=== PATIENT | female | born 1935 | race African-American/Black ===

== ENCOUNTER 2018-04-24 13:38 | Observation (INO) | payer BC, MEDICARE ==
[2018-04-24 14:01] LABS: ADD MAN DIFF? NO
[2018-04-24 14:04] LABS: BASO # 0.1 x10^3/uL (0.0-0.2); BASO % 1 % (0-3); EOS % 0 % (0-3); HEMATOCRIT 54.6 % (36.0-47.0); HEMOGLOBIN 18.9 g/dL (12.0-15.5); LYMPH # 1.4 x10^3/uL (1.0-4.8); LYMPH % 12 % (24-48); MEAN CORPUSCULAR HEMOGLOBIN 30 pg (25-35); MEAN CORPUSCULAR HGB CONC 35 g/dL (31-37); MEAN CORPUSCULAR VOLUME 87 fL (79-100); MONO # 0.2 x10^3/uL (0.0-1.1); MONO % 2 % (0-9); NEUT # 9.4 x10^3uL (1.8-7.7); NEUT % 85 % (31-73); PLATELET COUNT 310 x10^3/uL (140-400); RED BLOOD COUNT 6.31 x10^6/uL (3.50-5.40); RED CELL DISTRIBUTION WIDTH 15.7 % (11.5-14.5)
[2018-04-24 14:17] LABS: ANION GAP 14 (6-14); BLOOD UREA NITROGEN 11 mg/dL (7-20); BUN/CREATININE RATIO 18 (6-20); CALCIUM 9.8 mg/dL (8.5-10.1); CARBON DIOXIDE 26 mmol/L (21-32); CHLORIDE 103 mmol/L (98-107); CREATININE 0.6 mg/dL (0.6-1.0); GFR 115.2; GLUCOSE 168 mg/dL (70-99); POTASSIUM 3.2 mmol/L (3.5-5.1); SODIUM 143 mmol/L (136-145)
[2018-04-24 14:22] LABS: ALBUMIN 4.4 g/dL (3.4-5.0); ALBUMIN/GLOBULIN RATIO 1.3 (1.0-1.7); ALK PHOS 72 U/L (46-116); ALT (SGPT) 18 U/L (14-59); AST (SGOT) 35 U/L (15-37); LIPASE 68 U/L (73-393); MAGNESIUM 1.9 mg/dL (1.8-2.4); TOTAL BILIRUBIN 0.6 mg/dL (0.2-1.0); TOTAL PROTEIN 7.9 g/dL (6.4-8.2)
[2018-04-24 14:23] LABS: TROPONINI < 0.017 ng/mL (0.000-0.055)
[2018-04-24 14:29] LABS: CKMB MASS 0.5 ng/mL (0.0-3.6); CREATINE KINASE 38 U/L (26-192)
[2018-04-24 14:29] LABS: NT-PRO BNP 51 pg/mL (0-449)
[2018-04-24] MEDS: MORPHINE SULFATE 4 MG/ML DISP.SYRIN. IV (14:56)
[2018-04-24] MEDS: IV NORMAL SALINE 1000ML BAG 1,000 ML IV ×2 (14:57→17:54)
[2018-04-24] MEDS: LABETALOL 20 MG/4 ML DISP.SYRIN. IVP (15:18)
[2018-04-24] MEDS: POTASSIUM CHLORIDE 20 MEQ TABLET.ER. PO (15:19)
[2018-04-24] MEDS ORDERED: ACETAMINOPHEN 500 MG TABLET PO (15:30)
[2018-04-24] MEDS ORDERED: LABETALOL 20 MG/4 ML DISP.SYRIN. IVP (15:30)
[2018-04-24] MEDS ORDERED: DEXTROSE 50% 25 GM / 50ML DISP.SYRIN. IV (15:30)
[2018-04-24] MEDS ORDERED: ONDANSETRON ODT 4 MG TAB.RAPDIS. PO (15:45)
[2018-04-24] MEDS ORDERED: tiZANidine 4 MG TABLET. PO (15:45)
[2018-04-24] MEDS ORDERED: ALBUTEROL SULFATE 2.5 MG/3 ML NEBU. NEB (15:45)
[2018-04-24 15:55] LABS: THYROID STIM HORMONE (TSH) 0.207 uIU/mL (0.358-3.74)
[2018-04-24] MEDS: AZITHROMYCIN 250 MG TABLET. PO (16:52)
[2018-04-24] MEDS: INSULIN LISPRO 300 UNITS/3 ML INSULN.PEN. SQ (17:00)
[2018-04-24] MEDS: guaiFENesin DM 200MG/20MG 10 ML SYRUP PO ×2 (17:53→21:00)
[2018-04-24] MEDS: HYDROcodone/APAP 7.5/325MG 1 TAB TABLET PO (17:54)
[2018-04-24] MEDS: metFORMIN 500 MG TABLET PO (17:55)
[2018-04-24 18:24] LABS: POC GLUCOSE 133 mg/dL (70-99)
[2018-04-24] MEDS: ATORVASTATIN CALCIUM 40 MG TABLET. PO (21:05)
[2018-04-24] MEDS: ALPRAZolam 0.5 MG TABLET PO (21:05)
[2018-04-24] MEDS: BENZONATATE 100 MG CAPSULE. PO (21:05)
[2018-04-24] MEDS: TEMAZEPAM 7.5 MG CAPSULE PO (21:05)
[2018-04-24 21:28] LABS: POC GLUCOSE 112 mg/dL (70-99)
[2018-04-25] MEDS: HYDROcodone/APAP 7.5/325MG 1 TAB TABLET PO ×2 (03:08→21:10)
[2018-04-25 03:50] LABS: POC GLUCOSE 84 mg/dL (70-99)
[2018-04-25 05:01] LABS: ADD MAN DIFF? NO
[2018-04-25 05:43] LABS: ANION GAP 10 (6-14); BLOOD UREA NITROGEN 8 mg/dL (7-20); CALCIUM 8.8 mg/dL (8.5-10.1); CARBON DIOXIDE 26 mmol/L (21-32); CHLORIDE 104 mmol/L (98-107); CREATININE 0.6 mg/dL (0.6-1.0); GFR 115.2; GLUCOSE 118 mg/dL (70-99); MAGNESIUM 1.7 mg/dL (1.8-2.4); POTASSIUM 3.3 mmol/L (3.5-5.1); SODIUM 140 mmol/L (136-145)
[2018-04-25 07:37] LABS: POC GLUCOSE 90 mg/dL (70-99)
[2018-04-25] MEDS: INSULIN LISPRO 300 UNITS/3 ML INSULN.PEN. SQ ×3 (08:00→17:42)
[2018-04-25] MEDS: metFORMIN 500 MG TABLET PO (08:00)
[2018-04-25 08:05] LABS: TROPONINI < 0.017 ng/mL (0.000-0.055)
[2018-04-25] MEDS: ALPRAZolam 0.5 MG TABLET PO ×2 (08:14→21:11)
[2018-04-25] MEDS: MORPHINE SULFATE 2 MG/ML DISP.SYRIN. IV ×3 (08:15→14:26)
[2018-04-25 08:27] LABS: BASO # 0.1 x10^3/uL (0.0-0.2); BASO % 1 % (0-3); EOS # 0.3 x10^3/uL (0.0-0.7); EOS % 2 % (0-3); HEMATOCRIT 50.3 % (36.0-47.0); HEMOGLOBIN 17.1 g/dL (12.0-15.5); LYMPH # 3.6 x10^3/uL (1.0-4.8); LYMPH % 26 % (24-48); MEAN CORPUSCULAR HEMOGLOBIN 30 pg (25-35); MEAN CORPUSCULAR HGB CONC 34 g/dL (31-37); MEAN CORPUSCULAR VOLUME 87 fL (79-100); MONO # 0.6 x10^3/uL (0.0-1.1); MONO % 4 % (0-9); NEUT # 9.3 x10^3uL (1.8-7.7); NEUT % 67 % (31-73); PLATELET COUNT 291 x10^3/uL (140-400); RED BLOOD COUNT 5.77 x10^6/uL (3.50-5.40); RED CELL DISTRIBUTION WIDTH 15.3 % (11.5-14.5); WHITE BLOOD COUNT 13.9 x10^3/uL (4.0-11.0)
[2018-04-25] MEDS: guaiFENesin DM 200MG/20MG 10 ML SYRUP PO ×4 (09:00→21:27)
[2018-04-25] MEDS: BENZONATATE 100 MG CAPSULE. PO ×3 (09:00→21:11)
[2018-04-25] MEDS: LISINOPRIL 20 MG TABLET PO (09:26)
[2018-04-25 10:24] LABS: POC GLUCOSE 111 mg/dL (70-99)
[2018-04-25] MEDS: GLIMEPIRIDE 2 MG TABLET. PO ×2 (11:30→14:39)
[2018-04-25 11:53] LABS: POC GLUCOSE 112 mg/dL (70-99)
[2018-04-25] MEDS: REGADENOSON 0.4 MG/5 ML DISP.SYRIN. IV (12:32)
[2018-04-25] MEDS ORDERED: CONTRAST GIVEN. MC (13:00)
[2018-04-25] MEDS: ONDANSETRON PF 4 MG/2 ML VIAL. IV (13:23)
[2018-04-25] MEDS: IOHEXOL 240 MG/ML 50ML VIAL. PO (13:30)
[2018-04-25] MEDS: IOHEXOL 300 MG/ML 100ML VIAL. IV (13:30)
[2018-04-25] MEDS: guaiFENesin DM 600/30MG 1 TAB TAB.ER.12H PO ×2 (14:40→21:00)
[2018-04-25] MEDS: LINAGLIPTIN 5 MG TABLET PO (14:40)
[2018-04-25] MEDS: POTASSIUM CHLORIDE 20 MEQ TABLET.ER. PO (14:40)
[2018-04-25] MEDS: AZITHROMYCIN 250 MG TABLET. PO (14:40)
[2018-04-25] MEDS: ESTRADIOL 1 MG TABLET. PO (14:41)
[2018-04-25] MEDS: ENOXAPARIN 30 MG/0.3 ML SYRINGE. SQ (14:42)
[2018-04-25] MEDS: HYDROcodone/APAP 5/325MG 1 TAB TABLET PO (14:44)
[2018-04-25] MEDS: cefTRIAXone IV Push 1 GM VIAL. IVP (16:47)
[2018-04-25 17:04] LABS: POC GLUCOSE 202 mg/dL (70-99)
[2018-04-25 20:56] LABS: POC GLUCOSE 73 mg/dL (70-99)
[2018-04-25] MEDS: LACTOBACILLUS RHAMNOSUS GG 1 CAPSULE. PO (21:10)
[2018-04-25] MEDS: ATORVASTATIN CALCIUM 40 MG TABLET. PO (21:10)
[2018-04-25] MEDS: methylPREDNISolone SOD SUCC PF 40 MG/ML VIAL. IV (21:20)
[2018-04-25] MEDS: TEMAZEPAM 7.5 MG CAPSULE PO (21:20)
[2018-04-26 04:56] LABS: BASO % 0 % (0-3); EOS % 0 % (0-3); HEMATOCRIT 49.9 % (36.0-47.0); LYMPH # 0.6 x10^3/uL (1.0-4.8); LYMPH % 5 % (24-48); MEAN CORPUSCULAR HEMOGLOBIN 30 pg (25-35); MEAN CORPUSCULAR HGB CONC 34 g/dL (31-37); MEAN CORPUSCULAR VOLUME 89 fL (79-100); MONO # 0.1 x10^3/uL (0.0-1.1); MONO % 1 % (0-9); NEUT % 94 % (31-73); PLATELET COUNT 276 x10^3/uL (140-400); RED BLOOD COUNT 5.63 x10^6/uL (3.50-5.40); RED CELL DISTRIBUTION WIDTH 15.6 % (11.5-14.5); WHITE BLOOD COUNT 11.6 x10^3/uL (4.0-11.0)
[2018-04-26 04:57] LABS: ADD MAN DIFF? YES
[2018-04-26 05:17] LABS: ANION GAP 9 (6-14); BLOOD UREA NITROGEN 23 mg/dL (7-20); CALCIUM 9.1 mg/dL (8.5-10.1); CARBON DIOXIDE 26 mmol/L (21-32); CHLORIDE 105 mmol/L (98-107); CREATININE 1.1 mg/dL (0.6-1.0); GFR 57.3; GLUCOSE 225 mg/dL (70-99); MAGNESIUM 1.9 mg/dL (1.8-2.4); POTASSIUM 4.8 mmol/L (3.5-5.1); SODIUM 140 mmol/L (136-145)
[2018-04-26 05:25] LABS: % LYMPHS 3 % (24-48); % SEGS 97 % (35-66); PLT ESTIMATE ADEQUATE (ADEQUATE)
[2018-04-26 08:18] LABS: POC GLUCOSE 211 mg/dL (70-99)
[2018-04-26] MEDS: guaiFENesin DM 600/30MG 1 TAB TAB.ER.12H PO (08:58)
[2018-04-26] MEDS: ESTRADIOL 1 MG TABLET. PO (08:58)
[2018-04-26] MEDS: LINAGLIPTIN 5 MG TABLET PO (08:59)
[2018-04-26] MEDS: ALPRAZolam 0.5 MG TABLET PO (08:59)
[2018-04-26] MEDS: BENZONATATE 100 MG CAPSULE. PO (08:59)
[2018-04-26] MEDS: GLIMEPIRIDE 2 MG TABLET. PO (08:59)
[2018-04-26] MEDS: AZITHROMYCIN 250 MG TABLET. PO (08:59)
[2018-04-26] MEDS: methylPREDNISolone SOD SUCC PF 40 MG/ML VIAL. IV (09:00)
[2018-04-26] MEDS: LISINOPRIL 20 MG TABLET PO (09:00)
[2018-04-26] MEDS: LACTOBACILLUS RHAMNOSUS GG 1 CAPSULE. PO (09:00)
[2018-04-26] MEDS: INSULIN LISPRO 300 UNITS/3 ML INSULN.PEN. SQ ×2 (09:20→12:00)
[2018-04-26] MEDS: ENOXAPARIN 30 MG/0.3 ML SYRINGE. SQ (11:00)
[2018-04-26 11:02] LABS: POC GLUCOSE 291 mg/dL (70-99)
== END 2018-04-26 14:30 | disposition home or self-care (01) ==
LOC: ER 13:38 → 2 SOUTH 15:25
DX: R07.89 Other chest pain (principal); R00.0 Tachycardia, unspecified; J44.1 Chronic obstructive pulmonary disease with (acute) exacerbation; D75.1 Secondary polycythemia; E78.00 Pure hypercholesterolemia, unspecified; E78.5 Hyperlipidemia, unspecified; E87.6 Hypokalemia; F17.210 Nicotine dependence, cigarettes, uncomplicated; F41.9 Anxiety disorder, unspecified; K21.9 Gastro-esophageal reflux disease without esophagitis; K57.90 Diverticulosis of intestine, part unspecified, without perforation or abscess without bleeding; M19.90 Unspecified osteoarthritis, unspecified site; E11.51 Type 2 diabetes mellitus with diabetic peripheral angiopathy without gangrene
CPT/HCPCS: 36415; 71045; 71260; 74177; 78452; 80048; 80053; 82553; 82962; 83690; 83735; 83880; 84439; 84443; 84481; 84484; 85007; 85025; 85379; 93005; 93017; 93923; 96361; 96365; 96372; 96374; 96375; 96376; 97161-GP; 97166-GO; 99285-25; A9500; G0378; G0379; J0690; J0696; J1650; J1815; J2270; J2405; J2785; J2920; J3490; J7030; Q0144; Q9966; Q9967

== ENCOUNTER 2018-06-26 06:56 | Outpatient (CLI) | payer BC ==
[~2018-06-26] VITALS: Ht 152.4 cm; Wt 46.7 kg
[2018-06-26] VITALS (9 sets, daily range): BP systolic 143–166; BP diastolic 66–104
[~2018-06-26 06:56] MED LIST: ALPR0.254 PO; ALPR0.5T6 PO; AMIT100T PO; AMLO10TA2 PO; ATOR20TA PO; CETI10TA22 PO; CLIN150C14 PO; CLON0.3T PO; CRESTOR40 MG PO; CYCL10TA2 PO; DILT180C29 PO; ESOM40CA25 PO; ESTR0.5T PO; ESTR0.9T PO; GLIM1TAB2 PO; GLIM2TAB2 PO; GUAI5LIQ PO; HYDR-2758 PO; HYDR-2762 PO; HYDR25TA9 PO; LISI-130 PO; LISI2.5T PO; METF500T9 PO; METO-247 PO; METO100T7 PO; NYST100054 PO; ONDA4TAB11 PO; POTA20TA12 PO; PRED2.5T PO; SIMV40TA3 PO; SITA100T PO; TIZA4TAB PO
[2018-06-26] MEDS ORDERED: ALPR0.5T6 PO (07:18)
[2018-06-26] MEDS ORDERED: DIAZ5TAB4 PO (07:18)
[2018-06-26] MEDS ORDERED: MECL25TA3 PO (07:18)
[2018-06-26] MEDS ORDERED: AMLO10TA2 PO (07:18)
[2018-06-26] MEDS ORDERED: POTA20TA82 PO (07:18)
[2018-06-26 07:40] LABS: BASO # 0.1 x10^3/uL (0.0-0.2); BASO % 1 % (0-3); EOS # 0.2 x10^3/uL (0.0-0.7); EOS % 2 % (0-3); HEMATOCRIT 53.9 % (36.0-47.0); HEMOGLOBIN 18.6 g/dL (12.0-15.5); LYMPH # 2.7 x10^3/uL (1.0-4.8); LYMPH % 21 % (24-48); MEAN CORPUSCULAR HEMOGLOBIN 30 pg (25-35); MEAN CORPUSCULAR HGB CONC 35 g/dL (31-37); MEAN CORPUSCULAR VOLUME 87 fL (79-100); MONO # 0.6 x10^3/uL (0.0-1.1); MONO % 5 % (0-9); NEUT # 9.2 x10^3uL (1.8-7.7); NEUT % 72 % (31-73); PLATELET COUNT 341 x10^3/uL (140-400); RED BLOOD COUNT 6.19 x10^6/uL (3.50-5.40); RED CELL DISTRIBUTION WIDTH 13.8 % (11.5-14.5); WHITE BLOOD COUNT 12.8 x10^3/uL (4.0-11.0)
[2018-06-26 07:54] LABS: PROTHROMBIN TIME PATIENT 12.9 SEC (11.7-14.0)
[2018-06-26] MEDS ORDERED: LIDOCAINE WITH 8.4% SOD BICARB 3 ML DISP.SYRIN. ONE (08:11)
[2018-06-26] MEDS ORDERED: fentaNYL PF VIAL 100 MCG/2 ML VIAL ONE (08:42)
[2018-06-26] MEDS ORDERED: LIDOCAINE WITH 8.4% SOD BICARB 3 ML DISP.SYRIN. IJ ONE (09:00)
[2018-06-26] MEDS ORDERED: fentaNYL PF VIAL 100 MCG/2 ML VIAL IV ONE (09:00)
--- NOTE | 2018-06-26 09:25 | RAD ---
CT-guided bone marrow biopsy. 06/26/2018 9:20 AM Indication: Polycythemia Discussion: The risks and benefits of the procedure, including but not limited to, bleeding and infection were discussed patient. Informed consent was obtained. The patient was brought to the CT scanner and placed in the prone position. A timeout procedure was performed. Disposal Man CT imaging of the pelvis demonstrated left ilium amenable to bone marrow biopsy. The overlying soft tissues were prepped and draped using maximum sterile barrier technique. 1% lidocaine without epinephrine was administered for local anesthesia. Under intermittent CT guidance, an OncControl needle was advanced into the bone marrow of the left iliac crest. 2 Aspirates and 1 core biopsy samples were obtained. Samples were delivered to pathology was present at the time of procedure. The needle was removed and manual pressure held to achieve hemostasis. No immediate complications were identified. The procedure was performed under conscious sedation including continuous cardiopulmonary monitoring via dedicated sedation nurse. Sedation time: 20 minutes Impression: Successful CT-guided bone marrow biopsy of the left iliac crest . PQRS Compliance Statement: One or more of the following individualized dose reduction techniques were utilized for this examination: 1. Automated exposure control 2. Adjustment of the mA and/or kV according to patient size 3. Use of iterative reconstruction technique
== END 2018-06-26 10:58 | disposition home or self-care (01) ==
LOC: INTRAD 06:56
PROVIDERS: ATTEND Internal Medicine Hematology & Oncology
DX: D45 Polycythemia vera (principal); E78.00 Pure hypercholesterolemia, unspecified; I48.91 Unspecified atrial fibrillation; I10 Essential (primary) hypertension; J44.9 Chronic obstructive pulmonary disease, unspecified; Z99.81 Dependence on supplemental oxygen; Z90.49 Acquired absence of other specified parts of digestive tract; K21.9 Gastro-esophageal reflux disease without esophagitis; Z90.710 Acquired absence of both cervix and uterus; M79.7 Fibromyalgia; M19.90 Unspecified osteoarthritis, unspecified site; E11.9 Type 2 diabetes mellitus without complications; F41.9 Anxiety disorder, unspecified; Z98.890 Other specified postprocedural states; Z82.49 Family history of ischemic heart disease and other diseases of the circulatory system; Z88.8 Allergy status to other drugs, medicaments and biological substances; Z88.6 Allergy status to analgesic agent; Z83.3 Family history of diabetes mellitus; Z79.84 Long term (current) use of oral hypoglycemic drugs; Z79.899 Other long term (current) drug therapy; F17.210 Nicotine dependence, cigarettes, uncomplicated
CPT/HCPCS: 36415; 38222; 77012; 85025; 85610; 88184; 88185; 88237; 99152; J3010

== ENCOUNTER → 2019-09-16 | Outpatient (CLI) | payer BC ==
[2018-06-26 09:45] VITALS: BP 156/66
[~2019-09-16] MED LIST changes: -AMLO10TA2 PO; +AMLO10TA8 PO; +DIAZ5TAB4 PO; -GLIM1TAB2 PO; +GLIM1TAB3 PO; -GLIM2TAB2 PO; +GLIM2TAB3 PO; +HYDR-2145 PO; -HYDR-2758 PO; +HYDR-2761 PO; -HYDR-2762 PO; +HYDR-2765 PO; -HYDR25TA9 PO; +MECL25TA3 PO; +METF500T11 PO; -METF500T9 PO; +POTA20TA82 PO; +SIMV40TA18 PO; -SIMV40TA3 PO; -TIZA4TAB PO; +TIZA4TAB2 PO
--- NOTE | 2019-09-16 16:15 | RAD ---
EXAM: Right shoulder, 3 views. HISTORY: Pain. COMPARISON: None. FINDINGS: 3 views of the right shoulder obtained. There is no fracture, dislocation or subluxation. There is degenerative subchondral sclerosis, subchondral cyst formation and marginal spurring along the inferior glenohumeral joint. There is facet arthropathy involving the visualized cervical spine. IMPRESSION: 1. Mild glenohumeral osteoarthritis. 2. No acute osseous finding. Electronically signed by: Daphne Colbert MD (09/16/2019 4:12 PM) [facility]
== END | disposition home or self-care (01) ==
LOC: RAD 10:43
PROVIDERS: ATTEND Family Medicine
DX: M19.011 Primary osteoarthritis, right shoulder (principal); M25.811 Other specified joint disorders, right shoulder; M75.81 Other shoulder lesions, right shoulder
CPT/HCPCS: 73030

== ENCOUNTER → 2020-01-01 | Day surgery (SDC) | payer BC, MEDICAID ==
[~2020-01-01] MED LIST changes: +ALBUTEROL SULFATE 2.5 MG/3 ML NEBU. NEB PRN; +ALPR0.25 PO; +AMOX1TAB58 PO; -CETI10TA22 PO; +CETI10TA24 PO; +CLON0.2T PO; +ENOX40DI3 SQ; +EPINEPHrine 1 MG/ML VIAL INJ PRN; +EPINEPHrine 1 MG/ML VIAL ONE; +FOLI20CA PO; -GLIM1TAB3 PO; +GLIM1TAB7 PO; -GLIM2TAB3 PO; +GLIM2TAB7 PO; +GUAI237L83 PO; +HYDR-2868 PO; +HYDR12.575 PO; +IPRA3AMP29 NEB; +IV RINGERS,LACTATED 1000ML 1,000 ML IV SCH; +LIDOCAINE 1% Multi-Dose 20 ML VIAL. ONE; +LIDOCAINE 2% PF 5 ML VIAL. ONE; +LIDOCAINE 2% VISCOUS 100 ML BOTTLE. MM PRN; +LIDOCAINE 2% VISCOUS 100 ML BOTTLE. ONE; +LIDOCAINE 4% TOPICAL 50 ML SOLUTION. MM PRN; +LIDOCAINE 4% TOPICAL 50 ML SOLUTION. ONE; +MECL-75 PO; -MECL25TA3 PO; +METO50TA6 PO; +OMEG1CAP27 PO; +ONDA-84 PO; -ONDA4TAB11 PO; +PANT40TA77 PO; +POTA20TA4 PO; -POTA20TA82 PO; +PRED-220 PO; +PRED20TA PO; +PRED50TA PO; +PROPOFOL 40 ML IV ONE; +ROFL500T7 PO; +RUXO10TA PO; +hydrALAZINE 20 MG/ML VIAL. IVP ONE
[2020-01-01 10:49] LABS: BASO % 1 % (0-3); EOS # 0.2 x10^3/uL (0.0-0.7); EOS % 2 % (0-3); HEMATOCRIT 30.7 % (36.0-47.0); HEMOGLOBIN 10.2 g/dL (12.0-15.5); LYMPH # 1.5 x10^3/uL (1.0-4.8); LYMPH % 19 % (24-48); MEAN CORPUSCULAR HEMOGLOBIN 30 pg (25-35); MEAN CORPUSCULAR HGB CONC 33 g/dL (31-37); MEAN CORPUSCULAR VOLUME 89 fL (79-100); MONO # 0.4 x10^3/uL (0.0-1.1); MONO % 5 % (0-9); NEUT # 5.6 x10^3/uL (1.8-7.7); NEUT % 73 % (31-73); PLATELET COUNT 297 x10^3/uL (140-400); RED BLOOD COUNT 3.43 x10^6/uL (3.50-5.40); RED CELL DISTRIBUTION WIDTH 16.6 % (11.5-14.5); WHITE BLOOD COUNT 7.7 x10^3/uL (4.0-11.0)
[2020-01-01 11:10] LABS: PROTHROMBIN TIME PATIENT 13.2 SEC (11.7-14.0)
--- NOTE | 2020-01-01 12:22 | OP ---
DATE OF SURGERY: PROCEDURE: Bronchoscopy. INDICATIONS: Collapsed left lower lobe. DESCRIPTION OF PROCEDURE: Informed consent was obtained from the patient. All risks and benefits were explained. Propofol was used by Anesthesia for sedation. Bronch was introduced through the right nostril. The upper airway was passed. Some secretions seen in the upper airway. Vocal cords moves equally with respiration. The trachea was entered. White secretions seen in the trachea, which were present in both the main stem bronchus observed. The right lung was first examined. All subsegments of right upper, right middle and right lower lobe were examined. Mild thick secretions seen in the bronchus intermedius and lower lobes and they were all aspirated. Bronch was then introduced into the left lung. There were mucoid secretions seen in the left lower lobe. There was significant narrowing of the bronchopulmonary segments involving the left lower lobe, especially the superior subsegment, suggesting bronchomalacia. Bronchoalveolar lavage from the left lower lobe. The superior subsegment appeared to have very narrow opening and some dried secretions. They were removed partially. However, during the procedure, the patient's systolic blood pressure went up to 250. Her sats dropped as well in the 80s. As a result, bronchoscope was withdrawn and was not further continued. Her blood pressure did improve during the 180s upon termination of the procedure and sats were 98%. IMPRESSION: 1. Mildly thick secretions seen in the distal trachea and both the main stem bronchus. 2. 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 3. Thick dried secretions seen in the superior subsegment of the left lower lobe. Bronchoalveolar lavage performed from that area. I did not see a definite endobronchial lesion; however, she needs to be clinically and radiographically followed. 4. Procedure was terminated as patient's blood pressure became pretty high during the procedure as discussed above, but it did subsequently improve upon termination of the procedure. 4. I have discussed with Dr. Gallardo. He will follow the culture results at the [facility]. EUGENIO HIGUERA MD DR: BRIAN/ruy JOB#: [id number] / [id number]
[2020-01-01 13:00] VITALS: BP 209/97
--- NOTE | 2020-01-08 20:54 | CONS ---
DATE OF CONSULTATION: 01/01/2020 BRIEF CONSULTATION PRIOR TO BRONCHOSCOPY INDICATION FOR BRONCHOSCOPY: Persistent left lower lobe atelectasis and mucous plug. HISTORY OF PRESENT ILLNESS: The patient is an 81-year-old female who has history of chronic hypoxic respiratory failure, history of chronic obstructive pulmonary disease, history of pneumonias in the past. She is currently at skilled care facility. She was brought into the hospital at [facility] for an outpatient bronchoscopy due to persistent left lower lobe atelectatic consolidation, which had increased. There was resolution of previous right basal consolidation. She denies any chest pains, no cough, no fever, no chills. PAST MEDICAL HISTORY: Significant for anxiety, diabetes, gastroesophageal reflux disease, hypertension, hyperlipidemia, chronic obstructive pulmonary disease, and chronic respiratory failure. PAST SURGICAL HISTORY: No recent surgeries. FAMILY HISTORY: Positive for diabetes and hypertension. REVIEW OF SYSTEMS: Ten-point system obtained. Pertinent positives discussed in my history of present illness, otherwise noncontributory. All systems that were negative were reviewed as well. ALLERGIES: None. MEDICATIONS: Reviewed as listed in the MRAD. PHYSICAL EXAMINATION: VITAL SIGNS: Reviewed, stable. NECK: Supple. LUNGS: Slightly diminished breath sounds. CARDIOVASCULAR: With a regular rate. ABDOMEN: Soft. EXTREMITIES: With no pitting edema. IMPRESSION: 1. Abnormal CT chest with increasing left lower lobe atelectasis, likely related to mucus plug. We will proceed with bronchoscopy to rule out any endobronchial obstruction. 2. Chronic obstructive pulmonary disease, clinically compensated. RECOMMENDATIONS: Proceed with bronchoscopy. All risks and benefits were explained and she agreed to proceed with the procedure. The patient to follow with Dr. Young in the office post-bronchoscopy and also I have discussed with Dr. Gallardo. EUGENIO HIGUERA MD DR: BRIAN/ruy JOB#: [id number] / [id number]
== END | disposition home or self-care (01) ==
LOC: SURG 09:58 → EDSTATUS 11:00 → SURG 12:45
PROVIDERS: ATTEND Internal Medicine Critical Care Medicine
DX: R91.8 Other nonspecific abnormal finding of lung field (principal); J98.09 Other diseases of bronchus, not elsewhere classified; J44.9 Chronic obstructive pulmonary disease, unspecified; J96.10 Chronic respiratory failure, unspecified whether with hypoxia or hypercapnia; F41.9 Anxiety disorder, unspecified; E11.9 Type 2 diabetes mellitus without complications; K21.9 Gastro-esophageal reflux disease without esophagitis; I10 Essential (primary) hypertension; E78.5 Hyperlipidemia, unspecified; Z88.8 Allergy status to other drugs, medicaments and biological substances; Z88.6 Allergy status to analgesic agent; Z83.3 Family history of diabetes mellitus; Z82.49 Family history of ischemic heart disease and other diseases of the circulatory system
CPT/HCPCS: 31624; 36415; 85025; 85610; 87070; 87186; 87205; 88112; 94640; J0171; J0360; J2704; J3490; J7120; 31622

== ENCOUNTER 2020-01-19 14:50 | Inpatient (IN) | payer BC, MEDICAID ==
[~2020-01-19] VITALS: Ht 152.4 cm; Wt 45.2 kg
[~2020-01-19 14:50] MED LIST changes: -ALBUTEROL SULFATE 2.5 MG/3 ML NEBU. NEB PRN; -EPINEPHrine 1 MG/ML VIAL INJ PRN; -EPINEPHrine 1 MG/ML VIAL ONE; -IV RINGERS,LACTATED 1000ML 1,000 ML IV SCH; -LIDOCAINE 1% Multi-Dose 20 ML VIAL. ONE; -LIDOCAINE 2% PF 5 ML VIAL. ONE; -LIDOCAINE 2% VISCOUS 100 ML BOTTLE. MM PRN; -LIDOCAINE 2% VISCOUS 100 ML BOTTLE. ONE; -LIDOCAINE 4% TOPICAL 50 ML SOLUTION. MM PRN; -LIDOCAINE 4% TOPICAL 50 ML SOLUTION. ONE; -PRED-220 PO; -PROPOFOL 40 ML IV ONE; -hydrALAZINE 20 MG/ML VIAL. IVP ONE
[2020-01-19] MEDS ORDERED: IPRATRPIUM/ALBUTEROL 0.5/2.5MG 3 ML NEBU. NEB ONE ×2 (15:15→20:00)
--- NOTE | 2020-01-19 15:21 | PHYS DOC ---
Past Medical History Past Medical History: A-Fib, COPD, Diabetes-Type II, GERD, High Cholesterol, Hypertension (DORIS ISABEL APRN) Past Surgical History: Appendectomy, Cholecystectomy, Hysterectomy Additional Past Surgical Histo: LOOP RECORDER (DORIS ISABEL APRN) Smoking Status: Former Smoker Alcohol Use: None Drug Use: None (DORIS ISABEL APRN) Adult General Chief Complaint Chief Complaint: WEAKNESS/GENERALIZED HPI HPI Patient is a 84 year old female who presents with cough this been ongoing for a month but not getting better. Patient has been running some fevers intermittently. She has been on O2 at home. She is just discharged from the hospital for pneumonia. (DORIS ISABEL APRN) Review of Systems Review of Systems Constitutional: Reports fever or chills [] Eyes: Denies change in visual acuity, redness, or eye pain [] HENT: Denies nasal congestion or sore throat [] Respiratory: Reports cough and shortness of breath [] Cardiovascular: No additional information not addressed in HPI [] GI: Denies abdominal pain, nausea, vomiting, bloody stools or diarrhea [] : Denies dysuria or hematuria [] Musculoskeletal: Denies back pain or joint pain [] Integument: Denies rash or skin lesions [] Neurologic: Denies headache, focal weakness or sensory changes [] Endocrine: Denies polyuria or polydipsia [] Complete systems were reviewed and found to be within normal limits, except as documented in this note. (DORIS ISABEL APRN) Current Medications Current Medications Current Medications Medications (Trade) Dose Ordered Sig/Bruno Start Time Stop Time Status Last Admin Dose Admin Albuterol/ Ipratropium (Duoneb) 3 ml 1X ONCE 01/19/20 15:15 01/19/20 15:16 DC 01/19/20 15:15 3 ML (DORIS CORADO DO) Allergies Allergies Allergies Coded Allergies Type Severity Reaction Last Updated Verified NSAIDS (Non-Steroidal Anti-Inflamma Allergy Intermediate 01/01/20 Yes aspirin Allergy Intermediate 01/01/20 Yes (DORIS CORADO DO) Physical Exam Physical Exam Constitutional: Well developed, well nourished, no acute distress, non-toxic appearance. [] HENT: Normocephalic, atraumatic, bilateral external ears normal, oropharynx moist, no oral exudates, nose normal. [] Eyes: PERRLA, EOMI, conjunctiva normal, no discharge. [] Neck: Normal range of motion, no tenderness, supple, no stridor. [] Cardiovascular:Heart rate regular rhythm, no murmur [] Lungs & Thorax: Bilateral breath sounds have scattered rhonchi. Abdomen: Bowel sounds normal, soft, no tenderness, no masses, no pulsatile masses. [] Skin: Warm, dry, no erythema, no rash. [] Neurologic: Alert and oriented X 3, normal motor function, normal sensory function, no focal deficits noted. [] Psychologic: Affect normal, judgement normal, mood normal. [] (DORIS ISABEL APRN) Current Patient Data Vital Signs Vital Signs Date Time Temp Pulse Resp B/P (MAP) Pulse Ox O2 Delivery O2 Flow Rate FiO2 01/19/20 18:00 102 20 98 01/19/20 16:04 Nasal Cannula 3.0 01/19/20 14:53 97.7 126/60 (82) 97.7 (DORIS CORADO DO) Lab Values Laboratory Tests Test 01/19/20 15:35 01/19/20 17:45 01/19/20 17:49 White Blood Count 22.1 x10^3/uL (4.0-11.0) H Red Blood Count 4.32 x10^6/uL (3.50-5.40) Hemoglobin 12.2 g/dL (12.0-15.5) Hematocrit 37.1 % (36.0-47.0) Mean Corpuscular Volume 86 fL (79-100) Mean Corpuscular Hemoglobin 28 pg (25-35) Mean Corpuscular Hemoglobin Concent 33 g/dL (31-37) Red Cell Distribution Width 17.3 % (11.5-14.5) H Platelet Count 356 x10^3/uL (140-400) Neutrophils (%) (Auto) 90 % (31-73) H Lymphocytes (%) (Auto) 6 % (24-48) L Monocytes (%) (Auto) 4 % (0-9) Eosinophils (%) (Auto) 0 % (0-3) Basophils (%) (Auto) 1 % (0-3) Neutrophils # (Auto) 19.8 x10^3/uL (1.8-7.7) H Lymphocytes # (Auto) 1.4 x10^3/uL (1.0-4.8) Monocytes # (Auto) 0.8 x10^3/uL (0.0-1.1) Eosinophils # (Auto) 0.0 x10^3/uL (0.0-0.7) Basophils # (Auto) 0.1 x10^3/uL (0.0-0.2) Segmented Neutrophils % 96 % (35-66) H Lymphocytes % 2 % (24-48) L Monocytes % 2 % (0-10) Toxic Granulation Slight Platelet Estimate Adequate (ADEQUATE) Prothrombin Time 12.8 SEC (11.7-14.0) Prothrombin Time INR 1.0 (0.8-1.1) Activated Partial Thromboplast Time 26 SEC (24-38) Urine Collection Type U cath Urine Color Yellow Urine Clarity Clear Urine pH 5.5 (<5.0-8.0) Urine Specific [place] 1.015 (1.000-1.030) Urine Protein 30 mg/dL (NEG-TRACE) Urine Glucose (UA) 500 mg/dL (NEG) Urine Ketones (Stick) 15 mg/dL (NEG) Urine Blood Negative (NEG) Urine Nitrite Negative (NEG) Urine Bilirubin Negative (NEG) Urine Urobilinogen Dipstick 0.2 mg/dL (0.2 mg/dL) Urine Leukocyte Esterase Negative (NEG) Urine RBC 0 /HPF (0-2) Urine WBC Rare /HPF (0-4) Urine Squamous Epithelial Cells Mod /LPF Urine Transitional Epithelial Cells Occ /LPF Urine Bacteria 0 /HPF (0-FEW) Lactic Acid Level 1.5 mmol/L (0.4-2.0) Influenza Type A Antigen Negative (NEGATIVE) Influenza Type B Antigen Negative (NEGATIVE) Sodium Level 139 mmol/L (136-145) Potassium Level 2.8 mmol/L (3.5-5.1) *L Chloride Level 99 mmol/L (98-107) Carbon Dioxide Level 32 mmol/L (21-32) Anion Gap 8 (6-14) Blood Urea Nitrogen 18 mg/dL (7-20) Creatinine 0.9 mg/dL (0.6-1.0) Estimated GFR (Cockcroft-Gault) 71.8 BUN/Creatinine Ratio 20 (6-20) Glucose Level 268 mg/dL (70-99) H Calcium Level 8.9 mg/dL (8.5-10.1) Magnesium Level 1.5 mg/dL (1.8-2.4) L Total Bilirubin 0.6 mg/dL (0.2-1.0) Aspartate Amino Transferase (AST) 17 U/L (15-37) Alanine Aminotransferase (ALT) 20 U/L (14-59) Alkaline Phosphatase 57 U/L (46-116) Troponin I Quantitative 0.140 ng/mL (0.000-0.055) Total Protein 6.2 g/dL (6.4-8.2) L Albumin 3.1 g/dL (3.4-5.0) L Albumin/Globulin Ratio 1.0 (1.0-1.7) Procalcitonin < 0.10 ng/mL (0.00-0.10) POC Troponin I 0.10 ng/ml (<0.08) Laboratory Tests 01/19/20 15:35 Laboratory Tests 01/19/20 17:45 (DORIS CORADO DO) Lab Values Laboratory Tests Test 01/19/20 15:35 01/19/20 17:45 01/19/20 17:49 White Blood Count 22.1 x10^3/uL (4.0-11.0) H Red Blood Count 4.32 x10^6/uL (3.50-5.40) Hemoglobin 12.2 g/dL (12.0-15.5) Hematocrit 37.1 % (36.0-47.0) Mean Corpuscular Volume 86 fL (79-100) Mean Corpuscular Hemoglobin 28 pg (25-35) Mean Corpuscular Hemoglobin Concent 33 g/dL (31-37) Red Cell Distribution Width 17.3 % (11.5-14.5) H Platelet Count 356 x10^3/uL (140-400) Neutrophils (%) (Auto) 90 % (31-73) H Lymphocytes (%) (Auto) 6 % (24-48) L Monocytes (%) (Auto) 4 % (0-9) Eosinophils (%) (Auto) 0 % (0-3) Basophils (%) (Auto) 1 % (0-3) Neutrophils # (Auto) 19.8 x10^3/uL (1.8-7.7) H Lymphocytes # (Auto) 1.4 x10^3/uL (1.0-4.8) Monocytes # (Auto) 0.8 x10^3/uL (0.0-1.1) Eosinophils # (Auto) 0.0 x10^3/uL (0.0-0.7) Basophils # (Auto) 0.1 x10^3/uL (0.0-0.2) Segmented Neutrophils % 96 % (35-66) H Lymphocytes % 2 % (24-48) L Monocytes % 2 % (0-10) Toxic Granulation Slight Platelet Estimate Adequate (ADEQUATE) Prothrombin Time 12.8 SEC (11.7-14.0) Prothrombin Time INR 1.0 (0.8-1.1) Activated Partial Thromboplast Time 26 SEC (24-38) Urine Collection Type U cath Urine Color Yellow Urine Clarity Clear Urine pH 5.5 (<5.0-8.0) Urine Specific [place] 1.015 (1.000-1.030) Urine Protein 30 mg/dL (NEG-TRACE) Urine Glucose (UA) 500 mg/dL (NEG) Urine Ketones (Stick) 15 mg/dL (NEG) Urine Blood Negative (NEG) Urine Nitrite Negative (NEG) Urine Bilirubin Negative (NEG) Urine Urobilinogen Dipstick 0.2 mg/dL (0.2 mg/dL) Urine Leukocyte Esterase Negative (NEG) Urine RBC 0 /HPF (0-2) Urine WBC Rare /HPF (0-4) Urine Squamous Epithelial Cells Mod /LPF Urine Transitional Epithelial Cells Occ /LPF Urine Bacteria 0 /HPF (0-FEW) Lactic Acid Level 1.5 mmol/L (0.4-2.0) Influenza Type A Antigen Negative (NEGATIVE) Influenza Type B Antigen Negative (NEGATIVE) Sodium Level 139 mmol/L (136-145) Potassium Level 2.8 mmol/L (3.5-5.1) *L Chloride Level 99 mmol/L (98-107) Carbon Dioxide Level 32 mmol/L (21-32) Anion Gap 8 (6-14) Blood Urea Nitrogen 18 mg/dL (7-20) Creatinine 0.9 mg/dL (0.6-1.0) Estimated GFR (Cockcroft-Gault) 71.8 BUN/Creatinine Ratio 20 (6-20) Glucose Level 268 mg/dL (70-99) H Calcium Level 8.9 mg/dL (8.5-10.1) Magnesium Level 1.5 mg/dL (1.8-2.4) L Total Bilirubin 0.6 mg/dL (0.2-1.0) Aspartate Amino Transferase (AST) 17 U/L (15-37) Alanine Aminotransferase (ALT) 20 U/L (14-59) Alkaline Phosphatase 57 U/L (46-116) Troponin I Quantitative 0.140 ng/mL (0.000-0.055) Total Protein 6.2 g/dL (6.4-8.2) L Albumin 3.1 g/dL (3.4-5.0) L Albumin/Globulin Ratio 1.0 (1.0-1.7) POC Troponin I 0.10 ng/ml (<0.08) Laboratory Tests 01/19/20 15:35 Laboratory Tests 01/19/20 17:45 (DORIS ISABEL APRN) EKG EKG EKG interpreted by Dr. Corado Sinus with rate of 91. (DORIS ISABEL APRN) Radiology/Procedures Radiology/Procedures [][facility] [address] [place] [address] IMAGING REPORT Signed PATIENT: ANGELITA HAM ACCOUNT: [id number] : 1935 LOCATION: ER AGE: 84 SEX: F EXAM STATUS: PRE ER ORD. PHYSICIAN: DORIS ISABEL APRN REASON: Cough, fever PROCEDURE: CHEST AP ONLY AP chest x-ray HISTORY: Cough and fever. FINDINGS: Heart size normal. Mediastinal silhouette unremarkable. Aortic arch calcified plaque. The could be a tiny left pleural effusion along the diaphragm which is stable to mildly decreased. Improved aeration left lower lobe with decreased opacity. Right perihilar upper lobe opacity silhouetting the minor fissure on the prior exam as nearly completely resolved. Pulmonary interstitial reticulation likely edema has also decreased. Bones unremarkable. IMPRESSION: Improvement of the pulmonary infiltrates, and decreased pulmonary interstitial thickening which could be decreasing pulmonary edema or decreasing pneumonitis. Small left pleural effusion is stable to mildly decreased as well. Electronically signed by: Elvis Duvall MD (01/19/2020 3:39 PM) [id number] DICTATED and SIGNED BY: ELVIS DUVALL MD DATE: 01/19/20 1539 (DORIS ISABEL APRN) Course & Med Decision Making Course & Med Decision Making Pertinent Labs and Imaging studies reviewed. (See chart for details) We will get chest x-ray, labs, urine and give supportive care. Discussed the case with Dr. Smith who accepts admission to the hospital. The patient's troponin was elevated, will consult cardiology. We will also trend troponins. The patient also has been having generalized weakness with a white count of 22,000. This is likely elevated due to steroid use. Patient is also been having a COPD exacerbation so will have respiratory give treatments to her while in the hospital. Potassium was 2.8 will replace potassium. Magnesium was 1.5 will give a gram of magnesium. (DORIS ISABEL APRN) Dragon Disclaimer Dragon Disclaimer This electronic medical record was generated, in whole or in part, using a voice recognition dictation system. (DORIS ISABEL APRN) Departure Departure Impression: Primary Impression: Weakness Additional Impressions: Elevated troponin I measurement COPD exacerbation Hyperglycemia Acute hypokalemia Hypomagnesemia Disposition: ADMITTED INPATIENT Admitting Physician: Jordy Gallardo (DORIS ISABEL APRN) Condition: STABLE Referrals: XIOMARA IVAN (PCP) Attending Signature Attending Signature I have reviewed the PA/PLANT PROPAGATOR's note and plan of care. I was available for consultation as needed during the patient's visit in the emergency department. I agree with the clinical impression, plan, and disposition. (DORIS CORADO DO) Problem Qualifiers DORIS ISABEL APRN Jan 19, 2020 15:21 DORIS CORADO DO Jan 19, 2020 20:42
--- NOTE | 2020-01-19 15:42 | RAD ---
AP chest x-ray HISTORY: Cough and fever. FINDINGS: Heart size normal. Mediastinal silhouette unremarkable. Aortic arch calcified plaque. The could be a tiny left pleural effusion along the diaphragm which is stable to mildly decreased. Improved aeration left lower lobe with decreased opacity. Right perihilar upper lobe opacity silhouetting the minor fissure on the prior exam as nearly completely resolved. Pulmonary interstitial reticulation likely edema has also decreased. Bones unremarkable. IMPRESSION: Improvement of the pulmonary infiltrates, and decreased pulmonary interstitial thickening which could be decreasing pulmonary edema or decreasing pneumonitis. Small left pleural effusion is stable to mildly decreased as well. Electronically signed by: Jarvis Duvall MD (01/19/2020 3:39 PM) [id number]
[2020-01-19 15:55] LABS: BASO # 0.1 x10^3/uL (0.0-0.2); BASO % 1 % (0-3); EOS % 0 % (0-3); HEMATOCRIT 37.1 % (36.0-47.0); HEMOGLOBIN 12.2 g/dL (12.0-15.5); LYMPH # 1.4 x10^3/uL (1.0-4.8); LYMPH % 6 % (24-48); MEAN CORPUSCULAR HEMOGLOBIN 28 pg (25-35); MEAN CORPUSCULAR HGB CONC 33 g/dL (31-37); MEAN CORPUSCULAR VOLUME 86 fL (79-100); MONO # 0.8 x10^3/uL (0.0-1.1); MONO % 4 % (0-9); NEUT # 19.8 x10^3/uL (1.8-7.7); NEUT % 90 % (31-73); PLATELET COUNT 356 x10^3/uL (140-400); RED BLOOD COUNT 4.32 x10^6/uL (3.50-5.40); RED CELL DISTRIBUTION WIDTH 17.3 % (11.5-14.5); WHITE BLOOD COUNT 22.1 x10^3/uL (4.0-11.0)
[2020-01-19 15:57] LABS: BILIRUBIN,URINE NEGATIVE (NEG); CLARITY,URINE CLEAR; COLOR,URINE YELLOW; NITRITE,URINE NEGATIVE (NEG); PH,URINE 5.5 (<5.0-8.0); PROTEIN,URINE 30 mg/dL (NEG-TRACE); UROBILINOGEN,URINE 0.2 mg/dL (0.2 mg/dL)
[2020-01-19 16:12] LABS: PROTHROMBIN TIME PATIENT 12.8 SEC (11.7-14.0)
[2020-01-19 16:15] LABS: BACTERIA,URINE 0 /HPF (0-FEW); RBC,URINE 0 /HPF (0-2); SQUAMOUS EPITHELIAL CELL,UR MOD /LPF; WBC,URINE RARE /HPF (0-4)
[2020-01-19 16:52] LABS: % LYMPHS 2 % (24-48); % MONOS 2 % (0-10); % SEGS 96 % (35-66)
[2020-01-19 16:53] LABS: PLT ESTIMATE ADEQUATE (ADEQUATE); TOXIC GRANULATION SLIGHT
[2020-01-19 17:20] LABS: INFLUENZA A PATIENT NEGATIVE (NEGATIVE); INFLUENZA B PATIENT NEGATIVE (NEGATIVE)
[2020-01-19 18:00] LABS: ALBUMIN 3.1 g/dL (3.4-5.0); CALCIUM 8.9 mg/dL (8.5-10.1); CREATININE 0.9 mg/dL (0.6-1.0); GFR 71.8; MAGNESIUM 1.5 mg/dL (1.8-2.4); TOTAL BILIRUBIN 0.6 mg/dL (0.2-1.0); TOTAL PROTEIN 6.2 g/dL (6.4-8.2)
[2020-01-19 18:07] LABS: POTASSIUM 2.8 mmol/L (3.5-5.1)
--- NOTE | 2020-01-19 18:23 | EKG ---
[facility] [address] [place] [address] Test Date: 2020-01-19 Test Time: 15:34:35 Pat Name: ANGELITA HAM Department: Room: Gender: F Signal Engineer: : 1935 Requested By: DORIS ISABEL Order Number: [id number] Reading MD: Measurements Intervals [place] Rate: 90 P: 43 IA: 128 QRS: 26 QRSD: 92 T: 24 QT: 372 QTc: 459 Interpretive Statements SINUS RHYTHM LEFT ATRIAL ABNORMALITY INCOMPLETE RIGHT BUNDLE BRANCH BLOCK ABNORMAL ECG No previous ECG available for comparison
[2020-01-19] MEDS ORDERED: POTASSIUM CHLORIDE 20 MEQ TABLET.ER. PO STA (18:28)
[2020-01-19] MEDS ORDERED: MAGNESIUM SULFATE 1GM 100 ML IV ONE (18:30)
[2020-01-19] MEDS ORDERED: ONDANSETRON PF 4 MG/2 ML VIAL. IV PRN (18:30)
[2020-01-19 20:10] VITALS: BP 174/96
--- NOTE | 2020-01-19 22:10 | NUR ---
Call placed to Dr. Gallardo for further admit orders
[2020-01-19 22:45] VITALS: BP 180/79
--- NOTE | 2020-01-19 22:50 | NUR ---
Pt arrived to unit per cart, pt assisted to bed vs obtained and stable poc explained pt denies pain at this time call light in reach bed alarm placed will resume care and continue to monitor pt.
[2020-01-20 03:00] VITALS: BP 181/81
[2020-01-20 07:00] VITALS: BP 173/79
[2020-01-20] MEDS ORDERED: IPRATRPIUM/ALBUTEROL 0.5/2.5MG 3 ML NEBU. ONE (07:17)
[2020-01-20 10:20] LABS: CALCIUM 8.9 mg/dL (8.5-10.1); CREATININE 0.7 mg/dL (0.6-1.0); POTASSIUM 3.3 mmol/L (3.5-5.1)
[2020-01-20] MEDS ORDERED: POTASSIUM CHLORIDE 20 MEQ TABLET.ER. PO ONE (10:30)
[2020-01-20] MEDS ORDERED: ALPRAZolam 0.25 MG TABLET PO PRN (10:30)
--- NOTE | 2020-01-20 10:42 | PDOC1 ---
History and Physical Date of Admission Date of Admission DATE: 01/20/20 TIME: 10:31 Identification/Chief Complaint Chief Complaint Shortness of breath which is ongoing problem. Source Source: Patient History of Present Illness History of Present Illness Ms. Cecily Patel is a 84-year-old female ,patient has been in and out of the hospital multiple times lately. Patient was discharged home within last 2 to 3 days. Last admission she had a pneumonia and a spontaneous pneumothorax for which she had a chest tube placed in the left lung. She did improve and was discharged back home with home health. Patient was highly recommended to go to long-term shelter but patient adamantly refused. Patient was having cough with shortness of breath not able to take care of herself at home and patient was brought to the hospital she was tachycardic. She also had elevated white count 22,000 probably from prednisone. She has had a low potassium 2.8 which was replaced in the emergency room. She was admitted for further cardiac intervention to control the heart rate and also placement. Past Medical History Cardiovascular: HTN, Hyperlipidemia, Other Pulmonary: COPD CENTRAL NERVOUS SYSTEM: Other GI: Diverticulosis, GERD Heme/Onc: No pertinent hx Hepatobiliary: No pertinent hx Psych: Anxiety Musculoskeletal: Osteoarthritis Rheumatologic: Fibromyalgia Infectious disease: No pertinent hx Renal/: No pertinent hx Endocrine: Diabetes Past Surgical History Past Surgical History: Appendectomy, Cholecystectomy, Hernia Repair, Tonsillectomy, Hysterectomy Family History Family History: Heart Disease, Hypertension, Osteo Arthiritis Family History: Parent Social History Smoke: 1 pack per day ALCOHOL: none Drugs: None Current Problem List Problem List Problems Medical Problems: (1) Acute hypokalemia Status: Acute (2) COPD exacerbation Status: Acute (3) Elevated troponin I measurement Status: Acute (4) Hyperglycemia Status: Acute (5) Hypomagnesemia Status: Acute (6) Weakness Status: Acute Current Medications Current Medications Current Medications Albuterol/ Ipratropium (Duoneb) 3 ml 1X ONCE NEB Last administered on 01/19/20at 15:15; Start 01/19/20 at 15:15; Stop 01/19/20 at 15:16; Status DC Ondansetron HCl (Zofran) 4 mg PRN Q8HRS PRN IV NAUSEA/VOMITING; Start 01/19/20 at 18:30; Stop 01/20/20 at 18:29 Potassium Chloride (Klor-Con) 40 meq 1X STAT PO Last administered on 01/19/20at 19:02; Start 01/19/20 at 18:28; Stop 01/19/20 at 18:43; Status DC Magnesium Sulfate/ Dextrose 100 ml @ 100 mls/hr 1X ONCE IV Last administered on 01/19/20at 19:02; Start 01/19/20 at 18:30; Stop 01/19/20 at 19:29; Status DC Albuterol/ Ipratropium (Duoneb) 3 ml RTQID ONCE NEB ; Start 01/19/20 at 20:00; Stop 01/19/20 at 20:01; Status DC Albuterol/ Ipratropium (Duoneb) 3 ml STK-MED ONCE .ROUTE ; Start 01/20/20 at 07:17; Stop 01/20/20 at 07:18; Status DC Active Scripts Active Pantoprazole Sodium (Pantoprazole Sodium) 40 Mg Tablet.dr 40 Mg PO DAILYAC 30 Days Augmentin 500-125 Tablet (Amoxicillin/Potassium Clav) 1 Each Tablet 1 Tab PO BID 7 Days Prednisone 20 Mg Tablet 1 Tab PO DAILY Daliresp (Roflumilast) 500 Mcg Tablet 500 Mcg PO DAILY 30 Days Hydrochlorothiazide Capsule (Hydrochlorothiazide) 12.5 Mg Capsule 12.5 Mg PO DAILY 30 Days Metoprolol Tartrate 50 Mg Tablet 50 Mg PO BID 30 Days Enoxaparin Sodium 40 Mg/0.4 Ml Disp.syrin 40 Mg SQ Q24H 30 Days Duoneb 0.5-3(2.5) Mg/3 Ml (Albuterol/Ipratropium) 3 Ml Ampul.neb 3 Ml NEB RTQID 30 Days Reported Klor-Con M20 (Potassium Chloride) 20 Meq Tab.er.prt 1 Tab PO DAILY 30 Days Hydrocodone-Apap 7.5-325 (Hydrocodone Bit/Acetaminophen) 1 Tab Tablet 1 Tab PO PRN Q6HRS PRN Xanax (Alprazolam) 0.25 Mg Tablet 0.25 Mg PO Q8HRS PRN Hydralazine Hcl 25 Mg Tablet 1 Tab PO TID Clonidine Hcl 0.2 Mg Tablet 0.2 Mg PO BID Allergies Allergies: Coded Allergies: NSAIDS (Non-Steroidal Anti-Inflamma (Verified Allergy, Intermediate, 01/01/20) aspirin (Verified Allergy, Intermediate, 01/01/20) ROS Review of System Patient denies any chest pain. Patient denies vomiting or diarrhea. Patient denies fever. Rest of the 14 system was reviewed and negative Physical Exam General: Cooperative, No acute distress HEENT: Atraumatic Lungs: Normal air movement Heart: other (Tachycardic heart rate of 130) Abdomen: Normal bowel sounds Rectal Exam: not examined Extremities: No edema Skin: No breakdown Neuro: Normal speech Psych/Mental Status: Mood NL Vitals Vitals Vital Signs Date Time Temp Pulse Resp B/P (MAP) Pulse Ox O2 Delivery O2 Flow Rate FiO2 01/20/20 08:00 Nasal Cannula 3.0 01/20/20 07:00 98.7 114 20 173/79 (110) 94 98.7 Labs Labs Laboratory Tests Test 01/19/20 15:35 01/19/20 17:45 01/19/20 17:49 01/19/20 20:36 White Blood Count 22.1 x10^3/uL (4.0-11.0) Red Blood Count 4.32 x10^6/uL (3.50-5.40) Hemoglobin 12.2 g/dL (12.0-15.5) Hematocrit 37.1 % (36.0-47.0) Mean Corpuscular Volume 86 fL (79-100) Mean Corpuscular Hemoglobin 28 pg (25-35) Mean Corpuscular Hemoglobin Concent 33 g/dL (31-37) Red Cell Distribution Width 17.3 % (11.5-14.5) Platelet Count 356 x10^3/uL (140-400) Neutrophils (%) (Auto) 90 % (31-73) Lymphocytes (%) (Auto) 6 % (24-48) Monocytes (%) (Auto) 4 % (0-9) Eosinophils (%) (Auto) 0 % (0-3) Basophils (%) (Auto) 1 % (0-3) Neutrophils # (Auto) 19.8 x10^3/uL (1.8-7.7) Lymphocytes # (Auto) 1.4 x10^3/uL (1.0-4.8) Monocytes # (Auto) 0.8 x10^3/uL (0.0-1.1) Eosinophils # (Auto) 0.0 x10^3/uL (0.0-0.7) Basophils # (Auto) 0.1 x10^3/uL (0.0-0.2) Segmented Neutrophils % 96 % (35-66) Lymphocytes % 2 % (24-48) Monocytes % 2 % (0-10) Toxic Granulation Slight Platelet Estimate Adequate (ADEQUATE) Prothrombin Time 12.8 SEC (11.7-14.0) Prothromb Time International Ratio 1.0 (0.8-1.1) Activated Partial Thromboplast Time 26 SEC (24-38) Urine Collection Type U cath Urine Color Yellow Urine Clarity Clear Urine pH 5.5 (<5.0-8.0) Urine Specific [place] 1.015 (1.000-1.030) Urine Protein 30 mg/dL (NEG-TRACE) Urine Glucose (UA) 500 mg/dL (NEG) Urine Ketones (Stick) 15 mg/dL (NEG) Urine Blood Negative (NEG) Urine Nitrite Negative (NEG) Urine Bilirubin Negative (NEG) Urine Urobilinogen Dipstick 0.2 mg/dL (0.2 mg/dL) Urine Leukocyte Esterase Negative (NEG) Urine RBC 0 /HPF (0-2) Urine WBC Rare /HPF (0-4) Urine Squamous Epithelial Cells Mod /LPF Urine Transitional Epithelial Cells Occ /LPF Urine Bacteria 0 /HPF (0-FEW) Lactic Acid Level 1.5 mmol/L (0.4-2.0) Influenza Type A Antigen Negative (NEGATIVE) Influenza Type B Antigen Negative (NEGATIVE) Sodium Level 139 mmol/L (136-145) Potassium Level 2.8 mmol/L (3.5-5.1) Chloride Level 99 mmol/L (98-107) Carbon Dioxide Level 32 mmol/L (21-32) Anion Gap 8 (6-14) Blood Urea Nitrogen 18 mg/dL (7-20) Creatinine 0.9 mg/dL (0.6-1.0) Estimated GFR (Cockcroft-Gault) 71.8 BUN/Creatinine Ratio 20 (6-20) Glucose Level 268 mg/dL (70-99) Calcium Level 8.9 mg/dL (8.5-10.1) Magnesium Level 1.5 mg/dL (1.8-2.4) Total Bilirubin 0.6 mg/dL (0.2-1.0) Aspartate Amino Transf (AST/SGOT) 17 U/L (15-37) Alanine Aminotransferase (ALT/SGPT) 20 U/L (14-59) Alkaline Phosphatase 57 U/L (46-116) Troponin I Quantitative 0.140 ng/mL (0.000-0.055) Total Protein 6.2 g/dL (6.4-8.2) Albumin 3.1 g/dL (3.4-5.0) Albumin/Globulin Ratio 1.0 (1.0-1.7) Procalcitonin < 0.10 ng/mL (0.00-0.10) Bedside Troponin I 0.10 ng/ml (<0.08) Glucose (Fingerstick) 217 mg/dL (70-99) Test 01/19/20 21:40 01/20/20 00:40 01/20/20 07:22 01/20/20 09:25 Troponin I Quantitative 0.136 ng/mL (0.000-0.055) 0.111 ng/mL (0.000-0.055) Glucose (Fingerstick) 225 mg/dL (70-99) Sodium Level 142 mmol/L (136-145) Potassium Level 3.3 mmol/L (3.5-5.1) Chloride Level 102 mmol/L (98-107) Carbon Dioxide Level 29 mmol/L (21-32) Anion Gap 11 (6-14) Blood Urea Nitrogen 18 mg/dL (7-20) Creatinine 0.7 mg/dL (0.6-1.0) Estimated GFR (Cockcroft-Gault) 96.0 Glucose Level 230 mg/dL (70-99) Calcium Level 8.9 mg/dL (8.5-10.1) Laboratory Tests Test 01/19/20 15:35 01/19/20 17:45 01/19/20 17:49 01/19/20 20:36 White Blood Count 22.1 x10^3/uL (4.0-11.0) Red Blood Count 4.32 x10^6/uL (3.50-5.40) Hemoglobin 12.2 g/dL (12.0-15.5) Hematocrit 37.1 % (36.0-47.0) Mean Corpuscular Volume 86 fL (79-100) Mean Corpuscular Hemoglobin 28 pg (25-35) Mean Corpuscular Hemoglobin Concent 33 g/dL (31-37) Red Cell Distribution Width 17.3 % (11.5-14.5) Platelet Count 356 x10^3/uL (140-400) Neutrophils (%) (Auto) 90 % (31-73) Lymphocytes (%) (Auto) 6 % (24-48) Monocytes (%) (Auto) 4 % (0-9) Eosinophils (%) (Auto) 0 % (0-3) Basophils (%) (Auto) 1 % (0-3) Neutrophils # (Auto) 19.8 x10^3/uL (1.8-7.7) Lymphocytes # (Auto) 1.4 x10^3/uL (1.0-4.8) Monocytes # (Auto) 0.8 x10^3/uL (0.0-1.1) Eosinophils # (Auto) 0.0 x10^3/uL (0.0-0.7) Basophils # (Auto) 0.1 x10^3/uL (0.0-0.2) Segmented Neutrophils % 96 % (35-66) Lymphocytes % 2 % (24-48) Monocytes % 2 % (0-10) Toxic Granulation Slight Platelet Estimate Adequate (ADEQUATE) Prothrombin Time 12.8 SEC (11.7-14.0) Prothromb Time International Ratio 1.0 (0.8-1.1) Activated Partial Thromboplast Time 26 SEC (24-38) Urine Collection Type U cath Urine Color Yellow Urine Clarity Clear Urine pH 5.5 (<5.0-8.0) Urine Specific [place] 1.015 (1.000-1.030) Urine Protein 30 mg/dL (NEG-TRACE) Urine Glucose (UA) 500 mg/dL (NEG) Urine Ketones (Stick) 15 mg/dL (NEG) Urine Blood Negative (NEG) Urine Nitrite Negative (NEG) Urine Bilirubin Negative (NEG) Urine Urobilinogen Dipstick 0.2 mg/dL (0.2 mg/dL) Urine Leukocyte Esterase Negative (NEG) Urine RBC 0 /HPF (0-2) Urine WBC Rare /HPF (0-4) Urine Squamous Epithelial Cells Mod /LPF Urine Transitional Epithelial Cells Occ /LPF Urine Bacteria 0 /HPF (0-FEW) Lactic Acid Level 1.5 mmol/L (0.4-2.0) Influenza Type A Antigen Negative (NEGATIVE) Influenza Type B Antigen Negative (NEGATIVE) Sodium Level 139 mmol/L (136-145) Potassium Level 2.8 mmol/L (3.5-5.1) Chloride Level 99 mmol/L (98-107) Carbon Dioxide Level 32 mmol/L (21-32) Anion Gap 8 (6-14) Blood Urea Nitrogen 18 mg/dL (7-20) Creatinine 0.9 mg/dL (0.6-1.0) Estimated GFR (Cockcroft-Gault) 71.8 BUN/Creatinine Ratio 20 (6-20) Glucose Level 268 mg/dL (70-99) Calcium Level 8.9 mg/dL (8.5-10.1) Magnesium Level 1.5 mg/dL (1.8-2.4) Total Bilirubin 0.6 mg/dL (0.2-1.0) Aspartate Amino Transf (AST/SGOT) 17 U/L (15-37) Alanine Aminotransferase (ALT/SGPT) 20 U/L (14-59) Alkaline Phosphatase 57 U/L (46-116) Troponin I Quantitative 0.140 ng/mL (0.000-0.055) Total Protein 6.2 g/dL (6.4-8.2) Albumin 3.1 g/dL (3.4-5.0) Albumin/Globulin Ratio 1.0 (1.0-1.7) Procalcitonin < 0.10 ng/mL (0.00-0.10) Bedside Troponin I 0.10 ng/ml (<0.08) Glucose (Fingerstick) 217 mg/dL (70-99) Test 01/19/20 21:40 01/20/20 00:40 01/20/20 07:22 01/20/20 09:25 Troponin I Quantitative 0.136 ng/mL (0.000-0.055) 0.111 ng/mL (0.000-0.055) Glucose (Fingerstick) 225 mg/dL (70-99) Sodium Level 142 mmol/L (136-145) Potassium Level 3.3 mmol/L (3.5-5.1) Chloride Level 102 mmol/L (98-107) Carbon Dioxide Level 29 mmol/L (21-32) Anion Gap 11 (6-14) Blood Urea Nitrogen 18 mg/dL (7-20) Creatinine 0.7 mg/dL (0.6-1.0) Estimated GFR (Cockcroft-Gault) 96.0 Glucose Level 230 mg/dL (70-99) Calcium Level 8.9 mg/dL (8.5-10.1) VTE Prophylaxis Ordered VTE Prophylaxis Devices: Yes VTE Pharmacological Prophylaxi: Yes Assessment/Plan Assessment/Plan Impression; 1. Shortness of breath with fatigue secondary to chronic COPD. 2. Tachycardia heart rate of 130 patient has tachycardia-bradycardia syndrome. 3. Chronic COPD with hypoxia on home oxygen. 4. Hypertension. 5. Anxiety 6. Depression chronic. 7. Protein calorie malnutrition. 8. Poor social situation. 9. Hypokalemia. 10. Patient was recently admitted to the hospital for pneumonia and spontaneous pneumothorax. 11. Bronchomalacia left lung, patient had bronchoscopy couple of weeks ago Plan; Patient was admitted to the hospital. Cardiology was consulted for tachycardia. Elevated WBC probably secondary to prednisone. Replace potassium at admission it was 2.8. Patient had a Holter monitor placed 2 weeks ago we will try to get the report of that. Social service consult for placement, patient lives alone at home ideally she would need a long-term shelter placement but patient continues to refuse. copy to Dr. Bill office Hemodynamically unstable?: Yes Respiratory Distress?: Yes Serious Diagnosis?: Yes Is patient at high risk?: Yes AMILCAR BILL MD Jan 20, 2020 10:42
--- NOTE | 2020-01-20 10:49 | PDOC ---
LELA SALAZAR BRAIN WAVE TECHNICIAN 01/20/20 1049: CARDIO Progress Notes Date and Time Date of Service 01/20/20 Time of Evaluation 1030 Subjective Subjective: No Chest Pain, No shortness of breath, No Palpitations, Other (c/o weakness) Vitals Vitals Vital Signs Date Time Temp Pulse Resp B/P (MAP) Pulse Ox O2 Delivery O2 Flow Rate FiO2 01/20/20 08:00 Nasal Cannula 3.0 01/20/20 07:00 98.7 114 20 173/79 (110) 94 98.7 Weight Weight [ ] Input and Output Intake and Output Intake and Output 01/20/20 07:00 Intake Total 300 ml Balance 300 ml Intake Oral 200 ml IV Total 100 ml Laboratory Labs Laboratory Tests Test 01/19/20 15:35 01/19/20 17:45 01/19/20 17:49 01/19/20 20:36 White Blood Count 22.1 x10^3/uL (4.0-11.0) Red Blood Count 4.32 x10^6/uL (3.50-5.40) Hemoglobin 12.2 g/dL (12.0-15.5) Hematocrit 37.1 % (36.0-47.0) Mean Corpuscular Volume 86 fL (79-100) Mean Corpuscular Hemoglobin 28 pg (25-35) Mean Corpuscular Hemoglobin Concent 33 g/dL (31-37) Red Cell Distribution Width 17.3 % (11.5-14.5) Platelet Count 356 x10^3/uL (140-400) Neutrophils (%) (Auto) 90 % (31-73) Lymphocytes (%) (Auto) 6 % (24-48) Monocytes (%) (Auto) 4 % (0-9) Eosinophils (%) (Auto) 0 % (0-3) Basophils (%) (Auto) 1 % (0-3) Neutrophils # (Auto) 19.8 x10^3/uL (1.8-7.7) Lymphocytes # (Auto) 1.4 x10^3/uL (1.0-4.8) Monocytes # (Auto) 0.8 x10^3/uL (0.0-1.1) Eosinophils # (Auto) 0.0 x10^3/uL (0.0-0.7) Basophils # (Auto) 0.1 x10^3/uL (0.0-0.2) Segmented Neutrophils % 96 % (35-66) Lymphocytes % 2 % (24-48) Monocytes % 2 % (0-10) Toxic Granulation Slight Platelet Estimate Adequate (ADEQUATE) Prothrombin Time 12.8 SEC (11.7-14.0) Prothromb Time International Ratio 1.0 (0.8-1.1) Activated Partial Thromboplast Time 26 SEC (24-38) Urine Collection Type U cath Urine Color Yellow Urine Clarity Clear Urine pH 5.5 (<5.0-8.0) Urine Specific [place] 1.015 (1.000-1.030) Urine Protein 30 mg/dL (NEG-TRACE) Urine Glucose (UA) 500 mg/dL (NEG) Urine Ketones (Stick) 15 mg/dL (NEG) Urine Blood Negative (NEG) Urine Nitrite Negative (NEG) Urine Bilirubin Negative (NEG) Urine Urobilinogen Dipstick 0.2 mg/dL (0.2 mg/dL) Urine Leukocyte Esterase Negative (NEG) Urine RBC 0 /HPF (0-2) Urine WBC Rare /HPF (0-4) Urine Squamous Epithelial Cells Mod /LPF Urine Transitional Epithelial Cells Occ /LPF Urine Bacteria 0 /HPF (0-FEW) Lactic Acid Level 1.5 mmol/L (0.4-2.0) Influenza Type A Antigen Negative (NEGATIVE) Influenza Type B Antigen Negative (NEGATIVE) Sodium Level 139 mmol/L (136-145) Potassium Level 2.8 mmol/L (3.5-5.1) Chloride Level 99 mmol/L (98-107) Carbon Dioxide Level 32 mmol/L (21-32) Anion Gap 8 (6-14) Blood Urea Nitrogen 18 mg/dL (7-20) Creatinine 0.9 mg/dL (0.6-1.0) Estimated GFR (Cockcroft-Gault) 71.8 BUN/Creatinine Ratio 20 (6-20) Glucose Level 268 mg/dL (70-99) Calcium Level 8.9 mg/dL (8.5-10.1) Magnesium Level 1.5 mg/dL (1.8-2.4) Total Bilirubin 0.6 mg/dL (0.2-1.0) Aspartate Amino Transf (AST/SGOT) 17 U/L (15-37) Alanine Aminotransferase (ALT/SGPT) 20 U/L (14-59) Alkaline Phosphatase 57 U/L (46-116) Troponin I Quantitative 0.140 ng/mL (0.000-0.055) Total Protein 6.2 g/dL (6.4-8.2) Albumin 3.1 g/dL (3.4-5.0) Albumin/Globulin Ratio 1.0 (1.0-1.7) Procalcitonin < 0.10 ng/mL (0.00-0.10) Bedside Troponin I 0.10 ng/ml (<0.08) Glucose (Fingerstick) 217 mg/dL (70-99) Test 01/19/20 21:40 01/20/20 00:40 01/20/20 07:22 01/20/20 09:25 Troponin I Quantitative 0.136 ng/mL (0.000-0.055) 0.111 ng/mL (0.000-0.055) Glucose (Fingerstick) 225 mg/dL (70-99) Sodium Level 142 mmol/L (136-145) Potassium Level 3.3 mmol/L (3.5-5.1) Chloride Level 102 mmol/L (98-107) Carbon Dioxide Level 29 mmol/L (21-32) Anion Gap 11 (6-14) Blood Urea Nitrogen 18 mg/dL (7-20) Creatinine 0.7 mg/dL (0.6-1.0) Estimated GFR (Cockcroft-Gault) 96.0 Glucose Level 230 mg/dL (70-99) Calcium Level 8.9 mg/dL (8.5-10.1) Physical Exam HEENT: Neck Supple W Full Motion Chest: Symmetric LUNGS: Other (diminished bases) Abdomen: Soft N/T Extremities: No Edema Neurology: alert, oriented, follow commands Assessment Assessment Continuum of care Please see consult 01/07/20 for further details Consult reason; tachycardia, bradycardia Referring physician; Dr. Eisenberg HPI: This is an 84 yo female who presented secondary to persistent cough and intermittent fevers. Was here recently and treated for pneumonia and AE COPD. Was discharged 01/15/20. Has recently been noted with PAFIB and completed 2-week Zio patch. Was just placed in mail. Patient reports she has been very weak since discharge and has had cough. Denies any chest pain, palpitations, dizziness, diaphoresis, SOA, or nausea/vomiting. 1. Weakness, cough; recent PNA. 2. Sinus tachycardia; home medications have not been resumed 3. PAFIB, recently noted. Zio patch complete last week. Just place in the mail. No evidence of AFIB on tele thus far. 4. Accelerated hypertension; remains elevated 5. Mild troponin elevation; peak 0.14. most probably type II, demand ischemia. Recent echo with preserved LV systolic function. CP free. 6. Chronic diastolic CHF; appears compensated 7. AECOPD 8. Hyperlipidemia 9. Diabetes, II 10. Hypokalemia, hypomagnesemia; replaced Recommendations Resume metoprolol for rate control Continue routine oral antiHTN therapy Note AFIB burden with recent Zio patch to guide therapy. May need rehab upon discharge DAVID GUTIÉRREZ MD 01/20/202058: CARDIO Progress Notes Plan Plan Pt. seen and examined. Agree with above LACE MACHINE OPERATOR note Needs rehab placement. Nothing further from CV standpoint on an inpt basis. Thanks LELA SALAZAR APRN Jan 20, 2020 10:49 DAVID GUTIÉRREZ MD Jan 20, 2020 20:59
[2020-01-20 11:00] VITALS: BP 158/69
[2020-01-20] MEDS ORDERED: METOPROLOL TARTRATE 5 MG/5 ML VIAL. IVP ONE (11:00)
[2020-01-20] MEDS: METOPROLOL TART IMMED RELEASE 50 MG TABLET. PO SCH ×2 (11:00→21:22)
[2020-01-20] MEDS: POTASSIUM CHLORIDE 20 MEQ TABLET.ER. PO SCH (11:00)
[2020-01-20] MEDS: AMOXICILLIN/K CLAV 500/125MG TABLET. PO SCH ×2 (11:17→21:21)
[2020-01-20] MEDS: ROFLUMILAST 500 MCG TABLET. PO SCH (11:17)
[2020-01-20] MEDS: cloNIDine HCL 0.2 MG TABLET PO SCH ×2 (11:18→21:21)
[2020-01-20] MEDS: PANTOPRAZOLE 40 MG TABLET.DR. PO SCH (11:18)
[2020-01-20] MEDS: ENOXAPARIN 40 MG/0.4 ML SYRINGE. SQ SCH (11:18)
--- NOTE | 2020-01-20 11:31 | NUR ---
SS following for discharge planning. SS reviewed pt chart. [facility] ; [phone]. Pt recently discharged to home on 01/15/2020. correction unit recommended on last admission but pt was in her co-pay days and did not want to pay co-pays. Pt has home oxygen at home. Pt continuing to decline LTC placement but was agreeable to referrals being sent to [facility], ; fax [phone], and [facility], ; fax [phone], for nursing home unit. senior materials planner, Greta Mccain, kiera and [facility] referrals. SS will await acceptance decision and insurance determination and will proceed accordingly with discharge planning.
--- NOTE | 2020-01-20 12:57 | NUR ---
Potassium 20mEq held. Patient received total of 80 mEq today.
[2020-01-20] MEDS: hydrALAZINE 25 MG TABLET PO SCH ×2 (13:03→21:21)
[2020-01-20] MEDS: IPRATRPIUM/ALBUTEROL 0.5/2.5MG 3 ML NEBU. NEB SCH ×3 (13:54→19:55)
[2020-01-20 15:00] VITALS: BP 147/66
[2020-01-20] MEDS ORDERED: MAGNESIUM SULFATE 2GM 50 ML IV ONE (15:15)
[2020-01-20] MEDS ORDERED: DEXTROSE 50% 25 GM / 50ML DISP.SYRIN. IV PRN (17:15)
[2020-01-20] MEDS ORDERED: INSULIN LISPRO 300 UNITS/3 ML VIAL. SQ ONE (18:00)
[2020-01-20 19:40] VITALS: BP 167/77
[2020-01-20 22:51] VITALS: BP 92/42
[2020-01-21 03:14] VITALS: BP 105/47
[2020-01-21 05:42] LABS: BASO # 0.1 x10^3/uL (0.0-0.2); BASO % 0 % (0-3); EOS # 0.1 x10^3/uL (0.0-0.7); EOS % 0 % (0-3); HEMATOCRIT 30.3 % (36.0-47.0); HEMOGLOBIN 10.1 g/dL (12.0-15.5); LYMPH # 1.8 x10^3/uL (1.0-4.8); LYMPH % 10 % (24-48); MEAN CORPUSCULAR HEMOGLOBIN 29 pg (25-35); MEAN CORPUSCULAR HGB CONC 33 g/dL (31-37); MEAN CORPUSCULAR VOLUME 87 fL (79-100); MONO # 0.7 x10^3/uL (0.0-1.1); MONO % 4 % (0-9); NEUT # 15.4 x10^3/uL (1.8-7.7); NEUT % 85 % (31-73); PLATELET COUNT 254 x10^3/uL (140-400); RED CELL DISTRIBUTION WIDTH 17.8 % (11.5-14.5); WHITE BLOOD COUNT 18.1 x10^3/uL (4.0-11.0)
[2020-01-21] MEDS: PANTOPRAZOLE 40 MG TABLET.DR. PO SCH (05:47)
[2020-01-21 05:52] LABS: CALCIUM 8.6 mg/dL (8.5-10.1); GFR 63.6; POTASSIUM 3.4 mmol/L (3.5-5.1)
[2020-01-21 07:00] VITALS: BP 109/49
[2020-01-21] MEDS: IPRATRPIUM/ALBUTEROL 0.5/2.5MG 3 ML NEBU. NEB SCH ×4 (07:24→20:39)
[2020-01-21] MEDS: ROFLUMILAST 500 MCG TABLET. PO SCH (08:25)
[2020-01-21] MEDS: AMOXICILLIN/K CLAV 500/125MG TABLET. PO SCH ×2 (08:25→20:28)
[2020-01-21] MEDS: hydrALAZINE 25 MG TABLET PO SCH ×3 (08:25→20:27)
[2020-01-21] MEDS: predniSONE 20 MG TABLET PO SCH (08:25)
[2020-01-21] MEDS: METOPROLOL TART IMMED RELEASE 50 MG TABLET. PO SCH ×2 (08:26→20:28)
[2020-01-21] MEDS: cloNIDine HCL 0.2 MG TABLET PO SCH ×2 (08:26→20:27)
[2020-01-21] MEDS: hydroCHLOROthiazide 12.5 MG CAPSULE PO SCH (08:26)
[2020-01-21] MEDS: POTASSIUM CHLORIDE 20 MEQ TABLET.ER. PO SCH ×2 (08:26→12:14)
[2020-01-21] MEDS: INSULIN LISPRO 300 UNITS/3 ML VIAL. SQ SCH ×3 (08:29→17:25)
--- NOTE | 2020-01-21 10:08 | PDOC ---
PROGRESS NOTES Subjective Subjective pain left shoulder blade back Objective Objective Vital Signs Date Time Temp Pulse Resp B/P (MAP) Pulse Ox O2 Delivery O2 Flow Rate FiO2 01/21/20 08:30 Nasal Cannula 2.0 01/21/20 08:26 84 109/49 01/21/20 07:24 92 01/21/20 07:00 97.6 16 97.6 Intake and Output 01/21/20 07:00 Intake Total 660 ml Output Total 1 ml Balance 659 ml Intake Oral 660 ml Stool Total 1 ml # Voids 2 # Bowel Movements 2 Physical Exam Abdomen: Normal bowel sounds Extremities: No edema General: Cooperative, No acute distress HEENT: Atraumatic Lungs: Normal air movement MUSCULOSKELETAL: Osteoarthritic changes both hands Neuro: Normal speech Psych/Mental Status: Mood NL Skin: No breakdown Diagnosis Problem List Problems Medical Problems: (1) Acute hypokalemia Status: Acute (2) COPD exacerbation Status: Acute (3) Elevated troponin I measurement Status: Acute (4) Hyperglycemia Status: Acute (5) Hypomagnesemia Status: Acute (6) Weakness Status: Acute Assessment Assessment Problems Medical Problems: (1) Acute hypokalemia Status: Acute (2) COPD exacerbation Status: Acute (3) Elevated troponin I measurement Status: Acute (4) Hyperglycemia Status: Acute (5) Hypomagnesemia Status: Acute (6) Weakness Status: Acute Impression; 1. Shortness of breath with fatigue secondary to chronic COPD. 2. Tachycardia heart rate of 130 patient has tachycardia-bradycardia syndrome. 3. Chronic COPD with hypoxia on home oxygen. 4. Hypertension. 5. Anxiety 6. Depression chronic. 7. Protein calorie malnutrition. 8. Poor social situation. 9. Hypokalemia. 10. Patient was recently admitted to the hospital for pneumonia and spontaneous pneumothorax. 11. Bronchomalacia left lung, patient had bronchoscopy couple of weeks ago Plan;cxr today r/o rib fracture, recent spontanous pneumothorax. on Augmentin+prednisone. HR controlled ,BP controlled. social service consult for SNU. pot replaced.3.4 ,wbc 18 down Patient was admitted to the hospital. Cardiology was consulted for tachycardia. Elevated WBC probably secondary to prednisone. Replace potassium at admission it was 2.8. Patient had a Holter monitor placed 2 weeks ago we will try to get the report of that. Social service consult for placement, patient lives alone at home ideally she would need a long-term [facility] placement but patient continues to refuse. copy to Dr. Gallardo office Plan Plan of Care Problems Medical Problems: (1) Acute hypokalemia Status: Acute (2) COPD exacerbation Status: Acute (3) Elevated troponin I measurement Status: Acute (4) Hyperglycemia Status: Acute (5) Hypomagnesemia Status: Acute (6) Weakness Status: Acute Comment Review of Relevant I have reviewed the following items navi (where applicable) has been applied. Labs Laboratory Tests Test 01/20/20 11:47 01/20/20 16:57 01/20/20 21:20 01/21/20 04:46 Glucose (Fingerstick) 297 mg/dL (70-99) 284 mg/dL (70-99) 139 mg/dL (70-99) White Blood Count 18.1 x10^3/uL (4.0-11.0) Red Blood Count 3.50 x10^6/uL (3.50-5.40) Hemoglobin 10.1 g/dL (12.0-15.5) Hematocrit 30.3 % (36.0-47.0) Mean Corpuscular Volume 87 fL (79-100) Mean Corpuscular Hemoglobin 29 pg (25-35) Mean Corpuscular Hemoglobin Concent 33 g/dL (31-37) Red Cell Distribution Width 17.8 % (11.5-14.5) Platelet Count 254 x10^3/uL (140-400) Neutrophils (%) (Auto) 85 % (31-73) Lymphocytes (%) (Auto) 10 % (24-48) Monocytes (%) (Auto) 4 % (0-9) Eosinophils (%) (Auto) 0 % (0-3) Basophils (%) (Auto) 0 % (0-3) Neutrophils # (Auto) 15.4 x10^3/uL (1.8-7.7) Lymphocytes # (Auto) 1.8 x10^3/uL (1.0-4.8) Monocytes # (Auto) 0.7 x10^3/uL (0.0-1.1) Eosinophils # (Auto) 0.1 x10^3/uL (0.0-0.7) Basophils # (Auto) 0.1 x10^3/uL (0.0-0.2) Sodium Level 143 mmol/L (136-145) Potassium Level 3.4 mmol/L (3.5-5.1) Chloride Level 106 mmol/L (98-107) Carbon Dioxide Level 28 mmol/L (21-32) Anion Gap 9 (6-14) Blood Urea Nitrogen 23 mg/dL (7-20) Creatinine 1.0 mg/dL (0.6-1.0) Estimated GFR (Cockcroft-Gault) 63.6 Glucose Level 192 mg/dL (70-99) Calcium Level 8.6 mg/dL (8.5-10.1) Test 01/21/20 07:43 Glucose (Fingerstick) 163 mg/dL (70-99) Microbiology 01/19/20 Blood Culture - Preliminary, Resulted NO GROWTH AFTER 1 DAY Medications Current Medications Acetaminophen/ Hydrocodone Bitart (Lortab 7.5/325) 1 tab PRN Q6HRS PRN PO PAIN; Start 01/20/20 at 10:30 Albuterol/ Ipratropium (Duoneb) 3 ml RTQID NEB Last administered on 01/21/20at 07:24; Start 01/20/20 at 12:00 Alprazolam (Xanax) 0.25 mg PRN Q8HRS PRN PO ANXIETY / AGITATION; Start 01/20/20 at 10:30 Amoxicillin/ Clavulanate Potassium (Augmentin 500/ 125mg) 1 tab BID PO Last administered on 01/21/20at 08:25; Start 01/20/20 at 11:00 Clonidine HCl (Catapres) 0.2 mg BID PO Last administered on 01/21/20at 08:26; Start 01/20/20 at 11:00 Dextrose (Dextrose 50%-Water Syringe) 12.5 gm PRN Q15MIN PRN IV SEE COMMENTS; Start 01/20/20 at 17:15 Enoxaparin Sodium (Lovenox 40mg Syringe) 40 mg Q24H SQ Last administered on 01/20/20at 11:18; Start 01/20/20 at 11:00 Hydralazine HCl (Apresoline) 25 mg TID PO Last administered on 01/21/20 08:25; Start 01/20/20 at 14:00 Hydrochlorothiazide (Microzide) 12.5 mg DAILY PO Last administered on 3/11/20at 08:26; Start 01/21/20 at 09:00 Insulin Human Lispro (HumaLOG) 0-9 UNITS TIDWMEALS SQ Last administered on 01/21/20at 08:29; Start 01/21/20 at 08:00 Insulin Human Lispro (HumaLOG) 7 units 1X ONCE SQ Last administered on 01/20/20at 18:37; Start 01/20/20 at 18:00; Stop 01/20/20 at 18:01; Status DC Lactobacillus Rhamnosus (Culturelle) 1 cap BID PO ; Start 01/21/20 at 21:00 Magnesium Sulfate 50 ml @ 25 mls/hr 1X ONCE IV Last administered on 01/20/20at 17:44; Start 01/20/20 at 15:15; Stop 01/20/20 at 17:14; Status DC Metoprolol Tartrate (Lopressor Vial) 5 mg 1X ONCE IVP Last administered on 01/20/20at 11:17; Start 01/20/20 at 11:00; Stop 01/20/20 at 11:01; Status DC Metoprolol Tartrate (Lopressor) 50 mg BID PO Last administered on 01/21/20at 08:26; Start 01/20/20 at 11:00 Pantoprazole Sodium (Protonix) 40 mg DAILYAC PO Last administered on 01/21/20at 05:47; Start 01/20/20 at 11:00 Potassium Chloride (Klor-Con) 20 meq DAILY PO ; Start 01/20/20 at 11:00 Potassium Chloride (Klor-Con) 20 meq DAILYWBKFT PO Last administered on 01/21/20at 08:26; Start 01/21/20 at 08:00 Potassium Chloride (Klor-Con) 40 meq 1X ONCE PO Last administered on 01/20/20at 11:18; Start 01/20/20 at 10:30; Stop 01/20/20 at 10:51; Status DC Prednisone (Prednisone) 20 mg DAILY PO Last administered on 01/21/20at 08:25; Start 01/21/20 at 09:00 Roflumilast (Daliresp) 500 mcg DAILY PO Last administered on 01/21/20at 08:25; Start 01/20/20 at 11:00 Vitals/I & O Vital Sign - Last 24 Hours 01/20/20 01/20/20 01/20/20 01/20/20 11:00 11:17 11:18 13:03 Temp 99.1 99.1 Pulse 130 114 114 114 Resp 20 B/P (MAP) 158/69 (98) 173/79 173/79 173/79 Pulse Ox 94 O2 Delivery Nasal Cannula O2 Flow Rate 4.0 01/20/20 01/20/20 01/20/20 01/20/20 13:54 15:00 16:52 19:40 Temp 97.4 98.4 97.4 98.4 Pulse 96 123 Resp 20 18 B/P (MAP) 147/66 (93) 167/77 (107) Pulse Ox 97 98 97 94 O2 Delivery Nasal Cannula Nasal Cannula Nasal Cannula Room Air O2 Flow Rate 3.0 4.0 3.0 01/20/20 01/20/20 01/20/20 01/20/20 19:45 19:58 21:21 21:21 Pulse 105 105 B/P (MAP) 167/77 167/77 Pulse Ox 89 O2 Delivery Nasal Cannula Room Air O2 Flow Rate 3.0 01/20/20 01/20/20 01/21/20 01/21/20 21:22 22:51 03:14 07:00 Temp 99.2 97.9 97.6 99.2 97.9 97.6 Pulse 105 62 72 71 Resp 18 16 16 B/P (MAP) 167/77 92/42 (59) 105/47 (66) 109/49 (69) Pulse Ox 97 97 95 O2 Delivery Nasal Cannula Nasal Cannula Nasal Cannula O2 Flow Rate 3.0 2.0 2.0 01/21/20 01/21/20 01/21/20 01/21/20 07:24 08:25 08:26 08:26 Pulse 83 70 84 B/P (MAP) 109/49 109/49 109/49 Pulse Ox 92 O2 Delivery Nasal Cannula O2 Flow Rate 2.0 01/21/20 08:30 O2 Delivery Nasal Cannula O2 Flow Rate 2.0 Intake and Output 01/20/20 01/20/20 01/21/20 15:00 23:00 07:00 Intake Total 300 ml 360 ml Output Total 1 ml Balance 300 ml 359 ml Hemodynamically unstable?: Yes Respiratory Distress?: Yes Serious Diagnosis?: Yes Is patient at high risk?: Yes AMILCAR GALLARDO MD Jan 21, 2020 10:08
[2020-01-21 10:49] VITALS: BP 93/45
[2020-01-21] MEDS: HYDROcodone/APAP 7.5/325MG 1 TAB TABLET PO PRN (12:14)
[2020-01-21] MEDS: ENOXAPARIN 40 MG/0.4 ML SYRINGE. SQ SCH (12:15)
--- NOTE | 2020-01-21 12:48 | RAD ---
PA and lateral chest radiographs 01/21/2020 CLINICAL HISTORY: Posterior right chest pain. PA and lateral digital radiographs of the chest were obtained. Comparison study is dated 01/19/2020. The cardiac silhouette is normal in size. Atherosclerotic calcification of the thoracic aorta is seen. The thoracic aorta is mildly tortuous. Subsegmental atelectasis is seen involving the right upper lobe, anteriorly and inferiorly and the left lower lobe. There is a small left pleural effusion. Degenerative changes are seen involving the thoracic spine. The osseous structures are grossly intact. IMPRESSION: Subsegmental atelectasis is seen involving the right upper lobe and left lower lobe. There is a small left pleural effusion. Electronically signed by: Frantz Torre MD (01/21/2020 12:45 PM) [facility]
[2020-01-21 15:46] VITALS: BP 99/47
[2020-01-21 19:00] VITALS: BP 117/47
[2020-01-21] MEDS: LACTOBACILLUS RHAMNOSUS GG 1 CAPSULE. PO SCH (20:28)
[2020-01-21 22:50] VITALS: BP 112/57
[2020-01-22 02:57] VITALS: BP 159/67
[2020-01-22 04:13] LABS: BASO % 0 % (0-3); EOS % 0 % (0-3); HEMOGLOBIN 9.7 g/dL (12.0-15.5); LYMPH # 1.4 x10^3/uL (1.0-4.8); LYMPH % 9 % (24-48); MEAN CORPUSCULAR HEMOGLOBIN 29 pg (25-35); MEAN CORPUSCULAR HGB CONC 33 g/dL (31-37); MEAN CORPUSCULAR VOLUME 86 fL (79-100); MONO # 0.4 x10^3/uL (0.0-1.1); MONO % 3 % (0-9); NEUT # 13.4 x10^3/uL (1.8-7.7); NEUT % 88 % (31-73); PLATELET COUNT 264 x10^3/uL (140-400); RED BLOOD COUNT 3.38 x10^6/uL (3.50-5.40); RED CELL DISTRIBUTION WIDTH 17.7 % (11.5-14.5); WHITE BLOOD COUNT 15.3 x10^3/uL (4.0-11.0)
[2020-01-22 04:18] LABS: CALCIUM 8.9 mg/dL (8.5-10.1); GFR 63.6
[2020-01-22 04:20] LABS: POTASSIUM 4.4 mmol/L (3.5-5.1)
[2020-01-22] MEDS: PANTOPRAZOLE 40 MG TABLET.DR. PO SCH (05:42)
[2020-01-22 07:00] VITALS: BP 141/64
[2020-01-22] MEDS: IPRATRPIUM/ALBUTEROL 0.5/2.5MG 3 ML NEBU. NEB SCH ×3 (07:09→15:41)
[2020-01-22] MEDS: ROFLUMILAST 500 MCG TABLET. PO SCH (08:32)
[2020-01-22] MEDS: POTASSIUM CHLORIDE 20 MEQ TABLET.ER. PO SCH ×2 (08:32→08:34)
[2020-01-22] MEDS: hydroCHLOROthiazide 12.5 MG CAPSULE PO SCH (08:32)
[2020-01-22] MEDS: predniSONE 20 MG TABLET PO SCH (08:32)
[2020-01-22] MEDS: AMOXICILLIN/K CLAV 500/125MG TABLET. PO SCH (08:32)
[2020-01-22] MEDS: HYDROcodone/APAP 7.5/325MG 1 TAB TABLET PO PRN (08:33)
[2020-01-22] MEDS: hydrALAZINE 25 MG TABLET PO SCH ×2 (08:33→14:24)
[2020-01-22] MEDS: LACTOBACILLUS RHAMNOSUS GG 1 CAPSULE. PO SCH (08:34)
[2020-01-22] MEDS: METOPROLOL TART IMMED RELEASE 50 MG TABLET. PO SCH (08:34)
[2020-01-22] MEDS: cloNIDine HCL 0.2 MG TABLET PO SCH (08:34)
[2020-01-22] MEDS: INSULIN LISPRO 300 UNITS/3 ML VIAL. SQ SCH ×2 (08:39→12:37)
--- NOTE | 2020-01-22 10:02 | PDOC ---
PROGRESS NOTES Subjective Subjective NO NEW PROBLEMS Objective Objective Vital Signs Date Time Temp Pulse Resp B/P (MAP) Pulse Ox O2 Delivery O2 Flow Rate FiO2 01/22/20 08:34 67 141/64 01/22/20 08:33 Nasal Cannula 2.0 01/22/20 07:09 97 01/22/20 07:00 97.9 18 97.9 Intake and Output 01/22/20 07:00 Intake Total 760 ml Output Total 327 ml Balance 433 ml Intake Oral 760 ml Output Urine Total 325 ml Stool Total 2 ml # Voids 3 Physical Exam Abdomen: Normal bowel sounds Heart: Regular rate, Normal S1, Normal S2 Extremities: No edema General: Cooperative, No acute distress HEENT: Atraumatic Lungs: Normal air movement MUSCULOSKELETAL: Osteoarthritic changes both hands Neuro: Normal speech Psych/Mental Status: Mood NL Skin: No breakdown Diagnosis Problem List Problems Medical Problems: (1) Acute hypokalemia Status: Acute (2) COPD exacerbation Status: Acute (3) Elevated troponin I measurement Status: Acute (4) Hyperglycemia Status: Acute (5) Hypomagnesemia Status: Acute (6) Weakness Status: Acute Assessment Assessment Problems Medical Problems: (1) Acute hypokalemia Status: Acute (2) COPD exacerbation Status: Acute (3) Elevated troponin I measurement Status: Acute (4) Hyperglycemia Status: Acute (5) Hypomagnesemia Status: Acute (6) Weakness Status: Acute Impression;HCAP suspect grag neg and positive. 1. Shortness of breath with fatigue secondary to chronic COPD. 2. Tachycardia heart rate of 130 patient has tachycardia-bradycardia syndrome. 3. Chronic COPD with hypoxia on home oxygen. 4. Hypertension. 5. Anxiety 6. Depression chronic. 7. Protein calorie malnutrition. 8. Poor social situation. 9. Hypokalemia. 10. Patient was recently admitted to the hospital for pneumonia and spontaneous pneumothorax. 11. Bronchomalacia left lung, patient had bronchoscopy couple of weeks ago Plan; SNU placement. cxr today improvement in cxr on Augmentin+prednisone. HR controlled ,BP controlled. social service consult for SNU. pot replaced.4.4 ,wbc 15 down Plan Plan of Care Problems Medical Problems: (1) Acute hypokalemia Status: Acute (2) COPD exacerbation Status: Acute (3) Elevated troponin I measurement Status: Acute (4) Hyperglycemia Status: Acute (5) Hypomagnesemia Status: Acute (6) Weakness Status: Acute Comment Review of Relevant I have reviewed the following items navi (where applicable) has been applied. Labs Laboratory Tests Test 01/21/20 11:47 01/21/20 16:44 01/21/20 20:15 01/22/20 03:40 Glucose (Fingerstick) 188 mg/dL (70-99) 266 mg/dL (70-99) 276 mg/dL (70-99) White Blood Count 15.3 x10^3/uL (4.0-11.0) Red Blood Count 3.38 x10^6/uL (3.50-5.40) Hemoglobin 9.7 g/dL (12.0-15.5) Hematocrit 29.0 % (36.0-47.0) Mean Corpuscular Volume 86 fL (79-100) Mean Corpuscular Hemoglobin 29 pg (25-35) Mean Corpuscular Hemoglobin Concent 33 g/dL (31-37) Red Cell Distribution Width 17.7 % (11.5-14.5) Platelet Count 264 x10^3/uL (140-400) Neutrophils (%) (Auto) 88 % (31-73) Lymphocytes (%) (Auto) 9 % (24-48) Monocytes (%) (Auto) 3 % (0-9) Eosinophils (%) (Auto) 0 % (0-3) Basophils (%) (Auto) 0 % (0-3) Neutrophils # (Auto) 13.4 x10^3/uL (1.8-7.7) Lymphocytes # (Auto) 1.4 x10^3/uL (1.0-4.8) Monocytes # (Auto) 0.4 x10^3/uL (0.0-1.1) Eosinophils # (Auto) 0.0 x10^3/uL (0.0-0.7) Basophils # (Auto) 0.0 x10^3/uL (0.0-0.2) Sodium Level 140 mmol/L (136-145) Potassium Level 4.4 mmol/L (3.5-5.1) Chloride Level 105 mmol/L (98-107) Carbon Dioxide Level 26 mmol/L (21-32) Anion Gap 9 (6-14) Blood Urea Nitrogen 35 mg/dL (7-20) Creatinine 1.0 mg/dL (0.6-1.0) Estimated GFR (Cockcroft-Gault) 63.6 Glucose Level 157 mg/dL (70-99) Calcium Level 8.9 mg/dL (8.5-10.1) Test 01/22/20 07:38 Glucose (Fingerstick) 163 mg/dL (70-99) Microbiology 01/19/20 Blood Culture - Preliminary, Resulted NO GROWTH AFTER 2 DAYS Medications Current Medications Enoxaparin Sodium (Lovenox 30mg Syringe) 30 mg Q24H SQ ; Start 01/22/20 at 12:00 Lactobacillus Rhamnosus (Culturelle) 1 cap BID PO Last administered on 01/22/20at 08:34; Start 01/21/20 at 21:00 Vitals/I & O Vital Sign - Last 24 Hours 01/21/20 01/21/20 01/21/20 01/21/20 10:49 11:18 12:14 14:00 Temp 97.5 97.5 Pulse 66 60 Resp 18 B/P (MAP) 93/45 (61) 99/47 Pulse Ox 96 97 O2 Delivery Nasal Cannula Nasal Cannula Nasal Cannula O2 Flow Rate 2.0 2.0 2.0 01/21/20 01/21/20 01/21/20 01/21/20 15:46 15:53 19:00 19:15 Temp 97.5 97.8 97.5 97.8 Pulse 56 68 Resp 18 18 B/P (MAP) 99/47 (64) 117/47 (70) Pulse Ox 98 97 97 O2 Delivery Nasal Cannula Nasal Cannula Nasal Cannula Nasal Cannula O2 Flow Rate 2.0 2.0 2.0 3.0 01/21/20 01/21/20 01/21/20 01/21/20 20:27 20:27 20:28 20:38 Pulse 63 62 63 B/P (MAP) 105/47 105/47 105/47 Pulse Ox 97 O2 Delivery Nasal Cannula O2 Flow Rate 2.0 01/21/20 01/22/20 01/22/20 01/22/20 22:50 02:57 07:00 07:09 Temp 97.5 98.2 97.9 97.5 98.2 97.9 Pulse 57 61 67 Resp 16 18 18 B/P (MAP) 112/57 (75) 159/67 (97) 141/64 (89) Pulse Ox 97 97 93 97 O2 Delivery Nasal Cannula Nasal Cannula Nasal Cannula Nasal Cannula O2 Flow Rate 2.0 2.0 2.0 2.0 01/22/20 01/22/20 01/22/20 01/22/20 08:33 08:33 08:34 08:34 Pulse 77 67 67 B/P (MAP) 141/64 141/64 141/64 O2 Delivery Nasal Cannula O2 Flow Rate 2.0 Intake and Output 01/21/20 01/21/20 01/22/20 15:00 23:00 07:00 Intake Total 400 ml 360 ml 0 ml Output Total 101 ml 226 ml Balance 299 ml 134 ml 0 ml Hemodynamically unstable?: Yes Respiratory Distress?: Yes Serious Diagnosis?: Yes Is patient at high risk?: Yes AMILCAR BILL MD Jan 22, 2020 10:02
[2020-01-22] MEDS ORDERED: PRED-220 PO (10:05)
--- NOTE | 2020-01-22 10:08 | SNU/HH DC ---
DISCHARGE ORDERS DISCHARGE INFORMATION: DISCHARGE DATE: Jan 22, 2020 FINAL DIAGNOSIS Problems Medical Problems: (1) Acute hypokalemia Status: Acute (2) COPD exacerbation Status: Acute (3) Elevated troponin I measurement Status: Acute (4) Hyperglycemia Status: Acute (5) Hypomagnesemia Status: Acute (6) Weakness Status: Acute CONDITION ON DISCHARGE: Stable CODE STATUS: Code Status: DNR/DNI [facility]: SNF STAY <30 DAYS: Yes HOSPICE: HOSPICE: No HOSPICE EVAL & TREAT: No LTAC: ADMIT TO LTAC: No POST DISCHARGE ORDERS: ACTIVITY ORDERS: Activity as tolerated WEIGHT BEARING STATUS: As tolerated BATHING ORDERS: Shower-keep dressing dry DIET AFTER DISCHARGE: Cardiac WOUND/INCISION CARE: No wound care needed CHECKS AFTER DISCHARGE: CHECKS AFTER DISCHARGE: Check blood press - daily, Check your Temp as needed, Weigh Yourself Daily FOLLOW-UP: LAB ORDERS FOR FOLLOW-UP: cbc,bmp weekly TREATMENT/EQUIPMENT ORDERS: ADAPTIVE EQUIPMENT NEEDED: Walker, Wheelchair RESPIRATORY EQUIPMENT NEEDED: Oxygen, Nebulizer Physical Therapy For: Evalulation/Treatment Occupational Therapy For: Evaluation/Treatment Speech Language Pathology For: Evaluation/Treatment DISCHARGE MEDICATIONS: Home Meds Active Scripts Prednisone (PREDNISONE ) 10 Mg Tablet, 10 MG PO DAILY for copd for 30 Days, #30 TAB 0 Refills Prov:AMILCAR BILL MD 01/22/20 Pantoprazole Sodium (PANTOPRAZOLE SODIUM ) 40 Mg Tablet.dr, 40 MG PO DAILYAC for GERD for 30 Days, #30 TAB Prov:AMILCAR BILL MD 01/14/20 Amoxicillin/Potassium Clav (AUGMENTIN 500-125 TABLET) 1 Each Tablet, 1 TAB PO BID for pneumonia for 7 Days, #14 TAB 0 Refills Prov:AMILCAR BILL MD 01/13/20 Prednisone (PREDNISONE) 20 Mg Tablet, 1 TAB PO DAILY for copd, #5 TAB Prov:AMILCAR BILL MD 01/13/20 Roflumilast (DALIRESP) 500 Mcg Tablet, 500 MCG PO DAILY for copd for 30 Days, #30 TAB Prov:AMILCAR BILL MD 01/13/20 Hydrochlorothiazide (HYDROCHLOROTHIAZIDE CAPSULE ) 12.5 Mg Capsule, 12.5 MG PO DAILY for htn for 30 Days, #30 CAP Prov:AMILCAR BILL MD 01/13/20 Metoprolol Tartrate (METOPROLOL TARTRATE) 50 Mg Tablet, 50 MG PO BID for bp for 30 Days, #60 TAB Prov:AMILCAR BILL MD 12/16/19 Enoxaparin Sodium (ENOXAPARIN SODIUM) 40 Mg/0.4 Ml Disp.syrin, 40 MG SQ Q24H for dvt prevention for 30 Days, DIS.SYR Prov:AMILCAR BILL MD 12/16/19 Ipratropium/Albuterol Sulfate (DUONEB 0.5-3(2.5) MG/3 ML) 3 Ml Ampul.neb, 3 ML NEB RTQID for copd for 30 Days, #120 EACH Prov:AMILCAR BILL MD 12/16/19 Reported Medications Potassium Chloride (KLOR-CON M20) 20 Meq Tab.er.prt, 1 TAB PO DAILY for SUPPLEMENT for 30 Days, #30 TAB 0 Refills 01/01/20 Hydrocodone Bit/Acetaminophen (HYDROCODONE-APAP 7.5-325 ) 1 Tab Tablet, 1 TAB PO PRN Q6HRS PRN for PAIN, TAB 0 Refills 01/01/20 Alprazolam (XANAX) 0.25 Mg Tablet, 0.25 MG PO Q8HRS PRN for ANXIETY / AGITATION, TAB 0 Refills 01/01/20 Hydralazine Hcl (HYDRALAZINE HCL) 25 Mg Tablet, 1 TAB PO TID for HTN, #270 TAB 3 Refills 12/05/19 Clonidine Hcl (CLONIDINE HCL) 0.2 Mg Tablet, 0.2 MG PO BID for HTN, TAB 12/05/19 AMILCAR BILL MD Jan 22, 2020 10:08
[2020-01-22 11:00] VITALS: BP 104/46
[2020-01-22] MEDS ORDERED: ENOXAPARIN 30 MG/0.3 ML SYRINGE. SQ SCH (12:00)
--- NOTE | 2020-01-22 12:09 | PDOC ---
CARDIOLOGY PROGRESS NOTE SUBJECTIVE: No chest pain. Dyspnea improved. OBJECTIVE: Vital Signs/I&O: Vital Signs Date Time Temp Pulse Resp B/P (MAP) Pulse Ox O2 Delivery O2 Flow Rate FiO2 01/22/20 11:28 97 Nasal Cannula 2.0 01/22/20 11:00 97.5 58 18 104/46 (65) 97.5 I & O 01/21/20 01/21/20 01/22/20 15:00 23:00 07:00 Intake Total 400 ml 360 ml 0 ml Output Total 101 ml 226 ml Balance 299 ml 134 ml 0 ml Objective: Lungs w/o rales. Normal heart tones. Soft abd No edema. CURRENT MEDICATIONS: Hydralazine 25mg tid Metoprolol 50mg po bid Clonidine 0.2 mg bid HCTZ 12.5 mg daily DIAGNOSTIC TESTING: Labs reviewed. hgb 9, cr 1.0 Labs: Laboratory Tests 01/22/20 03:40 Laboratory Tests Test 01/21/20 16:44 01/21/20 20:15 01/22/20 03:40 01/22/20 07:38 Glucose (Fingerstick) 266 mg/dL (70-99) H 276 mg/dL (70-99) H 163 mg/dL (70-99) H White Blood Count 15.3 x10^3/uL (4.0-11.0) H Red Blood Count 3.38 x10^6/uL (3.50-5.40) L Hemoglobin 9.7 g/dL (12.0-15.5) L Hematocrit 29.0 % (36.0-47.0) L Mean Corpuscular Volume 86 fL (79-100) Mean Corpuscular Hemoglobin 29 pg (25-35) Mean Corpuscular Hemoglobin Concent 33 g/dL (31-37) Red Cell Distribution Width 17.7 % (11.5-14.5) H Platelet Count 264 x10^3/uL (140-400) Neutrophils (%) (Auto) 88 % (31-73) H Lymphocytes (%) (Auto) 9 % (24-48) L Monocytes (%) (Auto) 3 % (0-9) Eosinophils (%) (Auto) 0 % (0-3) Basophils (%) (Auto) 0 % (0-3) Neutrophils # (Auto) 13.4 x10^3/uL (1.8-7.7) H Lymphocytes # (Auto) 1.4 x10^3/uL (1.0-4.8) Monocytes # (Auto) 0.4 x10^3/uL (0.0-1.1) Eosinophils # (Auto) 0.0 x10^3/uL (0.0-0.7) Basophils # (Auto) 0.0 x10^3/uL (0.0-0.2) Sodium Level 140 mmol/L (136-145) Potassium Level 4.4 mmol/L (3.5-5.1) # Chloride Level 105 mmol/L (98-107) Carbon Dioxide Level 26 mmol/L (21-32) Anion Gap 9 (6-14) Blood Urea Nitrogen 35 mg/dL (7-20) H Creatinine 1.0 mg/dL (0.6-1.0) Estimated GFR (Cockcroft-Gault) 63.6 Glucose Level 157 mg/dL (70-99) H Calcium Level 8.9 mg/dL (8.5-10.1) Test 01/22/20 11:52 Glucose (Fingerstick) 215 mg/dL (70-99) H ASSESSMENT: 1. PNa - being treated with abx 2. Chronic diastolic HF and moderate pulm HTN - stable 3. HTN - stable. 4. Chronic anemia. PLAN: 1. continue current therapy. She was previously on Lisinopril, not currently due to low BP's, restart at SNU when BP increases. Hemodynamically unstable?: Yes Respiratory Distress?: Yes Serious Diagnosis?: Yes Is patient at high risk?: Yes DAVID GUTIÉRREZ MD Jan 22, 2020 12:09
--- NOTE | 2020-01-22 13:40 | NUR ---
SS following up with discharge planning. Pt accepted at [facility], ; fax [phone], pending insurance authorization. Discharge orders phoned and faxed to [facility]. SS will await insurance determination and will proceed accordingly.
[2020-01-22 15:00] VITALS: BP 129/54
--- NOTE | 2020-01-22 15:42 | NUR ---
SS following up with discharge planning. Insurance authorization received for [facility], ; fax [phone]. Pt will discharge today and go to [facility] 1700 [facility] 1730[facility] Pt, pt's RN, and pt's family notified.
--- NOTE | 2020-01-22 16:04 | NUR ---
Wound Care Wound care consult for coccyx wound, stage II PU. Pictured and measured wound and dressed with xeroform and foam dressing, recommend to change dressing every 3 days. No other wounds noted. Pt educated on PU prevention and left on her right side. Pt discharging today.
--- NOTE | 2020-01-22 17:52 | NUR ---
Discharge Note: ANGELITA HAM Discharge instructions and discharge home medications reviewed with Other facility Sari GUZMAN and a copy given. All questions have been answered and understanding verbalized. The following instructions and handouts were given:weakness, COPD exac, malnutrition Discontinued lines and drains: Peripheral IV intact. Patient [facility] with wheelchair van Personnel via Wheelchair
== END 2020-01-22 17:54 | DRG 190 ==
LOC: ER 14:50 → 2 NORTH 18:25
PROVIDERS: ADMIT Internal Medicine; ATTEND Internal Medicine
DX: J44.0 Chronic obstructive pulmonary disease with (acute) lower respiratory infection (principal); J18.9 Pneumonia, unspecified organism; E46 Unspecified protein-calorie malnutrition; Z68.1 Body mass index [BMI] 19.9 or less, adult; I50.32 Chronic diastolic (congestive) heart failure; J93.83 Other pneumothorax; J44.1 Chronic obstructive pulmonary disease with (acute) exacerbation; J98.09 Other diseases of bronchus, not elsewhere classified; E87.6 Hypokalemia; D64.9 Anemia, unspecified; E11.65 Type 2 diabetes mellitus with hyperglycemia; E78.00 Pure hypercholesterolemia, unspecified; E78.5 Hyperlipidemia, unspecified; E83.42 Hypomagnesemia; F17.210 Nicotine dependence, cigarettes, uncomplicated; F32.9 Major depressive disorder, single episode, unspecified; F41.9 Anxiety disorder, unspecified; I11.0 Hypertensive heart disease with heart failure; I27.20 Pulmonary hypertension, unspecified; I48.91 Unspecified atrial fibrillation; I49.5 Sick sinus syndrome; M79.7 Fibromyalgia; Y95 Nosocomial condition; Z82.49 Family history of ischemic heart disease and other diseases of the circulatory system; Z90.49 Acquired absence of other specified parts of digestive tract; Z90.710 Acquired absence of both cervix and uterus; Z99.81 Dependence on supplemental oxygen; K21.9 Gastro-esophageal reflux disease without esophagitis; K57.90 Diverticulosis of intestine, part unspecified, without perforation or abscess without bleeding; M19.90 Unspecified osteoarthritis, unspecified site; Z88.6 Allergy status to analgesic agent; Z88.8 Allergy status to other drugs, medicaments and biological substances
CPT/HCPCS: 36415; 71045; 71046; 80048; 80053; 81001; 82962; 83605; 83735; 84145; 84484; 85007; 85025; 85610; 85730; 87040; 87804; 93005; 94640; 94760; 96365; 99285; J1650; J3475; J3490; J7512; 97116; 97530; 97535; G0378

== ENCOUNTER 2020-04-05 04:19 | Inpatient (IN) | payer BC, MEDICAID ==
[~2020-04-05] VITALS: Ht 152.4 cm; Wt 47.6 kg
[~2020-04-05 04:19] MED LIST changes: +APIX2.5T PO; +CEPH-264 PO; +CLON0.1T12 PO; +HYDR-2869 PO; +INSU100I11 SQ; +METF-658 PO; -METF500T11 PO; +PRED-220 PO
--- NOTE | 2020-04-05 04:41 | PHYS DOC ---
Past Medical History Past Medical History: A-Fib, COPD, Diabetes-Type II, GERD, High Cholesterol, Hypertension (MARISOL BONILLA Jr. DO) Past Surgical History: Appendectomy, Cholecystectomy, Hysterectomy Additional Past Surgical Histo: LOOP RECORDER (MARISOL BONILLA Jr. DO) Smoking Status: Former Smoker Alcohol Use: None Drug Use: None (MARISOL BONILLA Jr. DO) General Adult EDM: Chief Complaint: Shortness of breath HPI: HPI: Patient is a 84 year old female who presents with complaint of shortness of breath and cough for the last several days. Patient states that shortness of breath is worsened significantly with ambulation. Patient was recently discharged from home from hospital after being admitted for COPD a couple of weeks back. She denies any chest pain. Patient is not aware of any fever and denies any vomiting or diarrhea. [] (MARISOL BONILLA Jr. DO) Review of Systems: Review of Systems: Constitutional: Denies fever or chills. [] Respiratory: Positive cough and shortness of breath. [] Cardiovascular: Denies chest pain or edema. [] GI: Denies abdominal pain, nausea, vomiting or diarrhea. [] Neurologic: Denies headache, focal weakness or sensory changes. [] A full 10 point review of systems has been reviewed and is otherwise negative. (MARISOL BONILLA Jr. DO) Heart Score: Risk Factors: Risk Factors: DM, Current or recent (<one month) smoker, HTN, HLP, family history of CAD, obesity. Risk Scores: Score 0 - 3: 2.5% MACE over next 6 weeks - Discharge Home Score 4 - 6: 20.3% MACE over next 6 weeks - Admit for Clinical Observation Score 7 - 10: 72.7% MACE over next 6 weeks - Early Invasive Strategies (MARISOL BONILLA Jr. DO) Allergies: Allergies: Allergies Coded Allergies Type Severity Reaction Last Updated Verified No Known Drug Allergies 02/17/20 No (MARISOL BONILLA Jr. DO) Physical Exam: PE: Constitutional: Well developed, well nourished, no acute distress, non-toxic appearance. [] HENT: Normocephalic, atraumatic, bilateral external ears normal, oropharynx dry, no oral exudates, nose normal. [] Eyes: PERRLA, EOMI, conjunctiva normal, no discharge. [] Neck: Normal range of motion, no tenderness, supple, no stridor. [] Cardiovascular: Mildly tachycardic rate with regular rhythm [] Lungs & Thorax: Diminished breath sounds are noted bilaterally with coarse inspiratory and expiratory wheezes and rhonchi to auscultation [] Abdomen: Bowel sounds normal, soft, no tenderness, no masses, no pulsatile masses. [] Skin: Warm, dry, no erythema, no rash. [] Extremities: No tenderness, no cyanosis, no clubbing, ROM intact, no edema. [] Neurologic: Awake and alert, no focal deficits noted. [] (MARISOL BONILLA Jr., DO) EKG: EKG: [] (MARISOL BONILLA Jr., DO) Radiology/Procedures: Radiology/Procedures: [] (MARISOL BONILLA Jr., DO) Radiology/Procedures: [facility] [address] [place] [address] IMAGING REPORT Signed PATIENT: ANGELITA HAM ACCOUNT: [id number] : 1935 LOCATION: ER AGE: 84 SEX: F EXAM STATUS: REG ER ORD. PHYSICIAN: MARISOL BONILLA Jr., DO REASON: sob PROCEDURE: PORTABLE CHEST 1V EXAM: CHEST ONE VIEW. HISTORY: Shortness of breath. COMPARISON: 03/01/2020. FINDINGS: A frontal view of the chest is obtained. Mild basilar predominant interstitial opacities are consistent with mild pulmonary edema. Trace pleural effusions cannot be excluded. There is no pneumothorax. The heart is mildly enlarged. There are atherosclerotic calcifications of the aorta. IMPRESSION: 1. Mild pulmonary edema. Electronically signed by: Hermilo Prescott MD (04/05/2020 5:12 AM) [facility] DICTATED and SIGNED BY: KURT PRESCOTT MD DATE: 04/05/20511 (LEISA BETH DO) Course & Med Decision Making: Course & Med Decision Making Pertinent Labs and Imaging studies reviewed. (See chart for details) [] (MARISOL BONILLA Jr., DO) Course & Med Decision Making Patient is an 84-year-old female with history of COPD and hypertension. Patient has been in and out of the hospital due to hypotension problem, she does have a fever today. She requires oxygen today. Patient is suspected to have a COVID- 19 infection. Will admit her to the hospital. (LEISA BETH DO) Dragon Disclaimer: Dragon Disclaimer: This electronic medical record was generated, in whole or in part, using a voice recognition dictation system. (MARISOL BONILLA Jr. DO) Departure Departure Impression: Primary Impression: COPD exacerbation Additional Impressions: Suspected 2019-nCoV infection Fever Disposition: ADMITTED INPATIENT Admitting Physician: Jordy Gallardo (LEISA BETH DO) Condition: STABLE Referrals: UNKNOWN PCP NAME (PCP) MARISOL BONILLA Jr. DO April 05, 2020 04:41 LEISA BETH DO April 05, 2020 07:05
[2020-04-05 04:58] LABS: BASO # 0.1 x10^3/uL (0.0-0.2); BASO % 1 % (0-3); EOS # 0.3 x10^3/uL (0.0-0.7); EOS % 2 % (0-3); HEMATOCRIT 28.5 % (36.0-47.0); HEMOGLOBIN 9.5 g/dL (12.0-15.5); LYMPH # 1.2 x10^3/uL (1.0-4.8); LYMPH % 9 % (24-48); MEAN CORPUSCULAR HEMOGLOBIN 26 pg (25-35); MEAN CORPUSCULAR HGB CONC 33 g/dL (31-37); MEAN CORPUSCULAR VOLUME 79 fL (79-100); MONO # 0.8 x10^3/uL (0.0-1.1); MONO % 6 % (0-9); NEUT # 11.3 x10^3/uL (1.8-7.7); NEUT % 82 % (31-73); PLATELET COUNT 426 x10^3/uL (140-400); RED BLOOD COUNT 3.62 x10^6/uL (3.50-5.40); RED CELL DISTRIBUTION WIDTH 15.8 % (11.5-14.5); WHITE BLOOD COUNT 13.7 x10^3/uL (4.0-11.0)
[2020-04-05] MEDS ORDERED: methylPREDNISolone SOD SUCC PF 125 MG/2 ML VIAL. IV ONE (05:00)
[2020-04-05] MEDS ORDERED: IPRATRPIUM/ALBUTEROL 0.5/2.5MG 3 ML NEBU. NEB ONE (05:00)
[2020-04-05] MEDS ORDERED: IV NORMAL SALINE 1000ML BAG 1,000 ML IV SCH (05:00)
[2020-04-05] MEDS ORDERED: ALBUTEROL SULFATE 2.5 MG/3 ML NEBU. NEB ONE (05:00)
[2020-04-05 05:06] LABS: GFR 63.6; POTASSIUM 3.3 mmol/L (3.5-5.1)
[2020-04-05 05:12] LABS: ALBUMIN/GLOBULIN RATIO 0.8 (1.0-1.7); TOTAL BILIRUBIN 0.9 mg/dL (0.2-1.0)
--- NOTE | 2020-04-05 05:15 | RAD ---
EXAM: CHEST ONE VIEW. HISTORY: Shortness of breath. COMPARISON: 03/01/2020. FINDINGS: A frontal view of the chest is obtained. Mild basilar predominant interstitial opacities are consistent with mild pulmonary edema. Trace pleural effusions cannot be excluded. There is no pneumothorax. The heart is mildly enlarged. There are atherosclerotic calcifications of the aorta. IMPRESSION: 1. Mild pulmonary edema. Electronically signed by: Hermilo Prescott MD (04/05/2020 5:12 AM) [facility]
[2020-04-05 05:18] LABS: INFLUENZA A PATIENT NEGATIVE (NEGATIVE); INFLUENZA B PATIENT NEGATIVE (NEGATIVE)
[2020-04-05] MEDS ORDERED: hydrALAZINE 20 MG/ML VIAL. IVP ONE (05:30)
[2020-04-05] MEDS ORDERED: ACETAMINOPHEN 500 MG TABLET PO ONE (05:30)
[2020-04-05 07:07] LABS: BILIRUBIN,URINE NEGATIVE (NEG); CLARITY,URINE CLEAR; COLOR,URINE YELLOW; NITRITE,URINE NEGATIVE (NEG); PROTEIN,URINE 100 mg/dL (NEG-TRACE)
[2020-04-05] MEDS ORDERED: PIPERACILLIN/TAZOBACTAM 3.375 GM in IV NORMAL SALINE 50ML 50 ML IV ONE (07:15)
[2020-04-05 07:41] LABS: AMORPHOUS SEDIMENT,UR PRESENT /HPF; BACTERIA,URINE 0 /HPF (0-FEW); RBC,URINE 0 /HPF (0-2); WBC,URINE 0 /HPF (0-4)
[2020-04-05] MEDS ORDERED: ONDANSETRON PF 4 MG/2 ML VIAL. IV PRN (08:30)
[2020-04-05 09:40] VITALS: BP 181/91
--- NOTE | 2020-04-05 10:40 | PDOC ---
PULMONARY PROGRESS NOTES Subjective Full consult dictated #[id number] Vitals Vital Signs Date Time Temp Pulse Resp B/P (MAP) Pulse Ox O2 Delivery O2 Flow Rate FiO2 04/05/20 09:40 97.7 92 20 181/91 (121) 98 Nasal Cannula 5.0 97.7 General: Alert, No acute distress Lungs: Other Cardiovascular: S1, S2, Other Abdomen: Soft Extremities: No Edema Labs Laboratory Tests Test 04/05/20 04:32 04/05/20 04:50 04/05/20 06:02 White Blood Count 13.7 x10^3/uL (4.0-11.0) Red Blood Count 3.62 x10^6/uL (3.50-5.40) Hemoglobin 9.5 g/dL (12.0-15.5) Hematocrit 28.5 % (36.0-47.0) Mean Corpuscular Volume 79 fL (79-100) Mean Corpuscular Hemoglobin 26 pg (25-35) Mean Corpuscular Hemoglobin Concent 33 g/dL (31-37) Red Cell Distribution Width 15.8 % (11.5-14.5) Platelet Count 426 x10^3/uL (140-400) Neutrophils (%) (Auto) 82 % (31-73) Lymphocytes (%) (Auto) 9 % (24-48) Monocytes (%) (Auto) 6 % (0-9) Eosinophils (%) (Auto) 2 % (0-3) Basophils (%) (Auto) 1 % (0-3) Neutrophils # (Auto) 11.3 x10^3/uL (1.8-7.7) Lymphocytes # (Auto) 1.2 x10^3/uL (1.0-4.8) Monocytes # (Auto) 0.8 x10^3/uL (0.0-1.1) Eosinophils # (Auto) 0.3 x10^3/uL (0.0-0.7) Basophils # (Auto) 0.1 x10^3/uL (0.0-0.2) Sodium Level 137 mmol/L (136-145) Potassium Level 3.3 mmol/L (3.5-5.1) Chloride Level 101 mmol/L (98-107) Carbon Dioxide Level 27 mmol/L (21-32) Anion Gap 9 (6-14) Blood Urea Nitrogen 16 mg/dL (7-20) Creatinine 1.0 mg/dL (0.6-1.0) Estimated GFR (Cockcroft-Gault) 63.6 BUN/Creatinine Ratio 16 (6-20) Glucose Level 209 mg/dL (70-99) Lactic Acid Level 1.2 mmol/L (0.4-2.0) Calcium Level 9.0 mg/dL (8.5-10.1) Total Bilirubin 0.9 mg/dL (0.2-1.0) Aspartate Amino Transf (AST/SGOT) 23 U/L (15-37) Alanine Aminotransferase (ALT/SGPT) 24 U/L (14-59) Alkaline Phosphatase 164 U/L (46-116) Troponin I Quantitative < 0.017 ng/mL (0.000-0.055) GP-Ryn-E-Type Natriuretic Peptide 5622 pg/mL (0-449) Total Protein 7.0 g/dL (6.4-8.2) Albumin 3.0 g/dL (3.4-5.0) Albumin/Globulin Ratio 0.8 (1.0-1.7) Influenza Type A Antigen Negative (NEGATIVE) Influenza Type B Antigen Negative (NEGATIVE) Urine Collection Type U cath Urine Color Yellow Urine Clarity Clear Urine pH 6.0 (<5.0-8.0) Urine Specific [place] 1.015 (1.000-1.030) Urine Protein 100 mg/dL (NEG-TRACE) Urine Glucose (UA) 250 mg/dL (NEG) Urine Ketones (Stick) Negative mg/dL (NEG) Urine Blood Negative (NEG) Urine Nitrite Negative (NEG) Urine Bilirubin Negative (NEG) Urine Urobilinogen Dipstick 1.0 mg/dL (0.2 mg/dL) Urine Leukocyte Esterase Negative (NEG) Urine RBC 0 /HPF (0-2) Urine WBC 0 /HPF (0-4) Urine Amorphous Sediment Present /HPF Urine Bacteria 0 /HPF (0-FEW) Laboratory Tests Test 04/05/20 04:32 04/05/20 04:50 04/05/20 06:02 White Blood Count 13.7 x10^3/uL (4.0-11.0) Red Blood Count 3.62 x10^6/uL (3.50-5.40) Hemoglobin 9.5 g/dL (12.0-15.5) Hematocrit 28.5 % (36.0-47.0) Mean Corpuscular Volume 79 fL (79-100) Mean Corpuscular Hemoglobin 26 pg (25-35) Mean Corpuscular Hemoglobin Concent 33 g/dL (31-37) Red Cell Distribution Width 15.8 % (11.5-14.5) Platelet Count 426 x10^3/uL (140-400) Neutrophils (%) (Auto) 82 % (31-73) Lymphocytes (%) (Auto) 9 % (24-48) Monocytes (%) (Auto) 6 % (0-9) Eosinophils (%) (Auto) 2 % (0-3) Basophils (%) (Auto) 1 % (0-3) Neutrophils # (Auto) 11.3 x10^3/uL (1.8-7.7) Lymphocytes # (Auto) 1.2 x10^3/uL (1.0-4.8) Monocytes # (Auto) 0.8 x10^3/uL (0.0-1.1) Eosinophils # (Auto) 0.3 x10^3/uL (0.0-0.7) Basophils # (Auto) 0.1 x10^3/uL (0.0-0.2) Sodium Level 137 mmol/L (136-145) Potassium Level 3.3 mmol/L (3.5-5.1) Chloride Level 101 mmol/L (98-107) Carbon Dioxide Level 27 mmol/L (21-32) Anion Gap 9 (6-14) Blood Urea Nitrogen 16 mg/dL (7-20) Creatinine 1.0 mg/dL (0.6-1.0) Estimated GFR (Cockcroft-Gault) 63.6 BUN/Creatinine Ratio 16 (6-20) Glucose Level 209 mg/dL (70-99) Lactic Acid Level 1.2 mmol/L (0.4-2.0) Calcium Level 9.0 mg/dL (8.5-10.1) Total Bilirubin 0.9 mg/dL (0.2-1.0) Aspartate Amino Transf (AST/SGOT) 23 U/L (15-37) Alanine Aminotransferase (ALT/SGPT) 24 U/L (14-59) Alkaline Phosphatase 164 U/L (46-116) Troponin I Quantitative < 0.017 ng/mL (0.000-0.055) YA-Zpe-C-Type Natriuretic Peptide 5622 pg/mL (0-449) Total Protein 7.0 g/dL (6.4-8.2) Albumin 3.0 g/dL (3.4-5.0) Albumin/Globulin Ratio 0.8 (1.0-1.7) Influenza Type A Antigen Negative (NEGATIVE) Influenza Type B Antigen Negative (NEGATIVE) Urine Collection Type U cath Urine Color Yellow Urine Clarity Clear Urine pH 6.0 (<5.0-8.0) Urine Specific [place] 1.015 (1.000-1.030) Urine Protein 100 mg/dL (NEG-TRACE) Urine Glucose (UA) 250 mg/dL (NEG) Urine Ketones (Stick) Negative mg/dL (NEG) Urine Blood Negative (NEG) Urine Nitrite Negative (NEG) Urine Bilirubin Negative (NEG) Urine Urobilinogen Dipstick 1.0 mg/dL (0.2 mg/dL) Urine Leukocyte Esterase Negative (NEG) Urine RBC 0 /HPF (0-2) Urine WBC 0 /HPF (0-4) Urine Amorphous Sediment Present /HPF Urine Bacteria 0 /HPF (0-FEW) Medications Active Scripts Medications Dose Route/Sig Max Daily Dose Days Date Category Lisinopril 40 Mg Tablet 40 Mg PO DAILY 30 03/05/20 Rx Hydralazine Hcl 50 Mg Tablet 50 Mg PO TID 30 03/05/20 Rx Catapres (Clonidine Hcl) 0.1 Mg Tablet 0.1 Mg PO PRN Q6HRS PRN 30 03/05/20 Rx Humalog (Insulin Lispro) 100 Unit/1 Ml Insuln.pen 1 Unit SQ TIDWMEALS 30 03/03/20 Rx Eliquis (Apixaban) 2.5 Mg Tablet 2.5 Mg PO BID 30 02/19/20 Rx Metoprolol Tartrate 50 Mg Tablet 50 Mg PO BID 30 02/19/20 Rx Tizanidine Hcl 4 Mg Tablet 1 Tab PO Q8HRS 02/17/20 Reported Lisinopril 40 Mg Tablet 1 Tab PO DAILY 02/17/20 Reported Pantoprazole Sodium (Pantoprazole Sodium) 40 Mg Tablet.dr 40 Mg PO DAILYAC 30 01/14/20 Rx Daliresp (Roflumilast) 500 Mcg Tablet 500 Mcg PO DAILY 30 01/13/20 Rx Hydrocodone-Apap 7.5-325 (Hydrocodone Bit/Acetaminophen) 1 Tab Tablet 1 Tab PO PRN Q6HRS PRN 01/01/20 Reported Xanax (Alprazolam) 0.25 Mg Tablet 0.25 Mg PO Q8HRS PRN 01/01/20 Reported Duoneb 0.5-3(2.5) Mg/3 Ml (Albuterol/Ipratropium) 3 Ml Ampul.neb 3 Ml NEB RTQID 30 12/16/19 Rx Impression . 1. Chronic Hypoxic respiratory Failure - wears home oxygen at 5 liters N/C 2. CHF with exacerbation 3. COPD with mild exacerbation 4. Suspected COVID-19 5. AFIB 6. HTN 7. HLD 8. DM Type II- uncontrolled 9. Hypokalemia 10. low grade fever 11. Former smoker Plan . 1. Lasix X1, elevated BNP and CXR show pulm. edema hx, of EF with 60-65% and grade I DD 2. supplemental oxygen to keep oxygen saturations above 90%- currently 5 liters N/C 3. bronchodilators/pulmicort and IV steroids with taper 4. Empric ABX for PNA coverage 5. COVID-19 test pending, also obtain CRP, LFT, and procal. 6. HTN per PCP 7. DM II per pcp D/W INDIRA THOMPSON MD April 05, 2020 10:40
[2020-04-05] MEDS ORDERED: FUROSEMIDE 40 MG/4 ML VIAL. IVP ONE (10:45)
[2020-04-05] MEDS ORDERED: POTASSIUM CHLORIDE 20 MEQ TABLET.ER. PO ONE (10:45)
[2020-04-05 10:54] LABS: ALBUMIN 3.1 g/dL (3.4-5.0); C-REACTIVE PROTEIN 226.5 mg/L (0-3.3); DIRECT BILIRUBIN 0.5 mg/dL (0.0-0.2); TOTAL BILIRUBIN 0.8 mg/dL (0.2-1.0); TOTAL PROTEIN 7.1 g/dL (6.4-8.2)
[2020-04-05 11:00] VITALS: BP 182/91
[2020-04-05] MEDS ORDERED: IV DEXTROSE 5% 250 ML BAG. IV PRN (11:00)
[2020-04-05] MEDS ORDERED: DEXTROSE 50% 25 GM / 50ML DISP.SYRIN. IV PRN (11:00)
--- NOTE | 2020-04-05 11:37 | PDOC ---
Provider Note Provider Note Pt seen.H&P dictated.#[id number]. AMILCAR BILL MD April 05, 2020 11:37
--- NOTE | 2020-04-05 11:54 | HP ---
ADMIT DATE: 04/05/2020 LOCATION: [facility]. REASON FOR ADMISSION TO THE HOSPITAL: Pneumonia, suspect COVID; chronic COPD, on home oxygen. HISTORY OF PRESENT ILLNESS: The patient is an 84-year-old female, patient of Dr. Ritter. She has a history of chronic COPD. She is on oxygen. She is also on prednisone. She has a sick sinus syndrome, hypertension and she was having short of breath yesterday and was brought to the hospital. She also had a fever of 100.9. The patient was admitted to the hospital. COVID test is pending. Influenza was negative. X-ray shows a right lower lobe infiltration, was treated with Zosyn. PAST MEDICAL HISTORY: The patient was in the hospital at least a month ago. She has a history of AFib. She is on Eliquis for the COPD, diabetes, hypertension, hyperlipidemia, sick sinus syndrome. PAST SURGICAL HISTORY: Appendectomy, gallbladder surgery, hysterectomy, had a spontaneous pneumothorax which was resolved. Had a loop recorder for cardiac arrhythmias, which was removed. SOCIAL HISTORY: Smoked for 40 years. She does not smoke now. She is on oxygen 5 liters nebulizer at home. She is also on prednisone. She has a seater walker. ALLERGIES: No known allergies. MEDICATIONS AT HOME: Xanax 0.25 q. 8, Eliquis 2.5 twice a day, clonidine 0.2 twice a day, hydrochlorothiazide 12.5 daily, hydrocodone 7.5 q. 6, lisinopril 40 mg daily, metoprolol 50 mg twice a day, Protonix 40 mg daily, potassium 20 mEq daily, Daliresp 500 mcg daily, tizanidine 8 mg q. 8 hours. She is on DuoNeb 4 times daily, oxygen 5 liters, prednisone on and off. Steroid-induced diabetes. REVIEW OF SYMPTOMS: Complains of fever, short of breath, feels much better. Denies any green phlegm. Rest of the 14-system was reviewed and negative. PHYSICAL EXAMINATION: GENERAL: Elderly female, not in any distress. VITAL SIGNS: Temperature 100.9, pulse 96, respirations 20, blood pressure 160/75, 96 on 5 liters. At the time of admission, her pulse rate was 114, blood pressure 251/121, respirations 39. HEENT: Head is atraumatic. Pupils equal. Oral cavity, no teeth. NECK: Supple. Thyroid not enlarged. JVD not elevated. CHEST: Symmetrical, COPD pattern. CARDIOVASCULAR: S1, S2. LUNGS: Occasional wheezing, few crackles at the base. ABDOMEN: Soft, bowel sounds present, no mass palpable. EXTERNAL GENITALIA: No Juarez. RECTAL: Deferred. EXTREMITIES: No calf tenderness, no edema. Pulses 1+. SKIN: Normal skin turgor. NEUROLOGIC: Moving all extremities, following conversation. LABORATORY DATA: Shows a white count 13.7, hemoglobin 9.5, platelets 426. Electrolytes show sodium 137, potassium 3.3, chloride 101, bicarbonate 27, BUN 16, creatinine 1.0, glucose 219. Lactic acid 1.2. LFTs were normal. Troponin was negative. BNP 5622. Urine was negative for infection. Influenza A and B was negative. Chest x-ray: Mild pulmonary edema, may be infiltrate in the right base. The patient had extensive workup in the past including echocardiogram, stress test 2 years back negative. Ejection fraction 78%. FINAL IMPRESSION: 1. Pneumonia, right lower lobe infiltrate, suspect Gram-negative. 2. Suspect COVID-19 infection. 3. Chronic obstructive pulmonary disease, on home oxygen 5 liters. 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 6. Hypertension. 7. Hyperlipidemia. 8. Sick sinus syndrome and tachybrady syndrome, had a loop recorder in the past. 9. Had a diastolic dysfunction. Had echo and stress test in last 1-2 years. PLAN: At this time, was admit to hospital, sputum and blood cultures. Started on IV Zosyn. COVID-19 was sent and replace potassium and see how she improves. DVT prophylaxis with Eliquis. DuoNeb 4 times daily. Pulmonary consult, Dr. Garcia. AMILCAR BILL MD DR: ROBERT/ruy JOB#: [id number] / [id number] XIOMARA Vogel
--- NOTE | 2020-04-05 11:54 | CONS ---
DATE OF CONSULTATION: 04/05/2020 PULMONARY CONSULTATION ATTENDING PHYSICIAN: Jordy Gallardo MD REASON FOR CONSULTATION: Suspected COVID-19, dyspnea. HISTORY OF PRESENT ILLNESS: This is an 84-year-old female who presents to the Emergency Department this morning with complaints of progressive dyspnea. She reports she has been experiencing shortness of breath for 1.5 weeks. She denies any cough, fever or sick exposure. She reports that she has not been out of the house, the only thing that is changed in that her sister came to stay with her a couple of weeks ago to help her around the house that she had been short of breath. She reports that she has a history of COPD with chronic oxygen use at home, she reports that she has been using 5 liters nasal cannula at home. She reports that her shortness of breath is worse with exertion and with lying down flat. She denies any swelling of her extremities. It is also of note that the patient was admitted in February with a spontaneous pneumothorax, which required a chest tube. She was also tested for COVID-19, which was negative at that point in time. PAST MEDICAL HISTORY: COPD, atrial fibrillation, diabetes type 2, GERD, hypertension and hyperlipidemia. The patient has had a previous spontaneous pneumothorax. PAST SURGICAL HISTORY: Hysterectomy, cholecystectomy and appendectomy. ALLERGIES: No known drug allergies. MEDICATIONS: List from home was reviewed. SOCIAL HISTORY: She reports that she quit smoking within the last year and she has a 50+ pack year smoking history. She denies any alcohol use. She lives at home by herself normally; however, her sister has come to stay with her over the last couple of weeks to help her around the house. She does use a walker for ambulation. REVIEW OF SYSTEMS: A 12-point was reviewed with the patient that is negative except for pertinent positives in the HPI. PHYSICAL EXAMINATION: VITAL SIGNS: Temperature is 100.9, heart rate is 96, respiratory rate is 20, blood pressure is 160/75 and oxygen saturation is 96% on 5 liters nasal cannula. HEENT: Eyes are PERRLA. Sclerae are nonicteric. NECK: JVD was not present. No lymphadenopathy. CHEST: Bilateral expansion. LUNGS: Bilateral crackles in the bases. No wheezing. CARDIOVASCULAR: Regular rate and rhythm with S1, S2, no S3 heard. ABDOMEN: Soft, nontender, nondistended. EXTREMITIES: No clubbing, no edema or no cyanosis. NEUROLOGIC: The patient is awake and alert and following commands. IMAGING: Chest x-ray was performed, which shows mild basilar predominant interstitial opacities consistent with mild pulmonary edema, trace pleural effusions cannot be excluded. There is no pneumothorax and the heart is mildly enlarged. LABORATORY DATA: White blood cell count is 13.7, hemoglobin is 9.5, hematocrit 28.5 and platelet count is 426. Sodium is 132, potassium is 3.3, BUN is 16 and creatinine is 1.0. Blood glucose is 209. Influenza was negative. UA was negative. BNP was 5,622. IMPRESSION: 1. Chronic hypoxic respiratory failure with home oxygen 5 liters nasal cannula. 2. Congestive heart failure with exacerbation. 3. Chronic obstructive pulmonary disease with mild exacerbation. 4. Suspected COVID-19. 5. Atrial fibrillation. 6. Hypertension. 7. Hyperlipidemia. 8. Diabetes type 2, uncontrolled. 9. Hypokalemia. 10. Low-grade fever. 11. Former smoker. PLAN: 1. Lasix x 1 in the setting of an elevated BNP greater than 5000 and chest x-ray, which shows pulmonary edema. She had an EF of 60-65% with grade 1 diastolic dysfunction in 11/2019. 2. Supplemental oxygen to keep oxygen saturations greater than 90%, currently on 5 liters nasal cannula, titrate as tolerated, be careful not to over oxygenate as she is a CO2 retainer. 3. Bronchodilators/Pulmicort and IV steroids with taper. 4. Empiric antibiotics for pneumonia coverage. 5. COVID-19 test pending. Also, obtain a CRP, LFT and procalcitonin. 6. Hypertension per primary care. 7. Diabetes type 2 per PCP. I discussed with RN. Thank you for this consultation with this patient. We will follow along. INDIRA MURPHY MD DR: ELIZABETH/ruy JOB#: [id number] / [id number]
[2020-04-05] MEDS: ROFLUMILAST 500 MCG TABLET. PO SCH (11:57)
[2020-04-05] MEDS: PIPERACILLIN/TAZOBACTAM 3.375 GM in IV NORMAL SALINE 50ML 50 ML IV SCH ×3 (11:58→23:44)
[2020-04-05] MEDS: IPRATRPIUM/ALBUTEROL 0.5/2.5MG 3 ML NEBU. NEB SCH ×3 (12:00→18:56)
--- NOTE | 2020-04-05 12:19 | EKG ---
[facility] [address] [place] [address] Test Date: 2020-04-05 Test Time: 04:44:25 Pat Name: ANGELITA HAM Department: Room: [facility] Gender: F Production Maintenance Technician: : 1935 Requested By: MARISOL BONILLA Order Number: [id number] Reading MD: Marv Retana Measurements Intervals [place] Rate: 111 P: 46 AL: 134 QRS: 14 QRSD: 96 T: 0 QT: 322 QTc: 441 Interpretive Statements SINUS TACHYCARDIA LEFT ATRIAL ABNORMALITY ABNORMAL ECG Electronically Signed On 04-06-2020 15:47:18 CDT by Marv Retana
[2020-04-05] MEDS: cloNIDine HCL 0.1 MG TABLET PO PRN ×2 (12:30→19:53)
[2020-04-05] MEDS: INSULIN LISPRO 300 UNITS/3 ML VIAL. SQ SCH ×2 (13:00→17:30)
[2020-04-05 15:00] VITALS: BP 183/83
[2020-04-05] MEDS: tiZANidine 4 MG TABLET. PO SCH ×2 (15:03→22:07)
[2020-04-05] MEDS: methylPREDNISolone SOD SUCC PF 40 MG/ML VIAL. IV SCH ×2 (15:04→22:07)
--- NOTE | 2020-04-05 18:16 | NUR ---
Nebulizer txs not given in COVID unit [facility] [employer]
[2020-04-05] MEDS ORDERED: BUDESONIDE 0.5 MG/2 ML NEBU. NEB PRN (19:00)
[2020-04-05] MEDS ORDERED: IPRATRPIUM/ALBUTEROL 0.5/2.5MG 3 ML NEBU. NEB SCH (19:00)
[2020-04-05] MEDS ORDERED: ALBUTEROL SULFATE 2.5 MG/3 ML NEBU. NEB PRN (19:15)
[2020-04-05 20:00] VITALS: BP 198/98
[2020-04-05] MEDS ORDERED: BUDESONIDE 0.5 MG/2 ML NEBU. NEB SCH (20:00)
[2020-04-05] MEDS: APIXABAN 2.5 MG TABLET. PO SCH (20:54)
[2020-04-05] MEDS: ALPRAZolam 0.25 MG TABLET PO PRN (20:54)
[2020-04-05] MEDS: METOPROLOL TART IMMED RELEASE 50 MG TABLET. PO SCH (20:54)
[2020-04-05 21:06] VITALS: BP 208/105
[2020-04-05] MEDS: hydrALAZINE 20 MG/ML VIAL. IVP PRN (22:59)
[2020-04-05 23:00] VITALS: BP 200/112
[2020-04-06] VITALS (9 sets, daily range): BP systolic 135–207; BP diastolic 52–98
[2020-04-06] MEDS: cloNIDine HCL 0.1 MG TABLET PO PRN (04:30)
[2020-04-06] MEDS: hydrALAZINE 20 MG/ML VIAL. IVP PRN ×3 (04:31→23:01)
[2020-04-06 05:16] LABS: BASO % 0 % (0-3); EOS % 0 % (0-3); HEMATOCRIT 26.9 % (36.0-47.0); LYMPH # 0.6 x10^3/uL (1.0-4.8); LYMPH % 5 % (24-48); MEAN CORPUSCULAR HEMOGLOBIN 26 pg (25-35); MEAN CORPUSCULAR HGB CONC 33 g/dL (31-37); MEAN CORPUSCULAR VOLUME 79 fL (79-100); MONO # 0.1 x10^3/uL (0.0-1.1); MONO % 1 % (0-9); NEUT # 10.7 x10^3/uL (1.8-7.7); NEUT % 94 % (31-73); PLATELET COUNT 424 x10^3/uL (140-400); RED BLOOD COUNT 3.42 x10^6/uL (3.50-5.40); RED CELL DISTRIBUTION WIDTH 15.6 % (11.5-14.5); WHITE BLOOD COUNT 11.4 x10^3/uL (4.0-11.0)
[2020-04-06 05:48] LABS: CALCIUM 8.7 mg/dL (8.5-10.1); CREATININE 1.1 mg/dL (0.6-1.0); POTASSIUM 3.4 mmol/L (3.5-5.1)
[2020-04-06] MEDS: PIPERACILLIN/TAZOBACTAM 3.375 GM in IV NORMAL SALINE 50ML 50 ML IV SCH ×4 (06:22→23:52)
[2020-04-06] MEDS: PANTOPRAZOLE 40 MG TABLET.DR. PO SCH ×2 (06:22→09:22)
[2020-04-06] MEDS: tiZANidine 4 MG TABLET. PO SCH ×3 (06:23→20:38)
[2020-04-06] MEDS: methylPREDNISolone SOD SUCC PF 40 MG/ML VIAL. IV SCH ×2 (06:23→20:38)
[2020-04-06] MEDS: HYDROcodone/APAP 7.5/325MG 1 TAB TABLET PO PRN ×2 (06:33→20:39)
[2020-04-06 07:48] LABS: % BANDS 1 % (0-9); % LYMPHS 4 % (24-48); % MONOS 1 % (0-10); % SEGS 94 % (35-66); ANISOCYTOSIS SLIGHT; PLT ESTIMATE INCREASED (ADEQUATE)
[2020-04-06] MEDS: ROFLUMILAST 500 MCG TABLET. PO SCH (09:21)
[2020-04-06] MEDS: LISINOPRIL 20 MG TABLET PO SCH (09:22)
[2020-04-06] MEDS: INSULIN LISPRO 300 UNITS/3 ML VIAL. SQ SCH ×3 (09:23→18:01)
[2020-04-06] MEDS: APIXABAN 2.5 MG TABLET. PO SCH ×2 (09:24→20:39)
[2020-04-06] MEDS: METOPROLOL TART IMMED RELEASE 50 MG TABLET. PO SCH ×2 (09:27→20:39)
--- NOTE | 2020-04-06 09:42 | PDOC ---
PROGRESS NOTES Subjective Subjective feeling better, no fever Objective Objective Vital Signs Date Time Temp Pulse Resp B/P (MAP) Pulse Ox O2 Delivery O2 Flow Rate FiO2 04/06/20 09:27 83 189/92 04/06/20 08:36 97.0 20 97 Nasal Cannula 4.0 97.0 Intake and Output 04/06/20 07:00 Intake Total 1710 ml Output Total 2 ml Balance 1708 ml Intake Oral 660 ml IV Total 1050 ml Output Stool Total 2 ml # Voids 4 Physical Exam Abdomen: Normal bowel sounds, Soft Heart: Regular rate, Normal S1 Extremities: No clubbing General: Alert, Oriented X3 Lungs: Clear to auscultation MUSCULOSKELETAL: No deformity, Osteoarthritic changes both hands Neck: No JVD Neuro: Normal speech Psych/Mental Status: Mental status NL Skin: No breakdown Diagnosis Problem List Problems Medical Problems: (1) COPD exacerbation Status: Acute (2) Fever Status: Acute (3) Suspected 2019-nCoV infection Status: Acute Assessment Assessment Problems Medical Problems: (1) COPD exacerbation Status: Acute (2) Fever Status: Acute (3) Suspected 2019-nCoV infection Status: Acute FINAL IMPRESSION: 1. Pneumonia, right lower lobe infiltrate, suspect Gram-negative. 2. Suspect COVID-19 infection. 3. Chronic obstructive pulmonary disease, on home oxygen 5 liters. 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 6. Hypertension. 7. Hyperlipidemia. 8. Sick sinus syndrome and tachybrady syndrome, had a loop recorder in the past. 9. Had a diastolic dysfunction. Had echo and stress test in last 1-2 years. PLAN: Covid -19 reported neg. IV zosyn for pneumonia iv solumedrol taper wbc 11 down. At this time, was admit to hospital, sputum and blood cultures. Started on IV Zosyn. COVID-19 was sent and replace potassium and see how she improves. DVT prophylaxis with Eliquis. DuoNeb 4 times daily. Pulmonary consult, Dr. Garcia. Plan Plan of Care Problems Medical Problems: (1) COPD exacerbation Status: Acute (2) Fever Status: Acute (3) Suspected 2019-nCoV infection Status: Acute Comment Review of Relevant I have reviewed the following items navi (where applicable) has been applied. Labs Laboratory Tests Test 04/05/20 12:11 04/05/20 17:23 04/05/20 22:44 04/06/20 04:14 Glucose (Fingerstick) 278 mg/dL (70-99) 310 mg/dL (70-99) 336 mg/dL (70-99) White Blood Count 11.4 x10^3/uL (4.0-11.0) Red Blood Count 3.42 x10^6/uL (3.50-5.40) Hemoglobin 9.0 g/dL (12.0-15.5) Hematocrit 26.9 % (36.0-47.0) Mean Corpuscular Volume 79 fL (79-100) Mean Corpuscular Hemoglobin 26 pg (25-35) Mean Corpuscular Hemoglobin Concent 33 g/dL (31-37) Red Cell Distribution Width 15.6 % (11.5-14.5) Platelet Count 424 x10^3/uL (140-400) Neutrophils (%) (Auto) 94 % (31-73) Lymphocytes (%) (Auto) 5 % (24-48) Monocytes (%) (Auto) 1 % (0-9) Eosinophils (%) (Auto) 0 % (0-3) Basophils (%) (Auto) 0 % (0-3) Neutrophils # (Auto) 10.7 x10^3/uL (1.8-7.7) Lymphocytes # (Auto) 0.6 x10^3/uL (1.0-4.8) Monocytes # (Auto) 0.1 x10^3/uL (0.0-1.1) Eosinophils # (Auto) 0.0 x10^3/uL (0.0-0.7) Basophils # (Auto) 0.0 x10^3/uL (0.0-0.2) Segmented Neutrophils % 94 % (35-66) Band Neutrophils % 1 % (0-9) Lymphocytes % 4 % (24-48) Monocytes % 1 % (0-10) Platelet Estimate Increased (ADEQUATE) Anisocytosis Slight Sodium Level 141 mmol/L (136-145) Potassium Level 3.4 mmol/L (3.5-5.1) Chloride Level 101 mmol/L (98-107) Carbon Dioxide Level 30 mmol/L (21-32) Anion Gap 10 (6-14) Blood Urea Nitrogen 21 mg/dL (7-20) Creatinine 1.1 mg/dL (0.6-1.0) Estimated GFR (Cockcroft-Gault) 57.0 Glucose Level 309 mg/dL (70-99) Calcium Level 8.7 mg/dL (8.5-10.1) Test 04/06/20 08:23 Glucose (Fingerstick) 286 mg/dL (70-99) Microbiology 04/05/20 Blood Culture - Preliminary, Resulted NO GROWTH AFTER 1 DAY Medications Current Medications Acetaminophen/ Hydrocodone Bitart (Lortab 7.5/325) 1 tab PRN Q6HRS PRN PO PAIN Last administered on 04/06/20at 06:33; Start 04/05/20 at 11:00 Albuterol Sulfate (Ventolin Neb Soln) 2.5 mg PRN Q4HRS PRN NEB SHORTNESS OF BREATH; Start 04/05/20 at 19:15 Albuterol/ Ipratropium (Duoneb) 3 ml PRN Q4HRS NEB ; Start 04/05/20 at 19:00; Status UNV Albuterol/ Ipratropium (Duoneb) 3 ml RTQID NEB ; Start 04/05/20 at 12:00; Stop 04/05/20 at 19:00; Status DC Alprazolam (Xanax) 0.25 mg PRN Q8HRS PRN PO ANXIETY / AGITATION Last administered on 04/05/20at 20:54; Start 04/05/20 at 11:00 Apixaban (Eliquis) 2.5 mg BID PO Last administered on 04/06/20at 09:24; Start 04/05/20 at 21:00 Budesonide (Pulmicort) 0.5 mg PRN BID PRN NEB SHORTNESS OF BREATH; Start 04/05/20 at 19:00 Budesonide (Pulmicort) 0.5 mg RTBID NEB ; Start 04/05/20 at 20:00; Stop 04/05/20 at 19:00; Status DC Clonidine HCl (Catapres) 0.1 mg PRN Q6HRS PRN PO HYPERTENSION Last administered on 04/06/20at 04:30; Start 04/05/20 at 11:00 Dextrose (Dextrose 50%-Water Syringe) 12.5 gm PRN Q15MIN PRN IV SEE COMMENTS; Start 04/05/20 at 11:00 Dextrose (Iv Dextrose 5%) 250 ml PRN Q15MIN PRN IV SEE COMMENTS; Start 04/05/20 at 11:00 Furosemide (Lasix) 40 mg 1X ONCE IVP Last administered on 04/05/20at 11:57; Start 04/05/20 at 10:45; Stop 04/05/20 at 10:46; Status DC Hydralazine HCl (Apresoline Inj) 5 mg PRN Q4HRS PRN IVP ELEVATED BP, SEE COMMENTS Last administered on 04/06/20at 04:31; Start 04/05/20 at 22:30 Hydralazine HCl (Apresoline) 50 mg TID PO Last administered on 04/06/20at 09:24; Start 04/05/20 at 14:00 Info (Anti-Coagulation Monitoring By Pharmacy) 1 each PRN DAILY PRN MC SEE COMMENTS; Start 04/05/20 at 13:45 Insulin Human Lispro (HumaLOG) 0-5 UNITS TIDWMEALS SQ Last administered on 04/06/20at 09:23; Start 04/05/20 at 12:00 Lisinopril (Prinivil) 40 mg DAILY PO Last administered on 04/06/20at 09:22; Start 04/06/20 at 09:00 Methylprednisolone Sodium Succinate (SOLU-Medrol 40MG VIAL) 40 mg Q8HRS IV Last administered on 04/06/20at 06:23; Start 04/05/20 at 14:00 Metoprolol Tartrate (Lopressor) 50 mg BID PO Last administered on 04/06/20at 09:27; Start 04/05/20 at 21:00 Pantoprazole Sodium (Protonix) 40 mg DAILYAC PO Last administered on 04/06/20at 09:22; Start 04/06/20 at 07:30 Piperacillin Sod/ Tazobactam Sod 3.375 gm/Sodium Chloride 50 ml @ 100 mls/hr Q6HRS IV Last administered on 04/06/20at 06:22; Start 04/05/20 at 12:00 Potassium Chloride (Klor-Con) 20 meq 1X ONCE PO Last administered on 04/05/20at 11:58; Start 04/05/20 at 10:45; Stop 04/05/20 at 10:46; Status DC Roflumilast (Daliresp) 500 mcg DAILY PO Last administered on 04/06/20at 09:21; Start 04/05/20 at 11:00 Tizanidine HCl (Zanaflex) 4 mg Q8HRS PO Last administered on 04/06/20at 06:23; Start 04/05/20 at 14:00 Vitals/I & O Vital Sign - Last 24 Hours 04/05/20 04/05/20 04/05/20 04/05/20 11:00 12:30 15:00 15:04 Temp 97.8 97.6 97.8 97.6 Pulse 86 92 88 92 Resp 19 20 B/P (MAP) 182/91 (121) 181/91 183/83 (116) 181/91 Pulse Ox 98 98 O2 Delivery Nasal Cannula Nasal Cannula O2 Flow Rate 5.0 5.0 04/05/20 04/05/20 04/05/20 04/05/20 19:53 20:00 20:00 20:54 Temp 97.6 97.6 Pulse 92 84 84 Resp 20 B/P (MAP) 181/91 198/98 (131) 198/98 Pulse Ox 100 O2 Delivery Nasal Cannula Nasal Cannula O2 Flow Rate 5.0 5.0 04/05/20 04/05/20 04/05/20 04/05/20 20:55 21:06 22:59 23:00 Temp 97.6 97.6 Pulse 84 85 89 89 Resp 18 18 B/P (MAP) 198/98 208/105 (139) 200/112 200/112 (141) Pulse Ox 100 99 O2 Delivery Nasal Cannula Nasal Cannula O2 Flow Rate 5.0 4.0 04/06/20 04/06/20 04/06/20 04/06/20 00:00 03:00 04:30 04:31 Temp 97.1 97.1 Pulse 85 83 75 75 Resp 18 20 B/P (MAP) 188/87 (120) 192/75 192/95 Pulse Ox 100 99 O2 Delivery Nasal Cannula O2 Flow Rate 5.0 04/06/20 04/06/20 04/06/20 04/06/20 06:33 06:35 08:36 09:22 Temp 97.0 97.0 Pulse 83 83 Resp 18 20 B/P (MAP) 163/79 (107) 189/92 (124) 189/ Pulse Ox 99 97 O2 Delivery Nasal Cannula Nasal Cannula O2 Flow Rate 5.0 4.0 04/06/20 04/06/20 09:24 09:27 Pulse 83 83 B/P (MAP) 189/92 189/92 Intake and Output 04/05/20 04/05/20 04/06/20 15:00 23:00 07:00 Intake Total 1290 ml 420 ml Output Total 2 ml Balance 1288 ml 420 ml AMILCAR BILL MD April 06, 2020 09:42
[2020-04-06] MEDS ORDERED: POTASSIUM CHLORIDE 20 MEQ TABLET.ER. PO ONE (09:45)
--- NOTE | 2020-04-06 10:23 | NUR ---
pt covid negative. no orders to retest, per Dr. Benavides. Orders from Dr. Gallardo to move to noncovid tele bed.
--- NOTE | 2020-04-06 11:54 | NUR ---
elevated CBG of [address] Gallardo. Orders for 8 units novolog to be given and to adjust sliding scale to high intensity.
[2020-04-06] MEDS ORDERED: DEXTROSE 50% 25 GM / 50ML DISP.SYRIN. IV PRN (12:00)
[2020-04-06] MEDS ORDERED: INSULIN LISPRO 300 UNITS/3 ML VIAL. SQ ONE (12:00)
--- NOTE | 2020-04-06 12:01 | PDOC ---
PULMONARY PROGRESS NOTES Subjective no soa no cough Vitals Vital Signs Date Time Temp Pulse Resp B/P (MAP) Pulse Ox O2 Delivery O2 Flow Rate FiO2 04/06/20 09:27 83 189/92 04/06/20 08:36 97.0 20 97 Nasal Cannula 4.0 97.0 General: Alert, No acute distress Lungs: Clear Cardiovascular: S1, S2, Other Abdomen: Soft Neuro Exam: Alert Extremities: No Edema Labs Laboratory Tests Test 04/05/20 04:32 04/05/20 04:50 04/05/20 06:02 04/05/20 12:11 White Blood Count 13.7 x10^3/uL (4.0-11.0) Red Blood Count 3.62 x10^6/uL (3.50-5.40) Hemoglobin 9.5 g/dL (12.0-15.5) Hematocrit 28.5 % (36.0-47.0) Mean Corpuscular Volume 79 fL (79-100) Mean Corpuscular Hemoglobin 26 pg (25-35) Mean Corpuscular Hemoglobin Concent 33 g/dL (31-37) Red Cell Distribution Width 15.8 % (11.5-14.5) Platelet Count 426 x10^3/uL (140-400) Neutrophils (%) (Auto) 82 % (31-73) Lymphocytes (%) (Auto) 9 % (24-48) Monocytes (%) (Auto) 6 % (0-9) Eosinophils (%) (Auto) 2 % (0-3) Basophils (%) (Auto) 1 % (0-3) Neutrophils # (Auto) 11.3 x10^3/uL (1.8-7.7) Lymphocytes # (Auto) 1.2 x10^3/uL (1.0-4.8) Monocytes # (Auto) 0.8 x10^3/uL (0.0-1.1) Eosinophils # (Auto) 0.3 x10^3/uL (0.0-0.7) Basophils # (Auto) 0.1 x10^3/uL (0.0-0.2) Sodium Level 137 mmol/L (136-145) Potassium Level 3.3 mmol/L (3.5-5.1) Chloride Level 101 mmol/L (98-107) Carbon Dioxide Level 27 mmol/L (21-32) Anion Gap 9 (6-14) Blood Urea Nitrogen 16 mg/dL (7-20) Creatinine 1.0 mg/dL (0.6-1.0) Estimated GFR (Cockcroft-Gault) 63.6 BUN/Creatinine Ratio 16 (6-20) Glucose Level 209 mg/dL (70-99) Lactic Acid Level 1.2 mmol/L (0.4-2.0) Calcium Level 9.0 mg/dL (8.5-10.1) Total Bilirubin 0.8 mg/dL (0.2-1.0) Direct Bilirubin 0.5 mg/dL (0.0-0.2) Aspartate Amino Transf (AST/SGOT) 27 U/L (15-37) Alanine Aminotransferase (ALT/SGPT) 22 U/L (14-59) Alkaline Phosphatase 166 U/L (46-116) Troponin I Quantitative < 0.017 ng/mL (0.000-0.055) C-Reactive Protein, Quantitative 226.5 mg/L (0-3.3) ZI-Kig-C-Type Natriuretic Peptide 5622 pg/mL (0-449) Total Protein 7.1 g/dL (6.4-8.2) Albumin 3.1 g/dL (3.4-5.0) Albumin/Globulin Ratio 0.8 (1.0-1.7) Coronavirus (COVID-19)(PCR) See separate report Influenza Type A Antigen Negative (NEGATIVE) Influenza Type B Antigen Negative (NEGATIVE) Urine Collection Type U cath Urine Color Yellow Urine Clarity Clear Urine pH 6.0 (<5.0-8.0) Urine Specific Bryant 1.015 (1.000-1.030) Urine Protein 100 mg/dL (NEG-TRACE) Urine Glucose (UA) 250 mg/dL (NEG) Urine Ketones (Stick) Negative mg/dL (NEG) Urine Blood Negative (NEG) Urine Nitrite Negative (NEG) Urine Bilirubin Negative (NEG) Urine Urobilinogen Dipstick 1.0 mg/dL (0.2 mg/dL) Urine Leukocyte Esterase Negative (NEG) Urine RBC 0 /HPF (0-2) Urine WBC 0 /HPF (0-4) Urine Amorphous Sediment Present /HPF Urine Bacteria 0 /HPF (0-FEW) Glucose (Fingerstick) 278 mg/dL (70-99) Test 04/05/20 17:23 04/05/20 22:44 04/06/20 04:14 04/06/20 08:23 Glucose (Fingerstick) 310 mg/dL (70-99) 336 mg/dL (70-99) 286 mg/dL (70-99) White Blood Count 11.4 x10^3/uL (4.0-11.0) Red Blood Count 3.42 x10^6/uL (3.50-5.40) Hemoglobin 9.0 g/dL (12.0-15.5) Hematocrit 26.9 % (36.0-47.0) Mean Corpuscular Volume 79 fL (79-100) Mean Corpuscular Hemoglobin 26 pg (25-35) Mean Corpuscular Hemoglobin Concent 33 g/dL (31-37) Red Cell Distribution Width 15.6 % (11.5-14.5) Platelet Count 424 x10^3/uL (140-400) Neutrophils (%) (Auto) 94 % (31-73) Lymphocytes (%) (Auto) 5 % (24-48) Monocytes (%) (Auto) 1 % (0-9) Eosinophils (%) (Auto) 0 % (0-3) Basophils (%) (Auto) 0 % (0-3) Neutrophils # (Auto) 10.7 x10^3/uL (1.8-7.7) Lymphocytes # (Auto) 0.6 x10^3/uL (1.0-4.8) Monocytes # (Auto) 0.1 x10^3/uL (0.0-1.1) Eosinophils # (Auto) 0.0 x10^3/uL (0.0-0.7) Basophils # (Auto) 0.0 x10^3/uL (0.0-0.2) Segmented Neutrophils % 94 % (35-66) Band Neutrophils % 1 % (0-9) Lymphocytes % 4 % (24-48) Monocytes % 1 % (0-10) Platelet Estimate Increased (ADEQUATE) Anisocytosis Slight Sodium Level 141 mmol/L (136-145) Potassium Level 3.4 mmol/L (3.5-5.1) Chloride Level 101 mmol/L (98-107) Carbon Dioxide Level 30 mmol/L (21-32) Anion Gap 10 (6-14) Blood Urea Nitrogen 21 mg/dL (7-20) Creatinine 1.1 mg/dL (0.6-1.0) Estimated GFR (Cockcroft-Gault) 57.0 Glucose Level 309 mg/dL (70-99) Calcium Level 8.7 mg/dL (8.5-10.1) Test 04/06/20 11:38 Glucose (Fingerstick) 397 mg/dL (70-99) Laboratory Tests Test 04/05/20 12:11 04/05/20 17:23 04/05/20 22:44 04/06/20 04:14 Glucose (Fingerstick) 278 mg/dL (70-99) 310 mg/dL (70-99) 336 mg/dL (70-99) White Blood Count 11.4 x10^3/uL (4.0-11.0) Red Blood Count 3.42 x10^6/uL (3.50-5.40) Hemoglobin 9.0 g/dL (12.0-15.5) Hematocrit 26.9 % (36.0-47.0) Mean Corpuscular Volume 79 fL (79-100) Mean Corpuscular Hemoglobin 26 pg (25-35) Mean Corpuscular Hemoglobin Concent 33 g/dL (31-37) Red Cell Distribution Width 15.6 % (11.5-14.5) Platelet Count 424 x10^3/uL (140-400) Neutrophils (%) (Auto) 94 % (31-73) Lymphocytes (%) (Auto) 5 % (24-48) Monocytes (%) (Auto) 1 % (0-9) Eosinophils (%) (Auto) 0 % (0-3) Basophils (%) (Auto) 0 % (0-3) Neutrophils # (Auto) 10.7 x10^3/uL (1.8-7.7) Lymphocytes # (Auto) 0.6 x10^3/uL (1.0-4.8) Monocytes # (Auto) 0.1 x10^3/uL (0.0-1.1) Eosinophils # (Auto) 0.0 x10^3/uL (0.0-0.7) Basophils # (Auto) 0.0 x10^3/uL (0.0-0.2) Segmented Neutrophils % 94 % (35-66) Band Neutrophils % 1 % (0-9) Lymphocytes % 4 % (24-48) Monocytes % 1 % (0-10) Platelet Estimate Increased (ADEQUATE) Anisocytosis Slight Sodium Level 141 mmol/L (136-145) Potassium Level 3.4 mmol/L (3.5-5.1) Chloride Level 101 mmol/L (98-107) Carbon Dioxide Level 30 mmol/L (21-32) Anion Gap 10 (6-14) Blood Urea Nitrogen 21 mg/dL (7-20) Creatinine 1.1 mg/dL (0.6-1.0) Estimated GFR (Cockcroft-Gault) 57.0 Glucose Level 309 mg/dL (70-99) Calcium Level 8.7 mg/dL (8.5-10.1) Test 04/06/20 08:23 04/06/20 11:38 Glucose (Fingerstick) 286 mg/dL (70-99) 397 mg/dL (70-99) Medications Active Scripts Medications Dose Route/Sig Max Daily Dose Days Date Category Lisinopril 40 Mg Tablet 40 Mg PO DAILY 30 03/05/20 Rx Hydralazine Hcl 50 Mg Tablet 50 Mg PO TID 30 03/05/20 Rx Catapres (Clonidine Hcl) 0.1 Mg Tablet 0.1 Mg PO PRN Q6HRS PRN 30 03/05/20 Rx Humalog (Insulin Lispro) 100 Unit/1 Ml Insuln.pen 1 Unit SQ TIDWMEALS 30 03/03/20 Rx Eliquis (Apixaban) 2.5 Mg Tablet 2.5 Mg PO BID 30 02/19/20 Rx Metoprolol Tartrate 50 Mg Tablet 50 Mg PO BID 30 02/19/20 Rx Tizanidine Hcl 4 Mg Tablet 1 Tab PO Q8HRS 02/17/20 Reported Lisinopril 40 Mg Tablet 1 Tab PO DAILY 02/17/20 Reported Pantoprazole Sodium (Pantoprazole Sodium) 40 Mg Tablet.dr 40 Mg PO DAILYAC 30 01/14/20 Rx Daliresp (Roflumilast) 500 Mcg Tablet 500 Mcg PO DAILY 30 01/13/20 Rx Hydrocodone-Apap 7.5-325 (Hydrocodone Bit/Acetaminophen) 1 Tab Tablet 1 Tab PO PRN Q6HRS PRN 01/01/20 Reported Xanax (Alprazolam) 0.25 Mg Tablet 0.25 Mg PO Q8HRS PRN 01/01/20 Reported Duoneb 0.5-3(2.5) Mg/3 Ml (Albuterol/Ipratropium) 3 Ml Ampul.neb 3 Ml NEB RTQID 30 12/16/19 Rx Impression . 1. Chronic Hypoxic respiratory Failure - wears home oxygen at 5 liters N/C 2. CHF with exacerbation 3. COPD with mild exacerbation 4. COVID-19 Neg 5. AFIB 6. HTN 7. HLD 8. DM Type II- uncontrolled 9. Hypokalemia 10. low grade fever 11. Former smoker Plan . 1. Lasix X1, elevated BNP and CXR show pulm. edema hx, of EF with 60-65% and grade I DD, clinically better 2. supplemental oxygen to keep oxygen saturations above 90%- currently 5 liters N/C 3. bronchodilators/pulmicort and IV steroids with taper 4. Empric ABX for PNA coverage 5. COVID-19 test neg 6. HTN per PCP 7. DM II per pcp D/W EUGENIO GUERRERO MD April 06, 2020 12:01
--- NOTE | 2020-04-06 12:02 | NUR ---
IP: Pt is COVID negative.
--- NOTE | 2020-04-06 12:03 | NUR ---
1200 SS nonadmin d/t one time order of 8 units.
--- NOTE | 2020-04-06 14:26 | NUR ---
SS following for discharge planning. SS reviewed pt chart and discussed with pt RN. Pt is from home and is currently requiring oxygen. PT/OT ordered. Pt is COVID19 negative. SS will continue to follow for discharge planning.
[2020-04-06] MEDS: ANTI-COAG MONITOR BY PHARMACY. MC PRN (14:44)
--- NOTE | 2020-04-06 15:45 | NUR ---
report given to ROSMERY Zimmer. Pt transferred to room 201
[2020-04-06] MEDS: ALPRAZolam 0.25 MG TABLET PO PRN (20:39)
[2020-04-07 02:36] VITALS: BP 150/75
[2020-04-07] MEDS: HYDROcodone/APAP 7.5/325MG 1 TAB TABLET PO PRN ×2 (06:06→12:38)
[2020-04-07] MEDS: tiZANidine 4 MG TABLET. PO SCH ×3 (06:06→20:50)
[2020-04-07] MEDS: PIPERACILLIN/TAZOBACTAM 3.375 GM in IV NORMAL SALINE 50ML 50 ML IV SCH ×4 (06:06→23:26)
[2020-04-07 06:29] VITALS: BP 219/111
[2020-04-07] MEDS: cloNIDine HCL 0.1 MG TABLET PO PRN ×2 (07:00→14:52)
[2020-04-07] MEDS: INSULIN LISPRO 300 UNITS/3 ML VIAL. SQ SCH ×3 (08:18→16:57)
--- NOTE | 2020-04-07 08:56 | PDOC ---
PULMONARY PROGRESS NOTES Subjective soa with exertion Vitals Vital Signs Date Time Temp Pulse Resp B/P (MAP) Pulse Ox O2 Delivery O2 Flow Rate FiO2 04/07/20 07:00 99 219/111 04/07/20 06:29 97.7 20 97 Nasal Cannula 3.0 97.7 General: Alert, No acute distress Lungs: Wheezing (faint) Cardiovascular: S1, S2, Other Abdomen: Soft Neuro Exam: Alert Extremities: No Edema Labs Laboratory Tests Test 04/05/20 12:11 04/05/20 17:23 04/05/20 22:44 04/06/20 04:14 Glucose (Fingerstick) 278 mg/dL (70-99) 310 mg/dL (70-99) 336 mg/dL (70-99) White Blood Count 11.4 x10^3/uL (4.0-11.0) Red Blood Count 3.42 x10^6/uL (3.50-5.40) Hemoglobin 9.0 g/dL (12.0-15.5) Hematocrit 26.9 % (36.0-47.0) Mean Corpuscular Volume 79 fL (79-100) Mean Corpuscular Hemoglobin 26 pg (25-35) Mean Corpuscular Hemoglobin Concent 33 g/dL (31-37) Red Cell Distribution Width 15.6 % (11.5-14.5) Platelet Count 424 x10^3/uL (140-400) Neutrophils (%) (Auto) 94 % (31-73) Lymphocytes (%) (Auto) 5 % (24-48) Monocytes (%) (Auto) 1 % (0-9) Eosinophils (%) (Auto) 0 % (0-3) Basophils (%) (Auto) 0 % (0-3) Neutrophils # (Auto) 10.7 x10^3/uL (1.8-7.7) Lymphocytes # (Auto) 0.6 x10^3/uL (1.0-4.8) Monocytes # (Auto) 0.1 x10^3/uL (0.0-1.1) Eosinophils # (Auto) 0.0 x10^3/uL (0.0-0.7) Basophils # (Auto) 0.0 x10^3/uL (0.0-0.2) Segmented Neutrophils % 94 % (35-66) Band Neutrophils % 1 % (0-9) Lymphocytes % 4 % (24-48) Monocytes % 1 % (0-10) Platelet Estimate Increased (ADEQUATE) Anisocytosis Slight Sodium Level 141 mmol/L (136-145) Potassium Level 3.4 mmol/L (3.5-5.1) Chloride Level 101 mmol/L (98-107) Carbon Dioxide Level 30 mmol/L (21-32) Anion Gap 10 (6-14) Blood Urea Nitrogen 21 mg/dL (7-20) Creatinine 1.1 mg/dL (0.6-1.0) Estimated GFR (Cockcroft-Gault) 57.0 Glucose Level 309 mg/dL (70-99) Calcium Level 8.7 mg/dL (8.5-10.1) Test 04/06/20 08:23 04/06/20 11:38 04/06/20 16:41 04/06/20 20:43 Glucose (Fingerstick) 286 mg/dL (70-99) 397 mg/dL (70-99) 200 mg/dL (70-99) 214 mg/dL (70-99) Test 04/07/20 07:06 Glucose (Fingerstick) 285 mg/dL (70-99) Laboratory Tests Test 04/06/20 11:38 04/06/20 16:41 04/06/20 20:43 04/07/20 07:06 Glucose (Fingerstick) 397 mg/dL (70-99) 200 mg/dL (70-99) 214 mg/dL (70-99) 285 mg/dL (70-99) Medications Active Scripts Medications Dose Route/Sig Max Daily Dose Days Date Category Lisinopril 40 Mg Tablet 40 Mg PO DAILY 03/05/20 Rx Hydralazine Hcl 50 Mg Tablet 50 Mg PO TID 03/05/20 Rx Catapres (Clonidine Hcl) 0.1 Mg Tablet 0.1 Mg PO PRN Q6HRS PRN 03/05/20 Rx Humalog (Insulin Lispro) 100 Unit/1 Ml Insuln.pen 1 Unit SQ TIDWMEALS 03/03/20 Rx Eliquis (Apixaban) 2.5 Mg Tablet 2.5 Mg PO BID 02/19/20 Rx Metoprolol Tartrate 50 Mg Tablet 50 Mg PO BID 02/19/20 Rx Tizanidine Hcl 4 Mg Tablet 1 Tab PO Q8HRS 02/17/20 Reported Lisinopril 40 Mg Tablet 1 Tab PO DAILY 02/17/20 Reported Pantoprazole Sodium (Pantoprazole Sodium) 40 Mg Tablet.dr 40 Mg PO DAILYAC 30 01/14/20 Rx Daliresp (Roflumilast) 500 Mcg Tablet 500 Mcg PO DAILY 30 01/13/20 Rx Hydrocodone-Apap 7.5-325 (Hydrocodone Bit/Acetaminophen) 1 Tab Tablet 1 Tab PO PRN Q6HRS PRN 01/01/20 Reported Xanax (Alprazolam) 0.25 Mg Tablet 0.25 Mg PO Q8HRS PRN 01/01/20 Reported Duoneb 0.5-3(2.5) Mg/3 Ml (Albuterol/Ipratropium) 3 Ml Ampul.neb 3 Ml NEB RTQID 30 12/16/19 Rx Impression . 1. Chronic Hypoxic respiratory Failure - wears home oxygen at 5 liters N/C, now with acute CHF exacerbation. 2. CHF with exacerbation 3. COPD with mild exacerbation 4. COVID-19 Neg 5. AFIB 6. HTN 7. HLD 8. DM Type II- uncontrolled 9. Hypokalemia 10. low grade fever 11. Former smoker Plan . 1. Lasix extra today .EF with 60-65% and grade I DD, 2. supplemental oxygen to keep oxygen saturations above 90%- currently 5 liters N/C 3. bronchodilators/pulmicort and IV steroids with taper 4. Empric ABX for PNA coverage 5. COVID-19 test neg 6. HTN per PCP 7. DM II per pcp D/W EUGENIO GUERRERO MD April 07, 2020 08:56
[2020-04-07] MEDS ORDERED: FUROSEMIDE 20 MG/2 ML VIAL. IVP ONE (09:00)
[2020-04-07] MEDS: APIXABAN 2.5 MG TABLET. PO SCH ×2 (09:35→20:50)
[2020-04-07] MEDS: METOPROLOL TART IMMED RELEASE 50 MG TABLET. PO SCH ×2 (09:35→20:50)
[2020-04-07] MEDS: ROFLUMILAST 500 MCG TABLET. PO SCH (09:35)
[2020-04-07] MEDS: LISINOPRIL 20 MG TABLET PO SCH (09:36)
[2020-04-07] MEDS: PANTOPRAZOLE 40 MG TABLET.DR. PO SCH (09:37)
[2020-04-07] MEDS: methylPREDNISolone SOD SUCC PF 40 MG/ML VIAL. IV SCH (09:37)
[2020-04-07] MEDS ORDERED: predniSONE 10 MG TABLET PO ONE (10:00)
[2020-04-07 11:20] VITALS: BP 214/97
[2020-04-07] MEDS: ONDANSETRON PF 4 MG/2 ML VIAL. IVP PRN (13:04)
--- NOTE | 2020-04-07 13:41 | RAD ---
CHEST PA LATERAL History: Reason: chf/copd f/u 201 / Spl. Instructions: / History: Comparison: 04/05/2020 Portable Chest X-ray Exam. Findings: Frontal and lateral views of the chest were obtained. The cardiomediastinal silhouette is normal. Pulmonary vasculature is normal. The lungs are clear. No pneumothorax. Very small pleural effusions bilaterally are present. Pulmonary vasculature is borderline. Borderline pulmonary hyperinflation There is no acute bone abnormality. IMPRESSION: Very small pleural effusions. Borderline pulmonary vasculature. No focal infiltrate. Electronically signed by: Jonnie Whitaker MD (04/07/2020 1:38 PM) [id number]
[2020-04-07 14:39] VITALS: BP 226/94
[2020-04-07] MEDS: hydrALAZINE 20 MG/ML VIAL. IVP PRN (16:51)
[2020-04-07 18:25] VITALS: BP 112/58
[2020-04-07] MEDS: ALPRAZolam 0.25 MG TABLET PO PRN (20:49)
[2020-04-07] MEDS: LACTOBACILLUS RHAMNOSUS GG 1 CAPSULE. PO SCH (20:50)
[2020-04-07 23:25] VITALS: BP 166/87
[2020-04-08] VITALS (7 sets, daily range): BP systolic 139–236; BP diastolic 59–101
[2020-04-08] MEDS: hydrALAZINE 20 MG/ML VIAL. IVP PRN ×2 (03:19→11:11)
[2020-04-08] MEDS: HYDROcodone/APAP 7.5/325MG 1 TAB TABLET PO PRN ×2 (04:03→11:11)
[2020-04-08] MEDS: PIPERACILLIN/TAZOBACTAM 3.375 GM in IV NORMAL SALINE 50ML 50 ML IV SCH (05:55)
[2020-04-08] MEDS: tiZANidine 4 MG TABLET. PO SCH ×3 (05:55→20:53)
[2020-04-08] MEDS: PANTOPRAZOLE 40 MG TABLET.DR. PO SCH (05:55)
[2020-04-08 06:15] LABS: BASO # 0.1 x10^3/uL (0.0-0.2); BASO % 0 % (0-3); EOS % 0 % (0-3); HEMOGLOBIN 9.5 g/dL (12.0-15.5); LYMPH # 1.8 x10^3/uL (1.0-4.8); LYMPH % 11 % (24-48); MEAN CORPUSCULAR HEMOGLOBIN 26 pg (25-35); MEAN CORPUSCULAR HGB CONC 33 g/dL (31-37); MEAN CORPUSCULAR VOLUME 79 fL (79-100); MONO # 0.8 x10^3/uL (0.0-1.1); MONO % 5 % (0-9); NEUT # 13.8 x10^3/uL (1.8-7.7); NEUT % 84 % (31-73); PLATELET COUNT 589 x10^3/uL (140-400); RED BLOOD COUNT 3.66 x10^6/uL (3.50-5.40); RED CELL DISTRIBUTION WIDTH 16.1 % (11.5-14.5); WHITE BLOOD COUNT 16.4 x10^3/uL (4.0-11.0)
[2020-04-08 06:22] LABS: CALCIUM 8.8 mg/dL (8.5-10.1); CREATININE 1.1 mg/dL (0.6-1.0)
[2020-04-08] MEDS: INSULIN LISPRO 300 UNITS/3 ML VIAL. SQ SCH ×3 (07:26→17:52)
[2020-04-08] MEDS: ROFLUMILAST 500 MCG TABLET. PO SCH (09:00)
[2020-04-08] MEDS: APIXABAN 2.5 MG TABLET. PO SCH ×2 (09:01→20:54)
[2020-04-08] MEDS: LACTOBACILLUS RHAMNOSUS GG 1 CAPSULE. PO SCH ×2 (09:01→20:53)
[2020-04-08] MEDS: METOPROLOL TART IMMED RELEASE 50 MG TABLET. PO SCH ×2 (09:01→20:54)
[2020-04-08] MEDS: LISINOPRIL 20 MG TABLET PO SCH (09:02)
--- NOTE | 2020-04-08 09:38 | PDOC ---
PULMONARY PROGRESS NOTES Subjective no soa c/o nausea Vitals Vital Signs Date Time Temp Pulse Resp B/P (MAP) Pulse Ox O2 Delivery O2 Flow Rate FiO2 04/08/20 09:02 79 145/69 04/08/20 07:00 97.6 16 98 Nasal Cannula 3.0 97.6 General: Alert, No acute distress Lungs: Other (decrease bs) Cardiovascular: S1, S2, Other Abdomen: Soft Neuro Exam: Alert Extremities: No Edema Labs Laboratory Tests Test 04/06/20 11:38 04/06/20 16:41 04/06/20 20:43 04/07/20 07:06 Glucose (Fingerstick) 397 mg/dL (70-99) 200 mg/dL (70-99) 214 mg/dL (70-99) 285 mg/dL (70-99) Test 04/07/20 11:10 04/07/20 16:15 04/07/20 20:48 04/08/20 05:50 Glucose (Fingerstick) 148 mg/dL (70-99) 255 mg/dL (70-99) 253 mg/dL (70-99) White Blood Count 16.4 x10^3/uL (4.0-11.0) Red Blood Count 3.66 x10^6/uL (3.50-5.40) Hemoglobin 9.5 g/dL (12.0-15.5) Hematocrit 29.0 % (36.0-47.0) Mean Corpuscular Volume 79 fL (79-100) Mean Corpuscular Hemoglobin 26 pg (25-35) Mean Corpuscular Hemoglobin Concent 33 g/dL (31-37) Red Cell Distribution Width 16.1 % (11.5-14.5) Platelet Count 589 x10^3/uL (140-400) Neutrophils (%) (Auto) 84 % (31-73) Lymphocytes (%) (Auto) 11 % (24-48) Monocytes (%) (Auto) 5 % (0-9) Eosinophils (%) (Auto) 0 % (0-3) Basophils (%) (Auto) 0 % (0-3) Neutrophils # (Auto) 13.8 x10^3/uL (1.8-7.7) Lymphocytes # (Auto) 1.8 x10^3/uL (1.0-4.8) Monocytes # (Auto) 0.8 x10^3/uL (0.0-1.1) Eosinophils # (Auto) 0.0 x10^3/uL (0.0-0.7) Basophils # (Auto) 0.1 x10^3/uL (0.0-0.2) Sodium Level 145 mmol/L (136-145) Potassium Level 3.0 mmol/L (3.5-5.1) Chloride Level 104 mmol/L (98-107) Carbon Dioxide Level 32 mmol/L (21-32) Anion Gap 9 (6-14) Blood Urea Nitrogen 33 mg/dL (7-20) Creatinine 1.1 mg/dL (0.6-1.0) Estimated GFR (Cockcroft-Gault) 57.0 Glucose Level 150 mg/dL (70-99) Calcium Level 8.8 mg/dL (8.5-10.1) Test 04/08/20 07:20 Glucose (Fingerstick) 140 mg/dL (70-99) Laboratory Tests Test 04/07/20 11:10 04/07/20 16:15 04/07/20 20:48 04/08/20 05:50 Glucose (Fingerstick) 148 mg/dL (70-99) 255 mg/dL (70-99) 253 mg/dL (70-99) White Blood Count 16.4 x10^3/uL (4.0-11.0) Red Blood Count 3.66 x10^6/uL (3.50-5.40) Hemoglobin 9.5 g/dL (12.0-15.5) Hematocrit 29.0 % (36.0-47.0) Mean Corpuscular Volume 79 fL (79-100) Mean Corpuscular Hemoglobin 26 pg (25-35) Mean Corpuscular Hemoglobin Concent 33 g/dL (31-37) Red Cell Distribution Width 16.1 % (11.5-14.5) Platelet Count 589 x10^3/uL (140-400) Neutrophils (%) (Auto) 84 % (31-73) Lymphocytes (%) (Auto) 11 % (24-48) Monocytes (%) (Auto) 5 % (0-9) Eosinophils (%) (Auto) 0 % (0-3) Basophils (%) (Auto) 0 % (0-3) Neutrophils # (Auto) 13.8 x10^3/uL (1.8-7.7) Lymphocytes # (Auto) 1.8 x10^3/uL (1.0-4.8) Monocytes # (Auto) 0.8 x10^3/uL (0.0-1.1) Eosinophils # (Auto) 0.0 x10^3/uL (0.0-0.7) Basophils # (Auto) 0.1 x10^3/uL (0.0-0.2) Sodium Level 145 mmol/L (136-145) Potassium Level 3.0 mmol/L (3.5-5.1) Chloride Level 104 mmol/L (98-107) Carbon Dioxide Level 32 mmol/L (21-32) Anion Gap 9 (6-14) Blood Urea Nitrogen 33 mg/dL (7-20) Creatinine 1.1 mg/dL (0.6-1.0) Estimated GFR (Cockcroft-Gault) 57.0 Glucose Level 150 mg/dL (70-99) Calcium Level 8.8 mg/dL (8.5-10.1) Test 04/08/20 07:20 Glucose (Fingerstick) 140 mg/dL (70-99) Medications Active Scripts Medications Dose Route/Sig Max Daily Dose Days Date Category Lisinopril 40 Mg Tablet 40 Mg PO DAILY 03/05/20 Rx Hydralazine Hcl 50 Mg Tablet 50 Mg PO TID 30 03/05/20 Rx Catapres (Clonidine Hcl) 0.1 Mg Tablet 0.1 Mg PO PRN Q6HRS PRN 30 03/05/20 Rx Humalog (Insulin Lispro) 100 Unit/1 Ml Insuln.pen 1 Unit SQ TIDWMEALS 03/03/20 Rx Eliquis (Apixaban) 2.5 Mg Tablet 2.5 Mg PO BID 02/19/20 Rx Metoprolol Tartrate 50 Mg Tablet 50 Mg PO BID 02/19/20 Rx Tizanidine Hcl 4 Mg Tablet 1 Tab PO Q8HRS 02/17/20 Reported Lisinopril 40 Mg Tablet 1 Tab PO DAILY 02/17/20 Reported Pantoprazole Sodium (Pantoprazole Sodium) 40 Mg Tablet.dr 40 Mg PO DAILYAC 30 01/14/20 Rx Daliresp (Roflumilast) 500 Mcg Tablet 500 Mcg PO DAILY 30 01/13/20 Rx Hydrocodone-Apap 7.5-325 (Hydrocodone Bit/Acetaminophen) 1 Tab Tablet 1 Tab PO PRN Q6HRS PRN 01/01/20 Reported Xanax (Alprazolam) 0.25 Mg Tablet 0.25 Mg PO Q8HRS PRN 01/01/20 Reported Duoneb 0.5-3(2.5) Mg/3 Ml (Albuterol/Ipratropium) 3 Ml Ampul.neb 3 Ml NEB RTQID 30 12/16/19 Rx Impression . 1. Chronic Hypoxic respiratory Failure - wears home oxygen at 5 liters N/C, now with acute CHF exacerbation. clinically improved. 2. CHF with exacerbation 3. COPD with mild exacerbation 4. COVID-19 Neg 5. AFIB 6. HTN 7. HLD 8. DM Type II- uncontrolled 9. Hypokalemia 10. low grade fever 11. Former smoker Plan . 1. Lasix extra t5/27 .EF with 60-65% and grade I DD, 2. supplemental oxygen to keep oxygen saturations above 90%- currently 5 liters N/C 3. bronchodilators/pulmicort and IV steroids with taper 4. Empric ABX for PNA coverage . change to PO augmentin 5. COVID-19 test neg 6. HTN per PCP 7. DM II per pcp D/W EUGENIO GUERRERO MD April 08, 2020 09:38
[2020-04-08] MEDS ORDERED: predniSONE 20 MG TABLET PO ONE (10:00)
--- NOTE | 2020-04-08 10:08 | PDOC ---
PROGRESS NOTES Subjective Subjective loose stools Objective Objective Vital Signs Date Time Temp Pulse Resp B/P (MAP) Pulse Ox O2 Delivery O2 Flow Rate FiO2 04/08/20 09:02 79 145/69 04/08/20 08:00 Nasal Cannula 3.0 04/08/20 07:00 97.6 16 98 97.6 Intake and Output 04/08/20 07:00 Intake Total 935 ml Output Total 350 ml Balance 585 ml Intake Oral 935 ml Output Urine Total 350 ml # Voids 1 # Bowel Movements 1 Physical Exam Abdomen: Normal bowel sounds, Soft Heart: Regular rate, Normal S1 Extremities: No clubbing General: Alert, Oriented X3 Lungs: Clear to auscultation MUSCULOSKELETAL: No deformity, Osteoarthritic changes both hands Neck: No JVD Neuro: Normal speech Psych/Mental Status: Mental status NL Skin: No breakdown Diagnosis Problem List Problems Medical Problems: (1) COPD exacerbation Status: Acute (2) Fever Status: Acute (3) Suspected 2019-nCoV infection Status: Acute Assessment Assessment Problems Medical Problems: (1) COPD exacerbation Status: Acute (2) Fever Status: Acute (3) Suspected 2019-nCoV infection Status: Acute FINAL IMPRESSION: 1. Pneumonia, right lower lobe infiltrate, suspect Gram-negative. 2. Suspect COVID-19 infection. test came back neg. 3. Chronic obstructive pulmonary disease, on home oxygen 5 liters. 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 6. Hypertension. 7. Hyperlipidemia. 8. Sick sinus syndrome and tachybrady syndrome, had a loop recorder in the past. 9. Had a diastolic dysfunction. Had echo and stress test in last 1-2 years. PLAN: cxr no pneumonia, mild chf d/c iv zosyn blood c/s neg start on po augmentin+po prednisone pot 3.0 replace today. Covid -19 reported neg. wbc 16 went up due to steroids stool for c diff Plan Plan of Care Problems Medical Problems: (1) COPD exacerbation Status: Acute (2) Fever Status: Acute (3) Suspected 2019-nCoV infection Status: Acute Comment Review of Relevant I have reviewed the following items navi (where applicable) has been applied. Labs Laboratory Tests Test 04/07/20 11:10 04/07/20 16:15 04/07/20 20:48 04/08/20 05:50 Glucose (Fingerstick) 148 mg/dL (70-99) 255 mg/dL (70-99) 253 mg/dL (70-99) White Blood Count 16.4 x10^3/uL (4.0-11.0) Red Blood Count 3.66 x10^6/uL (3.50-5.40) Hemoglobin 9.5 g/dL (12.0-15.5) Hematocrit 29.0 % (36.0-47.0) Mean Corpuscular Volume 79 fL (79-100) Mean Corpuscular Hemoglobin 26 pg (25-35) Mean Corpuscular Hemoglobin Concent 33 g/dL (31-37) Red Cell Distribution Width 16.1 % (11.5-14.5) Platelet Count 589 x10^3/uL (140-400) Neutrophils (%) (Auto) 84 % (31-73) Lymphocytes (%) (Auto) 11 % (24-48) Monocytes (%) (Auto) 5 % (0-9) Eosinophils (%) (Auto) 0 % (0-3) Basophils (%) (Auto) 0 % (0-3) Neutrophils # (Auto) 13.8 x10^3/uL (1.8-7.7) Lymphocytes # (Auto) 1.8 x10^3/uL (1.0-4.8) Monocytes # (Auto) 0.8 x10^3/uL (0.0-1.1) Eosinophils # (Auto) 0.0 x10^3/uL (0.0-0.7) Basophils # (Auto) 0.1 x10^3/uL (0.0-0.2) Sodium Level 145 mmol/L (136-145) Potassium Level 3.0 mmol/L (3.5-5.1) Chloride Level 104 mmol/L (98-107) Carbon Dioxide Level 32 mmol/L (21-32) Anion Gap 9 (6-14) Blood Urea Nitrogen 33 mg/dL (7-20) Creatinine 1.1 mg/dL (0.6-1.0) Estimated GFR (Cockcroft-Gault) 57.0 Glucose Level 150 mg/dL (70-99) Calcium Level 8.8 mg/dL (8.5-10.1) Test 04/08/20 07:20 Glucose (Fingerstick) 140 mg/dL (70-99) Microbiology 04/05/20 Blood Culture - Preliminary, Resulted NO GROWTH AFTER 3 DAYS Medications Current Medications Amoxicillin/ Clavulanate Potassium (Augmentin 500/ 125mg) 1 tab BID PO ; Start 04/08/20 at 21:00; Stop 04/12/20 at 08:00 Lactobacillus Rhamnosus (Culturelle) 1 cap BID PO Last administered on 04/08/20at 09:01; Start 04/07/20 at 21:00 Prednisone (Prednisone) 20 mg 1X ONCE PO ; Start 04/10/20 at 10:00; Stop 04/10/20 at 10:01 Prednisone (Prednisone) 30 mg 1X ONCE PO ; Start 04/09/20 at 10:00; Stop 04/09/20 at 10:01 Prednisone (Prednisone) 40 mg 1X ONCE PO ; Start 04/08/20 at 10:00; Stop 04/08/20 at 10:01; Status DC Vitals/I & O Vital Sign - Last 24 Hours 04/07/20 04/07/20 04/07/20 04/07/20 11:20 12:38 13:40 14:39 Temp 98.1 97.8 98.1 97.8 Pulse 92 93 Resp 20 20 20 20 B/P (MAP) 214/97 (136) 226/94 (138) Pulse Ox 96 94 93 92 O2 Delivery Nasal Cannula Nasal Cannula Nasal Cannula Nasal Cannula O2 Flow Rate 3.0 3.0 3.0 3.0 04/07/20 04/07/20 04/07/20 04/07/20 14:51 14:52 16:51 18:25 Temp 98.4 98.4 Pulse 93 93 82 Resp 18 B/P (MAP) 226/94 226/94 201/222 112/58 (76) Pulse Ox 97 O2 Delivery Nasal Cannula O2 Flow Rate 3.0 04/07/20 04/07/20 04/07/20 04/07/20 20:00 20:49 20:50 23:25 Temp 98.1 98.1 Pulse 86 86 75 Resp 20 B/P (MAP) 112/58 112/58 166/87 (113) O2 Delivery Nasal Cannula Nasal Cannula O2 Flow Rate 3.0 3.0 04/08/20 04/08/20 04/08/20 04/08/20 03:19 03:34 04:03 05:03 Temp 98.1 98.1 Pulse 82 81 Resp 20 B/P (MAP) 203/94 203/94 (130) Pulse Ox 91 O2 Delivery Nasal Cannula Nasal Cannula Nasal Cannula O2 Flow Rate 3.0 3.0 3.0 04/08/20 04/08/20 04/08/20 04/08/20 07:00 08:00 09:01 09:01 Temp 97.6 97.6 Pulse 73 79 79 Resp 16 B/P (MAP) 145/69 (94) 145/69 145/69 Pulse Ox 98 O2 Delivery Nasal Cannula Nasal Cannula O2 Flow Rate 3.0 3.0 04/08/20 09:02 Pulse 79 B/P (MAP) 145/69 Intake and Output 04/07/20 04/07/20 04/08/20 15:00 23:00 07:00 Intake Total 120 ml 315 ml 500 ml Output Total 150 ml 200 ml Balance -30 ml 315 ml 300 ml Nutrition Consultation Dietary Evaluation: Recommendations by RD: Dietary education by RD, Increase Calorie Intake, Protein supplementation Comments: REC ADA/cardiac diet per pmhx REC Glucerna (vanilla) TID Expected Outcomes/Goals: PO intake to meet >75% est needs Malnutrition Findings: Food and Nutrition Intake (Mod: <75% est energy req 7days Weight Status: Appropriate AMILCAR BILL MD April 08, 2020 10:08
[2020-04-08] MEDS ORDERED: POTASSIUM CHLORIDE 20 MEQ TABLET.ER. PO ONE (10:15)
[2020-04-08] MEDS: ONDANSETRON PF 4 MG/2 ML VIAL. IVP PRN (10:16)
[2020-04-08] MEDS: cloNIDine HCL 0.1 MG TABLET PO PRN (12:19)
[2020-04-08] MEDS: AMOXICILLIN/K CLAV 500/125MG TABLET. PO SCH (20:53)
[2020-04-08] MEDS: ALPRAZolam 0.25 MG TABLET PO PRN (20:53)
[2020-04-09 03:25] VITALS: BP 187/89
[2020-04-09 04:26] LABS: BASO % 0 % (0-3); EOS % 0 % (0-3); HEMATOCRIT 27.4 % (36.0-47.0); HEMOGLOBIN 9.1 g/dL (12.0-15.5); LYMPH # 1.7 x10^3/uL (1.0-4.8); LYMPH % 12 % (24-48); MEAN CORPUSCULAR HEMOGLOBIN 26 pg (25-35); MEAN CORPUSCULAR HGB CONC 33 g/dL (31-37); MEAN CORPUSCULAR VOLUME 79 fL (79-100); MONO # 0.5 x10^3/uL (0.0-1.1); MONO % 4 % (0-9); NEUT # 12.3 x10^3/uL (1.8-7.7); NEUT % 85 % (31-73); PLATELET COUNT 532 x10^3/uL (140-400); RED BLOOD COUNT 3.47 x10^6/uL (3.50-5.40); RED CELL DISTRIBUTION WIDTH 15.8 % (11.5-14.5); WHITE BLOOD COUNT 14.5 x10^3/uL (4.0-11.0)
[2020-04-09] MEDS: PANTOPRAZOLE 40 MG TABLET.DR. PO SCH (05:48)
[2020-04-09] MEDS: tiZANidine 4 MG TABLET. PO SCH ×3 (05:48→21:24)
[2020-04-09 06:05] LABS: CALCIUM 8.8 mg/dL (8.5-10.1); CREATININE 1.2 mg/dL (0.6-1.0); GFR 51.5; POTASSIUM 3.8 mmol/L (3.5-5.1)
[2020-04-09 06:55] VITALS: BP 155/69
[2020-04-09] MEDS: ROFLUMILAST 500 MCG TABLET. PO SCH (08:28)
[2020-04-09] MEDS: APIXABAN 2.5 MG TABLET. PO SCH ×2 (08:28→21:23)
[2020-04-09] MEDS: LACTOBACILLUS RHAMNOSUS GG 1 CAPSULE. PO SCH ×2 (08:29→21:24)
[2020-04-09] MEDS: LISINOPRIL 20 MG TABLET PO SCH (08:29)
[2020-04-09] MEDS: AMOXICILLIN/K CLAV 500/125MG TABLET. PO SCH ×2 (08:29→21:23)
[2020-04-09] MEDS: POTASSIUM CHLORIDE 10 MEQ TABLET.ER. PO SCH (08:30)
[2020-04-09] MEDS: METOPROLOL TART IMMED RELEASE 50 MG TABLET. PO SCH ×2 (08:30→21:24)
[2020-04-09] MEDS: ALPRAZolam 0.25 MG TABLET PO PRN ×2 (08:33→21:24)
[2020-04-09] MEDS: INSULIN LISPRO 300 UNITS/3 ML VIAL. SQ SCH ×3 (08:39→17:52)
[2020-04-09] MEDS ORDERED: predniSONE 10 MG TABLET PO ONE (10:00)
[2020-04-09 10:17] VITALS: BP 164/76
--- NOTE | 2020-04-09 10:26 | PDOC ---
PULMONARY PROGRESS NOTES Subjective no soa c/o nausea Vitals Vital Signs Date Time Temp Pulse Resp B/P (MAP) Pulse Ox O2 Delivery O2 Flow Rate FiO2 04/09/20 10:17 97.8 73 18 164/76 (105) 100 Nasal Cannula 4.0 97.8 General: Alert, No acute distress Lungs: Other (decrease bs) Cardiovascular: S1, S2, Other Abdomen: Soft Neuro Exam: Alert Extremities: No Edema Labs Laboratory Tests Test 04/07/20 11:10 04/07/20 16:15 04/07/20 20:48 04/08/20 05:50 Glucose (Fingerstick) 148 mg/dL (70-99) 255 mg/dL (70-99) 253 mg/dL (70-99) White Blood Count 16.4 x10^3/uL (4.0-11.0) Red Blood Count 3.66 x10^6/uL (3.50-5.40) Hemoglobin 9.5 g/dL (12.0-15.5) Hematocrit 29.0 % (36.0-47.0) Mean Corpuscular Volume 79 fL (79-100) Mean Corpuscular Hemoglobin 26 pg (25-35) Mean Corpuscular Hemoglobin Concent 33 g/dL (31-37) Red Cell Distribution Width 16.1 % (11.5-14.5) Platelet Count 589 x10^3/uL (140-400) Neutrophils (%) (Auto) 84 % (31-73) Lymphocytes (%) (Auto) 11 % (24-48) Monocytes (%) (Auto) 5 % (0-9) Eosinophils (%) (Auto) 0 % (0-3) Basophils (%) (Auto) 0 % (0-3) Neutrophils # (Auto) 13.8 x10^3/uL (1.8-7.7) Lymphocytes # (Auto) 1.8 x10^3/uL (1.0-4.8) Monocytes # (Auto) 0.8 x10^3/uL (0.0-1.1) Eosinophils # (Auto) 0.0 x10^3/uL (0.0-0.7) Basophils # (Auto) 0.1 x10^3/uL (0.0-0.2) Sodium Level 145 mmol/L (136-145) Potassium Level 3.0 mmol/L (3.5-5.1) Chloride Level 104 mmol/L (98-107) Carbon Dioxide Level 32 mmol/L (21-32) Anion Gap 9 (6-14) Blood Urea Nitrogen 33 mg/dL (7-20) Creatinine 1.1 mg/dL (0.6-1.0) Estimated GFR (Cockcroft-Gault) 57.0 Glucose Level 150 mg/dL (70-99) Calcium Level 8.8 mg/dL (8.5-10.1) Test 04/08/20 07:20 04/08/20 12:02 04/08/20 17:19 04/08/20 20:51 Glucose (Fingerstick) 140 mg/dL (70-99) 171 mg/dL (70-99) 264 mg/dL (70-99) 286 mg/dL (70-99) Test 04/09/20 03:30 04/09/20 06:59 White Blood Count 14.5 x10^3/uL (4.0-11.0) Red Blood Count 3.47 x10^6/uL (3.50-5.40) Hemoglobin 9.1 g/dL (12.0-15.5) Hematocrit 27.4 % (36.0-47.0) Mean Corpuscular Volume 79 fL (79-100) Mean Corpuscular Hemoglobin 26 pg (25-35) Mean Corpuscular Hemoglobin Concent 33 g/dL (31-37) Red Cell Distribution Width 15.8 % (11.5-14.5) Platelet Count 532 x10^3/uL (140-400) Neutrophils (%) (Auto) 85 % (31-73) Lymphocytes (%) (Auto) 12 % (24-48) Monocytes (%) (Auto) 4 % (0-9) Eosinophils (%) (Auto) 0 % (0-3) Basophils (%) (Auto) 0 % (0-3) Neutrophils # (Auto) 12.3 x10^3/uL (1.8-7.7) Lymphocytes # (Auto) 1.7 x10^3/uL (1.0-4.8) Monocytes # (Auto) 0.5 x10^3/uL (0.0-1.1) Eosinophils # (Auto) 0.0 x10^3/uL (0.0-0.7) Basophils # (Auto) 0.0 x10^3/uL (0.0-0.2) Sodium Level 140 mmol/L (136-145) Potassium Level 3.8 mmol/L (3.5-5.1) Chloride Level 103 mmol/L (98-107) Carbon Dioxide Level 32 mmol/L (21-32) Anion Gap 5 (6-14) Blood Urea Nitrogen 33 mg/dL (7-20) Creatinine 1.2 mg/dL (0.6-1.0) Estimated GFR (Cockcroft-Gault) 51.5 Glucose Level 211 mg/dL (70-99) Calcium Level 8.8 mg/dL (8.5-10.1) Glucose (Fingerstick) 152 mg/dL (70-99) Laboratory Tests Test 04/08/20 12:02 04/08/20 17:19 04/08/20 20:51 04/09/20 03:30 Glucose (Fingerstick) 171 mg/dL (70-99) 264 mg/dL (70-99) 286 mg/dL (70-99) White Blood Count 14.5 x10^3/uL (4.0-11.0) Red Blood Count 3.47 x10^6/uL (3.50-5.40) Hemoglobin 9.1 g/dL (12.0-15.5) Hematocrit 27.4 % (36.0-47.0) Mean Corpuscular Volume 79 fL (79-100) Mean Corpuscular Hemoglobin 26 pg (25-35) Mean Corpuscular Hemoglobin Concent 33 g/dL (31-37) Red Cell Distribution Width 15.8 % (11.5-14.5) Platelet Count 532 x10^3/uL (140-400) Neutrophils (%) (Auto) 85 % (31-73) Lymphocytes (%) (Auto) 12 % (24-48) Monocytes (%) (Auto) 4 % (0-9) Eosinophils (%) (Auto) 0 % (0-3) Basophils (%) (Auto) 0 % (0-3) Neutrophils # (Auto) 12.3 x10^3/uL (1.8-7.7) Lymphocytes # (Auto) 1.7 x10^3/uL (1.0-4.8) Monocytes # (Auto) 0.5 x10^3/uL (0.0-1.1) Eosinophils # (Auto) 0.0 x10^3/uL (0.0-0.7) Basophils # (Auto) 0.0 x10^3/uL (0.0-0.2) Sodium Level 140 mmol/L (136-145) Potassium Level 3.8 mmol/L (3.5-5.1) Chloride Level 103 mmol/L (98-107) Carbon Dioxide Level 32 mmol/L (21-32) Anion Gap 5 (6-14) Blood Urea Nitrogen 33 mg/dL (7-20) Creatinine 1.2 mg/dL (0.6-1.0) Estimated GFR (Cockcroft-Gault) 51.5 Glucose Level 211 mg/dL (70-99) Calcium Level 8.8 mg/dL (8.5-10.1) Test 04/09/20 06:59 Glucose (Fingerstick) 152 mg/dL (70-99) Medications Active Scripts Medications Dose Route/Sig Max Daily Dose Days Date Category Lisinopril 40 Mg Tablet 40 Mg PO DAILY 30 03/05/20 Rx Hydralazine Hcl 50 Mg Tablet 50 Mg PO TID 30 03/05/20 Rx Catapres (Clonidine Hcl) 0.1 Mg Tablet 0.1 Mg PO PRN Q6HRS PRN 30 03/05/20 Rx Humalog (Insulin Lispro) 100 Unit/1 Ml Insuln.pen 1 Unit SQ TIDWMEALS 30 03/03/20 Rx Eliquis (Apixaban) 2.5 Mg Tablet 2.5 Mg PO BID 30 02/19/20 Rx Metoprolol Tartrate 50 Mg Tablet 50 Mg PO BID 30 02/19/20 Rx Tizanidine Hcl 4 Mg Tablet 1 Tab PO Q8HRS 02/17/20 Reported Lisinopril 40 Mg Tablet 1 Tab PO DAILY 02/17/20 Reported Pantoprazole Sodium (Pantoprazole Sodium) 40 Mg Tablet.dr 40 Mg PO DAILYAC 30 01/14/20 Rx Daliresp (Roflumilast) 500 Mcg Tablet 500 Mcg PO DAILY 30 01/13/20 Rx Hydrocodone-Apap 7.5-325 (Hydrocodone Bit/Acetaminophen) 1 Tab Tablet 1 Tab PO PRN Q6HRS PRN 01/01/20 Reported Xanax (Alprazolam) 0.25 Mg Tablet 0.25 Mg PO Q8HRS PRN 01/01/20 Reported Duoneb 0.5-3(2.5) Mg/3 Ml (Albuterol/Ipratropium) 3 Ml Ampul.neb 3 Ml NEB RTQID 30 12/16/19 Rx Impression . 1. Chronic Hypoxic respiratory Failure - wears home oxygen at 5 liters N/C, now with acute CHF exacerbation. clinically improved. 2. CHF with exacerbation 3. COPD with mild exacerbation 4. COVID-19 Neg 5. AFIB 6. HTN 7. HLD 8. DM Type II- uncontrolled 9. Hypokalemia 10. low grade fever 11. Former smoker Plan . 1. Lasix prn .EF with 60-65% and grade I DD, 2. supplemental oxygen to keep oxygen saturations above 90%- currently 5 liters N/C 3. bronchodilators/pulmicort and IV steroids with taper 4. Empric ABX for PNA coverage . changed to PO augmentin 5. COVID-19 test neg 6. HTN per PCP 7. DM II per pcp D/W EUGENIO GEURRERO MD April 09, 2020 10:26
--- NOTE | 2020-04-09 10:35 | PDOC ---
PROGRESS NOTES Subjective Subjective pt says donot feel well Objective Objective Vital Signs Date Time Temp Pulse Resp B/P (MAP) Pulse Ox O2 Delivery O2 Flow Rate FiO2 04/09/20 10:17 97.8 73 18 164/76 (105) 100 Nasal Cannula 4.0 97.8 Intake and Output0 04/09/20 07:00 Intake Total 1050 ml Output Total 0 ml Balance 1050 ml Intake Oral 1050 ml Output Urine Total 0 ml # Voids 2 # Bowel Movements 1 Physical Exam Abdomen: Normal bowel sounds, Soft Heart: Regular rate, Normal S1 Extremities: No clubbing General: Alert, Oriented X3 Lungs: Clear to auscultation MUSCULOSKELETAL: No deformity, Osteoarthritic changes both hands Neck: No JVD Neuro: Normal speech Psych/Mental Status: Mental status NL Skin: No breakdown Diagnosis Problem List Problems Medical Problems: (1) COPD exacerbation Status: Acute (2) Fever Status: Acute (3) Suspected 2019-nCoV infection Status: Acute Assessment Assessment Problems Medical Problems: (1) COPD exacerbation Status: Acute (2) Fever Status: Acute (3) Suspected 2019-nCoV infection Status: Acute FINAL IMPRESSION: 1. Pneumonia, right lower lobe infiltrate, suspect Gram-negative. 2. Suspect COVID-19 infection. test came back neg. 3. Chronic obstructive pulmonary disease, on home oxygen 5 liters. 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 6. Hypertension. 7. Hyperlipidemia. 8. Sick sinus syndrome and tachybrady syndrome, had a loop recorder in the past. 9. Had a diastolic dysfunction. Had echo and stress test in last 1-2 years. PLAN:pt had only 1 documents stool yesterday, did not smell bad as per RN 1 stool today ,pt flushed ,no one observed the stool cxr no pneumonia, mild chf d/c iv zosyn blood c/s neg start on po augmentin+po prednisone pot 3.8replaced. Covid -19 reported neg. wbc 14 coming down pt does not want to go home today ,she does not want to go to [facility], tried to call pts sister kalin (dpoa) left message Plan Plan of Care Problems Medical Problems: (1) COPD exacerbation Status: Acute (2) Fever Status: Acute (3) Suspected 2019-nCoV infection Status: Acute Comment Review of Relevant I have reviewed the following items navi (where applicable) has been applied. Labs Laboratory Tests Test 04/08/20 12:02 04/08/20 17:19 04/08/20 20:51 04/09/20 03:30 Glucose (Fingerstick) 171 mg/dL (70-99) 264 mg/dL (70-99) 286 mg/dL (70-99) White Blood Count 14.5 x10^3/uL (4.0-11.0) Red Blood Count 3.47 x10^6/uL (3.50-5.40) Hemoglobin 9.1 g/dL (12.0-15.5) Hematocrit 27.4 % (36.0-47.0) Mean Corpuscular Volume 79 fL (79-100) Mean Corpuscular Hemoglobin 26 pg (25-35) Mean Corpuscular Hemoglobin Concent 33 g/dL (31-37) Red Cell Distribution Width 15.8 % (11.5-14.5) Platelet Count 532 x10^3/uL (140-400) Neutrophils (%) (Auto) 85 % (31-73) Lymphocytes (%) (Auto) 12 % (24-48) Monocytes (%) (Auto) 4 % (0-9) Eosinophils (%) (Auto) 0 % (0-3) Basophils (%) (Auto) 0 % (0-3) Neutrophils # (Auto) 12.3 x10^3/uL (1.8-7.7) Lymphocytes # (Auto) 1.7 x10^3/uL (1.0-4.8) Monocytes # (Auto) 0.5 x10^3/uL (0.0-1.1) Eosinophils # (Auto) 0.0 x10^3/uL (0.0-0.7) Basophils # (Auto) 0.0 x10^3/uL (0.0-0.2) Sodium Level 140 mmol/L (136-145) Potassium Level 3.8 mmol/L (3.5-5.1) Chloride Level 103 mmol/L (98-107) Carbon Dioxide Level 32 mmol/L (21-32) Anion Gap 5 (6-14) Blood Urea Nitrogen 33 mg/dL (7-20) Creatinine 1.2 mg/dL (0.6-1.0) Estimated GFR (Cockcroft-Gault) 51.5 Glucose Level 211 mg/dL (70-99) Calcium Level 8.8 mg/dL (8.5-10.1) Test 04/09/20 06:59 Glucose (Fingerstick) 152 mg/dL (70-99) Microbiology 04/05/20 Blood Culture - Preliminary, Resulted NO GROWTH AFTER 4 DAYS Medications Current Medications Albuterol Sulfate (Ventolin Neb Soln) 2.5 mg RTQID NEB ; Start 04/09/20 at 12:00 Amoxicillin/ Clavulanate Potassium (Augmentin 500/ 125mg) 1 tab BID PO Last administered on 04/09/20at 08:29; Start 04/08/20 at 21:00; Stop 04/12/20 at 08:00 Budesonide (Pulmicort) 0.5 mg RTBID NEB ; Start 04/09/20 at 20:00 Potassium Chloride (Klor-Con) 10 meq [id number] PO Last administered on 04/09/20at 08:30; Start 04/09/20 at 08:00 Prednisone (Prednisone) 20 mg 1X ONCE PO ; Start 04/10/20 at 10:00; Stop 04/10/20 at 10:01 Prednisone (Prednisone) 30 mg 1X ONCE PO ; Start 04/09/20 at 10:00; Stop 04/09/20 at 10:01; Status DC Vitals/I & O Vital Sign - Last 24 Hours 04/08/20 04/08/20 04/08/20 04/08/20 10:54 11:11 11:11 11:52 Temp 98.3 98.3 Pulse 83 86 Resp 16 B/P (MAP) 213/90 (131) 213/90 Pulse Ox 98 98 O2 Delivery Nasal Cannula Nasal Cannula Room Air O2 Flow Rate 3.0 3.0 04/08/20 04/08/20 04/08/20 04/08/20 12:11 12:19 14:43 14:46 Temp 98.3 98.3 Pulse 88 81 81 Resp 16 B/P (MAP) 208/92 236/101 (146) 236/101 Pulse Ox 97 O2 Delivery Nasal Cannula O2 Flow Rate 3.0 3.0 04/08/20 04/08/20 04/08/20 04/08/20 17:41 18:28 20:00 20:53 Temp 97.4 97.4 Pulse 71 76 Resp 16 B/P (MAP) 156/75 (102) 139/59 (85) 139/59 Pulse Ox 93 O2 Delivery Nasal Cannula Nasal Cannula O2 Flow Rate 3.0 3.0 04/08/20 04/08/20 04/09/20 04/09/20 20:54 23:11 03:25 06:55 Temp 97.7 98.1 98.4 97.7 98.1 98.4 Pulse 76 67 66 62 Resp 18 20 18 B/P (MAP) 139/59 158/76 (103) 187/89 (121) 155/69 (97) Pulse Ox 100 87 99 O2 Delivery Nasal Cannula Nasal Cannula Nasal Cannula O2 Flow Rate 3.0 4.0 4.0 04/09/20 04/09/20 04/09/20 04/09/20 08:00 08:28 08:29 08:30 Pulse 65 64 68 B/P (MAP) 155/69 155/69 155/69 O2 Delivery Nasal Cannula O2 Flow Rate 3.0 04/09/20 10:17 Temp 97.8 97.8 Pulse 73 Resp 18 B/P (MAP) 164/76 (105) Pulse Ox 100 O2 Delivery Nasal Cannula O2 Flow Rate 4.0 l Intake and Output 04/08/20 04/08/20 04/09/20 15:00 23:00 07:00 Intake Total 500 ml 550 ml Output Total 0 ml Balance 500 ml 550 ml Nutrition Consultation Dietary Evaluation: Recommendations by RD: Dietary education by RD, Increase Calorie Intake, Protein supplementation Comments: REC ADA/cardiac diet per pmhx REC Glucerna (vanilla) TID Expected Outcomes/Goals: PO intake to meet >75% est needs Malnutrition Findings: Food and Nutrition Intake (Mod: <75% est energy req 7days Weight Status: Appropriate AMILCAR BILL MD April 09, 2020 10:35
[2020-04-09] MEDS: hydrALAZINE 20 MG/ML VIAL. IVP PRN (10:54)
[2020-04-09] MEDS: ALBUTEROL SULFATE 2.5 MG/3 ML NEBU. NEB SCH ×3 (11:13→19:35)
[2020-04-09] MEDS: BUDESONIDE 0.5 MG/2 ML NEBU. NEB SCH ×2 (11:14→19:35)
--- NOTE | 2020-04-09 13:02 | PDOC2 ---
GI CONSULT Reason For Consult: persistent nausea HPI: HPI: 84 y/o female admitted several days ago w/ acute on chronic resp failure. She tells me she has been ill for 1.5 weeks w/ "constant" nausea. Says vomited a couple times yesterday and has no appetite today. Says this is not typical for her, but does admit to "getting a lot of acid." Also says she's lost 20 pounds recently. Pantoprazole included on summary list - she doesn't think she takes this (but also says "I take a lot of pills with funny names" - unaware she's on Eliquis, does know she takes prednisone chronically). Feels like the room is spinning when she is laying still. Also has some epigastric soreness "like a muscle." Having more frequent (5-6 daily) soft "dark" stools. Denies dysphagia, hematemesis, constipation, hematochezia, and melena. EGD and colonoscopy in [address] Garcia for weight loss showed hiatal hernia, reflux esophagitis, GEJ nodule, and ascending colon polyp - pathology unavailable. Abnormal pancreas imaging (MRI, CTs) in the past - w/ nodulates @ head and uncinate process of pancreas, mildly prominent PD and intrahepatic biliary dilatation, possible pancreas divisum, possible small cysts/?IPMN. CA19-9 was normal (13) in 2013. Past imaging has also noted fatty liver. LFTs normal except mildly elevated Alk Phos this time. S/p cholecystectomy. H/o DM - A1c 7.5 in 02/2020. 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), loop recorder (removed) FH: Family History: CAD, DM, Hypertension Social History: Smoke: Quit ALCOHOL: none Drugs: None ROS: GEN: Denies fevers, chills, sweats HEENT: Denies blurred vision, sore throat CV: Denies chest pain RESP: +SOA GI: Per HPI : Denies hematuria, dysuria ENDO: +weight loss NEURO: +dizziness MSK: Denies weakness, joint pain/swelling SKIN: Denies jaundice, pruritus Vitals: Vitals: Vital Signs Date Time Temp Pulse Resp B/P (MAP) Pulse Ox O2 Delivery O2 Flow Rate FiO2 04/09/20 11:17 100 Nasal Cannula 3.0 04/09/20 10:54 71 198/104 04/09/20 10:17 97.8 18 97.8 Labs: Labs: Laboratory Tests Test 04/08/20 17:19 04/08/20 20:51 04/09/20 03:30 04/09/20 06:59 Glucose (Fingerstick) 264 mg/dL (70-99) 286 mg/dL (70-99) 152 mg/dL (70-99) White Blood Count 14.5 x10^3/uL (4.0-11.0) Red Blood Count 3.47 x10^6/uL (3.50-5.40) Hemoglobin 9.1 g/dL (12.0-15.5) Hematocrit 27.4 % (36.0-47.0) Mean Corpuscular Volume 79 fL (79-100) Mean Corpuscular Hemoglobin 26 pg (25-35) Mean Corpuscular Hemoglobin Concent 33 g/dL (31-37) Red Cell Distribution Width 15.8 % (11.5-14.5) Platelet Count 532 x10^3/uL (140-400) Neutrophils (%) (Auto) 85 % (31-73) Lymphocytes (%) (Auto) 12 % (24-48) Monocytes (%) (Auto) 4 % (0-9) Eosinophils (%) (Auto) 0 % (0-3) Basophils (%) (Auto) 0 % (0-3) Neutrophils # (Auto) 12.3 x10^3/uL (1.8-7.7) Lymphocytes # (Auto) 1.7 x10^3/uL (1.0-4.8) Monocytes # (Auto) 0.5 x10^3/uL (0.0-1.1) Eosinophils # (Auto) 0.0 x10^3/uL (0.0-0.7) Basophils # (Auto) 0.0 x10^3/uL (0.0-0.2) Sodium Level 140 mmol/L (136-145) Potassium Level 3.8 mmol/L (3.5-5.1) Chloride Level 103 mmol/L (98-107) Carbon Dioxide Level 32 mmol/L (21-32) Anion Gap 5 (6-14) Blood Urea Nitrogen 33 mg/dL (7-20) Creatinine 1.2 mg/dL (0.6-1.0) Estimated GFR (Cockcroft-Gault) 51.5 Glucose Level 211 mg/dL (70-99) Calcium Level 8.8 mg/dL (8.5-10.1) Test 04/09/20 12:21 Glucose (Fingerstick) 168 mg/dL (70-99) Allergies: Coded Allergies: No Known Drug Allergies (Unverified , 02/17/20) Medications: Current Medications Medications (Trade) Dose Ordered Sig/Bruno Route PRN Reason Start Time Stop Time Status Last Admin Dose Admin Prednisone (Prednisone) 30 mg 1X ONCE PO 04/09/20 10:00 04/09/20 10:01 DC 04/09/20 10:39 Amoxicillin/ Clavulanate Potassium (Augmentin 500/ 125mg) 1 tab BID PO 04/08/20 21:00 04/12/20 08:00 04/09/20 08:29 Potassium Chloride (Klor-Con) 10 meq DAILYWBKFT PO 04/09/20 08:00 04/09/20 08:30 Albuterol Sulfate (Ventolin Neb Soln) 2.5 mg RTQID NEB 04/09/20 12:00 04/09/20 11:13 Budesonide (Pulmicort) 0.5 mg RTBID [facility] 04/09/20 11:15 04/09/20 11:14 Imaging: Imaging: CXR 04/07 IMPRESSION: Very small pleural effusions. Borderline pulmonary vasculature. No focal infiltrate. PE: GEN: thin, chronically ill - staff helps back to bed from restroom, moves very slowly HEENT: Atraumatic, PERRL LUNGS: diminished anteriorly, NC HEART: RR ABD: NABS, epigastric soreness w/ some fullness EXTREMITY: No edema SKIN: No rashes, no jaundice NEURO/PSYCH: A & O 3 A/P: A/P: Resp failure N/v, epigastric pain, change in bowel habits, weight loss Chronic anemia GERD CRC screen, h/o colon polyps - last in 2013 S/p cholecystectomy H/o abnormal pancreas imaging Fatty liver -- Will review w/ Dr. Valladares - ?CT Agree w/ PPI - can change to IV if indicated. Note C Diff ordered/uncollected. MONIKA MARKHAM April 09, 2020 13:01
[2020-04-09] MEDS ORDERED: CALCIUM CARBONATE 500 MG TAB.CHEW PO PRN (14:15)
[2020-04-09 14:19] VITALS: BP 148/70
[2020-04-09 18:05] VITALS: BP 152/73
--- NOTE | 2020-04-09 19:40 | NUR ---
Pt in bed assessment completed vss poc explained pt denied pain at this time call light in reach pt reminded to call for assistance prior to getting oob.
[2020-04-09] MEDS ORDERED: BUDESONIDE 0.5 MG/2 ML NEBU. NEB SCH (20:00)
[2020-04-09 22:58] VITALS: BP 194/73
[2020-04-10] VITALS (7 sets, daily range): BP systolic 113–217; BP diastolic 49–100
[2020-04-10] MEDS: hydrALAZINE 20 MG/ML VIAL. IVP PRN ×3 (01:18→15:38)
[2020-04-10] MEDS: PANTOPRAZOLE 40 MG TABLET.DR. PO SCH (05:31)
[2020-04-10] MEDS: tiZANidine 4 MG TABLET. PO SCH ×3 (05:31→21:34)
[2020-04-10] MEDS: ALBUTEROL SULFATE 2.5 MG/3 ML NEBU. NEB SCH ×4 (07:22→20:17)
[2020-04-10] MEDS: BUDESONIDE 0.5 MG/2 ML NEBU. NEB SCH ×2 (07:22→20:17)
[2020-04-10] MEDS: POTASSIUM CHLORIDE 10 MEQ TABLET.ER. PO SCH (08:15)
[2020-04-10] MEDS: AMOXICILLIN/K CLAV 500/125MG TABLET. PO SCH (08:15)
[2020-04-10] MEDS: LACTOBACILLUS RHAMNOSUS GG 1 CAPSULE. PO SCH ×2 (08:15→21:34)
[2020-04-10] MEDS: APIXABAN 2.5 MG TABLET. PO SCH ×2 (08:15→21:35)
[2020-04-10] MEDS: METOPROLOL TART IMMED RELEASE 50 MG TABLET. PO SCH ×2 (08:16→21:36)
[2020-04-10] MEDS: LISINOPRIL 20 MG TABLET PO SCH (08:16)
[2020-04-10] MEDS: ROFLUMILAST 500 MCG TABLET. PO SCH (08:17)
[2020-04-10] MEDS: INSULIN LISPRO 300 UNITS/3 ML VIAL. SQ SCH ×3 (08:21→17:15)
--- NOTE | 2020-04-10 09:39 | PDOC ---
PULMONARY PROGRESS NOTES Subjective no soa, on 4 lpm, on home 4 lpm, has runny nose, is tired Vitals Vital Signs Date Time Temp Pulse Resp B/P (MAP) Pulse Ox O2 Delivery O2 Flow Rate FiO2 04/10/20 08:20 Nasal Cannula 3.0 04/10/20 08:16 60 186/74 04/10/20 07:23 97 04/10/20 07:05 97.7 18 97.7 ROS: No Nausea General: Alert, No acute distress Lungs: Other (decrease bs) Cardiovascular: S1, S2, Other Abdomen: Soft Neuro Exam: Alert Extremities: No Edema Skin: Warm Labs Laboratory Tests Test 04/08/20 12:02 04/08/20 17:19 04/08/20 20:51 04/09/20 03:30 Glucose (Fingerstick) 171 mg/dL (70-99) 264 mg/dL (70-99) 286 mg/dL (70-99) White Blood Count 14.5 x10^3/uL (4.0-11.0) Red Blood Count 3.47 x10^6/uL (3.50-5.40) Hemoglobin 9.1 g/dL (12.0-15.5) Hematocrit 27.4 % (36.0-47.0) Mean Corpuscular Volume 79 fL (79-100) Mean Corpuscular Hemoglobin 26 pg (25-35) Mean Corpuscular Hemoglobin Concent 33 g/dL (31-37) Red Cell Distribution Width 15.8 % (11.5-14.5) Platelet Count 532 x10^3/uL (140-400) Neutrophils (%) (Auto) 85 % (31-73) Lymphocytes (%) (Auto) 12 % (24-48) Monocytes (%) (Auto) 4 % (0-9) Eosinophils (%) (Auto) 0 % (0-3) Basophils (%) (Auto) 0 % (0-3) Neutrophils # (Auto) 12.3 x10^3/uL (1.8-7.7) Lymphocytes # (Auto) 1.7 x10^3/uL (1.0-4.8) Monocytes # (Auto) 0.5 x10^3/uL (0.0-1.1) Eosinophils # (Auto) 0.0 x10^3/uL (0.0-0.7) Basophils # (Auto) 0.0 x10^3/uL (0.0-0.2) Sodium Level 140 mmol/L (136-145) Potassium Level 3.8 mmol/L (3.5-5.1) Chloride Level 103 mmol/L (98-107) Carbon Dioxide Level 32 mmol/L (21-32) Anion Gap 5 (6-14) Blood Urea Nitrogen 33 mg/dL (7-20) Creatinine 1.2 mg/dL (0.6-1.0) Estimated GFR (Cockcroft-Gault) 51.5 Glucose Level 211 mg/dL (70-99) Calcium Level 8.8 mg/dL (8.5-10.1) Test 04/09/20 06:59 04/09/20 12:21 04/09/20 17:03 04/09/20 21:22 Glucose (Fingerstick) 152 mg/dL (70-99) 168 mg/dL (70-99) 205 mg/dL (70-99) 198 mg/dL (70-99) Test 04/10/20 07:43 Glucose (Fingerstick) 186 mg/dL (70-99) Laboratory Tests Test 04/09/20 12:21 04/09/20 17:03 04/09/20 21:22 04/10/20 07:43 Glucose (Fingerstick) 168 mg/dL (70-99) 205 mg/dL (70-99) 198 mg/dL (70-99) 186 mg/dL (70-99) Medications Active Scripts Medications Dose Route/Sig Max Daily Dose Days Date Category Lisinopril 40 Mg Tablet 40 Mg PO DAILY 03/05/20 Rx Hydralazine Hcl 50 Mg Tablet 50 Mg PO TID 03/05/20 Rx Catapres (Clonidine Hcl) 0.1 Mg Tablet 0.1 Mg PO PRN Q6HRS PRN 03/05/20 Rx Humalog (Insulin Lispro) 100 Unit/1 Ml Insuln.pen 1 Unit SQ TIDWMEALS 03/03/20 Rx Eliquis (Apixaban) 2.5 Mg Tablet 2.5 Mg PO BID 02/19/20 Rx Metoprolol Tartrate 50 Mg Tablet 50 Mg PO BID 02/19/20 Rx Tizanidine Hcl 4 Mg Tablet 1 Tab PO Q8HRS 02/17/20 Reported Lisinopril 40 Mg Tablet 1 Tab PO DAILY 02/17/20 Reported Pantoprazole Sodium (Pantoprazole Sodium) 40 Mg Tablet.dr 40 Mg PO DAILYAC 30 01/14/20 Rx Daliresp (Roflumilast) 500 Mcg Tablet 500 Mcg PO DAILY 30 01/13/20 Rx Hydrocodone-Apap 7.5-325 (Hydrocodone Bit/Acetaminophen) 1 Tab Tablet 1 Tab PO PRN Q6HRS PRN 01/01/20 Reported Xanax (Alprazolam) 0.25 Mg Tablet 0.25 Mg PO Q8HRS PRN 01/01/20 Reported Duoneb 0.5-3(2.5) Mg/3 Ml (Albuterol/Ipratropium) 3 Ml Ampul.neb 3 Ml NEB RTQID 30 12/16/19 Rx Impression . 1. Chronic Hypoxic respiratory Failure - wears home oxygen at 4 liters N/C, now with acute CHF exacerbation. improving. 2. CHF with exacerbation 3. COPD with mild exacerbation 4. COVID-19 Neg 5. AFIB 6. HTN 7. HLD 8. DM Type II- uncontrolled 9. Hypokalemia 10. low grade fever 11. Former smoker Plan . 1. Lasix prn .EF with 60-65% and grade I DD, 2. supplemental oxygen to keep oxygen saturations above 90%- currently 4 liters N/C 3. bronchodilators/pulmicort, prednisone w taper 4. Empric ABX for PNA coverage . 5. COVID-19 test neg 6. HTN per PCP 7. DM II per pcp 8. add flonase for runny nose 9. on eliquis fu c diff D/W RN, pt KRYSTIN STONE MD April 10, 2020 09:39
[2020-04-10] MEDS ORDERED: predniSONE 20 MG TABLET PO ONE (10:00)
[2020-04-10] MEDS: ANTI-COAG MONITOR BY PHARMACY. MC PRN (10:04)
[2020-04-10] MEDS: cloNIDine HCL 0.1 MG TABLET PO PRN (10:49)
--- NOTE | 2020-04-10 12:47 | PDOC ---
PROGRESS NOTES Subjective Subjective eat breakfast nauseated for lunch Objective Objective Vital Signs Date Time Temp Pulse Resp B/P (MAP) Pulse Ox O2 Delivery O2 Flow Rate FiO2 04/10/20 11:12 97 Nasal Cannula 3.0 04/10/20 10:49 74 176/81 04/10/20 10:32 98.2 20 98.2 Intake and Output 04/10/20 07:00 Intake Total 380 ml Output Total 3 ml Balance 377 ml Intake Oral 380 ml Stool Total 1 ml Urine/Stool Mix 2 ml # Voids 3 # Bowel Movements 2 Physical Exam Abdomen: Normal bowel sounds, Soft Heart: Regular rate, Normal S1 Extremities: No clubbing General: Alert, Oriented X3 Lungs: Clear to auscultation MUSCULOSKELETAL: No deformity, Osteoarthritic changes both hands Neck: No JVD Neuro: Normal speech Psych/Mental Status: Mental status NL Skin: No breakdown Diagnosis Problem List Problems Medical Problems: (1) COPD exacerbation Status: Acute (2) Fever Status: Acute (3) Suspected 2019-nCoV infection Status: Acute Assessment Assessment Problems Medical Problems: (1) COPD exacerbation Status: Acute (2) Fever Status: Acute (3) Suspected 2019-nCoV infection Status: Acute FINAL IMPRESSION: 1. Pneumonia, right lower lobe infiltrate, suspect Gram-negative. 2. Suspect COVID-19 infection. test came back neg. 3. Chronic obstructive pulmonary disease, on home oxygen 5 liters. 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 6. Hypertension. 7. Hyperlipidemia. 8. Sick sinus syndrome and tachybrady syndrome, had a loop recorder in the past. 9. Had a diastolic dysfunction. Had echo and stress test in last 1-2 years. PLAN:pt had small loose stools today, sent for c diff d/c augmentin ,may be causing diarrhea cxr no pneumonia, mild chf d/c iv zosyn blood c/s neg po prednisone 10 mg pot 3.8replaced. Covid -19 reported neg. wbc 14 coming down pt does not want to go home today ,she does not want to go to SNU, spoke with RN Plan Plan of Care Problems Medical Problems: (1) COPD exacerbation Status: Acute (2) Fever Status: Acute (3) Suspected 2019-nCoV infection Status: Acute Comment Review of Relevant I have reviewed the following items navi (where applicable) has been applied. Labs Laboratory Tests Test 04/09/20 17:03 04/09/20 21:22 04/10/20 07:43 04/10/20 11:23 Glucose (Fingerstick) 205 mg/dL (70-99) 198 mg/dL (70-99) 186 mg/dL (70-99) 171 mg/dL (70-99) Microbiology 04/05/20 Blood Culture - Final, Complete NO GROWTH AFTER 5 DAYS Medications Current Medications Budesonide (Pulmicort) 0.5 mg RTBID NEB ; Start 04/09/20 at 20:00; Stop 04/09/20 at 11:11; Status DC Calcium Carbonate/ Glycine (Tums) 500 mg PRN AFTMEALHC PRN PO INDIGESTION; Start 04/09/20 at 14:15 Fluticasone Propionate (Flonase) 2 spray DAILY NS ; Start 04/11/20 at 09:00 Prednisone (Prednisone) 20 mg 1X ONCE PO Last administered on 04/10/20at 10:41; Start 04/10/20 at 10:00; Stop 04/10/20 at 10:01; Status DC Vitals/I & O Vital Sign - Last 24 Hours 04/09/20 04/09/20 04/09/20 04/09/20 13:22 14:19 15:07 18:05 Temp 98.1 98.0 98.1 98.0 Pulse 86 79 73 Resp 16 16 B/P (MAP) 178/76 148/70 (96) 152/73 (99) Pulse Ox 100 99 95 O2 Delivery Nasal Cannula Nasal Cannula Nasal Cannula O2 Flow Rate 3.0 3.0 4.0 04/09/20 04/09/20 04/09/20 04/09/20 19:36 19:37 19:40 21:23 Pulse 84 B/P (MAP) 152/73 Pulse Ox 100 100 O2 Delivery Nasal Cannula Nasal Cannula Nasal Cannula O2 Flow Rate 3.0 3.0 3.0 04/09/20 04/09/20 04/10/20 04/10/20 21:24 22:58 01:18 03:05 Temp 98.1 97.9 98.1 97.9 Pulse 84 71 64 66 Resp 18 18 B/P (MAP) 152/73 194/73 (113) 211/90 166/65 (98) Pulse Ox 99 96 O2 Delivery Nasal Cannula Nasal Cannula O2 Flow Rate 3.0 3.0 04/10/20 04/10/20 04/10/20 04/10/20 07:05 07:23 08:16 08:16 Temp 97.7 97.7 Pulse 60 60 60 Resp 18 B/P (MAP) 186/74 (111) 186/74 186/74 Pulse Ox 97 97 O2 Delivery Nasal Cannula Nasal Cannula O2 Flow Rate 3.0 3.0 04/10/20 04/10/20 04/10/20 04/10/20 08:16 08:20 10:32 10:49 Temp 98.2 98.2 Pulse 60 74 74 Resp 20 B/P (MAP) 186/74 176/81 (112) 176/81 Pulse Ox 96 O2 Delivery Nasal Cannula Nasal Cannula O2 Flow Rate 3.0 3.0 04/10/20 11:12 Pulse Ox 97 O2 Delivery Nasal Cannula O2 Flow Rate 3.0 Intake and Output 04/09/20 04/09/20 04/10/20 15:00 23:00 07:00 Intake Total 280 ml 100 ml Output Total 1 ml 2 ml Balance 279 ml 98 ml Nutrition Consultation Dietary Evaluation: Recommendations by RD: Dietary education by RD, Increase Calorie Intake, Protein supplementation Comments: REC ADA/cardiac diet per pmhx REC Glucerna (vanilla) TID Expected Outcomes/Goals: PO intake to meet >75% est needs Malnutrition Findings: Food and Nutrition Intake (Mod: <75% est energy req 7days Weight Status: Appropriate AMILCAR BILL MD April 10, 2020 12:47
[2020-04-10] MEDS: ONDANSETRON PF 4 MG/2 ML VIAL. IVP PRN (15:39)
[2020-04-10] MEDS: ALPRAZolam 0.25 MG TABLET PO PRN (21:45)
[2020-04-11 04:27] VITALS: BP 193/94
[2020-04-11 04:56] LABS: BASO % 0 % (0-3); EOS % 0 % (0-3); HEMATOCRIT 27.8 % (36.0-47.0); HEMOGLOBIN 9.1 g/dL (12.0-15.5); LYMPH # 1.1 x10^3/uL (1.0-4.8); LYMPH % 8 % (24-48); MEAN CORPUSCULAR HEMOGLOBIN 26 pg (25-35); MEAN CORPUSCULAR HGB CONC 33 g/dL (31-37); MEAN CORPUSCULAR VOLUME 80 fL (79-100); MONO # 0.4 x10^3/uL (0.0-1.1); MONO % 3 % (0-9); NEUT # 12.9 x10^3/uL (1.8-7.7); NEUT % 90 % (31-73); PLATELET COUNT 404 x10^3/uL (140-400); RED BLOOD COUNT 3.47 x10^6/uL (3.50-5.40); RED CELL DISTRIBUTION WIDTH 16.4 % (11.5-14.5); WHITE BLOOD COUNT 14.4 x10^3/uL (4.0-11.0)
[2020-04-11] MEDS: tiZANidine 4 MG TABLET. PO SCH ×3 (05:10→21:38)
[2020-04-11] MEDS: cloNIDine HCL 0.1 MG TABLET PO PRN ×2 (05:10→22:38)
[2020-04-11] MEDS: hydrALAZINE 20 MG/ML VIAL. IVP PRN (05:11)
[2020-04-11 05:21] LABS: CALCIUM 8.2 mg/dL (8.5-10.1); GFR 63.6; POTASSIUM 4.4 mmol/L (3.5-5.1)
[2020-04-11 07:00] VITALS: BP 154/69
[2020-04-11] MEDS: ALBUTEROL SULFATE 2.5 MG/3 ML NEBU. NEB SCH ×4 (07:21→20:00)
[2020-04-11] MEDS: BUDESONIDE 0.5 MG/2 ML NEBU. NEB SCH ×2 (07:21→20:00)
[2020-04-11] MEDS: predniSONE 10 MG TABLET PO SCH (08:19)
[2020-04-11] MEDS: LACTOBACILLUS RHAMNOSUS GG 1 CAPSULE. PO SCH ×2 (08:19→21:38)
[2020-04-11] MEDS: FLUTICASONE 50MCG/NASAL SPRAY 16GM BOTTLE. NS SCH (08:19)
[2020-04-11] MEDS: PANTOPRAZOLE 40 MG TABLET.DR. PO SCH (08:19)
[2020-04-11] MEDS: ROFLUMILAST 500 MCG TABLET. PO SCH (08:19)
[2020-04-11] MEDS: APIXABAN 2.5 MG TABLET. PO SCH ×2 (08:19→21:39)
[2020-04-11] MEDS: POTASSIUM CHLORIDE 10 MEQ TABLET.ER. PO SCH (08:19)
[2020-04-11] MEDS: METOPROLOL TART IMMED RELEASE 50 MG TABLET. PO SCH ×2 (08:20→21:40)
[2020-04-11] MEDS: LISINOPRIL 20 MG TABLET PO SCH (08:20)
[2020-04-11] MEDS: INSULIN LISPRO 300 UNITS/3 ML VIAL. SQ SCH ×3 (08:25→17:33)
[2020-04-11] MEDS: ANTI-COAG MONITOR BY PHARMACY. MC PRN (09:11)
[2020-04-11 10:59] VITALS: BP 121/57
--- NOTE | 2020-04-11 11:57 | PDOC ---
PROGRESS NOTES Subjective Subjective feels better ,no nausea ,keeping food down, no loose stools Objective Objective Vital Signs Date Time Temp Pulse Resp B/P (MAP) Pulse Ox O2 Delivery O2 Flow Rate FiO2 04/11/20 11:22 Nasal Cannula 3.0 04/11/20 10:59 97.6 63 18 121/57 (78) 95 97.6 Intake and Output 04/11/20 07:00 Intake Total 410 ml Balance 410 ml Intake Oral 410 ml # Voids 6 # Bowel Movements 4 Physical Exam Abdomen: Normal bowel sounds, Soft Heart: Regular rate, Normal S1 Extremities: No clubbing General: Alert, Oriented X3 Lungs: Clear to auscultation MUSCULOSKELETAL: No deformity, Osteoarthritic changes both hands Neck: No JVD Neuro: Normal speech Psych/Mental Status: Mental status NL Skin: No breakdown Diagnosis Problem List Problems Medical Problems: (1) COPD exacerbation Status: Acute (2) Fever Status: Acute (3) Suspected 2019-nCoV infection Status: Acute Assessment Assessment Problems Medical Problems: (1) COPD exacerbation Status: Acute (2) Fever Status: Acute (3) Suspected 2019-nCoV infection Status: Acute FINAL IMPRESSION: 1. Pneumonia, right lower lobe infiltrate, suspect Gram-negative. 2. Suspect COVID-19 infection. test came back neg. 3. Chronic obstructive pulmonary disease, on home oxygen 5 liters. 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 6. Hypertension. 7. Hyperlipidemia. 8. Sick sinus syndrome and tachybrady syndrome, had a loop recorder in the past. 9. Had a diastolic dysfunction. Had echo and stress test in last 1-2 years. PLAN:tolerating diet. d/c home today. pt donot want to go to SNU, she has 24 hour certified social workers in health care at home. labs stable, wbc 14 due to steroids C Diff pending d/c augmentin ,may be causing diarrhea cxr no pneumonia, mild chf Plan Plan of Care Problems Medical Problems: (1) COPD exacerbation Status: Acute (2) Fever Status: Acute (3) Suspected 2019-nCoV infection Status: Acute Comment Review of Relevant I have reviewed the following items navi (where applicable) has been applied. Labs Laboratory Tests Test 04/10/20 16:37 04/10/20 20:58 04/11/20 04:00 04/11/20 07:36 Glucose (Fingerstick) 177 mg/dL (70-99) 212 mg/dL (70-99) 156 mg/dL (70-99) White Blood Count 14.4 x10^3/uL (4.0-11.0) Red Blood Count 3.47 x10^6/uL (3.50-5.40) Hemoglobin 9.1 g/dL (12.0-15.5) Hematocrit 27.8 % (36.0-47.0) Mean Corpuscular Volume 80 fL (79-100) Mean Corpuscular Hemoglobin 26 pg (25-35) Mean Corpuscular Hemoglobin Concent 33 g/dL (31-37) Red Cell Distribution Width 16.4 % (11.5-14.5) Platelet Count 404 x10^3/uL (140-400) Neutrophils (%) (Auto) 90 % (31-73) Lymphocytes (%) (Auto) 8 % (24-48) Monocytes (%) (Auto) 3 % (0-9) Eosinophils (%) (Auto) 0 % (0-3) Basophils (%) (Auto) 0 % (0-3) Neutrophils # (Auto) 12.9 x10^3/uL (1.8-7.7) Lymphocytes # (Auto) 1.1 x10^3/uL (1.0-4.8) Monocytes # (Auto) 0.4 x10^3/uL (0.0-1.1) Eosinophils # (Auto) 0.0 x10^3/uL (0.0-0.7) Basophils # (Auto) 0.0 x10^3/uL (0.0-0.2) Sodium Level 139 mmol/L (136-145) Potassium Level 4.4 mmol/L (3.5-5.1) Chloride Level 102 mmol/L (98-107) Carbon Dioxide Level 29 mmol/L (21-32) Anion Gap 8 (6-14) Blood Urea Nitrogen 26 mg/dL (7-20) Creatinine 1.0 mg/dL (0.6-1.0) Estimated GFR (Cockcroft-Gault) 63.6 Glucose Level 208 mg/dL (70-99) Calcium Level 8.2 mg/dL (8.5-10.1) Test 04/11/20 11:15 Glucose (Fingerstick) 173 mg/dL (70-99) Microbiology 04/05/20 Blood Culture - Final, Complete NO GROWTH AFTER 5 DAYS Medications Current Medications Fluticasone Propionate (Flonase) 2 spray DAILY NS Last administered on 04/11/20at 08:19; Start 04/11/20 at 09:00 Prednisone (Prednisone) 10 mg DAILY PO Last administered on 04/11/20at 08:19; Start 04/11/20 at 09:00 Vitals/I & O Vital Sign - Last 24 Hours 04/10/20 04/10/20 04/10/20 04/10/20 14:23 14:32 15:21 15:38 Temp 98.2 98.2 Pulse 74 80 80 Resp 18 B/P (MAP) 217/100 217/100 (139) 243/129 Pulse Ox 97 O2 Delivery Nasal Cannula Nasal Cannula O2 Flow Rate 3.0 3.0 04/10/20 04/10/20 04/10/20 04/10/20 17:08 19:28 20:00 20:17 Temp 97.5 97.5 Pulse 80 66 Resp 21 B/P (MAP) 113/49 (70) 120/61 (80) Pulse Ox 97 O2 Delivery Nasal Cannula Nasal Cannula Nasal Cannula O2 Flow Rate 3.0 3.0 3.0 04/10/20 04/10/20 04/10/20 04/11/20 21:35 21:36 23:48 03:00 Temp 97.7 97.7 Pulse 70 70 68 59 Resp 20 B/P (MAP) 120/61 120/61 196/85 (122) Pulse Ox 96 O2 Delivery Nasal Cannula O2 Flow Rate 3.0 04/11/20 04/11/20 04/11/20 04/11/20 04:27 05:10 05:11 07:00 Temp 97.8 97.9 97.8 97.9 Pulse 63 63 63 56 Resp 24 18 B/P (MAP) 193/94 (127) 193/94 193/94 154/69 (97) Pulse Ox 98 96 O2 Delivery Nasal Cannula Nasal Cannula O2 Flow Rate 3.0 3.0 04/11/20 04/11/20 04/11/20 04/11/20 07:22 08:02 08:20 08:20 B/P (MAP) 154/69 154/69 O2 Delivery Nasal Cannula Nasal Cannula O2 Flow Rate 3.0 3.0 04/11/20 04/11/20 04/11/20 08:20 10:59 11:22 Temp 97.6 97.6 Pulse 60 63 Resp 18 B/P (MAP) 154/69 121/57 (78) Pulse Ox 95 O2 Delivery Nasal Cannula Nasal Cannula O2 Flow Rate 3.0 3.0 Intake and Output 04/10/20 04/10/20 04/11/20 15:00 23:00 07:00 Intake Total 290 ml 120 ml Balance 290 ml 120 ml Nutrition Consultation Dietary Evaluation: Recommendations by RD: Dietary education by RD, Increase Calorie Intake, Protein supplementation Comments: REC ADA/cardiac diet per pmhx REC Glucerna (vanilla) TID Expected Outcomes/Goals: PO intake to meet >75% est needs Malnutrition Findings: Food and Nutrition Intake (Mod: <75% est energy req 7days Weight Status: Appropriate AMILCAR BILL MD April 11, 2020 11:57
[2020-04-11] MEDS ORDERED: PRED-220 PO (12:03)
[2020-04-11] MEDS ORDERED: INSU100I11 SQ (12:03)
--- NOTE | 2020-04-11 12:05 | SNU/HH DC ---
DISCHARGE WITH HOME HEALTH DISCHARGE INFORMATION: Discharge Date: April 11, 2020 Final Diagnosis: Problems Medical Problems: (1) COPD exacerbation Status: Acute (2) Fever Status: Acute (3) Suspected 2019-nCoV infection Status: Acute Condition on Discharge: Stable CODE STATUS: Code Status: Full HOME HEALTH: Face to Face: I certify this patient is under my care and that I, or a nurse practitioner or physician's offset press assistant working with me, had a face to face encounter that meets the physician face to face encounter requirements with this patient on []. RN For Eval/Treatment: Yes Physical Therapy For: Evalulation/Treatment Home Health Aide For: Self-care DYE RANGE FEEDER For: Community Resources Pt Meets Homebound Status: Poor coordination w/ amb. POST DISCHARGE ORDERS: Activity Instructions for Disc: Activity as tolerated Weight Bearing Status after Di: As tolerated Bathing Instructions: Shower-keep dressing dry DIET AFTER DISCHARGE: Cardiac Wound/Incision Care: No wound care needed CHECKS AFTER DISCHARGE: Checks after discharge: Check blood press - daily, Check blood sugar, ac/hs, Ch mauricio your Temp as needed, Weigh Yourself Daily Comment: sliding scale tid ,per protocol TREATMENT/EQUIPMENT ORDERS: Adaptive Equipment Issued: Walker, Wheelchair Discharge Respiratory Equipmen: Oxygen CERTIFICATION STATEMENT: Certification Statement: Certification Statement: Based on the above finding, I certify that this patient is confined to the home and needs intermittent mcfp care, physical therapy and/or speech therapy, or continues to need occupational therapy.~ This patient is under my care, and I have initiated the establishment of the plan of care.~ This patient will be followed by myself or a community physician who will periodically review the plan of care. Home Meds Active Scripts Lisinopril (LISINOPRIL) 40 Mg Tablet, 40 MG PO DAILY for htn for 30 Days, #30 TAB Prov:AMILCAR BILL MD 03/05/20 Hydralazine Hcl (HYDRALAZINE HCL) 50 Mg Tablet, 50 MG PO TID for htn for 30 Days, #90 TAB Prov:AMILCAR BILL MD 03/05/20 Clonidine Hcl (CATAPRES) 0.1 Mg Tablet, 0.1 MG PO PRN Q6HRS PRN for HYPERTENSION for 30 Days, TAB Prov:AMILCAR BILL MD 03/05/20 Insulin Lispro (HUMALOG) 100 Unit/1 Ml Insuln.pen, 1 UNIT SQ TIDWMEALS for river for 30 Days, EACH Prov:AMILCAR BILL MD 03/03/20 Apixaban (ELIQUIS) 2.5 Mg Tablet, 2.5 MG PO BID for a fib for 30 Days, #60 TAB Prov:AMILCAR BILL MD 02/19/20 Metoprolol Tartrate (METOPROLOL TARTRATE) 50 Mg Tablet, 50 MG PO BID for afib f or 30 Days, #60 TAB Prov:AMILCAR BILL MD 02/19/20 Pantoprazole Sodium (PANTOPRAZOLE SODIUM ) 40 Mg Tablet.dr, 40 MG PO DAILYAC for GERD for 30 Days, #30 TAB Prov:AMILCAR BILL MD 01/14/20 Roflumilast (DALIRESP) 500 Mcg Tablet, 500 MCG PO DAILY for copd for 30 Days, #30 TAB Prov:AMILCAR BILL MD 01/13/20 Ipratropium/Albuterol Sulfate (DUONEB 0.5-3(2.5) MG/3 ML) 3 Ml Ampul.neb, 3 ML NEB RTQID for copd for 30 Days, #120 EACH Prov:AMILCAR BILL MD 12/16/19 Reported Medications Tizanidine Hcl (TIZANIDINE HCL) 4 Mg Tablet, 1 TAB PO Q8HRS for MUSCLE RELAXER, #60 TAB 02/17/20 Lisinopril (LISINOPRIL) 40 Mg Tablet, 1 TAB PO DAILY for htn, #30 TAB 5 Refills 02/17/20 Hydrocodone Bit/Acetaminophen (HYDROCODONE-APAP 7.5-325 ) 1 Tab Tablet, 1 TAB PO PRN Q6HRS PRN for PAIN, TAB 0 Refills 01/01/20 Alprazolam (XANAX) 0.25 Mg Tablet, 0.25 MG PO Q8HRS PRN for ANXIETY / AGITATION, TAB 0 Refills 01/01/20 AMILCAR BILL MD April 11, 2020 12:05
--- NOTE | 2020-04-11 12:20 | PDOC ---
PULMONARY PROGRESS NOTES Subjective feeling better, has occ cough, no soa, on 02 4 lpm, on home 02 4 lpm, runny nose better, is tired Vitals Vital Signs Date Time Temp Pulse Resp B/P (MAP) Pulse Ox O2 Delivery O2 Flow Rate FiO2 04/11/20 11:22 Nasal Cannula 3.0 04/11/20 10:59 97.6 63 18 121/57 (78) 95 97.6 ROS: No Nausea General: Alert, No acute distress Lungs: Other (decrease bs) Cardiovascular: S1, S2, Other Abdomen: Soft Neuro Exam: Alert Extremities: No Edema Skin: Warm Labs Laboratory Tests Test 04/09/20 12:21 04/09/20 17:03 04/09/20 21:22 04/10/20 07:43 Glucose (Fingerstick) 168 mg/dL (70-99) 205 mg/dL (70-99) 198 mg/dL (70-99) 186 mg/dL (70-99) Test 04/10/20 11:23 04/10/20 16:37 04/10/20 20:58 04/11/20 04:00 Glucose (Fingerstick) 171 mg/dL (70-99) 177 mg/dL (70-99) 212 mg/dL (70-99) White Blood Count 14.4 x10^3/uL (4.0-11.0) Red Blood Count 3.47 x10^6/uL (3.50-5.40) Hemoglobin 9.1 g/dL (12.0-15.5) Hematocrit 27.8 % (36.0-47.0) Mean Corpuscular Volume 80 fL (79-100) Mean Corpuscular Hemoglobin 26 pg (25-35) Mean Corpuscular Hemoglobin Concent 33 g/dL (31-37) Red Cell Distribution Width 16.4 % (11.5-14.5) Platelet Count 404 x10^3/uL (140-400) Neutrophils (%) (Auto) 90 % (31-73) Lymphocytes (%) (Auto) 8 % (24-48) Monocytes (%) (Auto) 3 % (0-9) Eosinophils (%) (Auto) 0 % (0-3) Basophils (%) (Auto) 0 % (0-3) Neutrophils # (Auto) 12.9 x10^3/uL (1.8-7.7) Lymphocytes # (Auto) 1.1 x10^3/uL (1.0-4.8) Monocytes # (Auto) 0.4 x10^3/uL (0.0-1.1) Eosinophils # (Auto) 0.0 x10^3/uL (0.0-0.7) Basophils # (Auto) 0.0 x10^3/uL (0.0-0.2) Sodium Level 139 mmol/L (136-145) Potassium Level 4.4 mmol/L (3.5-5.1) Chloride Level 102 mmol/L (98-107) Carbon Dioxide Level 29 mmol/L (21-32) Anion Gap 8 (6-14) Blood Urea Nitrogen 26 mg/dL (7-20) Creatinine 1.0 mg/dL (0.6-1.0) Estimated GFR (Cockcroft-Gault) 63.6 Glucose Level 208 mg/dL (70-99) Calcium Level 8.2 mg/dL (8.5-10.1) Test 04/11/20 07:36 04/11/20 11:15 Glucose (Fingerstick) 156 mg/dL (70-99) 173 mg/dL (70-99) Laboratory Tests Test 04/10/20 16:37 04/10/20 20:58 04/11/20 04:00 04/11/20 07:36 Glucose (Fingerstick) 177 mg/dL (70-99) 212 mg/dL (70-99) 156 mg/dL (70-99) White Blood Count 14.4 x10^3/uL (4.0-11.0) Red Blood Count 3.47 x10^6/uL (3.50-5.40) Hemoglobin 9.1 g/dL (12.0-15.5) Hematocrit 27.8 % (36.0-47.0) Mean Corpuscular Volume 80 fL (79-100) Mean Corpuscular Hemoglobin 26 pg (25-35) Mean Corpuscular Hemoglobin Concent 33 g/dL (31-37) Red Cell Distribution Width 16.4 % (11.5-14.5) Platelet Count 404 x10^3/uL (140-400) Neutrophils (%) (Auto) 90 % (31-73) Lymphocytes (%) (Auto) 8 % (24-48) Monocytes (%) (Auto) 3 % (0-9) Eosinophils (%) (Auto) 0 % (0-3) Basophils (%) (Auto) 0 % (0-3) Neutrophils # (Auto) 12.9 x10^3/uL (1.8-7.7) Lymphocytes # (Auto) 1.1 x10^3/uL (1.0-4.8) Monocytes # (Auto) 0.4 x10^3/uL (0.0-1.1) Eosinophils # (Auto) 0.0 x10^3/uL (0.0-0.7) Basophils # (Auto) 0.0 x10^3/uL (0.0-0.2) Sodium Level 139 mmol/L (136-145) Potassium Level 4.4 mmol/L (3.5-5.1) Chloride Level 102 mmol/L (98-107) Carbon Dioxide Level 29 mmol/L (21-32) Anion Gap 8 (6-14) Blood Urea Nitrogen 26 mg/dL (7-20) Creatinine 1.0 mg/dL (0.6-1.0) Estimated GFR (Cockcroft-Gault) 63.6 Glucose Level 208 mg/dL (70-99) Calcium Level 8.2 mg/dL (8.5-10.1) Test 04/11/20 11:15 Glucose (Fingerstick) 173 mg/dL (70-99) Medications Active Scripts Medications Dose Route/Sig Max Daily Dose Days Date Category Lisinopril 40 Mg Tablet 40 Mg PO DAILY 03/05/20 Rx Hydralazine Hcl 50 Mg Tablet 50 Mg PO TID 30 03/05/20 Rx Catapres (Clonidine Hcl) 0.1 Mg Tablet 0.1 Mg PO PRN Q6HRS PRN 03/05/20 Rx Humalog (Insulin Lispro) 100 Unit/1 Ml Insuln.pen 1 Unit SQ TIDWMEALS 30 03/03/20 Rx Eliquis (Apixaban) 2.5 Mg Tablet 2.5 Mg PO BID 30 02/19/20 Rx Metoprolol Tartrate 50 Mg Tablet 50 Mg PO BID 30 02/19/20 Rx Tizanidine Hcl 4 Mg Tablet 1 Tab PO Q8HRS 02/17/20 Reported Lisinopril 40 Mg Tablet 1 Tab PO DAILY 02/17/20 Reported Pantoprazole Sodium (Pantoprazole Sodium) 40 Mg Tablet.dr 40 Mg PO DAILYAC 30 01/14/20 Rx Daliresp (Roflumilast) 500 Mcg Tablet 500 Mcg PO DAILY 30 01/13/20 Rx Hydrocodone-Apap 7.5-325 (Hydrocodone Bit/Acetaminophen) 1 Tab Tablet 1 Tab PO PRN Q6HRS PRN 01/01/20 Reported Xanax (Alprazolam) 0.25 Mg Tablet 0.25 Mg PO Q8HRS PRN 01/01/20 Reported Duoneb 0.5-3(2.5) Mg/3 Ml (Albuterol/Ipratropium) 3 Ml Ampul.neb 3 Ml NEB RTQID 30 12/16/19 Rx Impression . 1. Chronic Hypoxic respiratory Failure - wears home oxygen at 4 liters N/C, now with acute CHF exacerbation. improving. 2. CHF with exacerbation 3. COPD with mild exacerbation 4. COVID-19 Neg 5. AFIB 6. HTN 7. HLD 8. DM Type II- uncontrolled 9. Hypokalemia 10. low grade fever 11. Former smoker Plan . 1. Lasix prn .EF with 60-65% and grade I DD, 2. supplemental oxygen to keep oxygen saturations above 90%- currently 4 liters N/C 3. bronchodilators/pulmicort, prednisone w taper 4. Empric ABX for PNA coverage . 5. COVID-19 test neg 6. HTN per PCP 7. DM II per pcp 8. cont flonase for runny nose 9. on eliquis fu c diff D/W RN, pt KRYSTIN STONE MD April 11, 2020 12:20
[2020-04-11 14:35] VITALS: BP 170/70
[2020-04-11 18:21] VITALS: BP 132/57
[2020-04-11] MEDS: ALPRAZolam 0.25 MG TABLET PO PRN (21:40)
[2020-04-11 22:34] VITALS: BP 213/84
[2020-04-12 02:30] VITALS: BP 189/92
[2020-04-12] MEDS: hydrALAZINE 20 MG/ML VIAL. IVP PRN (03:11)
[2020-04-12] MEDS: tiZANidine 4 MG TABLET. PO SCH ×2 (06:16→15:03)
[2020-04-12 07:00] VITALS: BP 163/82
[2020-04-12] MEDS: ALBUTEROL SULFATE 2.5 MG/3 ML NEBU. NEB SCH ×2 (07:13→11:28)
[2020-04-12] MEDS: BUDESONIDE 0.5 MG/2 ML NEBU. NEB SCH (07:13)
[2020-04-12] MEDS: ROFLUMILAST 500 MCG TABLET. PO SCH (09:06)
[2020-04-12] MEDS: POTASSIUM CHLORIDE 10 MEQ TABLET.ER. PO SCH (09:06)
[2020-04-12] MEDS: predniSONE 10 MG TABLET PO SCH (09:06)
[2020-04-12] MEDS: LACTOBACILLUS RHAMNOSUS GG 1 CAPSULE. PO SCH (09:06)
[2020-04-12] MEDS: FLUTICASONE 50MCG/NASAL SPRAY 16GM BOTTLE. NS SCH (09:06)
[2020-04-12] MEDS: APIXABAN 2.5 MG TABLET. PO SCH (09:06)
[2020-04-12] MEDS: METOPROLOL TART IMMED RELEASE 50 MG TABLET. PO SCH (09:07)
[2020-04-12] MEDS: PANTOPRAZOLE 40 MG TABLET.DR. PO SCH (09:07)
[2020-04-12] MEDS: LISINOPRIL 20 MG TABLET PO SCH (09:08)
[2020-04-12] MEDS: INSULIN LISPRO 300 UNITS/3 ML VIAL. SQ SCH ×2 (09:13→12:17)
--- NOTE | 2020-04-12 09:42 | PDOC ---
PROGRESS NOTES Subjective Subjective no new problems, no more Gi issues Objective Objective Vital Signs Date Time Temp Pulse Resp B/P (MAP) Pulse Ox O2 Delivery O2 Flow Rate FiO2 04/12/20 09:08 74 163/82 04/12/20 07:14 97 Nasal Cannula 3.0 04/12/20 07:00 98.1 16 98.1 Intake and Output 04/12/20 07:00 Intake Total 640 ml Balance 640 ml Intake Oral 640 ml # Voids 3 # Bowel Movements 2 Physical Exam Abdomen: Normal bowel sounds, Soft Heart: Regular rate, Normal S1 Extremities: No clubbing General: Alert, Oriented X3 Lungs: Clear to auscultation MUSCULOSKELETAL: No deformity, Osteoarthritic changes both hands Neck: No JVD Neuro: Normal speech Psych/Mental Status: Mental status NL Skin: No breakdown Diagnosis Problem List Problems Medical Problems: (1) COPD exacerbation Status: Acute (2) Fever Status: Acute (3) Suspected 2019-nCoV infection Status: Acute Assessment Assessment Problems Medical Problems: (1) COPD exacerbation Status: Acute (2) Fever Status: Acute (3) Suspected 2019-nCoV infection Status: Acute FINAL IMPRESSION: 1. Pneumonia, right lower lobe infiltrate, suspect Gram-negative. 2. Suspect COVID-19 infection. test came back neg. 3. Chronic obstructive pulmonary disease, on home oxygen 5 liters. 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 6. Hypertension. 7. Hyperlipidemia. 8. Sick sinus syndrome and tachybrady syndrome, had a loop recorder in the past. 9. Had a diastolic dysfunction. Had echo and stress test in last 1years. PLAN:tolerating diet. d/c home today. 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 labs stable, wbc 14 due to steroids C Diff -neg d/c augmentin ,may be causing diarrhea cxr no pneumonia, mild chf. poor prognosis chance of readmission high, stable at time of discharge. Plan Plan of Care Problems Medical Problems: (1) COPD exacerbation Status: Acute (2) Fever Status: Acute (3) Suspected 2019-nCoV infection Status: Acute Comment Review of Relevant I have reviewed the following items navi (where applicable) has been applied. Labs Laboratory Tests Test 04/11/20 11:15 04/11/20 16:11 04/11/20 21:02 04/12/20 07:11 Glucose (Fingerstick) 173 mg/dL (70-99) 200 mg/dL (70-99) 168 mg/dL (70-99) 170 mg/dL (70-99) Microbiology 04/05/20 Blood Culture - Final, Complete NO GROWTH AFTER 5 DAYS Vitals/I & O Vital Sign - Last 24 Hours 04/11/20 04/11/20 04/11/20 04/11/20 10:59 11:22 14:35 15:00 Temp 97.6 98.1 97.6 98.1 Pulse 63 75 Resp 18 16 B/P (MAP) 121/57 (78) 170/70 (103) 170/70 Pulse Ox 95 94 O2 Delivery Nasal Cannula Nasal Cannula Nasal Cannula O2 Flow Rate 3.0 3.0 3.0 04/11/20 04/11/20 04/11/20 04/11/20 15:13 18:21 19:40 21:39 Temp 98.1 98.1 Pulse 65 65 Resp 18 B/P (MAP) 132/57 (82) 132/57 Pulse Ox 94 O2 Delivery Nasal Cannula Nasal Cannula Nasal Cannula O2 Flow Rate 3.0 3.0 3.0 04/11/20 04/11/20 04/11/20 04/12/20 21:40 22:34 22:38 02:30 Temp 98.0 98.6 98.0 98.6 Pulse 65 63 63 59 Resp 18 18 B/P (MAP) 132/57 213/84 (127) 213/84 189/92 (124) Pulse Ox 93 90 O2 Delivery Nasal Cannula Nasal Cannula O2 Flow Rate 3.0 3.0 04/12/20 04/12/20 04/12/20 04/12/20 03:11 07:00 07:14 09:07 Temp 98.1 98.1 Pulse 58 61 75 Resp 16 B/P (MAP) 189/92 163/82 (109) Pulse Ox 99 97 O2 Delivery Nasal Cannula Nasal Cannula O2 Flow Rate 3.0 3.0 04/12/20 04/12/20 09:08 09:08 Pulse 61 74 B/P (MAP) 163/82 163/82 Intake and Output 04/11/20 04/11/20 04/12/20 15:00 23:00 07:00 Intake Total 200 ml 100 ml 340 ml Balance 200 ml 100 ml 340 ml Nutrition Consultation Dietary Evaluation: Recommendations by RD: Dietary education by RD, Increase Calorie Intake, Protein supplementation Comments: REC ADA/cardiac diet per pmhx REC Glucerna (vanilla) TID Expected Outcomes/Goals: PO intake to meet >75% est needs Malnutrition Findings: Food and Nutrition Intake (Mod: <75% est energy req 7days Weight Status: Appropriate AMILCAR BILL MD Apr 12, 2020 09:42
--- NOTE | 2020-04-12 09:45 | SNU/HH DC ---
DISCHARGE WITH HOME HEALTH DISCHARGE INFORMATION: Discharge Date: Apr 12, 2020 Final Diagnosis: Problems Medical Problems: (1) COPD exacerbation Status: Acute (2) Fever Status: Acute (3) Suspected 2019-nCoV infection Status: Acute Condition on Discharge: Stable CODE STATUS: Code Status: Full HOME HEALTH: Face to Face: I certify this patient is under my care and that I, or a nurse practitioner or physician's volunteer services assistant working with me, had a face to face encounter that meets the physician face to face encounter requirements with this patient on []. RN For Eval/Treatment: Yes Physical Therapy For: Evalulation/Treatment Home Health Aide For: Self-care PORTABLE TRACKMAN For: Community Resources Pt Meets Homebound Status: Poor coordination w/ amb. POST DISCHARGE ORDERS: Activity Instructions for Disc: Activity as tolerated Weight Bearing Status after Di: As tolerated Bathing Instructions: Shower-keep dressing dry DIET AFTER DISCHARGE: Cardiac Wound/Incision Care: No wound care needed CHECKS AFTER DISCHARGE: Checks after discharge: Check blood press - daily, Check blood sugar, ac/hs, Check your Temp as needed, Weigh Yourself Daily Comment: sliding scale tid ,per protocol TREATMENT/EQUIPMENT ORDERS: Adaptive Equipment Issued: Walker, Wheelchair Discharge Respiratory Equipmen: Oxygen CERTIFICATION STATEMENT: Certification Statement: Certification Statement: Based on the above finding, I certify that this patient is confined to the home and needs intermittent group home care, physical therapy and/or speech therapy, or continues to need occupational therapy.~ This patient is under my care, and I have initiated the establishment of the plan of care.~ This patient will be followed by myself or a community physician who will periodically review the plan of care. Home Meds Active Scripts Lisinopril (LISINOPRIL) 40 Mg Tablet, 40 MG PO DAILY for htn for 30 Days, #30 TAB Prov:AMILCAR BILL MD 03/05/20 Hydralazine Hcl (HYDRALAZINE HCL) 50 Mg Tablet, 50 MG PO TID for htn for 30 Days, #90 TAB Prov:AMILCAR BILL MD 03/05/20 Clonidine Hcl (CATAPRES) 0.1 Mg Tablet, 0.1 MG PO PRN Q6HRS PRN for HYPERTENSION for 30 Days, TAB Prov:AMILCAR BILL MD 03/05/20 Insulin Lispro (HUMALOG) 100 Unit/1 Ml Insuln.pen, 1 UNIT SQ TIDWMEALS for river for 30 Days, EACH Prov:AMILCAR BILL MD 03/03/20 Apixaban (ELIQUIS) 2.5 Mg Tablet, 2.5 MG PO BID for a fib for 30 Days, #60 TAB Prov:AMILCAR BILL MD 02/19/20 Metoprolol Tartrate (METOPROLOL TARTRATE) 50 Mg Tablet, 50 MG PO BID for afib for 30 Days, #60 TAB Prov:AMILCAR BILL MD 02/19/20 Pantoprazole Sodium (PANTOPRAZOLE SODIUM ) 40 Mg Tablet.dr, 40 MG PO DAILYAC for GERD for 30 Days, #30 TAB Prov:AMILCAR BILL MD 01/14/20 Roflumilast (DALIRESP) 500 Mcg Tablet, 500 MCG PO DAILY for copd for 30 Days, #30 TAB Prov:AMILCAR BILL MD 01/13/20 Ipratropium/Albuterol Sulfate (DUONEB 0.5-3(2.5) MG/3 ML) 3 Ml Ampul.neb, 3 ML NEB RTQID for copd for 30 Days, #120 EACH Prov:AMILCAR BILL MD 12/16/19 Reported Medications Tizanidine Hcl (TIZANIDINE HCL) 4 Mg Tablet, 1 TAB PO Q8HRS for MUSCLE RELAXER, #60 TAB 02/17/20 Lisinopril (LISINOPRIL) 40 Mg Tablet, 1 TAB PO DAILY for htn, #30 TAB 5 Refills 02/17/20 Hydrocodone Bit/Acetaminophen (HYDROCODONE-APAP 7.5-325 ) 1 Tab Tablet, 1 TAB PO PRN Q6HRS PRN for PAIN, TAB 0 Refills 01/01/20 Alprazolam (XANAX) 0.25 Mg Tablet, 0.25 MG PO Q8HRS PRN for ANXIETY / AGITATION, TAB 0 Refills 01/01/20 AMILCAR BILL MD Apr 12, 2020 09:45
--- NOTE | 2020-04-12 09:47 | PDOC ---
Subjective: Subjective: Feels "somewhat" better. Ate pancakes for breakfast, denies diarrhea. Objective: Objective: D/w nurse - unable to DC yesterday because family couldn't pick her up, no GI concerns. Vital Signs: Vital Signs Date Time Temp Pulse Resp B/P (MAP) Pulse Ox O2 Delivery O2 Flow Rate FiO2 04/12/20 09:08 74 163/82 04/12/20 07:14 97 Nasal Cannula 3.0 04/12/20 07:00 98.1 16 98.1 Labs: Laboratory Tests Test 04/11/20 11:15 04/11/20 16:11 04/11/20 21:02 04/12/20 07:11 Glucose (Fingerstick) 173 mg/dL 200 mg/dL 168 mg/dL 170 mg/dL PE: GEN: NAD - looks more comfortable today LUNGS: diminished anteriorly HEART: RRR ABD: S/ND/NT NEURO/PSYCH: A & O 3, flat A/P: Resp failure GERD -- Seems improved overall and awaiting DC. Continue PPI. Hemodynamically unstable?: No Is patient in severe pain?: No Is NPO status required?: No MONIKA MARKHAM Apr 12, 2020 09:47
--- NOTE | 2020-04-12 09:50 | PDOC ---
PULMONARY PROGRESS NOTES Subjective feeling better, has occ cough, no soa, on 02 4 lpm, on home 02 4 lpm, runny nose better, is tired Vitals Vital Signs Date Time Temp Pulse Resp B/P (MAP) Pulse Ox O2 Delivery O2 Flow Rate FiO2 04/12/20 09:08 74 163/82 04/12/20 07:14 97 Nasal Cannula 3.0 04/12/20 07:00 98.1 16 98.1 ROS: No Nausea General: Alert, No acute distress Lungs: Other (decrease bs) Cardiovascular: S1, S2, Other Abdomen: Soft Neuro Exam: Alert Extremities: No Edema Skin: Warm Labs Laboratory Tests Test 04/10/20 11:23 04/10/20 16:37 04/10/20 20:58 04/11/20 04:00 Glucose (Fingerstick) 171 mg/dL (70-99) 177 mg/dL (70-99) 212 mg/dL (70-99) White Blood Count 14.4 x10^3/uL (4.0-11.0) Red Blood Count 3.47 x10^6/uL (3.50-5.40) Hemoglobin 9.1 g/dL (12.0-15.5) Hematocrit 27.8 % (36.0-47.0) Mean Corpuscular Volume 80 fL (79-100) Mean Corpuscular Hemoglobin 26 pg (25-35) Mean Corpuscular Hemoglobin Concent 33 g/dL (31-37) Red Cell Distribution Width 16.4 % (11.5-14.5) Platelet Count 404 x10^3/uL (140-400) Neutrophils (%) (Auto) 90 % (31-73) Lymphocytes (%) (Auto) 8 % (24-48) Monocytes (%) (Auto) 3 % (0-9) Eosinophils (%) (Auto) 0 % (0-3) Basophils (%) (Auto) 0 % (0-3) Neutrophils # (Auto) 12.9 x10^3/uL (1.8-7.7) Lymphocytes # (Auto) 1.1 x10^3/uL (1.0-4.8) Monocytes # (Auto) 0.4 x10^3/uL (0.0-1.1) Eosinophils # (Auto) 0.0 x10^3/uL (0.0-0.7) Basophils # (Auto) 0.0 x10^3/uL (0.0-0.2) Sodium Level 139 mmol/L (136-145) Potassium Level 4.4 mmol/L (3.5-5.1) Chloride Level 102 mmol/L (98-107) Carbon Dioxide Level 29 mmol/L (21-32) Anion Gap 8 (6-14) Blood Urea Nitrogen 26 mg/dL (7-20) Creatinine 1.0 mg/dL (0.6-1.0) Estimated GFR (Cockcroft-Gault) 63.6 Glucose Level 208 mg/dL (70-99) Calcium Level 8.2 mg/dL (8.5-10.1) Test 04/11/20 07:36 04/11/20 11:15 04/11/20 16:11 04/11/20 21:02 Glucose (Fingerstick) 156 mg/dL (70-99) 173 mg/dL (70-99) 200 mg/dL (70-99) 168 mg/dL (70-99) Test 04/12/20 07:11 Glucose (Fingerstick) 170 mg/dL (70-99) Laboratory Tests Test 04/11/20 11:15 04/11/20 16:11 04/11/20 21:02 04/12/20 07:11 Glucose (Fingerstick) 173 mg/dL (70-99) 200 mg/dL (70-99) 168 mg/dL (70-99) 170 mg/dL (70-99) Medications Active Scripts Medications Dose Route/Sig Max Daily Dose Days Date Category Lisinopril 40 Mg Tablet 40 Mg PO DAILY 03/05/20 Rx Hydralazine Hcl 50 Mg Tablet 50 Mg PO TID 03/05/20 Rx Catapres (Clonidine Hcl) 0.1 Mg Tablet 0.1 Mg PO PRN Q6HRS PRN 03/05/20 Rx Humalog (Insulin Lispro) 100 Unit/1 Ml Insuln.pen 1 Unit SQ TIDWMEALS 03/03/20 Rx Eliquis (Apixaban) 2.5 Mg Tablet 2.5 Mg PO BID 02/19/20 Rx Metoprolol Tartrate 50 Mg Tablet 50 Mg PO BID 02/19/20 Rx Tizanidine Hcl 4 Mg Tablet 1 Tab PO Q8HRS 02/17/20 Reported Lisinopril 40 Mg Tablet 1 Tab PO DAILY 02/17/20 Reported Pantoprazole Sodium (Pantoprazole Sodium) 40 Mg Tablet.dr 40 Mg PO DAILYAC 30 01/14/20 Rx Daliresp (Roflumilast) 500 Mcg Tablet 500 Mcg PO DAILY 30 01/13/20 Rx Hydrocodone-Apap 7.5-325 (Hydrocodone Bit/Acetaminophen) 1 Tab Tablet 1 Tab PO PRN Q6HRS PRN 01/01/20 Reported Xanax (Alprazolam) 0.25 Mg Tablet 0.25 Mg PO Q8HRS PRN 01/01/20 Reported Duoneb 0.5-3(2.5) Mg/3 Ml (Albuterol/Ipratropium) 3 Ml Ampul.neb 3 Ml NEB RTQID 30 12/16/19 Rx Impression . 1. Chronic Hypoxic respiratory Failure - wears home oxygen at 4 liters N/C, now with acute CHF exacerbation. improving. 2. CHF with exacerbation 3. COPD with mild exacerbation 4. COVID-19 Neg 5. AFIB 6. HTN 7. HLD 8. DM Type II- uncontrolled 9. Hypokalemia 10. low grade fever 11. Former smoker Plan . 1. Lasix prn .EF with 60-65% and grade I DD, 2. supplemental oxygen to keep oxygen saturations above 90%- currently 4 liters N/C 3. bronchodilators/pulmicort, prednisone w taper 4. Empric ABX for PNA coverage . 5. COVID-19 test neg 6. HTN per PCP 7. DM II per pcp 8. cont flonase for runny nose 9. on eliquis fu c diff D/W RN, pt EUGENIO HIGUERA MD Apr 12, 2020 09:50
[2020-04-12 10:11] VITALS: BP 161/65
[2020-04-12 14:16] VITALS: BP 254/121
[2020-04-12 14:41] VITALS: BP 246/114
[2020-04-12 15:04] VITALS: BP 162/88
[2020-04-12] MEDS: HYDROcodone/APAP 7.5/325MG 1 TAB TABLET PO PRN (15:06)
--- NOTE | 2020-04-12 15:21 | NUR ---
Discharge Note: ANGELITA HAM Discharge instructions and discharge home medications reviewed with Patient and a copy given. All questions have been answered and understanding verbalized. The following instructions and handouts were given: electronic prescriptions sent to pharmacy, medication education, follow up instructions Discontinued lines and drains: peripheral Iv discontinued, dressing clean, dry and intact. Patient discharged to home with sister via wheelchair
--- NOTE | 2020-04-13 09:56 | PDOC ---
Provider Note Provider Note Discharge summary dictated,#[id number]. Justicifation of Admission Dx: Justifications for Admission: Justification of Admission Dx: Yes Respiratory Failure: Airway Obstruction Aspiration Pneumonia: Chronic Lung Disease Sepsis: Altered Mental Status Acute COPD Exacerbation: Acute COPD Exacerbation AMILCAR BILL MD Apr 13, 2020 09:56
--- NOTE | 2020-04-13 10:35 | DS ---
DATE OF DISCHARGE: 04/12/2020 REASON FOR ADMISSION TO THE HOSPITAL: Fever, shortness of breath, combination of COPD and diastolic heart failure. CONSULTATIONS: Dr. Garcia, Dr. Valladares. PROCEDURES DONE: None. HOSPITAL COURSE: The patient is an 84-year-old female with chronic COPD, on home oxygen and she also has a sick sinus syndrome, tachycardic bradycardic syndrome and has chronic refractory hypertension. She lives at home, she refused to go to [facility] and has history of COPD, on home oxygen and DuoNeb at home. On and off on prednisone and steroid-induced diabetes. The patient was having fever at home and short of breath, not feeling well, was brought to the hospital and 101 at the time of admission, white count 13.7 and the patient was treated with broad-spectrum antibiotics, Zosyn and the patient had a COVID test was negative and the patient's fever was down and was given Solu-Medrol, breathing treatments and was seen by Pulmonology. The patient at one time was having abdominal pain, nausea and diarrhea. Stool for C. diff was negative, seen by GI and the patient was on p.o. Augmentin, which was stopped that helped her GI symptoms. The patient received 7 days of IV total antibiotics. Repeat chest x-ray shows no pneumonia, just a mild CHF with pleural effusion. The patient had a complete cardiac workup done in the past 1 year, including echo and a stress test shows diastolic heart failure. FINAL DIAGNOSES: 1. Fever, probably viral syndrome, negative for COVID. 2. Pneumonia, suspect Gram negative, was treated with antibiotics. 3. Chronic obstructive pulmonary disease. 4. Chronic diastolic heart failure. 5. Mild pleural effusion. 6. Accelerated hypertension. 7. Oxygen dependent chronic obstructive pulmonary disease. 8. Chronic tachybrady syndrome. 9. Protein-calorie malnutrition. 10. Poor prognosis. DISPOSITION: The patient ideally needs to stay in a [facility], but the patient refuses. She has a 24-hour caregiver and she does not want to go to any rehab and was discharged back home with home health. AMILCAR BILL MD DR: ROBERT/ruy JOB#: [id number] / [id number] XIOMARA Vogel
== END 2020-04-12 15:21 | disposition home health service (06) | DRG 177 ==
LOC: ER 04:19 → 6 SOUTH 09:10 → 2 NORTH 04-06 15:37
PROVIDERS: ADMIT Internal Medicine; ATTEND Internal Medicine
DX: J15.6 Pneumonia due to other Gram-negative bacteria (principal); I50.33 Acute on chronic diastolic (congestive) heart failure; J96.11 Chronic respiratory failure with hypoxia; E46 Unspecified protein-calorie malnutrition; J44.0 Chronic obstructive pulmonary disease with (acute) lower respiratory infection; J44.1 Chronic obstructive pulmonary disease with (acute) exacerbation; I47.1 Supraventricular tachycardia; I11.0 Hypertensive heart disease with heart failure; B34.9 Viral infection, unspecified; E09.65 Drug or chemical induced diabetes mellitus with hyperglycemia; E78.00 Pure hypercholesterolemia, unspecified; E78.5 Hyperlipidemia, unspecified; E87.6 Hypokalemia; F41.9 Anxiety disorder, unspecified; I48.91 Unspecified atrial fibrillation; K21.9 Gastro-esophageal reflux disease without esophagitis; K76.0 Fatty (change of) liver, not elsewhere classified; I49.5 Sick sinus syndrome; M79.7 Fibromyalgia; Z20.828 Contact with and (suspected) exposure to other viral communicable diseases; T38.0X5A Adverse effect of glucocorticoids and synthetic analogues, initial encounter; Z79.01 Long term (current) use of anticoagulants; Z79.52 Long term (current) use of systemic steroids; Z82.49 Family history of ischemic heart disease and other diseases of the circulatory system; Z83.3 Family history of diabetes mellitus; Z87.19 Personal history of other diseases of the digestive system; Z87.891 Personal history of nicotine dependence; Z90.49 Acquired absence of other specified parts of digestive tract; Z90.710 Acquired absence of both cervix and uterus; Z99.81 Dependence on supplemental oxygen; Z79.899 Other long term (current) drug therapy; I73.9 Peripheral vascular disease, unspecified; D64.9 Anemia, unspecified
CPT/HCPCS: 36415; 51702; 71045; 71046; 80048; 80053; 80076; 81001; 82962; 83605; 83880; 84484; 85007; 85025; 86140; 87040; 87493; 87804; 93005; 94640; 94644; 94760; 96361; 96365; 96375; J0360; J1940; J2405; J2543; J2920; J2930; J7030; J7512; 97110-GP; 97530-GP; 99285-25; G0378; J7613; J7626; U0003-CS

== ENCOUNTER 2020-04-19 05:26 | Inpatient (IN) | payer BC, MEDICAID ==
[~2020-04-19] VITALS: Ht 152.4 cm; Wt 49.3 kg
[2020-04-19] VITALS (10 sets, daily range): BP systolic 134–199; BP diastolic 59–101
[2020-04-19 06:10] LABS: BASO # 0.1 x10^3/uL (0.0-0.2); BASO % 0 % (0-3); EOS # 0.2 x10^3/uL (0.0-0.7); EOS % 1 % (0-3); HEMATOCRIT 28.7 % (36.0-47.0); HEMOGLOBIN 9.4 g/dL (12.0-15.5); LYMPH % 6 % (24-48); MEAN CORPUSCULAR HEMOGLOBIN 26 pg (25-35); MEAN CORPUSCULAR HGB CONC 33 g/dL (31-37); MEAN CORPUSCULAR VOLUME 79 fL (79-100); MONO # 0.7 x10^3/uL (0.0-1.1); MONO % 4 % (0-9); NEUT # 15.2 x10^3/uL (1.8-7.7); NEUT % 89 % (31-73); PLATELET COUNT 428 x10^3/uL (140-400); RED BLOOD COUNT 3.66 x10^6/uL (3.50-5.40); RED CELL DISTRIBUTION WIDTH 16.7 % (11.5-14.5); WHITE BLOOD COUNT 17.2 x10^3/uL (4.0-11.0)
[2020-04-19 06:25] LABS: ALBUMIN 2.9 g/dL (3.4-5.0); ALBUMIN/GLOBULIN RATIO 0.9 (1.0-1.7); CALCIUM 8.9 mg/dL (8.5-10.1); CREATININE 0.7 mg/dL (0.6-1.0); TOTAL BILIRUBIN 0.5 mg/dL (0.2-1.0); TOTAL PROTEIN 6.1 g/dL (6.4-8.2)
[2020-04-19 06:29] LABS: POTASSIUM 2.9 mmol/L (3.5-5.1)
[2020-04-19 06:32] LABS: INFLUENZA A PATIENT NEGATIVE (NEGATIVE)
[2020-04-19 06:33] LABS: INFLUENZA B PATIENT NEGATIVE (NEGATIVE)
--- NOTE | 2020-04-19 06:40 | PHYS DOC ---
Past Medical History Past Medical History: A-Fib, COPD, Diabetes-Type II, GERD, High Cholesterol, Hypertension Past Surgical History: Appendectomy, Cholecystectomy, Hysterectomy Additional Past Surgical Histo: LOOP RECORDER Smoking Status: Former Smoker Alcohol Use: None Drug Use: None General Adult EDM: Chief Complaint: SHORTNESS OF BREATH HPI: HPI: 84-year-old female past medical history of chronic COPD on 2 L home oxygen, sick sinus syndrome, chronic diastolic heart failure, tachybradycardia syndrome, protein calorie malnutrition, chronic refractory hypertension, hyperlipidemia and hypothyroidism, presents to the ED with complaints of shortness of breath that started for the past day with associated nausea and weakness. EMS reported that patient was 85% on 2 L nasal cannula and improved with 1 DuoNeb to 100%. Patient was requiring 5 L nasal cannula in the ED. Patient was recently discharged from the hospital April 13 for viral syndrome, was negative for COVID and was treated for gram-negative pneumonia. Pt reports she's been tested for covid 4 times, all negative. EMR was reviewed and patient has been refusing NH placement. Has a 24-hour caregiver-she refused rehab [address] of the chest was November 2019 that showed no evidence of a PE with bilateral pleural effusions. No aortic aneurysm. ROS: No associated fever, chills, productive or nonproductive cough, orthopnea, hemoptysis, constipation, diarrhea, vomiting, chest pain, leg swelling, rash, diaphoresis, syncope, neck stiffness, back pain, abdominal pain, or other concerning symptoms. Current Medications: Current Medications Medications (Trade) Dose Ordered Sig/Bruno Start Time Stop Time Status Last Admin Dose Admin Potassium Chloride (Klor-Con) 40 meq 1X ONCE 04/19/20 07:00 04/19/20 07:01 Allergies: Allergies: Allergies Coded Allergies Type Severity Reaction Last Updated Verified No Known Drug Allergies 02/17/20 No Physical Exam: PE: VITALS: Patient with uncontrolled hypertension Constitutional: Well developed, very thin/malnourished, no acute distress, HENT: Normocephalic, atraumatic, bilateral external ears normal, oropharynx moist, no oral exudates, nose normal. [] Eyes: PERRLA, EOMI, conjunctiva normal, no discharge. [] Neck: Normal range of motion, no tenderness, supple, no stridor, bl JVD present Cardiovascular: Sinus tachycardia, no murmur [] Lungs & Thorax: Bilateral breath sounds clear to auscultation -pt with no wheezing, 94% on 5L NC Abdomen: Bowel sounds normal, soft, no tenderness, no masses, no pulsatile masses. [] Skin: Warm, dry, no erythema, no rash. [] Back: No tenderness, no CVA tenderness. [] Extremities: No tenderness, no cyanosis, no clubbing, ROM intact, no edema. [] Neurologic: Alert and oriented X 3, normal motor function, normal sensory function, no focal deficits noted. [] Psychologic: Affect normal, judgement normal, mood normal. [] Current Patient Data: Labs: Laboratory Tests Test 04/19/20 05:50 Sodium Level 143 mmol/L (136-145) Potassium Level 2.9 mmol/L (3.5-5.1) *L Chloride Level 103 mmol/L (98-107) Carbon Dioxide Level 31 mmol/L (21-32) Anion Gap 9 (6-14) Blood Urea Nitrogen 19 mg/dL (7-20) Creatinine 0.7 mg/dL (0.6-1.0) Estimated GFR (Cockcroft-Gault) 96.0 BUN/Creatinine Ratio 27 (6-20) H Glucose Level 203 mg/dL (70-99) H Lactic Acid Level 1.5 mmol/L (0.4-2.0) Calcium Level 8.9 mg/dL (8.5-10.1) Total Bilirubin 0.5 mg/dL (0.2-1.0) Aspartate Amino Transferase (AST) 17 U/L (15-37) Alanine Aminotransferase (ALT) 24 U/L (14-59) Alkaline Phosphatase 106 U/L (46-116) Troponin I Quantitative < 0.017 ng/mL (0.000-0.055) Total Protein 6.1 g/dL (6.4-8.2) L Albumin 2.9 g/dL (3.4-5.0) L Albumin/Globulin Ratio 0.9 (1.0-1.7) L Influenza Type A Antigen Negative (NEGATIVE) Influenza Type B Antigen Negative (NEGATIVE) Laboratory Tests 04/19/20 05:50 Vital Signs: Vital Signs Date Time Temp Pulse Resp B/P (MAP) Pulse Ox O2 Delivery O2 Flow Rate FiO2 04/19/20 05:29 98.8 108 32 220/108 (145) 92 Nasal Cannula 4.0 98.8 EKG: EKG: Sinus tachycardia at 114 bpm, no axis deviation, QTC 506 motion artifact and lateral precordial leads, no ST elevation or ST depression Repeat EKG A. fib with RVR at 147 Radiology/Procedures: Radiology/Procedures: IMAGING REPORT Signed PATIENT: ANGELITA HAM ACCOUNT: [id number] : 1935 LOCATION: ER AGE: 84 SEX: F EXAM STATUS: REG ER ORD. PHYSICIAN: PATRICE FENTON DO REASON: SOB PROCEDURE: CHEST AP ONLY EXAM: CHEST AP ONLY 04/19/2020 5:35 AM CLINICAL INDICATION:Shortness of breath COMPARISON:Chest radiograph 04/07/2020 TECHNIQUE:AP view of the chest. FINDINGS:The heart and mediastinum are normal. There is calcified atherosclerosis in the thoracic aorta. Lungs are well-expanded. There are coarse interstitial opacities throughout both lungs, new from prior exam. Septal thickening is seen in the lung peripheries, greatest on the right. There is a probable small left pleural effusion. IMPRESSION:New mild interstitial pulmonary edema and small left pleural effusion. Electronically signed by: Delisa Schmidt MD (04/19/2020 7:45 AM) [id number] DICTATED and SIGNED BY: DELISA SCHMIDT MD DATE: 04/19/20 0745 IMAGING REPORT Signed PATIENT: ANGELITA HAM ACCOUNT: [id number] : 1935 LOCATION: ER AGE: 84 SEX: F EXAM STATUS: REG ER ORD. PHYSICIAN: DEVIN JIMENEZ DO REASON: r/o pe PROCEDURE: CT ANGIOGRAPHY CHEST CT ANGIOGRAPHY CHEST INDICATION: Dyspnea, PE. Comparison: Radiograph 04/19/2020. CT chest 01/09/2020. TECHNIQUE: Following the uneventful administration of intravenous contrast, 75 cc Omnipaque 350, axial CT sections were obtained through the lungs and upper abdomen. Multiplanar reconstructions and MIP images were obtained. PQRS compliance statement: One or more of the following individualized dose reduction techniques were utilized for this examination: 1. Automated exposure control 2. Adjustment of the mA and/or kV according to patient size 3. Use of iterative reconstruction technique FINDINGS: Pulmonary arteries: No evidence of pulmonary thromboembolic disease. Pulmonary trunk measures 34 mm, which can be seen with pulmonary hypertension. Lungs and Airways: Few scattered groundglass and nodular opacities. Interlobular septal thickening. Paraseptal and centrilobular emphysema. Bibasilar dependent, subsegmental, and relaxation atelectasis. Pleura: Small bilateral pleural effusions. Heart and Mediastinum: The visualized thyroid is normal in size and attenuation. Asymmetric left axillary lymphadenopathy. Mediastinal lymphadenopathy, for example enlarged left AP window lymph node measures 1.4 cm short axis. Cardiomegaly. No pericardial effusion. Coronary artery atherosclerotic disease. Atherosclerosis thoracic aorta and branch vessels. Abdomen: Limited images through the upper abdomen show no abnormality of the visualized organs. Bones and Soft Tissues: Degenerative changes of the spine. Asymmetric left breast skin thickening. IMPRESSION: 1. No evidence of pulmonary thromboembolic disease. Dilated pulmonary trunk, which can be seen with pulmonary hypertension. 2. Few scattered groundglass and nodular opacities with bilateral interlobular septal thickening thickening likely representing pulmonary edema, although superimposed infection would be difficult to exclude. Recommend three-month follow-up chest CT to ensure resolution. 3. Asymmetric left breast skin thickening and left axillary lymphadenopathy. Correlate with clinical exam, and mammography is recommended if not performed recently. 4. Mediastinal lymphadenopathy. Attention on follow-up imaging. 5. Small bilateral pleural effusions. Electronically signed by: Janusz Whyte MD (04/19/2020 8:30 AM) [id number] DICTATED and SIGNED BY: JANUSZ WHYTE MD DATE: 04/19/20829 Impression: Impression: Concern for shortness of breath likely related to patient's pulmonary arterial hypertension/chf or symptomatic htn, no wheezing on exam, elevated bnp/bp. Patient is tachycardic and hypoxic, no pulmonary emboli on CT angios. Cannot exclude any new pulmonary infiltrate, patient afebrile. Patient did have one episode of A. fib with RVR in the ED treated with Cardizem. Pt also with uncontrolled htn. Given white count and heart rate will cover with Levaquin. Lasix and nitro drip ordered. Pt did have an episode of tachypnea with her afib rvr - did not require bipap, tachypnea resolved. COVID test pending. Patient was admitted to Dr. Gallardo but later upgraded to ICU given her increased RR/nitro drip. Course & Med Decision Making: Course & Med Decision Making Pertinent Labs and Imaging studies reviewed. (See chart for details) [] Dragon Disclaimer: Dragon Disclaimer: This electronic medical record was generated, in whole or in part, using a voice recognition dictation system. Departure Departure Impression: Primary Impression: Dyspnea Additional Impressions: Atrial fibrillation with RVR Hypokalemia Pulmonary arterial hypertension CHF (congestive heart failure) Disposition: ADMITTED INPATIENT Admitting Physician: Jordy Gallardo Condition: GUARDED Referrals: UNKNOWN PCP NAME (PCP) Justicifation of Admission Dx: Justifications for Admission: Justification of Admission Dx: Yes CHF: Cardiac Arrhythmias Respiratory Failure: Severe Resp Distress Aspiration Pneumonia: Chronic Lung Disease DEVIN ROBERTO DO Apr 19, 2020 06:40
[2020-04-19] MEDS ORDERED: POTASSIUM CHLORIDE 20 MEQ TABLET.ER. PO ONE (07:00)
[2020-04-19] MEDS ORDERED: hydrALAZINE 20 MG/ML VIAL. IVP ONE (07:00)
[2020-04-19] MEDS ORDERED: IOHEXOL 350 MG/ML 100 ML VIAL. IV ONE (07:15)
[2020-04-19] MEDS ORDERED: CONTRAST GIVEN. MC PRN (07:30)
--- NOTE | 2020-04-19 07:48 | RAD ---
EXAM: CHEST AP ONLY 04/19/2020 5:35 AM CLINICAL INDICATION:Shortness of breath COMPARISON:Chest radiograph 04/07/2020 TECHNIQUE:AP view of the chest. FINDINGS:The heart and mediastinum are normal. There is calcified atherosclerosis in the thoracic aorta. Lungs are well-expanded. There are coarse interstitial opacities throughout both lungs, new from prior exam. Septal thickening is seen in the lung peripheries, greatest on the right. There is a probable small left pleural effusion. IMPRESSION:New mild interstitial pulmonary edema and small left pleural effusion. Electronically signed by: Delisa Schmidt MD (04/19/2020 7:45 AM) [id number]
--- NOTE | 2020-04-19 08:33 | RAD ---
CT ANGIOGRAPHY CHEST INDICATION: Dyspnea, PE. Comparison: Radiograph 04/19/2020. CT chest 01/09/2020. TECHNIQUE: Following the uneventful administration of intravenous contrast, 75 cc Omnipaque 350, axial CT sections were obtained through the lungs and upper abdomen. Multiplanar reconstructions and MIP images were obtained. PQRS compliance statement: One or more of the following individualized dose reduction techniques were utilized for this examination: 1. Automated exposure control 2. Adjustment of the mA and/or kV according to patient size 3. Use of iterative reconstruction technique FINDINGS: Pulmonary arteries: No evidence of pulmonary thromboembolic disease. Pulmonary trunk measures 34 mm, which can be seen with pulmonary hypertension. Lungs and Airways: Few scattered groundglass and nodular opacities. Interlobular septal thickening. Paraseptal and centrilobular emphysema. Bibasilar dependent, subsegmental, and relaxation atelectasis. Pleura: Small bilateral pleural effusions. Heart and Mediastinum: The visualized thyroid is normal in size and attenuation. Asymmetric left axillary lymphadenopathy. Mediastinal lymphadenopathy, for example enlarged left AP window lymph node measures 1.4 cm short axis. Cardiomegaly. No pericardial effusion. Coronary artery atherosclerotic disease. Atherosclerosis thoracic aorta and branch vessels. Abdomen: Limited images through the upper abdomen show no abnormality of the visualized organs. Bones and Soft Tissues: Degenerative changes of the spine. Asymmetric left breast skin thickening. IMPRESSION: 1. No evidence of pulmonary thromboembolic disease. Dilated pulmonary trunk, which can be seen with pulmonary hypertension. 2. Few scattered groundglass and nodular opacities with bilateral interlobular septal thickening thickening likely representing pulmonary edema, although superimposed infection would be difficult to exclude. Recommend three-month follow-up chest CT to ensure resolution. 3. Asymmetric left breast skin thickening and left axillary lymphadenopathy. Correlate with clinical exam, and mammography is recommended if not performed recently. 4. Mediastinal lymphadenopathy. Attention on follow-up imaging. 5. Small bilateral pleural effusions. Electronically signed by: Eliot Whyte MD (04/19/2020 8:30 AM) [id number]
[2020-04-19] MEDS ORDERED: dilTIAZem IV PUSH 25 MG/5 ML VIAL IVP ONE (08:45)
[2020-04-19] MEDS ORDERED: IV NORMAL SALINE 500ML BAG 500 ML IV ONE (08:45)
[2020-04-19] MEDS ORDERED: FUROSEMIDE 40 MG/4 ML VIAL. ONE (09:07)
[2020-04-19] MEDS ORDERED: FUROSEMIDE 40 MG/4 ML VIAL. IVP ONE (09:15)
[2020-04-19] MEDS ORDERED: NITROGLYCERIN PREMIX 250 ML IV ONE (09:15)
--- NOTE | 2020-04-19 09:50 | EKG ---
[facility] [address] [place] [address] Test Date: 2020-04-19 Test Time: 08:39:51 Pat Name: ANGELITA HAM Department: Room: [facility] Gender: F Database Administration Manager: : 1935 Requested By: DEVIN JIMENEZ Order Number: [id number] Reading MD: Griffin Post Measurements Intervals [place] Rate: 147 P: -49 DC: 78 QRS: 26 QRSD: 80 T: 23 QT: 276 QTc: 438 Interpretive Statements SINUS TACHYCARDIA PVC Electronically Signed On 04-23-2020 15:59:37 CDT by Griffin Post
--- NOTE | 2020-04-19 09:56 | EKG ---
[facility] [address] [place] [address] Test Date: 2020-04-19 Test Time: 05:42:44 Pat Name: ANGELITA HAM Department: Room: 112 1 Gender: F Apiarist: : 1935 Requested By: PATRICE FENTON Order Number: [id number] Reading MD: Ten Hoyos MD Measurements Intervals [place] Rate: 114 P: 66 SC: 126 QRS: 26 QRSD: 84 T: 0 QT: 364 QTc: 506 Interpretive Statements SINUS TACHYCARDIA NON-SPECIFIC ST/T CHANGES BASELINE ARTIFACT Electronically Signed On 04-22-2020 12:14:40 CDT by Ten Hoyos MD
[2020-04-19 09:58] LABS: % BANDS 1 % (0-9); % EOS 2 % (0-5); % LYMPHS 5 % (24-48); % MONOS 6 % (0-10); % SEGS 86 % (35-66); PLT ESTIMATE INCREASED (ADEQUATE)
[2020-04-19] MEDS: POTASSIUM CHLORIDE 20MEQ 100 ML IV SCH ×2 (10:30→16:20)
[2020-04-19] MEDS ORDERED: predniSONE 10 MG TABLET PO ONE ×2 (10:30→16:30)
[2020-04-19] MEDS: ALPRAZolam 0.25 MG TABLET PO PRN (11:11)
[2020-04-19] MEDS: LISINOPRIL 20 MG TABLET PO SCH (11:11)
[2020-04-19] MEDS: METOPROLOL TART IMMED RELEASE 50 MG TABLET. PO SCH ×2 (11:12→20:47)
[2020-04-19] MEDS: cloNIDine HCL 0.1 MG TABLET PO PRN (11:12)
[2020-04-19] MEDS: APIXABAN 2.5 MG TABLET. PO SCH ×2 (11:13→20:47)
[2020-04-19] MEDS: IPRATRPIUM/ALBUTEROL 0.5/2.5MG 3 ML NEBU. NEB SCH ×3 (11:15→19:54)
[2020-04-19] MEDS: PANTOPRAZOLE 40 MG TABLET.DR. PO SCH (11:16)
--- NOTE | 2020-04-19 11:25 | PDOC2 ---
LELA SALAZAR ACQUISITION CONSULTANT 04/19/20 1124: CARDIAC CONSULT DATE OF CONSULT Date of Consult DATE: 04/19/20 TIME: 11:10 REASON FOR CONSULT Reason for Consult: AFIB with RVR REFERRING PHYSICIAN Referring Physician: Dr. Gallardo SOURCE Source: Chart review HISTORY OF PRESENT ILLNESS HISTORY OF PRESENT ILLNESS This is an 84 yo female who presented secondary to shortness of breath and nausea/vomiting and weakness. Blood pressure significantly elevated upon arrival. Was started on nitro gtt. Denies any chest pain, palpitations, dizziness, diaphoresis, or nausea/vomiting. SOA improved this morning. Also noted with PSVT. Patient reports compliance with meds. PAST MEDICAL HISTORY Past Medical History Cardiovascular: HTN, Hyperlipidemia, CHF, PSVT, PAD with known left external iliac artery occlusion being managed conservatively., Coronary calcifications. Pulmonary: COPD, pneumonia, pulmonary fibrosis, recent large pneumothorax CENTRAL NERVOUS SYSTEM: None GI: Diverticulosis, GERD Heme/Onc: Anemia Hepatobiliary: No pertinent hx Psych: Anxiety Musculoskeletal: Osteoarthritis Rheumatologic: Fibromyalgia Infectious disease: No pertinent hx Renal/: left renal calculus Endocrine: Diabetes PAST SURGICAL HISTORY Past Surgical History Appendectomy, Cholecystectomy, Hernia Repair, Tonsillectomy, Hysterectomy FAMILY HISTORY Family History: Hypertension SOCIAL HISTORY Social History Smoke: Quit ALCOHOL: none Drugs: None Lives: alone CURRENT MEDICATIONS CURRENT MEDICATIONS Current Medications Medications (Trade) Dose Ordered Sig/Bruno Route PRN Reason Start Time Stop Time Status Last Admin Dose Admin Potassium Chloride (Klor-Con) 40 meq 1X ONCE PO 04/19/20 07:00 04/19/20 07:01 DC 04/19/20 06:37 Hydralazine HCl (Apresoline Inj) 20 mg 1X ONCE IVP 04/19/20 07:00 04/19/20 07:01 DC 04/19/20 06:46 Iohexol (Omnipaque 350 Mg/ml) 100 ml 1X ONCE IV 04/19/20 07:15 04/19/20 07:20 DC 04/19/20 07:15 Diltiazem HCl (Cardizem Iv Push) 20 mg 1X ONCE IVP 04/19/20 08:45 04/19/20 08:46 DC 04/19/20 08:42 Sodium Chloride 500 ml @ 500 mls/hr 1X ONCE IV 04/19/20 08:45 04/19/20 09:44 DC 04/19/20 08:41 Furosemide (Lasix) 40 mg 1X ONCE IVP 04/19/20 09:15 04/19/20 09:16 DC 04/19/20 09:11 Levofloxacin/ Dextrose 150 ml @ 100 mls/hr 1X ONCE IV 04/19/20 09:15 04/19/20 10:44 DC 04/19/20 09:12 Nitroglycerin/ Dextrose 250 ml @ 0 mls/hr 1X ONCE IV 04/19/20 09:15 04/19/20 09:21 DC 04/19/20 09:28 ALLERGIES ALLERGIES: Coded Allergies: No Known Drug Allergies (Unverified , 02/17/20) ROS Review of System 14 point ROS conducted with pertinent positives noted above in hPI PHYSICAL EXAM PHYSICAL EXAM General: Alert, Oriented X3, Cooperative, No acute distress HEENT: Atraumatic, Mucous membr. moist/pink Lungs: diminished bases Heart: Regular rate (sinus tach), Normal S1, Normal S2, Other (3/6 systolic murmur to LLS border) Abdomen: Soft, No tenderness Extremities: No cyanosis, No edema Skin: No breakdown, No significant lesion Neuro: Normal speech, Sensation intact Psych/Mental Status: Mental status NL, Mood NL MUSCULOSKELETAL: Osteoarthritic changes both hands VITALS/I&O VITALS/I&O: Vital Signs Date Time Temp Pulse Resp B/P (MAP) Pulse Ox O2 Delivery O2 Flow Rate FiO2 04/19/20 09:57 104 173/83 (113) 95 04/19/20 09:35 BiPAP/CPAP 04/19/20 06:30 30 5.0 04/19/20 05:29 98.8 98.8 LABS Lab: Laboratory Tests Test 04/19/20 05:50 White Blood Count 17.2 x10^3/uL (4.0-11.0) H Red Blood Count 3.66 x10^6/uL (3.50-5.40) Hemoglobin 9.4 g/dL (12.0-15.5) L Hematocrit 28.7 % (36.0-47.0) L Mean Corpuscular Volume 79 fL (79-100) Mean Corpuscular Hemoglobin 26 pg (25-35) Mean Corpuscular Hemoglobin Concent 33 g/dL (31-37) Red Cell Distribution Width 16.7 % (11.5-14.5) H Platelet Count 428 x10^3/uL (140-400) H Neutrophils (%) (Auto) 89 % (31-73) H Lymphocytes (%) (Auto) 6 % (24-48) L Monocytes (%) (Auto) 4 % (0-9) Eosinophils (%) (Auto) 1 % (0-3) Basophils (%) (Auto) 0 % (0-3) Neutrophils # (Auto) 15.2 x10^3/uL (1.8-7.7) H Lymphocytes # (Auto) 1.0 x10^3/uL (1.0-4.8) Monocytes # (Auto) 0.7 x10^3/uL (0.0-1.1) Eosinophils # (Auto) 0.2 x10^3/uL (0.0-0.7) Basophils # (Auto) 0.1 x10^3/uL (0.0-0.2) Segmented Neutrophils % 86 % (35-66) H Band Neutrophils % 1 % (0-9) Lymphocytes % 5 % (24-48) L Monocytes % 6 % (0-10) Eosinophils % 2 % (0-5) Platelet Estimate Increased (ADEQUATE) Sodium Level 143 mmol/L (136-145) Potassium Level 2.9 mmol/L (3.5-5.1) *L Chloride Level 103 mmol/L (98-107) Carbon Dioxide Level 31 mmol/L (21-32) Anion Gap 9 (6-14) Blood Urea Nitrogen 19 mg/dL (7-20) Creatinine 0.7 mg/dL (0.6-1.0) Estimated GFR (Cockcroft-Gault) 96.0 BUN/Creatinine Ratio 27 (6-20) H Glucose Level 203 mg/dL (70-99) H Lactic Acid Level 1.5 mmol/L (0.4-2.0) Calcium Level 8.9 mg/dL (8.5-10.1) Total Bilirubin 0.5 mg/dL (0.2-1.0) Aspartate Amino Transferase (AST) 17 U/L (15-37) Alanine Aminotransferase (ALT) 24 U/L (14-59) Alkaline Phosphatase 106 U/L (46-116) Troponin I Quantitative < 0.017 ng/mL (0.000-0.055) AW-Cyo-U-Type Natriuretic Peptide 7410 pg/mL (0-449) H Total Protein 6.1 g/dL (6.4-8.2) L Albumin 2.9 g/dL (3.4-5.0) L Albumin/Globulin Ratio 0.9 (1.0-1.7) L Influenza Type A Antigen Negative (NEGATIVE) Influenza Type B Antigen Negative (NEGATIVE) Laboratory Tests 04/19/20 05:50 Laboratory Tests 04/19/20 05:50 ASSESSMENT/PLAN ASSESSMENT/PLAN 1. Dyspnea with a/c CHF, AECOPD. 2. Arrhythmia; noted with PSVT this am. prior MCOT revealed PSVT and no AFIB. Now SR/ST. 3. Acute on chronic diastolic CHF; s/p IV Lasix 4. HTN urgency; on nitro gtt. BP remains elevated. 5 Hyperlipidemia 6. Diabetes, II 7. Severe hypokalemia Recommendations Replace K Mild diuresis with monitoring of labs Resume metoprolol for rate control Resume home antiHTN therapy Labetalol IV PRN Titrate therapy as warranted Supportive care DAVID GUTIÉRREZ MD 04/19/20 2321: CARDIAC CONSULT ASSESSMENT/PLAN ASSESSMENT/PLAN Pt. seen and examined. Agree with above FORM BUILDER note. Patient has history of non-compliance with meds. Will titrate med therapy for BP control Supportive care. Thanks LELA SALAZAR APRN Apr 19, 2020 11:24 DAVID GUTIÉRREZ MD Apr 19, 2020 23:21
[2020-04-19] MEDS ORDERED: DEXTROSE 50% 25 GM / 50ML DISP.SYRIN. IV PRN (12:00)
[2020-04-19] MEDS: INSULIN LISPRO 300 UNITS/3 ML VIAL. SQ SCH ×2 (12:00→17:00)
[2020-04-19] MEDS ORDERED: INSULIN LISPRO 300 UNITS/3 ML VIAL. SQ SCH ×2 (12:00)
--- NOTE | 2020-04-19 12:06 | CONS ---
DATE OF CONSULTATION: 04/19/2020 PULMONARY CONSULTATION ATTENDING PHYSICIAN: Jordy Gallardo MD REASON FOR CONSULTATION: Respiratory failure. HISTORY OF PRESENT ILLNESS: The patient is known to us. She is an 84-year-old female, who has history of chronic COPD, on home oxygen at 4 liters. She has history of chronic diastolic heart failure, tachybrady syndrome, and protein-calorie malnutrition and refractory hypertension. The patient was recently discharged on 04/12/2020 after she was treated for acute on chronic diastolic heart failure. The patient has a history of atrial fibrillation as well. She was brought into the hospital with increasing hypoxia. She was saturating 85% on 2 liters. She was placed on 100% FiO2 and given DuoNebs. She was seen in the Emergency Room. A CT angiogram was performed, which was reviewed by me. There is no evidence of pulmonary embolism. There are ground-glass and interstitial markings consistent with congestive heart failure. The patient had asymmetric left breast skin thickening. Also, had some left axillary lymphadenopathy. She has some mediastinal adenopathy, which probably could be reactive. She was transiently placed on BiPAP in the ER, but now on a nasal cannula. She appears to be comfortable. I have been asked to see her for further evaluation. PAST MEDICAL HISTORY: Significant for history of COPD; on home oxygen at 4 liters, history of congestive heart failure, chronic diastolic, history of tachybrady syndrome, protein-calorie malnutrition, chronic refractory hypertension, hyperlipidemia, hypothyroidism and multiple recent hospitalizations for diastolic heart failure. She was COVID negative for recent admission. PAST SURGICAL HISTORY: No recent surgeries. In the past, had appendectomy, cholecystectomy, and hysterectomy. ALLERGIES: None. CURRENT MEDICATIONS: Reviewed as listed in the MRAD, including DuoNeb, oral prednisone. She received Lasix in the ER. REVIEW OF SYSTEMS: A 12-point system obtained. Pertinent positives discussed in my present illness, otherwise noncontributory. All systems that were negative were reviewed as well. SOCIAL HISTORY: Smoked for at least 40 years. FAMILY HISTORY: Noncontributory to lungs. PHYSICAL EXAMINATION: GENERAL: She is awake, following commands. VITAL SIGNS: Her blood pressure initially was markedly elevated around 200 systolic and it is improving. Pulse ox is 94% on 5 liters. NECK: Supple. LUNGS: With diminished breath sounds with few crackles. CARDIOVASCULAR: With a regular rate. ABDOMEN: Soft. EXTREMITIES: With no pitting edema. LABORATORY DATA: Reviewed. White cell count 17.2, hemoglobin 9.4, platelets are 428. Potassium 2.9, BUN 19, creatinine 0.7. Albumin 2.9. IMPRESSION: 1. Acute on chronic hypoxic respiratory failure secondary to acute on chronic diastolic heart failure. 2. Abnormal CT chest with evidence of congestive heart failure. There is no evidence of pulmonary embolism. She also had some asymmetric left axillary adenopathy and mild mediastinal adenopathy, which could be reactive. 3. Asymmetric left breast skin thickening. We will leave up to PCP for any workup. 4. Chronic diastolic heart failure. 5. Chronic obstructive pulmonary disease with acute exacerbation but the exacerbation is usually likely triggered by congestive heart failure. 6. Hypertensive urgency contributing to diastolic heart failure. RECOMMENDATIONS: 1. Continue with present oxygen and gradually wean to keep saturation 94 and above. 2. Optimization of blood pressure. 3. DuoNeb. 4. Diuresis and follow the response to treatment. 5. Minimize narcotics and benzodiazepines. 6. Follow Cardiology recommendations. 7. I have discussed advanced directives with the patient. She agreed for DNR and DNI. It was witnessed by our DEPUTY MANAGER, Ivette. She will be a DNR and DNI. Critical care time 39 minutes, which includes review of the chart, labs, x-rays, CT chest, and decision making. EUGENIO HIGUERA MD DR: BIRAN/ruy JOB#: [id number] / [id number]
[2020-04-19] MEDS: HYDROcodone/APAP 7.5/325MG 1 TAB TABLET PO PRN (16:21)
[2020-04-19] MEDS: tiZANidine 4 MG TABLET. PO SCH ×2 (16:21→22:21)
--- NOTE | 2020-04-19 17:36 | PDOC ---
Provider Note Provider Note Pt seen in ICU.H&P dictated. #[id number]. Justicifation of Admission Dx: Justifications for Admission: Justification of Admission Dx: Yes Respiratory Failure: Airway Obstruction Aspiration Pneumonia: Chronic Lung Disease Sepsis: Altered Mental Status Acute COPD Exacerbation: Acute COPD Exacerbation AMILCAR BILL MD Apr 19, 2020 17:36
--- NOTE | 2020-04-19 17:37 | NUR ---
Adm from ER w increasing SOA at home RT exacerbation COPD,related HPN,and tachyarrhythmia. Unsure ie home med compliance. Saturated brief and soaked bed on transfer form ER- lasix 40 mg adm therePur wick placement . NTG w/o success in bringing SBP down. Cardiology consult. Janis LUNA to unit w order changes noted. Labetalol x1 per order w SBP change from >200 to 160-180. Restart po antihypertensives w continued improvement. See flow sheets for specifics. Late afternoon PERES . Chronic. PO analgesic and ordered home med. Able to doze at long intervals if left undisturbed.K replaced, cont w O2, cont home meds per POC
--- NOTE | 2020-04-19 18:39 | HP ---
ADMIT DATE: 04/19/2020 REASON FOR ADMISSION TO THE HOSPITAL: 1. AFib with RVR. 2. Congestive heart failure, acute on chronic. 3. Chronic COPD, on home oxygen. HISTORY OF PRESENT ILLNESS: The patient is an 84-year-old female. The patient has been in and out of the hospitals multiple times. Chronic medical conditions including chronic COPD, on home oxygen 5 liters. She also has accelerated hypertension and tachybrady syndrome. She refused to go to senior living. She is at home with home health and she has been in and out 3-4 times in last one month. She was having shortness of breath and weakness, nausea, vomiting, was brought to the hospital with atrial fibrillation with rapid ventricular response, PSVT and short of breath with wheezing. Was given IV Cardizem 20 mg IV push, was given IV Lasix and the patient was admitted to the ICU, seen by Cardiology as well as Pulmonology. PAST MEDICAL HISTORY: As mentioned above. The patient was seen by both Cardiology and Pulmonary in the past. Hypertension, hyperlipidemia, PSVT, PVD, pulmonary fibrosis, spontaneous pneumothorax, which was resolved on home oxygen, fibromyalgia and steroid-induced diabetes. PAST SURGICAL HISTORY: Appendectomy, gallbladder surgery, hernia repair, tonsillectomy, hysterectomy, has a chest tube for pneumothorax in the past. FAMILY HISTORY: Hypertension. SOCIAL HISTORY: Smoked for at least 50 years, quit recently. She is on home oxygen. She has a home caregiver 24 hours. ALLERGIES: No known allergies. MEDICATIONS: At home, is on potassium chloride, hydralazine. In the hospital, was given Lasix, Levaquin. REVIEW OF SYMPTOMS: Denies any chest pain. Has some shortness of breath, feels weak. Denies any fever. Rest of the 14-system was reviewed and negative. PHYSICAL EXAMINATION: GENERAL: The patient is chronically ill. VITAL SIGNS: Temperature 98, pulse 108, respirations 32, blood pressure 220/108, pulse oxygen 92 on 4 liters. Heart rate went up to 128. HEENT: Head is atraumatic. Pupils equal. Oral cavity, no teeth. NECK: Supple. Thyroid not enlarged. JVD not elevated. CHEST: Symmetrical. CARDIOVASCULAR: S1, S2. LUNGS: Diminished breath sounds. Has occasional wheezing. ABDOMEN: Soft, bowel sounds present. No mass palpable. EXTERNAL GENITALIA: No Juarez. RECTAL: Deferred. EXTREMITIES: No calf tenderness or edema. Pulses 1+. NEUROLOGIC: Moving all extremities, very weak. No edema noted. Cranial nerves intact. LABORATORY DATA: Shows a white count of 17, hemoglobin 9.4, platelets 428. Electrolytes show sodium 143, potassium 2.9, chloride 113, bicarbonate 31, BUN 19, creatinine 0.7, glucose 203. Lactic acid 1.5. LFTs normal. Troponin 0.017. BNP 7400. Influenza A and B was negative. Here in the last week, her COVID was negative. Chest x-ray: Small left pleural effusion, interstitial pulmonary edema. CT chest: No pulmonary embolism, pulmonary hypertension, small bilateral effusions. FINAL IMPRESSION: 1. Shortness of breath secondary to congestive heart failure, pulmonary edema secondary to diastolic heart failure. 2. Sick sinus syndrome, has a paroxysmal supraventricular tachycardia, was given IV Cardizem. 3. Chronic obstructive pulmonary disease, on home oxygen. 4. Hypertension. 5. Hyperlipidemia. 6. History of spontaneous pneumothorax. 7. Pulmonary hypertension. 8. General debility. 9. Poor social situation. PLAN: At this time, was admitted to the hospital, was given Levaquin IV, was given IV Lasix for heart failure, also had IV Cardizem. The patient had extensive workup including CT scans and echocardiograms. Stress test in the past shows diastolic heart failure. The patient lives at home with home health, noncompliant with medications. The patient needs to go to long-term senior living, but the patient refuses. So, will have Cardiology. Pulmonary sees and start on prednisone 40 mg and 20 mg and CTA was negative for PE and Cardiology helping to control heart rate and heart failure. The patient is on Eliquis for anticoagulation. AMILCAR BILL MD DR: ROBERT/ruy JOB#: [id number] / [id number] XIOMARA Vogel
[2020-04-20] VITALS (9 sets, daily range): BP systolic 140–191; BP diastolic 62–79
[2020-04-20] MEDS: LABETALOL 20 MG/4 ML DISP.SYRIN. IVP PRN (01:50)
[2020-04-20 03:54] LABS: BASO % 0 % (0-3); EOS % 0 % (0-3); HEMOGLOBIN 8.6 g/dL (12.0-15.5); LYMPH # 0.4 x10^3/uL (1.0-4.8); LYMPH % 4 % (24-48); MEAN CORPUSCULAR HEMOGLOBIN 26 pg (25-35); MEAN CORPUSCULAR HGB CONC 33 g/dL (31-37); MEAN CORPUSCULAR VOLUME 78 fL (79-100); MONO # 0.1 x10^3/uL (0.0-1.1); MONO % 1 % (0-9); NEUT # 10.1 x10^3/uL (1.8-7.7); NEUT % 95 % (31-73); PLATELET COUNT 345 x10^3/uL (140-400); RED BLOOD COUNT 3.34 x10^6/uL (3.50-5.40); RED CELL DISTRIBUTION WIDTH 17.1 % (11.5-14.5); WHITE BLOOD COUNT 10.6 x10^3/uL (4.0-11.0)
[2020-04-20 04:44] LABS: CALCIUM 8.4 mg/dL (8.5-10.1); CREATININE 1.1 mg/dL (0.6-1.0); POTASSIUM 4.2 mmol/L (3.5-5.1)
[2020-04-20] MEDS: tiZANidine 4 MG TABLET. PO SCH ×3 (06:22→20:29)
[2020-04-20] MEDS: IPRATRPIUM/ALBUTEROL 0.5/2.5MG 3 ML NEBU. NEB SCH ×5 (07:45→19:55)
[2020-04-20] MEDS: ROFLUMILAST 500 MCG TABLET. PO SCH (08:10)
[2020-04-20] MEDS: LISINOPRIL 20 MG TABLET PO SCH (08:10)
[2020-04-20] MEDS: APIXABAN 2.5 MG TABLET. PO SCH ×2 (08:10→20:29)
[2020-04-20] MEDS: METOPROLOL TART IMMED RELEASE 50 MG TABLET. PO SCH ×2 (08:11→20:29)
[2020-04-20] MEDS: predniSONE 20 MG TABLET PO SCH (08:11)
[2020-04-20] MEDS: PANTOPRAZOLE 40 MG TABLET.DR. PO SCH (08:11)
[2020-04-20] MEDS: INSULIN LISPRO 300 UNITS/3 ML VIAL. SQ SCH ×3 (08:13→17:14)
[2020-04-20] MEDS ORDERED: predniSONE 10 MG TABLET PO SCH (09:00)
[2020-04-20] MEDS ORDERED: LISINOPRIL 20 MG TABLET PO SCH (09:00)
--- NOTE | 2020-04-20 09:17 | PDOC ---
APARNA NI PIPER HELPER 04/20/20 0917: CARDIO Progress Notes Date and Time Date of Service 04/20/2020 Time of Evaluation 0900 Subjective Subjective: No Chest Pain, No shortness of breath, No Palpitations Vitals Vitals Vital Signs Date Time Temp Pulse Resp B/P (MAP) Pulse Ox O2 Delivery O2 Flow Rate FiO2 04/20/20 08:24 Nasal Cannula 5.0 04/20/20 08:18 97 04/20/20 08:11 78 140/63 04/20/20 07:41 98.3 24 98.3 Weight Weight [ ] Input and Output Intake and Output Intake and Output 04/20/20 07:00 Intake Total 1220 ml Output Total 1400 ml Balance -180 ml Intake Oral 325 ml IV Total 895 ml Output Urine Total 1400 ml # Voids 3 Laboratory Labs Laboratory Tests Test 04/19/20 16:31 04/20/20 03:25 Glucose (Fingerstick) 161 mg/dL (70-99) White Blood Count 10.6 x10^3/uL (4.0-11.0) Red Blood Count 3.34 x10^6/uL (3.50-5.40) Hemoglobin 8.6 g/dL (12.0-15.5) Hematocrit 26.0 % (36.0-47.0) Mean Corpuscular Volume 78 fL (79-100) Mean Corpuscular Hemoglobin 26 pg (25-35) Mean Corpuscular Hemoglobin Concent 33 g/dL (31-37) Red Cell Distribution Width 17.1 % (11.5-14.5) Platelet Count 345 x10^3/uL (140-400) Neutrophils (%) (Auto) 95 % (31-73) Lymphocytes (%) (Auto) 4 % (24-48) Monocytes (%) (Auto) 1 % (0-9) Eosinophils (%) (Auto) 0 % (0-3) Basophils (%) (Auto) 0 % (0-3) Neutrophils # (Auto) 10.1 x10^3/uL (1.8-7.7) Lymphocytes # (Auto) 0.4 x10^3/uL (1.0-4.8) Monocytes # (Auto) 0.1 x10^3/uL (0.0-1.1) Eosinophils # (Auto) 0.0 x10^3/uL (0.0-0.7) Basophils # (Auto) 0.0 x10^3/uL (0.0-0.2) Sodium Level 136 mmol/L (136-145) Potassium Level 4.2 mmol/L (3.5-5.1) Chloride Level 99 mmol/L (98-107) Carbon Dioxide Level 28 mmol/L (21-32) Anion Gap 9 (6-14) Blood Urea Nitrogen 24 mg/dL (7-20) Creatinine 1.1 mg/dL (0.6-1.0) Estimated GFR (Cockcroft-Gault) 57.0 Glucose Level 303 mg/dL (70-99) Calcium Level 8.4 mg/dL (8.5-10.1) Microbiology Micro Microbiology 04/19/20 Blood Culture - Preliminary, Resulted NO GROWTH AFTER 1 DAY Physical Exam HEENT: Neck Supple W Full Motion Chest: Symmetric LUNGS: Other (diffuse wheeze) Heart: RRR (SR with PACs) Abdomen: Soft N/T Extremities: No Edema, No Calf Tenderness Neurology: alert, oriented, follow commands Assessment Assessment 1. Acute on chronic respiratory failure with AECOPD and CHF 2. Acute on chronic diastolic CHF: appears compensated. SOA much better with no peripheral edema 3. PSVT: noted prior with atrial tach and had prior MCOT with no definitive AFIB. 4. 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 likely from noncompliance. Improving 5 HLP 6. DM2 7. Hypokalemia: resolved 8. Microcytic anemia: Hgb at 8.6 9. Prerenal azotemia Recommendations 1. Lasix PRN. hold today 2. Continue pulmonary optimization 3. Pt is at high risk for falls and also anemic. Would DC eliquis unless any definitive use. 4. Could hold BB if continues to be wheezy 5. Resume home antiHTN therapy 6. Labetalol IV PRN 7. May need SNU when DC.otherwise possible hospice Justicifation of Admission Dx: Justifications for Admission: Justification of Admission Dx: Yes Respiratory Failure: Airway Obstruction Aspiration Pneumonia: Chronic Lung Disease Sepsis: Altered Mental Status Acute COPD Exacerbation: Acute COPD Exacerbation DAVID GUTIÉRREZ MD 04/20/20 1422: CARDIO Progress Notes Plan Plan Pt. seen and examined. Agree with above RESTAURANT FLOOR MANAGER note. Supportive care. Thanks APARNA NI APRN Apr 20, 2020 09:17 DAVID GUTIÉRREZ MD Apr 20, 2020 14:22
[2020-04-20] MEDS ORDERED: ANTI-COAG MONITOR BY PHARMACY. MC PRN (09:30)
--- NOTE | 2020-04-20 09:32 | NUR ---
SS following for discharge planning. SS reviewed pt chart and discussed with pt RN. Pt is from home and is currently requiring oxygen. Pt is current on services with [facility], ; fax [phone]. Pt has home oxygen. SS met with pt to discuss discharge planning. Pt not wanting to go to [facility]. Pt wanting to return to home. SS discussed discharge options with pt. Pt expressing interest in hospice with no preference of company. SS phoned and faxed referral to [facility], ; fax [phone], for home hospice services. SS will continue to follow for discharge planning.
--- NOTE | 2020-04-20 10:08 | PDOC ---
PROGRESS NOTES Subjective Subjective feels better, want to go home on hospice Objective Objective Vital Signs Date Time Temp Pulse Resp B/P (MAP) Pulse Ox O2 Delivery O2 Flow Rate FiO2 04/20/20 08:24 Nasal Cannula 5.0 04/20/20 08:18 97 04/20/20 08:11 78 140/63 04/20/20 07:41 98.3 24 98.3 Intake and Output 04/20/20 07:00 Intake Total 1220 ml Output Total 1400 ml Balance -180 ml Intake Oral 325 ml IV Total 895 ml Output Urine Total 1400 ml # Voids 3 Physical Exam Abdomen: Normal bowel sounds, Soft Heart: Regular rate, Normal S1, Normal S2 Extremities: No clubbing General: Alert, Oriented X3 HEENT: Atraumatic Lungs: Clear to auscultation, Other (wheezing at bases) MUSCULOSKELETAL: No deformity, Osteoarthritic changes both hands Neck: Supple Neuro: Normal speech Psych/Mental Status: Mood NL Skin: No breakdown Diagnosis Problem List Problems Medical Problems: (1) Atrial fibrillation with RVR Status: Acute (2) CHF (congestive heart failure) Status: Acute (3) Dyspnea Status: Acute (4) Hypokalemia Status: Acute (5) Pulmonary arterial hypertension Status: Acute Assessment Assessment Problems Medical Problems: (1) Atrial fibrillation with RVR Status: Acute (2) CHF (congestive heart failure) Status: Acute (3) Dyspnea Status: Acute (4) Hypokalemia Status: Acute (5) Pulmonary arterial hypertension Status: Acute FINAL IMPRESSION: 1. Shortness of breath secondary to congestive heart failure, pulmonary edema secondary to diastolic heart failure. 2. Sick sinus syndrome, has a paroxysmal supraventricular tachycardia, was given IV Cardizem. 3. Chronic obstructive pulmonary disease, on home oxygen. 4. Hypertension. 5. Hyperlipidemia. 6. History of spontaneous pneumothorax. 7. Pulmonary hypertension. 8. General debility. 9. Poor social situation. PLAN: SOB improved with lasix BP good control. HR controlled wbc normal labs ok Hospice consult today move out o f ICU CT chest neg for PE. d/c home tomorrow? with hospice. Plan Plan of Care Problems Medical Problems: (1) Atrial fibrillation with RVR Status: Acute (2) CHF (congestive heart failure) Status: Acute (3) Dyspnea Status: Acute (4) Hypokalemia Status: Acute (5) Pulmonary arterial hypertension Status: Acute Comment Review of Relevant I have reviewed the following items navi (where applicable) has been applied. Labs Laboratory Tests Test 04/19/20 16:31 04/20/20 03:25 Glucose (Fingerstick) 161 mg/dL (70-99) White Blood Count 10.6 x10^3/uL (4.0-11.0) Red Blood Count 3.34 x10^6/uL (3.50-5.40) Hemoglobin 8.6 g/dL (12.0-15.5) Hematocrit 26.0 % (36.0-47.0) Mean Corpuscular Volume 78 fL (79-100) Mean Corpuscular Hemoglobin 26 pg (25-35) Mean Corpuscular Hemoglobin Concent 33 g/dL (31-37) Red Cell Distribution Width 17.1 % (11.5-14.5) Platelet Count 345 x10^3/uL (140-400) Neutrophils (%) (Auto) 95 % (31-73) Lymphocytes (%) (Auto) 4 % (24-48) Monocytes (%) (Auto) 1 % (0-9) Eosinophils (%) (Auto) 0 % (0-3) Basophils (%) (Auto) 0 % (0-3) Neutrophils # (Auto) 10.1 x10^3/uL (1.8-7.7) Lymphocytes # (Auto) 0.4 x10^3/uL (1.0-4.8) Monocytes # (Auto) 0.1 x10^3/uL (0.0-1.1) Eosinophils # (Auto) 0.0 x10^3/uL (0.0-0.7) Basophils # (Auto) 0.0 x10^3/uL (0.0-0.2) Sodium Level 136 mmol/L (136-145) Potassium Level 4.2 mmol/L (3.5-5.1) Chloride Level 99 mmol/L (98-107) Carbon Dioxide Level 28 mmol/L (21-32) Anion Gap 9 (6-14) Blood Urea Nitrogen 24 mg/dL (7-20) Creatinine 1.1 mg/dL (0.6-1.0) Estimated GFR (Cockcroft-Gault) 57.0 Glucose Level 303 mg/dL (70-99) Calcium Level 8.4 mg/dL (8.5-10.1) Microbiology 04/19/20 Blood Culture - Preliminary, Resulted NO GROWTH AFTER 1 DAY Medications Current Medications Acetaminophen/ Hydrocodone Bitart (Lortab 7.5/325) 1 tab PRN Q6HRS PRN PO PAIN Last administered on 04/19/20 16:21; Start 04/19/20 at 10:30 Albuterol/ Ipratropium (Duoneb) 3 ml RTQID NEB Last administered on 04/20/20 08:18; Start 04/19/20 at 12:00 Alprazolam (Xanax) 0.25 mg PRN Q8HRS PRN PO ANXIETY / AGITATION Last administered on 04/19/20 11:11; Start 04/19/20 at 10:30 Apixaban (Eliquis) 2.5 mg BID PO Last administered on 04/20/20 08:10; Start 04/19/20 at 11:00 Clonidine HCl (Catapres) 0.1 mg PRN Q6HRS PRN PO HYPERTENSION Last administered on 04/19/20 11:12; Start 04/19/20 at 10:30 Dextrose (Dextrose 50%-Water Syringe) 12.5 gm PRN Q15MIN PRN IV SEE COMMENTS; Start 04/19/20 at 12:00 Hydralazine HCl (Apresoline) 50 mg TID PO Last administered on 04/20/20at 08:10; Start 04/19/20 at 14:00 Info (Anti-Coagulation Monitoring By Pharmacy) 1 each PRN DAILY PRN MC SEE COMMENTS; Start 04/20/20 at 09:30 Insulin Human Lispro (HumaLOG) 0-5 UNITS TIDWMEALS SQ Last administered on 04/20/20at 08:13; Start 04/19/20 at 12:00 Insulin Human Lispro (HumaLOG) 1 units TIDWMEALS SQ ; Start 04/19/20 at 12:00; Status UNV Insulin Human Lispro (HumaLOG) 1 units TIDWMEALS SQ ; Start 04/19/20 at 12:00; Status UNV Labetalol HCl (Normodyne Iv Push) 20 mg PRN Q2HRS PRN IVP HYPERTENSION Last administered on 04/20/20at 01:50; Start 04/19/20 at 18:45 Lisinopril (Prinivil) 40 mg DAILY PO Last administered on 04/20/20at 08:10; Start 04/19/20 at 11:00 Lisinopril (Prinivil) 40 mg DAILY PO ; Start 04/20/20 at 09:00; Status UNV Metoprolol Tartrate (Lopressor) 50 mg BID PO Last administered on 04/20/20at 08:11; Start 04/19/20 at 11:00 Pantoprazole Sodium (Protonix) 40 mg DAILYAC PO Last administered on 04/20/20at 08:11; Start 04/19/20 at 11:00 Potassium Chloride/Water 100 ml @ 100 mls/hr Q1H IV Last administered on 04/19/20at 16:20; Start 04/19/20 at 10:30; Stop 04/19/20 at 12:29; Status DC Prednisone (Prednisone) 10 mg DAILY PO ; Start 04/20/20 at 09:00; Status UNV Prednisone (Prednisone) 20 mg DAILY PO Last administered on 04/20/20at 08:11; Start 04/20/20 at 09:00 Prednisone (Prednisone) 50 mg 1X ONCE PO ; Start 04/19/20 at 10:30; Stop 04/19/20 at 11:41; Status DC Prednisone (Prednisone) 50 mg 1X ONCE PO Last administered on 04/19/20at 16:39; Start 04/19/20 at 16:30; Stop 04/19/20 at 16:31; Status DC Roflumilast (Daliresp) 500 mcg DAILY PO Last administered on 04/20/20at 08:10; Start 04/20/20 at 09:00 Tizanidine HCl (Zanaflex) 4 mg Q8HRS PO Last administered on 04/20/20at 06:22; Start 04/19/20 at 14:00 Vitals/I & O Vital Sign - Last 24 Hours 04/19/20 04/19/20 04/19/20 04/19/20 10:15 10:15 11:00 11:11 Temp 99.0 99.0 Pulse 112 100 Resp 25 23 B/P (MAP) 196/101 (132) 199/95 (129) 199/95 O2 Delivery Nasal Cannula Nasal Cannula Nasal Cannula O2 Flow Rate 5.0 5.0 5.0 04/19/20 04/19/20 04/19/20 04/19/20 11:12 11:12 11:23 11:30 Pulse 100 100 Resp 29 B/P (MAP) 199/95 199/95 151/66 (94) Pulse Ox 94 O2 Delivery Nasal Cannula Nasal Cannula O2 Flow Rate 5.0 5.0 04/19/20 04/19/20 04/19/20 04/19/20 12:00 13:00 14:00 14:00 Temp 99.0 99.0 Pulse 77 Resp 28 31 30 B/P (MAP) 154/73 (100) 138/66 138/66 (90) O2 Delivery Nasal Cannula Nasal Cannula Nasal Cannula O2 Flow Rate 5.0 5.0 5.0 04/19/20 04/19/20 04/19/20 04/19/20 15:00 15:50 16:00 16:21 Resp 33 35 B/P (MAP) 140/75 (96) 136/62 (86) Pulse Ox 100 100 O2 Delivery Nasal Cannula Nasal Cannula Nasal Cannula Nasal Cannula O2 Flow Rate 5.0 4.0 5.0 4.0 04/19/20 04/19/20 04/19/20 04/19/20 17:04 17:21 20:00 20:00 Temp 99.0 98.9 99.0 98.9 Pulse 77 Resp 32 28 36 B/P (MAP) 134/60 (84) 140/59 (86) Pulse Ox 94 94 O2 Delivery Nasal Cannula Nasal Cannula Nasal Cannula Nasal Cannula O2 Flow Rate 5.0 5.0 5.0 5.0 04/19/20 04/19/20 04/19/20 04/20/20 20:47 20:47 23:00 01:30 Temp 98.7 98.7 Pulse 77 77 79 74 Resp 36 36 B/P (MAP) 134/60 134/60 143/61 (88) 191/78 (115) Pulse Ox 93 94 O2 Delivery Nasal Cannula Nasal Cannula O2 Flow Rate 5.0 5.0 04/20/20 04/20/20 04/20/20 04/20/20 01:50 02:00 04:00 07:41 Temp 98.3 98.3 Pulse 68 77 78 78 Resp 30 21 24 B/P (MAP) 191/78 144/62 (89) 162/68 (99) 140/63 (88) Pulse Ox 94 93 93 O2 Delivery Nasal Cannula Nasal Cannula Nasal Cannula O2 Flow Rate 5.0 5.0 5.0 04/20/20 04/20/20 04/20/20 04/20/20 08:10 08:10 08:11 08:18 Pulse 78 78 78 B/P (MAP) 140/63 140/63 140/63 Pulse Ox 97 O2 Delivery Nasal Cannula O2 Flow Rate 4.0 04/20/20 08:24 O2 Delivery Nasal Cannula O2 Flow Rate 5.0 Intake and Output 04/19/20 04/19/20 04/20/20 15:00 23:00 07:00 Intake Total 670 ml 550 ml Output Total 200 ml 1000 ml 200 ml Balance 470 ml -450 ml -200 ml Justicifation of Admission Dx: Justifications for Admission: Justification of Admission Dx: Yes Respiratory Failure: Airway Obstruction Aspiration Pneumonia: Chronic Lung Disease Sepsis: Altered Mental Status Acute COPD Exacerbation: Acute COPD Exacerbation AMILCAR BILL MD Apr 20, 2020 10:08
--- NOTE | 2020-04-20 11:21 | PDOC ---
PULMONARY PROGRESS NOTES Subjective no soa Vitals Vital Signs Date Time Temp Pulse Resp B/P (MAP) Pulse Ox O2 Delivery O2 Flow Rate FiO2 04/20/20 08:24 Nasal Cannula 5.0 04/20/20 08:18 97 04/20/20 08:11 78 140/63 04/20/20 07:41 98.3 24 98.3 General: Alert, No acute distress Lungs: Clear Cardiovascular: S1, S2, Other Abdomen: Soft Neuro Exam: Alert Extremities: No Edema Skin: Warm Labs Laboratory Tests Test 04/19/20 00:00 04/19/20 05:50 04/19/20 16:31 04/20/20 03:25 Coronavirus (COVID-19)(PCR) Not detected (NOT DETECT.) White Blood Count 17.2 x10^3/uL (4.0-11.0) 10.6 x10^3/uL (4.0-11.0) Red Blood Count 3.66 x10^6/uL (3.50-5.40) 3.34 x10^6/uL (3.50-5.40) Hemoglobin 9.4 g/dL (12.0-15.5) 8.6 g/dL (12.0-15.5) Hematocrit 28.7 % (36.0-47.0) 26.0 % (36.0-47.0) Mean Corpuscular Volume 79 fL (79-100) 78 fL (79-100) Mean Corpuscular Hemoglobin 26 pg (25-35) 26 pg (25-35) Mean Corpuscular Hemoglobin Concent 33 g/dL (31-37) 33 g/dL (31-37) Red Cell Distribution Width 16.7 % (11.5-14.5) 17.1 % (11.5-14.5) Platelet Count 428 x10^3/uL (140-400) 345 x10^3/uL (140-400) Neutrophils (%) (Auto) 89 % (31-73) 95 % (31-73) Lymphocytes (%) (Auto) 6 % (24-48) 4 % (24-48) Monocytes (%) (Auto) 4 % (0-9) 1 % (0-9) Eosinophils (%) (Auto) 1 % (0-3) 0 % (0-3) Basophils (%) (Auto) 0 % (0-3) 0 % (0-3) Neutrophils # (Auto) 15.2 x10^3/uL (1.8-7.7) 10.1 x10^3/uL (1.8-7.7) Lymphocytes # (Auto) 1.0 x10^3/uL (1.0-4.8) 0.4 x10^3/uL (1.0-4.8) Monocytes # (Auto) 0.7 x10^3/uL (0.0-1.1) 0.1 x10^3/uL (0.0-1.1) Eosinophils # (Auto) 0.2 x10^3/uL (0.0-0.7) 0.0 x10^3/uL (0.0-0.7) Basophils # (Auto) 0.1 x10^3/uL (0.0-0.2) 0.0 x10^3/uL (0.0-0.2) Segmented Neutrophils % 86 % (35-66) Band Neutrophils % 1 % (0-9) Lymphocytes % 5 % (24-48) Monocytes % 6 % (0-10) Eosinophils % 2 % (0-5) Platelet Estimate Increased (ADEQUATE) Sodium Level 143 mmol/L (136-145) 136 mmol/L (136-145) Potassium Level 2.9 mmol/L (3.5-5.1) 4.2 mmol/L (3.5-5.1) Chloride Level 103 mmol/L (98-107) 99 mmol/L (98-107) Carbon Dioxide Level 31 mmol/L (21-32) 28 mmol/L (21-32) Anion Gap 9 (6-14) 9 (6-14) Blood Urea Nitrogen 19 mg/dL (7-20) 24 mg/dL (7-20) Creatinine 0.7 mg/dL (0.6-1.0) 1.1 mg/dL (0.6-1.0) Estimated GFR (Cockcroft-Gault) 96.0 57.0 BUN/Creatinine Ratio 27 (6-20) Glucose Level 203 mg/dL (70-99) 303 mg/dL (70-99) Lactic Acid Level 1.5 mmol/L (0.4-2.0) Calcium Level 8.9 mg/dL (8.5-10.1) 8.4 mg/dL (8.5-10.1) Total Bilirubin 0.5 mg/dL (0.2-1.0) Aspartate Amino Transf (AST/SGOT) 17 U/L (15-37) Alanine Aminotransferase (ALT/SGPT) 24 U/L (14-59) Alkaline Phosphatase 106 U/L (46-116) Troponin I Quantitative < 0.017 ng/mL (0.000-0.055) WL-Ekf-I-Type Natriuretic Peptide 7410 pg/mL (0-449) Total Protein 6.1 g/dL (6.4-8.2) Albumin 2.9 g/dL (3.4-5.0) Albumin/Globulin Ratio 0.9 (1.0-1.7) Influenza Type A Antigen Negative (NEGATIVE) Influenza Type B Antigen Negative (NEGATIVE) Glucose (Fingerstick) 161 mg/dL (70-99) Laboratory Tests Test 04/19/20 16:31 04/20/20 03:25 Glucose (Fingerstick) 161 mg/dL (70-99) White Blood Count 10.6 x10^3/uL (4.0-11.0) Red Blood Count 3.34 x10^6/uL (3.50-5.40) Hemoglobin 8.6 g/dL (12.0-15.5) Hematocrit 26.0 % (36.0-47.0) Mean Corpuscular Volume 78 fL (79-100) Mean Corpuscular Hemoglobin 26 pg (25-35) Mean Corpuscular Hemoglobin Concent 33 g/dL (31-37) Red Cell Distribution Width 17.1 % (11.5-14.5) Platelet Count 345 x10^3/uL (140-400) Neutrophils (%) (Auto) 95 % (31-73) Lymphocytes (%) (Auto) 4 % (24-48) Monocytes (%) (Auto) 1 % (0-9) Eosinophils (%) (Auto) 0 % (0-3) Basophils (%) (Auto) 0 % (0-3) Neutrophils # (Auto) 10.1 x10^3/uL (1.8-7.7) Lymphocytes # (Auto) 0.4 x10^3/uL (1.0-4.8) Monocytes # (Auto) 0.1 x10^3/uL (0.0-1.1) Eosinophils # (Auto) 0.0 x10^3/uL (0.0-0.7) Basophils # (Auto) 0.0 x10^3/uL (0.0-0.2) Sodium Level 136 mmol/L (136-145) Potassium Level 4.2 mmol/L (3.5-5.1) Chloride Level 99 mmol/L (98-107) Carbon Dioxide Level 28 mmol/L (21-32) Anion Gap 9 (6-14) Blood Urea Nitrogen 24 mg/dL (7-20) Creatinine 1.1 mg/dL (0.6-1.0) Estimated GFR (Cockcroft-Gault) 57.0 Glucose Level 303 mg/dL (70-99) Calcium Level 8.4 mg/dL (8.5-10.1) Medications Active Scripts Medications Dose Route/Sig Max Daily Dose Days Date Category Dose Instructions Humalog (Insulin Lispro) 100 Unit/1 Ml Insuln.pen 1 Units SQ TIDWMEALS MDD 30 30 04/11/20 Rx use sliding scale Prednisone (Prednisone) 10 Mg Tablet 10 Mg PO DAILY 7 04/11/20 Rx Lisinopril 40 Mg Tablet 40 Mg PO DAILY 30 03/05/20 Rx Hydralazine Hcl 50 Mg Tablet 50 Mg PO TID 30 03/05/20 Rx Catapres (Clonidine Hcl) 0.1 Mg Tablet 0.1 Mg PO PRN Q6HRS PRN 30 03/05/20 Rx Humalog (Insulin Lispro) 100 Unit/1 Ml Insuln.pen 1 Unit SQ TIDWMEALS 30 03/03/20 Rx Eliquis (Apixaban) 2.5 Mg Tablet 2.5 Mg PO BID 30 02/19/20 Rx Metoprolol Tartrate 50 Mg Tablet 50 Mg PO BID 30 02/19/20 Rx Tizanidine Hcl 4 Mg Tablet 1 Tab PO Q8HRS 02/17/20 Reported Lisinopril 40 Mg Tablet 1 Tab PO DAILY 02/17/20 Reported Pantoprazole Sodium (Pantoprazole Sodium) 40 Mg Tablet.dr 40 Mg PO DAILYAC 30 01/14/20 Rx Daliresp (Roflumilast) 500 Mcg Tablet 500 Mcg PO DAILY 30 01/13/20 Rx Hydrocodone-Apap 7.5-325 (Hydrocodone Bit/Acetaminophen) 1 Tab Tablet 1 Tab PO PRN Q6HRS PRN 01/01/20 Reported Xanax (Alprazolam) 0.25 Mg Tablet 0.25 Mg PO Q8HRS PRN 01/01/20 Reported Duoneb 0.5-3(2.5) Mg/3 Ml (Albuterol/Ipratropium) 3 Ml Ampul.neb 3 Ml NEB RTQID 30 12/16/19 Rx Impression . 1. Acute on chronic hypoxic respiratory failure secondary to acute on chronic diastolic heart failure. 2. Abnormal CT chest with evidence of congestive heart failure. There is no evidence of pulmonary embolism. She also had some asymmetric left axillary adenopathy and mild mediastinal adenopathy, which could be reactive. 3. Asymmetric left breast skin thickening. We will leave up to PCP for any workup. 4. Chronic diastolic heart failure. 5. Chronic obstructive pulmonary disease with acute exacerbation but the exacerbation is usually likely triggered by congestive heart failure. 6. Hypertensive urgency contributing to diastolic heart failure. Plan . 1. Continue with present oxygen and gradually wean to keep saturation 94 and above. 2. Optimization of blood pressure. 3. DuoNeb. 4. Diuresis and follow the response to treatment. 5. Minimize narcotics and benzodiazepines. 6. Follow Cardiology recommendations. 7. I have discussed advanced directives with the patient. She agreed for DNR and DNI. she is re considered for hospice EUGENIO HIGUERA MD Apr 20, 2020 11:21
--- NOTE | 2020-04-20 11:58 | NUR ---
SS following up with discharge planning. Pt met with [facility] and signed consents for services at home. Pt's RN and physician notified. SS will continue to follow for discharge planning.
[2020-04-20] MEDS: ALPRAZolam 0.25 MG TABLET PO PRN ×2 (12:57→20:28)
--- NOTE | 2020-04-20 18:31 | NUR ---
RN NOTE patient transferred from ICU 112, patient SR, A/Ox4, 5 L NC, purewick in place, bed alarm on. call light within reach, this RN agrees with previous RN assessments
[2020-04-21] VITALS (7 sets, daily range): BP systolic 142–211; BP diastolic 67–94
[2020-04-21] MEDS: ALPRAZolam 0.25 MG TABLET PO PRN ×2 (04:33→12:49)
[2020-04-21] MEDS: tiZANidine 4 MG TABLET. PO SCH ×2 (05:01→14:18)
[2020-04-21] MEDS: IPRATRPIUM/ALBUTEROL 0.5/2.5MG 3 ML NEBU. NEB SCH ×2 (08:25→11:55)
[2020-04-21] MEDS: ROFLUMILAST 500 MCG TABLET. PO SCH (08:41)
[2020-04-21] MEDS: METOPROLOL TART IMMED RELEASE 50 MG TABLET. PO SCH (08:42)
[2020-04-21] MEDS: APIXABAN 2.5 MG TABLET. PO SCH (08:42)
[2020-04-21] MEDS: PANTOPRAZOLE 40 MG TABLET.DR. PO SCH (08:42)
[2020-04-21] MEDS: predniSONE 20 MG TABLET PO SCH (08:42)
[2020-04-21] MEDS: LISINOPRIL 20 MG TABLET PO SCH (08:42)
[2020-04-21] MEDS: INSULIN LISPRO 300 UNITS/3 ML VIAL. SQ SCH ×2 (08:48→11:55)
--- NOTE | 2020-04-21 10:10 | PDOC ---
PROGRESS NOTES Subjective Subjective feels good ,ready to go home Objective Objective Vital Signs Date Time Temp Pulse Resp B/P (MAP) Pulse Ox O2 Delivery O2 Flow Rate FiO2 04/21/20 08:42 79 159/67 04/21/20 08:30 Nasal Cannula 4.0 04/21/20 08:26 100 04/21/20 06:36 97.9 18 97.9 Intake and Output 04/21/20 07:00 Intake Total 390 ml Output Total 150 ml Balance 240 ml Intake Oral 390 ml Output Urine Total 150 ml # Voids 1 Physical Exam Abdomen: Normal bowel sounds, Soft Heart: Regular rate, Normal S1, Normal S2 Extremities: No clubbing General: Alert, Oriented X3 HEENT: Atraumatic Lungs: Clear to auscultation, Other (wheezing at bases) MUSCULOSKELETAL: No deformity, Osteoarthritic changes both hands Neck: Supple Neuro: Normal speech Psych/Mental Status: Mood NL Skin: No breakdown Diagnosis Problem List Problems Medical Problems: (1) Atrial fibrillation with RVR Status: Acute (2) CHF (congestive heart failure) Status: Acute (3) Dyspnea Status: Acute (4) Hypokalemia Status: Acute (5) Pulmonary arterial hypertension Status: Acute Assessment Assessment Problems Medical Problems: (1) Atrial fibrillation with RVR Status: Acute (2) CHF (congestive heart failure) Status: Acute (3) Dyspnea Status: Acute (4) Hypokalemia Status: Acute (5) Pulmonary arterial hypertension Status: Acute FINAL IMPRESSION: 1. Shortness of breath secondary to congestive heart failure, pulmonary edema secondary to diastolic heart failure. 2. Sick sinus syndrome, has a paroxysmal supraventricular tachycardia, was given IV Cardizem. 3. Chronic obstructive pulmonary disease, on home oxygen. 4. Hypertension. 5. Hyperlipidemia. 6. History of spontaneous pneumothorax. 7. Pulmonary hypertension. 8. General debility. 9. Poor social situation. PLAN: d/c home with hospice SOB improved with lasix BP good control. HR controlled wbc normal labs ok moved out o f ICU CT chest neg for PE. spoke with neighborhood planner Plan Plan of Care Problems Medical Problems: (1) Atrial fibrillation with RVR Status: Acute (2) CHF (congestive heart failure) Status: Acute (3) Dyspnea Status: Acute (4) Hypokalemia Status: Acute (5) Pulmonary arterial hypertension Status: Acute Comment Review of Relevant I have reviewed the following items navi (where applicable) has been applied. Labs Laboratory Tests Test 04/20/20 11:52 04/20/20 16:42 04/20/20 20:41 04/21/20 06:53 Glucose (Fingerstick) 222 mg/dL (70-99) 243 mg/dL (70-99) 215 mg/dL (70-99) 172 mg/dL (70-99) Microbiology 04/19/20 Blood Culture - Preliminary, Resulted NO GROWTH AFTER 2 DAYS Vitals/I & O Vital Sign - Last 24 Hours 04/20/20 04/20/20 04/20/20 04/20/20 12:00 12:01 14:06 15:03 Temp 98.7 98.4 98.7 98.4 Pulse 76 76 80 Resp 24 24 B/P (MAP) 160/71 (100) 160/71 157/72 (100) Pulse Ox 98 99 O2 Delivery Nasal Cannula Nasal Cannula Nasal Cannula O2 Flow Rate 5.0 4.0 5.0 04/20/20 04/20/20 04/20/20 04/20/20 15:44 16:20 19:32 19:56 Temp 97.9 98.0 97.9 98.0 Pulse 85 98 Resp 24 18 B/P (MAP) 165/69 (101) 183/79 (113) Pulse Ox 99 99 98 O2 Delivery Nasal Cannula Nasal Cannula Nasal Cannula Nasal Cannula O2 Flow Rate 4.0 5.0 5.0 4.0 04/20/20 04/20/20 04/20/20 04/20/20 20:00 20:29 20:29 22:41 Temp 98.3 98.3 Pulse 98 98 90 Resp 18 B/P (MAP) 183/79 183/79 172/68 (102) Pulse Ox 98 O2 Delivery Nasal Cannula Nasal Cannula O2 Flow Rate 4.0 5.0 04/21/20 04/21/20 04/21/20 04/21/20 02:44 06:36 08:26 08:30 Temp 97.8 97.9 97.8 97.9 Pulse 65 66 Resp 18 18 B/P (MAP) 142/69 (93) 159/67 (97) Pulse Ox 100 97 100 O2 Delivery Nasal Cannula Nasal Cannula Nasal Cannula Nasal Cannula O2 Flow Rate 5.0 5.0 4.0 4.0 04/21/20 04/21/20 04/21/20 08:41 08:42 08:42 Pulse 79 79 79 B/P (MAP) 159/67 159/67 159/67 Intake and Output 04/20/20 04/20/20 04/21/20 15:00 23:00 07:00 Intake Total 360 ml 0 ml 30 ml Output Total 150 ml Balance 360 ml 0 ml -120 ml Justicifation of Admission Dx: Justifications for Admission: Justification of Admission Dx: Yes Respiratory Failure: Airway Obstruction Aspiration Pneumonia: Chronic Lung Disease Sepsis: Altered Mental Status Acute COPD Exacerbation: Acute COPD Exacerbation Nutrition Consultation Dietary Evaluation: Recommendations by RD: Dietary education by RD, Increase Calorie Intake, Protein supplementation Comments: REC ADA/cardiac diet per pmhx Glucerna TID (vanilla) Expected Outcomes/Goals: PO intake to meet >75% est needs Malnutrition Findings: Body Fat Depletion (Non Severe: Mild Depletion Weight Status: Appropriate AMILCAR BILL MD Apr 21, 2020 10:10
--- NOTE | 2020-04-21 10:14 | SNU/HH DC ---
DISCHARGE ORDERS DISCHARGE INFORMATION: DISCHARGE DATE: Apr 21, 2020 FINAL DIAGNOSIS Problems Medical Problems: (1) Atrial fibrillation with RVR Status: Acute (2) CHF (congestive heart failure) Status: Acute (3) Dyspnea Status: Acute (4) Hypokalemia Status: Acute (5) Pulmonary arterial hypertension Status: Acute CONDITION ON DISCHARGE: Stable CODE STATUS: Code Status: DNR/DNI HOSPICE: HOSPICE: Yes HOSPICE EVAL & TREAT: Yes LTAC: ADMIT TO LTAC: No POST DISCHARGE ORDERS: ACTIVITY ORDERS: Activity as tolerated WEIGHT BEARING STATUS: As tolerated BATHING ORDERS: Shower-keep dressing dry DIET AFTER DISCHARGE: Cardiac WOUND/INCISION CARE: No wound care needed CHECKS AFTER DISCHARGE: CHECKS AFTER DISCHARGE: Check blood press - daily, Check blood sugar, ac/hs TREATMENT/EQUIPMENT ORDERS: ADAPTIVE EQUIPMENT NEEDED: Walker, Wheelchair RESPIRATORY EQUIPMENT NEEDED: Oxygen Physical Therapy For: Evalulation/Treatment Occupational Therapy For: Evaluation/Treatment Speech Language Pathology For: Evaluation/Treatment DISCHARGE MEDICATIONS: Home Meds Active Scripts Insulin Lispro (HUMALOG) 100 Unit/1 Ml Insuln.pen, 1 UNITS SQ TIDWMEALS for dm MDD 30 for 30 Days, EACH use sliding scale Prov:AMILCAR BILL MD 04/11/20 Prednisone (PREDNISONE ) 10 Mg Tablet, 10 MG PO DAILY for copd for 7 Days, #7 TAB Prov:AMILCAR BILL MD 04/11/20 Lisinopril (LISINOPRIL) 40 Mg Tablet, 40 MG PO DAILY for htn for 30 Days, #30 TAB Prov:AMILCAR BILL MD 03/05/20 Hydralazine Hcl (HYDRALAZINE HCL) 50 Mg Tablet, 50 MG PO TID for htn for 30 Days, #90 TAB Prov:AMILCAR BILL MD 03/05/20 Clonidine Hcl (CATAPRES) 0.1 Mg Tablet, 0.1 MG PO PRN Q6HRS PRN for HYPERTENSION for 30 Days, TAB Prov:AMILCAR BILL MD 03/05/20 Apixaban (ELIQUIS) 2.5 Mg Tablet, 2.5 MG PO BID for a fib for 30 Days, #60 TAB Prov:AMILCAR BILL MD 02/19/20 Metoprolol Tartrate (METOPROLOL TARTRATE) 50 Mg Tablet, 50 MG PO BID for afib for 30 Days, #60 TAB Prov:AMILCAR BILL MD 02/19/20 Pantoprazole Sodium (PANTOPRAZOLE SODIUM ) 40 Mg Tablet.dr, 40 MG PO DAILYAC for GERD for 30 Days, #30 TAB Prov:AMILCAR BILL MD 01/14/20 Roflumilast (DALIRESP) 500 Mcg Tablet, 500 MCG PO DAILY for copd for 30 Days, #30 TAB Prov:AMILCAR BILL MD 01/13/20 Ipratropium/Albuterol Sulfate (DUONEB 0.5-3(2.5) MG/3 ML) 3 Ml Ampul.neb, 3 ML NEB RTQID for copd for 30 Days, #120 EACH Prov:AMILCAR BILL MD 12/16/19 Reported Medications Tizanidine Hcl (TIZANIDINE HCL) 4 Mg Tablet, 1 TAB PO Q8HRS for MUSCLE RELAXER, #60 TAB 02/17/20 Lisinopril (LISINOPRIL) 40 Mg Tablet, 1 TAB PO DAILY for htn, #30 TAB 5 Refills 02/17/20 Hydrocodone Bit/Acetaminophen (HYDROCODONE-APAP 7.5-325 ) 1 Tab Tablet, 1 TAB PO PRN Q6HRS PRN for PAIN, TAB 0 Refills 01/01/20 Alprazolam (XANAX) 0.25 Mg Tablet, 0.25 MG PO Q8HRS PRN for ANXIETY / AGITATION, TAB 0 Refills 01/01/20 Discontinued Scripts Insulin Lispro (HUMALOG) 100 Unit/1 Ml Insuln.pen, 1 UNIT SQ TIDWMEALS for river for 30 Days, EACH Prov:AMILCAR BILL MD 03/03/20 AMILCAR BILL MD Apr 21, 2020 10:14
[2020-04-21] MEDS: cloNIDine HCL 0.1 MG TABLET PO PRN (10:25)
--- NOTE | 2020-04-21 10:29 | PDOC ---
LELA SALAZAR ALBERTO 04/21/20 1029: CARDIO Progress Notes Date and Time Date of Service 04/21/20 Time of Evaluation 1020 Subjective Subjective: No Chest Pain, No shortness of breath, No Palpitations Vitals Vitals Vital Signs Date Time Temp Pulse Resp B/P (MAP) Pulse Ox O2 Delivery O2 Flow Rate FiO2 04/21/20 10:16 98.2 101 18 211/94 (133) 96 Nasal Cannula 5.0 98.2 Weight Weight [ ] Input and Output Intake and Output Intake and Output 04/21/20 07:00 Intake Total 390 ml Output Total 150 ml Balance 240 ml Intake Oral 390 ml Output Urine Total 150 ml # Voids 1 Laboratory Labs Laboratory Tests Test 04/20/20 11:52 04/20/20 16:42 04/20/20 20:41 04/21/20 06:53 Glucose (Fingerstick) 222 mg/dL (70-99) 243 mg/dL (70-99) 215 mg/dL (70-99) 172 mg/dL (70-99) Microbiology Micro Microbiology 04/19/20 Blood Culture - Preliminary, Resulted NO GROWTH AFTER 2 DAYS Physical Exam HEENT: Neck Supple W Full Motion Chest: Symmetric LUNGS: Other (diminished bases ) Heart: RRR (SR with PACs) Abdomen: Soft N/T Extremities: No Edema, No Calf Tenderness Neurology: alert, oriented, follow commands Assessment Assessment 1. Acute on chronic respiratory failure with AECOPD and CHF 2. Acute on chronic diastolic CHF: appears compensated. 3. PSVT: noted prior with atrial tach and had prior MCOT with no definitive AFIB. 4. Malignant HTN: remains labile. Recent renal artery duplex without evidence of stenosis 5 Hyperlipidemia 6. Diabetes. II Recommendations Increase hydralazine for BP control Oral Lasix Plans for home with Hospice Supportive care Justicifation of Admission Dx: Justifications for Admission: Justification of Admission Dx: Yes Respiratory Failure: Airway Obstruction Aspiration Pneumonia: Chronic Lung Disease Sepsis: Altered Mental Status Acute COPD Exacerbation: Acute COPD Exacerbation DAVID GUTIÉRREZ MD 04/21/20 1731: CARDIO Progress Notes Plan Plan Patient seen and examined. Agree with above nurse practitioner note. Plans are for home hospice therapy. Agree given her multiple recurrent admissions. Supportive care for now. Please call with any questions. MARIELELA ALBERTO Apr 21, 2020 10:29 DAVID GUTIÉRREZ MD Apr 21, 2020 17:31
--- NOTE | 2020-04-21 11:16 | PDOC ---
PULMONARY PROGRESS NOTES Subjective no soa Vitals Vital Signs Date Time Temp Pulse Resp B/P (MAP) Pulse Ox O2 Delivery O2 Flow Rate FiO2 04/21/20 10:25 101 214/86 04/21/20 10:16 98.2 18 96 Nasal Cannula 5.0 98.2 General: Alert, No acute distress Lungs: Clear Cardiovascular: S1, S2, Other Abdomen: Soft Neuro Exam: Alert Extremities: No Edema Skin: Warm Labs Laboratory Tests Test 04/19/20 16:31 04/20/20 03:25 04/20/20 11:52 04/20/20 16:42 Glucose (Fingerstick) 161 mg/dL (70-99) 222 mg/dL (70-99) 243 mg/dL (70-99) White Blood Count 10.6 x10^3/uL (4.0-11.0) Red Blood Count 3.34 x10^6/uL (3.50-5.40) Hemoglobin 8.6 g/dL (12.0-15.5) Hematocrit 26.0 % (36.0-47.0) Mean Corpuscular Volume 78 fL (79-100) Mean Corpuscular Hemoglobin 26 pg (25-35) Mean Corpuscular Hemoglobin Concent 33 g/dL (31-37) Red Cell Distribution Width 17.1 % (11.5-14.5) Platelet Count 345 x10^3/uL (140-400) Neutrophils (%) (Auto) 95 % (31-73) Lymphocytes (%) (Auto) 4 % (24-48) Monocytes (%) (Auto) 1 % (0-9) Eosinophils (%) (Auto) 0 % (0-3) Basophils (%) (Auto) 0 % (0-3) Neutrophils # (Auto) 10.1 x10^3/uL (1.8-7.7) Lymphocytes # (Auto) 0.4 x10^3/uL (1.0-4.8) Monocytes # (Auto) 0.1 x10^3/uL (0.0-1.1) Eosinophils # (Auto) 0.0 x10^3/uL (0.0-0.7) Basophils # (Auto) 0.0 x10^3/uL (0.0-0.2) Sodium Level 136 mmol/L (136-145) Potassium Level 4.2 mmol/L (3.5-5.1) Chloride Level 99 mmol/L (98-107) Carbon Dioxide Level 28 mmol/L (21-32) Anion Gap 9 (6-14) Blood Urea Nitrogen 24 mg/dL (7-20) Creatinine 1.1 mg/dL (0.6-1.0) Estimated GFR (Cockcroft-Gault) 57.0 Glucose Level 303 mg/dL (70-99) Calcium Level 8.4 mg/dL (8.5-10.1) Test 04/20/20 20:41 04/21/20 06:53 04/21/20 11:13 Glucose (Fingerstick) 215 mg/dL (70-99) 172 mg/dL (70-99) 176 mg/dL (70-99) Laboratory Tests Test 04/20/20 11:52 04/20/20 16:42 04/20/20 20:41 04/21/20 06:53 Glucose (Fingerstick) 222 mg/dL (70-99) 243 mg/dL (70-99) 215 mg/dL (70-99) 172 mg/dL (70-99) Test 04/21/20 11:13 Glucose (Fingerstick) 176 mg/dL (70-99) Medications Active Scripts Medications Dose Route/Sig Max Daily Dose Days Date Category Dose Instructions Humalog (Insulin Lispro) 100 Unit/1 Ml Insuln.pen 1 Units SQ TIDWMEALS MDD 30 30 04/11/20 Rx use sliding scale Prednisone (Prednisone) 10 Mg Tablet 10 Mg PO DAILY 7 04/11/20 Rx Lisinopril 40 Mg Tablet 40 Mg PO DAILY 30 03/05/20 Rx Hydralazine Hcl 50 Mg Tablet 50 Mg PO TID 30 03/05/20 Rx Catapres (Clonidine Hcl) 0.1 Mg Tablet 0.1 Mg PO PRN Q6HRS PRN 30 03/05/20 Rx Humalog (Insulin Lispro) 100 Unit/1 Ml Insuln.pen 1 Unit SQ TIDWMEALS 30 03/03/20 Rx Eliquis (Apixaban) 2.5 Mg Tablet 2.5 Mg PO BID 30 02/19/20 Rx Metoprolol Tartrate 50 Mg Tablet 50 Mg PO BID 30 02/19/20 Rx Tizanidine Hcl 4 Mg Tablet 1 Tab PO Q8HRS 02/17/20 Reported Lisinopril 40 Mg Tablet 1 Tab PO DAILY 02/17/20 Reported Pantoprazole Sodium (Pantoprazole Sodium) 40 Mg Tablet.dr 40 Mg PO DAILYAC 30 01/14/20 Rx Daliresp (Roflumilast) 500 Mcg Tablet 500 Mcg PO DAILY 30 01/13/20 Rx Hydrocodone-Apap 7.5-325 (Hydrocodone Bit/Acetaminophen) 1 Tab Tablet 1 Tab PO PRN Q6HRS PRN 01/01/20 Reported Xanax (Alprazolam) 0.25 Mg Tablet 0.25 Mg PO Q8HRS PRN 01/01/20 Reported Duoneb 0.5-3(2.5) Mg/3 Ml (Albuterol/Ipratropium) 3 Ml Ampul.neb 3 Ml NEB RTQID 30 12/16/19 Rx Impression . 1. Acute on chronic hypoxic respiratory failure secondary to acute on chronic diastolic heart failure. 2. Abnormal CT chest with evidence of congestive heart failure. There is no evidence of pulmonary embolism. She also had some asymmetric left axillary adenopathy and mild mediastinal adenopathy, which could be reactive. 3. Asymmetric left breast skin thickening. We will leave up to PCP for any workup. 4. Chronic diastolic heart failure. 5. Chronic obstructive pulmonary disease with acute exacerbation but the exacerbation is usually likely triggered by congestive heart failure. 6. Hypertensive urgency contributing to diastolic heart failure. Plan . 1. Continue with present oxygen and gradually wean to keep saturation 94 and above. 2. Optimization of blood pressure. 3. DuoNeb. 4. Diuresis and follow the response to treatment. 5. Minimize narcotics and benzodiazepines. 6. Follow Cardiology recommendations. 7. I have discussed advanced directives with the patient. she is DNR and DNI. she is re considered for hospice EUGENIO HIGUERA MD Apr 21, 2020 11:16
[2020-04-21] MEDS: HYDROcodone/APAP 7.5/325MG 1 TAB TABLET PO PRN (11:48)
[2020-04-21] MEDS: LABETALOL 20 MG/4 ML DISP.SYRIN. IVP PRN (11:49)
[2020-04-21] MEDS ORDERED: hydrALAZINE 25 MG TABLET PO SCH (14:00)
--- NOTE | 2020-04-21 14:03 | NUR ---
RN NOTE patient BP elevated and SOA. Dr. Gallardo notified and orders received continue with discharge to hospice. See database for assessments.
[2020-04-21] MEDS ORDERED: ALPRAZolam 0.25 MG TABLET PO ONE (14:15)
[2020-04-21] MEDS ORDERED: cloNIDine HCL 0.1 MG TABLET PO ONE (14:15)
--- NOTE | 2020-04-21 14:41 | NUR ---
Discharge Note: ANGELITA HAM Discharge instructions and discharge home medications reviewed with Patient and a copy given. All questions have been answered and understanding verbalized. The following instructions and handouts were given: SOA, HF, hospice, afib, hypokalemia, htn Discontinued lines and drains: Peripheral IV intact. Patient discharged to home with Hospice with wheelchair van personnel via Wheelchair
[2020-04-22] MEDS ORDERED: POTASSIUM CHLORIDE 10 MEQ TABLET.ER. PO SCH (08:00)
[2020-04-22] MEDS ORDERED: FUROSEMIDE 20 MG TABLET PO SCH (09:00)
--- NOTE | 2020-04-24 19:21 | PDOC ---
Provider Note Provider Note Discharge summary dictated.#[id number]. Justicifation of Admission Dx: Justifications for Admission: Justification of Admission Dx: Yes Respiratory Failure: Airway Obstruction Aspiration Pneumonia: Chronic Lung Disease Sepsis: Altered Mental Status Acute COPD Exacerbation: Acute COPD Exacerbation AMILCAR BILL MD Apr 24, 2020 19:21
--- NOTE | 2020-04-24 20:48 | DS ---
DATE OF DISCHARGE: 04/21/2020 REASON FOR ADMISSION TO THE HOSPITAL: Shortness of breath, atrial fibrillation with rapid ventricular response and also COPD with acute exacerbation. CONSULTATION: Cardiology, Dr. Ten Hoyos. Dr. Benavides, Pulmonology. COMPLICATIONS NOTED: None. HOSPITAL COURSE: The patient is an 84-year-old female, noncompliant. She needs to be in a [facility], but she refused to go to [facility]. She lives at home, has a caregiver. She is noncompliant, does not take medicines, came with shortness of breath, was found to have heart failure, acute on chronic diastolic heart failure, was given Lasix. She also has chronic COPD, on home oxygen. She also had atrial fibrillation with rapid ventricular response, heart rate of 120. Heart rate was controlled with Cardizem and the patient was placed back on her home blood pressure medications and the heart rate came down nicely. She is on Eliquis for anticoagulation and her COPD is stable. The patient finally decided to go home with hospice. The patient was discharged home with hospice. White count was 17, reactive, came down to 10, hemoglobin 9.4. Potassium was low at 2.9, which was replaced. Kidney function, liver were normal. Troponin was negative. Lactic acid 1.5. BNP more than 7000. FINAL DIAGNOSES: 1. Shortness of breath secondary to congestive heart failure, pulmonary edema secondary to diastolic dysfunction. 2. Chronic diastolic heart failure. 3. Chronic obstructive pulmonary disease, on home oxygen. 4. Atrial fibrillation with rapid ventricular response. 5. Electrolyte imbalance, hypokalemia. 6. Noncompliance. DISPOSITION: Home with hospice, poor prognosis. DISCHARGE MEDICATIONS: See MRAD. AMILCAR BILL MD DR: ROBERT/ruy JOB#: [id number] / [id number] XIOMARA Vogel
== END 2020-04-21 14:36 | disposition hospice, home (50) | DRG 189 ==
LOC: ER 05:26 → 1 WEST ICU 09:04 → 2 NORTH 04-20 16:12
PROVIDERS: ADMIT Internal Medicine; ATTEND Internal Medicine
PROC: 5A09357 Assistance with Respiratory Ventilation, Less than 24 Consecutive Hours, Continuous Positive Airway Pressure (ICD-10-PCS; principal; 2020-04-19)
DX: J96.21 Acute and chronic respiratory failure with hypoxia (principal); I50.33 Acute on chronic diastolic (congestive) heart failure; I47.1 Supraventricular tachycardia; J44.1 Chronic obstructive pulmonary disease with (acute) exacerbation; I11.0 Hypertensive heart disease with heart failure; I48.91 Unspecified atrial fibrillation; D50.9 Iron deficiency anemia, unspecified; E03.9 Hypothyroidism, unspecified; E09.9 Drug or chemical induced diabetes mellitus without complications; E78.00 Pure hypercholesterolemia, unspecified; E78.5 Hyperlipidemia, unspecified; E87.6 Hypokalemia; I16.0 Hypertensive urgency; I25.10 Atherosclerotic heart disease of native coronary artery without angina pectoris; I27.21 Secondary pulmonary arterial hypertension; I49.5 Sick sinus syndrome; J84.10 Pulmonary fibrosis, unspecified; M79.7 Fibromyalgia; Z82.49 Family history of ischemic heart disease and other diseases of the circulatory system; Z87.442 Personal history of urinary calculi; Z87.891 Personal history of nicotine dependence; Z90.49 Acquired absence of other specified parts of digestive tract; Z90.710 Acquired absence of both cervix and uterus; Z91.14 Patient's other noncompliance with medication regimen; Z91.19 Patient's noncompliance with other medical treatment and regimen; Z99.81 Dependence on supplemental oxygen; F41.9 Anxiety disorder, unspecified; K21.9 Gastro-esophageal reflux disease without esophagitis; K57.90 Diverticulosis of intestine, part unspecified, without perforation or abscess without bleeding; Z20.828 Contact with and (suspected) exposure to other viral communicable diseases; M19.90 Unspecified osteoarthritis, unspecified site; Z66 Do not resuscitate
CPT/HCPCS: 36415; 71045; 71275; 80048; 80053; 82962; 83605; 83880; 84484; 85007; 85025; 87040; 87804; 93005; 94640; 94660; 96365; 96368; 96375; J0360; J1815; J1940; J1956; J3480; J3490; J7040; J7512; Q9967; 99285-25; G0378; U0003-CS

== ENCOUNTER 2021-03-10 08:45 | Inpatient (IN) | payer BC, MEDICAID ==
[2021-03-10] VITALS (28 sets, daily range): BP systolic 101–220; BP diastolic 48–118
[~2021-03-10] VITALS: Ht 152.4 cm; Wt 50.9 kg
[~2021-03-10 08:45] MED LIST changes: +AMLO-187 PO; -AMLO10TA8 PO; -CETI10TA24 PO; +CETI10TA74 PO; -CLIN150C14 PO; +CLIN150C15 PO; -FOLI20CA PO; +FOLIC ACID20 MG PO
--- NOTE | 2021-03-10 09:03 | PHYS DOC ---
Past Medical History Past Medical History: A-Fib, COPD, Diabetes-Type II, GERD, High Cholesterol, Hypertension Past Surgical History: Appendectomy, Cholecystectomy, Hysterectomy Additional Past Surgical Histo: LOOP RECORDER Smoking Status: Former Smoker Additional Information: quit smoking 4-5 months ago Alcohol Use: None Drug Use: None General Adult EDM: Chief Complaint: SHORTNESS OF BREATH HPI: HPI: 85 yo F PMH HFpEF, COPD on home oxygen, HTN, HLD and atrial fib w/rvr, presents the ED brought in by EMS with c/o low back pain x 1 week with shortness of breath and cough that started last night. 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 States her [employer] BRO[employer] OPERATOR gives her her medications. Review of Systems: Review of Systems: Constitutional: Denies lethargy or confusion Eyes: Denies change in visual acuity. [] HENT: Denies nasal congestion or sore throat. [] Respiratory: Denies hemoptysis or increased work of breathing Cardiovascular: Denies chest pain or edema. [] GI: Denies abdominal pain, nausea, vomiting, bloody stools or diarrhea. [] : Denies dysuria or hematuria Musculoskeletal: Denies joint pain or deformity Integument: Denies rash. Or diaphoresis Neurologic: Denies headache, focal weakness or sensory changes. [] Endocrine: Denies polyuria or polydipsia. [] Lymphatic: Denies swollen glands. [] Psychiatric: Denies depression or anxiety. [] Heart Score: C/O Chest Pain: No Risk Factors: Risk Factors: DM, Current or recent (<one month) smoker, HTN, HLP, family history of CAD, obesity. Risk Scores: Score 0 - 3: 2.5% MACE over next 6 weeks - Discharge Home Score 4 - 6: 20.3% MACE over next 6 weeks - Admit for Clinical Observation Score 7 - 10: 72.7% MACE over next 6 weeks - Early Invasive Strategies Allergies: Allergies: Allergies Coded Allergies Type Severity Reaction Last Updated Verified No Known Drug Allergies 03/10/21 No Physical Exam: PE: Constitutional: no acute distress, non-toxic appearance. HENT: Normocephalic, atraumatic, Eyes: EOMI, conjunctiva normal, no discharge. Neck: Normal range of motion, supple, Cardiovascular: S1/2 present, tachycardia Lungs & Thorax: Speaking in full sentences, bilateral equal chest rise, no tachypnea or increased work of breathing Abdomen: soft, no tenderness, Skin: Warm, dry, no erythema, no rash. [] Back: no CVA tenderness, no saddle anesthesia Extremities: No tenderness, no cyanosis, no lower extremity edema Neurologic: Alert and oriented X 3, normal motor function, normal sensory function, no focal deficits noted. [] Psychologic: Affect normal, judgement normal, mood normal. [] Current Patient Data: Vital Signs: Vital Signs Date Time Temp Pulse Resp B/P (MAP) Pulse Ox O2 Delivery O2 Flow Rate FiO2 03/10/21 08:50 129 24 251/127 (168) 97 Nasal Cannula 2.0 EKG: EK sinus tachycardia 123 bpm, left axis deviation, QTC 449, concern for ST elevations in aVR with diffuse ST segment depressions in inferior lateral leads, patient denies any upper chest pain or back pain or shortness of breath 0903 sinus tachycardia 122 bpm, left axis deviation, QTC 463, similar EKG findings from prior EKG with aVR elevated in inferior lateral ST segment depressions, patient denies any upper chest pain or back pain or shortness of breath EKG findings are not similar to prior EKGs from April 19, 2020 or are April 05, 2020 Radiology/Procedures: Radiology/Procedures: IMAGING REPORT Signed PATIENT: ANGELITA HAM ACCOUNT: [id number] : 1935 LOCATION: ER AGE: 85 SEX: F EXAM STATUS: REG ER ORD. PHYSICIAN: AISHWARYA JIMENEZ DO REASON: soa PROCEDURE: PORTABLE CHEST 1V EXAM: Chest, single view. HISTORY: Shortness of air. COMPARISON: 04/19/2020 FINDINGS: A frontal view of the chest is obtained. There are are chronic appearing diffuse increased interstitial markings. There is no consolidation, pleural effusion or pneumothorax. There is a stable enlarged cardiac silhouette. IMPRESSION: 1. Chronic appearing diffuse increased interstitial opacity. The possibility of superimposed interstitial infiltrate is not excluded. There is no consolidated pneumonia. 2. Cardiomegaly. Electronically signed by: Daphne Houston MD (03/10/2021 9:23 AM) [id number] DICTATED and SIGNED BY: DAPHNE HOUSTON MD DATE: 03/10/21 [id number] IMAGING REPORT Signed PATIENT: ANGELITA HMA ACCOUNT: [id number] : 1935 LOCATION: ER AGE: 85 SEX: F EXAM STATUS: REG ER ORD. PHYSICIAN: AISHWARYA JIMENEZ DO REASON: low back pain, r/o dissection PROCEDURE: CT ANGIO CHEST ABD PELVIS CTA of the chest, abdomen and pelvis without and with contrast 03/01/2021 CLINICAL HISTORY: Chest, abdominal and pelvic pain. Mid and low back pain. TECHNIQUE: Unenhanced, contiguous, 2 mm axial sections were obtained through the chest, abdomen and pelvis. After the intravenous administration of 85 cc of Omnipaque 350, contiguous, 0.625 mm axial sections were obtained through the daniel st, abdomen and pelvis. 3 mm reconstructed axial and 3-D MIP sagittal and coronal along with volume rendered 3-D reconstructions images were obtained. One or more of the following individualized dose reduction techniques were utilized for this study: 1. Automated exposure control. 2. Adjustment of the mA and/or kV according to patient size. 3. Use of iterative reconstruction technique. FINDINGS: Comparison is made to patient's CTA of the chest dated 04/19/2020. The unenhanced CT images demonstrate moderate to severe atherosclerotic calcification throughout the thoracic aorta and abdominal aorta and their branches. Extensive coronary artery calcifications are seen. No renal or ureteral calculus is noted. On the postcontrast CTA images, the thoracic aorta is tortuous and ectatic, unchanged. No dissection is seen. The origins of the brachiocephalic, left common carotid and left subclavian arteries from the thoracic aortic arch are patent. There is mild cardiomegaly. No filling defect is seen within the major branches of either pulmonary artery. There is no CT evidence of pulmonary embolism. Enlarged mediastinal lymph nodes are seen which measure 1 to 1.5 cm in size. These have decreased in size since previous examination where they measured 1.5 to 2.5 cm in size. Emphysematous changes are seen involving both lungs. Dependent subsegmental atelectasis is seen involving both lower lobes subsegmental atelectasis is seen involving the lingula. Atelectasis is seen involving the right middle lobe. No pneumothorax or pleural effusion is seen. The liver, spleen, pancreas, and adrenal glands are within normal limits. Rounded low-attenuation lesions are seen involving both kidneys. These measure 1 cm to 2.3 cm in size. These likely represent cysts. No further imaging ev aluation is recommended. The gallbladder is not visualized consistent with a cholecystectomy. No free fluid or free air is within the abdomen. Scattered diverticula are seen involving the colon. No inflammatory changes are seen adjacent fat. Images through the pelvis demonstrated the urinary bladder distended with urine. The patient appears to be post hysterectomy. No adnexal mass is seen. Calcifications are seen within the pelvis consistent with phleboliths. CTA images demonstrate moderate to severe atherosclerotic plaque formation involving the abdominal aorta and its branches. The origins of the celiac trunk and superior mesenteric artery and inferior mesenteric artery are patent. The abdominal aorta tapers normally. There is also areas arteries bilaterally. No hemodynamically significant stenosis is definitely seen. Moderate atherosclerotic calcification of the common iliac arteries and their branches is noted. 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 It reconstitutes via collateral flow at the level of the left common femoral artery. Very mild S-shaped curvature of the thoracolumbar spine is seen. Degenerative changes are seen involving the thoracic and throughout the lumbar spine along with both hips. IMPRESSION: 1. The left external iliac artery is occluded as discussed above. 2. No acute abnormality is seen. Electronically signed by: Rachael Torre MD (03/10/2021 12:05 PM) [id number] DICTATED and SIGNED BY: RACHAEL TORRE MD DATE: 03/10/21 [id number] Course & Med Decision Making: Course & Med Decision Making Pertinent Labs and Imaging studies reviewed. (See chart for details) Concern for hypertensive emergency with NSTEMI -discussed with cardiology upon ED arrival and paged after positive trop resulted. Pt also sirs positive w/uti. CXR with cardiomegaly. Will admit to the ICU on nitro drip. Patient stable at time of admission but is in critical nature. I have spoken with the patient and/or caregivers. I have explained the patient's condition, diagnosis and treatment plan based on the information available to me at this time. I have answered the patient's and/or caregivers questions and answered any concerns. The patient and/or caregivers have as good an understanding of the patient's diagnosis, condition and treatment plan as can be expected at this point. The patient has been stabilized within the capability of the emergency department. The patient will be transported for further care and management or will be moved to an observation or inpatient service. I have communicated with the staff or medical practitioner taking over this patient's care. Critical Care: Authorized and Performed by: Aishwarya Jimenez DO Total critical care time: approximately 60 minutes Due to a high probability of clinically significant, life threatening deterioration, the patient required my highest level of preparedness to intervene emergently and I personally spent this critical care time directly and personally managing the patient. This critical care time included obtaining a history; examining the patient; pulse oximetry; ventilator management if necess ander; ordering and review of studies; arranging urgent treatment with development of a management plan; evaluation of patient's response to treatment; frequent reassessment; discussion with patient/family; and, discussions with other providers. This critical care time was performed to assess and manage the high probability of imminent, life-threatening deterioration that could result in multi-organ failure. It was exclusive of separately billable procedures and treating other patients and teaching time. Please see MDM section and the rest of the note for further information on patient assessment and treatment. Dragon Disclaimer: Dragon Disclaimer: This electronic medical record was generated, in whole or in part, using a voice recognition dictation system. Departure Departure Impression: Primary Impression: NSTEMI (non-ST elevated myocardial infarction) Additional Impressions: Hypertensive emergency Person under investigation for COVID-19 Cardiomegaly Sepsis UTI (urinary tract infection) Disposition: ADMITTED INPATIENT Admitting Physician: OREN (Dr. Berry) Condition: CRITICAL Referrals: UNKNOWN PCP NAME (PCP) AISHWARYA JIMENEZ DO Mar 10, 2021 09:03
[2021-03-10 09:18] LABS: BASO # 0.2 x10^3/uL (0.0-0.2); BASO % 1 % (0-3); EOS # 0.1 x10^3/uL (0.0-0.7); EOS % 0 % (0-3); HEMATOCRIT 36.7 % (36.0-47.0); HEMOGLOBIN 12.5 g/dL (12.0-15.5); LYMPH # 1.6 x10^3/uL (1.0-4.8); LYMPH % 9 % (24-48); MEAN CORPUSCULAR HEMOGLOBIN 29 pg (25-35); MEAN CORPUSCULAR HGB CONC 34 g/dL (31-37); MEAN CORPUSCULAR VOLUME 86 fL (79-100); MONO % 6 % (0-9); NEUT % 84 % (31-73); PLATELET COUNT 359 x10^3/uL (140-400); RED BLOOD COUNT 4.26 x10^6/uL (3.50-5.40); RED CELL DISTRIBUTION WIDTH 14.1 % (11.5-14.5); WHITE BLOOD COUNT 17.9 x10^3/uL (4.0-11.0)
--- NOTE | 2021-03-10 09:26 | RAD ---
EXAM: Chest, single view. HISTORY: Shortness of air. COMPARISON: 04/19/2020 FINDINGS: A frontal view of the chest is obtained. There are are chronic appearing diffuse increased interstitial markings. There is no consolidation, pleural effusion or pneumothorax. There is a stable enlarged cardiac silhouette. IMPRESSION: 1. Chronic appearing diffuse increased interstitial opacity. The possibility of superimposed intersti tial infiltrate is not excluded. There is no consolidated pneumonia. 2. Cardiomegaly. Electronically signed by: Daphne Colbert MD (03/10/2021 9:23 AM) [id number]
[2021-03-10 09:30] LABS: CALCIUM 9.1 mg/dL (8.5-10.1); CREATININE 1.2 mg/dL (0.6-1.0); GFR 51.4; POTASSIUM 3.4 mmol/L (3.5-5.1)
[2021-03-10] MEDS ORDERED: IV NORMAL SALINE 1000ML BAG 1,000 ML IV ONE (09:30)
[2021-03-10] MEDS ORDERED: NITROGLYCERIN PREMIX 250 ML IV ONE (09:30)
[2021-03-10] MEDS ORDERED: ACETAMINOPHEN 500 MG TABLET PO ONE (09:30)
[2021-03-10 09:37] LABS: ALBUMIN 3.7 g/dL (3.4-5.0); DIRECT BILIRUBIN 0.2 mg/dL (0.0-0.2); MAGNESIUM 1.8 mg/dL (1.8-2.4); TOTAL BILIRUBIN 0.6 mg/dL (0.2-1.0)
[2021-03-10 09:54] LABS: % BANDS 1 % (0-9); % BASOS 1 % (0-3); % LYMPHS 5 % (24-48); % MONOS 5 % (0-10); % SEGS 88 % (35-66)
[2021-03-10 09:55] LABS: PLT ESTIMATE ADEQUATE (ADEQUATE)
[2021-03-10] MEDS ORDERED: AZITHRMYCN 500MG IVPB FOR OMNI 250 ML IV ONE (10:15)
[2021-03-10] MEDS ORDERED: cefTRIAXone IV Push 1 GM VIAL. IVP ONE (10:15)
[2021-03-10 10:42] LABS: INFLUENZA A PATIENT NEGATIVE (NEGATIVE); INFLUENZA B PATIENT NEGATIVE (NEGATIVE)
--- NOTE | 2021-03-10 10:59 | PDOC2 ---
LELA SALAZAR CONTINUOUS DRIER OPERATOR 03/10/21 1059: CARDIAC CONSULT DATE OF CONSULT Date of Consult DATE: 03/10/21 TIME: 10:52 REASON FOR CONSULT Reason for Consult: Abnormal EKG REFERRING PHYSICIAN Referring Physician: Dr. Lopez SOURCE Source: Chart review, Patient HISTORY OF PRESENT ILLNESS HISTORY OF PRESENT ILLNESS This is an 85 yo female who presented secondary to shortness of breath and lower back pain. EKG noted with ST changes, which prompted this consult. Blood pressure significantly elevated upon arrival. She denies any chest pain, dizziness, diaphoresis, or nausea/vomiting. Reports chronic dyspnea, but has b een worse today. No LE edema. Also reporting blood pressure to be chronically elevated. PAST MEDICAL HISTORY Past Medical History Cardiovascular: HTN, Hyperlipidemia, CHF, PSVT, PAD with known left external iliac artery occlusion being managed conservatively., Coronary calcifications. Pulmonary: COPD, pneumonia, pulmonary fibrosis, recent large pneumothorax CENTRAL NERVOUS SYSTEM: None GI: Diverticulosis, GERD Heme/Onc: Anemia Hepatobiliary: No pertinent hx Psych: Anxiety Musculoskeletal: Osteoarthritis Rheumatologic: Fibromyalgia Infectious disease: No pertinent hx Renal/: left renal calculus Endocrine: Diabetes PAST SURGICAL HISTORY Past Surgical History Appendectomy, Cholecystectomy, Hernia Repair, Tonsillectomy, Hysterectomy FAMILY HISTORY Family History: Hypertension SOCIAL HISTORY Social History Smoke: Quit ALCOHOL: none Drugs: None Lives: alone CURRENT MEDICATIONS CURRENT MEDICATIONS Current Medications Medications (Trade) Dose Ordered Sig/Bruno Route PRN Reason Start Time Stop Time Status Last Admin Dose Admin Sodium Chloride 1,000 ml @ 1,000 mls/hr 1X ONCE IV 03/10/21 09:30 03/10/21 10:29 DC 03/10/21 09:24 Acetaminophen (Tylenol) 1,000 mg 1X ONCE PO 03/10/21 09:30 03/10/21 09:31 DC 03/10/21 09:24 Nitroglycerin/ Dextrose 250 ml @ 0 mls/hr 1X ONCE IV 03/10/21 09:30 03/10/21 09:31 DC 03/10/21 09:30 Ceftriaxone Sodium (Rocephin) 1 gm 1X ONCE IVP 03/10/21 10:15 03/10/21 10:16 DC 03/10/21 10:20 Azithromycin 250 ml @ 250 mls/hr 1X ONCE IV 03/10/21 10:15 03/10/21 11:14 03/10/21 10:20 ALLERGIES ALLERGIES: Coded Allergies: No Known Drug Allergies (Unverified , 03/10/21) ROS Review of System 14 point ROS conducted with pertinent positives noted above in HPI PHYSICAL EXAM General: Alert, Oriented X3, Cooperative, No acute distress HEENT: Atraumatic, Mucous membr. moist/pink Lungs: Other (diminished bases) Heart: Regular rate, Other (2/6 systolic murmur ) Abdomen: Soft, No tenderness Extremities: No edema, Normal pulses Skin: No significant lesion Neuro: Normal speech, Sensation intact Psych/Mental Status: Mental status NL, Mood NL MUSCULOSKELETAL: Osteoarthritic changes both hands VITALS/I&O VITALS/I&O: Vital Signs Date Time Temp Pulse Resp B/P (MAP) Pulse Ox O2 Delivery O2 Flow Rate FiO2 03/10/21 10:18 114 18 239/122 (161) 95 Nasal Cannula 3.0 LABS Lab: Laboratory Tests Test 03/10/21 09:05 03/10/21 10:06 White Blood Count 17.9 x10^3/uL (4.0-11.0) H Red Blood Count 4.26 x10^6/uL (3.50-5.40) Hemoglobin 12.5 g/dL (12.0-15.5) Hematocrit 36.7 % (36.0-47.0) Mean Corpuscular Volume 86 fL (79-100) Mean Corpuscular Hemoglobin 29 pg (25-35) Mean Corpuscular Hemoglobin Concent 34 g/dL (31-37) Red Cell Distribution Width 14.1 % (11.5-14.5) Platelet Count 359 x10^3/uL (140-400) Neutrophils (%) (Auto) 84 % (31-73) H Lymphocytes (%) (Auto) 9 % (24-48) L Monocytes (%) (Auto) 6 % (0-9) Eosinophils (%) (Auto) 0 % (0-3) Basophils (%) (Auto) 1 % (0-3) Neutrophils # (Auto) 15.0 x10^3/uL (1.8-7.7) H Lymphocytes # (Auto) 1.6 x10^3/uL (1.0-4.8) Monocytes # (Auto) 1.0 x10^3/uL (0.0-1.1) Eosinophils # (Auto) 0.1 x10^3/uL (0.0-0.7) Basophils # (Auto) 0.2 x10^3/uL (0.0-0.2) Segmented Neutrophils % 88 % (35-66) H Band Neutrophils % 1 % (0-9) Lymphocytes % 5 % (24-48) L Monocytes % 5 % (0-10) Basophils % 1 % (0-3) Platelet Estimate Adequate (ADEQUATE) Sodium Level 143 mmol/L (136-145) Potassium Level 3.4 mmol/L (3.5-5.1) L Chloride Level 102 mmol/L (98-107) Carbon Dioxide Level 32 mmol/L (21-32) Anion Gap 9 (6-14) Blood Urea Nitrogen 36 mg/dL (7-20) H Creatinine 1.2 mg/dL (0.6-1.0) H Estimated GFR (Cockcroft-Gault) 51.4 Glucose Level 384 mg/dL (70-99) H Lactic Acid Level 1.9 mmol/L (0.4-2.0) Calcium Level 9.1 mg/dL (8.5-10.1) Magnesium Level 1.8 mg/dL (1.8-2.4) Total Bilirubin 0.6 mg/dL (0.2-1.0) Direct Bilirubin 0.2 mg/dL (0.0-0.2) Aspartate Amino Transferase (AST) 33 U/L (15-37) Alanine Aminotransferase (ALT) 29 U/L (14-59) Alkaline Phosphatase 66 U/L (46-116) Troponin I Quantitative 0.414 ng/mL (0.000-0.055) AP-Lno-N-Type Natriuretic Peptide 51684 pg/mL (0-449) H Total Protein 7.0 g/dL (6.4-8.2) Albumin 3.7 g/dL (3.4-5.0) Lipase 71 U/L (73-393) L Influenza Type A Antigen Negative (NEGATIVE) Influenza Type B Antigen Negative (NEGATIVE) Laboratory Tests 03/10/21 09:05 Laboratory Tests 03/10/21 09:05 ECHOCARDIOGRAM ECHOCARDIOGRAM <Conclusion> The left ventricular systolic function is normal and the ejection fraction is within normal range. The Ejection Fraction is 60-65%. There is normal LV segmental wall motion. Doppler and Color-flow revealed mild to moderate mitral regurgitation. Doppler and Color Flow revealed trace to mild tricuspid regurgitation. Estimated PAP is 55-60mmHg. The IVC is dilated and collapses <50% with inspiration. DATE: 12/09/19 1212 STRESS TEST STRESS TEST Conclusion 1. Regadenoson cardioisotope stress test did not show any evidence of ischemia or infarct. 2. Normal left ventricular systolic function with ejection fraction calculated at 78%. 3. Low risk for cardiac events. DATE: 04/25/18 1515 ASSESSMENT/PLAN ASSESSMENT/PLAN 1. Dyspnea with AECOPD, CHF 2. HTN urgency; remains labile. On nitro gtt 3. Elevated trop; initial 0.4. EKG with global ischemia. Most probably type II, demand ischemia secondary to #2. 4. Acute on chronic diastolic CHF 5 Hyperlipidemia 6. Diabetes, II 7. H/o PSVT Recommendations Trend troponin Blood pressure control IV Labetalol now If BP remains elevated, start Cardene gtt Repeat EKG when BP controlled Limited echo Consider further ischemic workup pending repeat EKG, possibly on an outpatient basis Resume home therapy and titrate as warranted Supportive care DAVID GUTIÉRREZ MD 03/13/21 2334: CARDIAC CONSULT ASSESSMENT/PLAN ASSESSMENT/PLAN Late entry for 03/10/2021 Pt. seen and examined. Agree with above INSURANCE CODER note. LELA SALAZAR APRN Mar 10, 2021 10:59 DAVID GUTIÉRREZ MD March 13, 2021 23:34
[2021-03-10] MEDS ORDERED: IOHEXOL 350 MG/ML 100 ML VIAL. IV ONE (11:00)
[2021-03-10] MEDS ORDERED: CONTRAST GIVEN. MC PRN (11:00)
--- NOTE | 2021-03-10 11:23 | PDOC1 ---
History and Physical Date of Admission Date of Admission DATE: 03/10/21 TIME: 11:22 Identification/Chief Complaint Chief Complaint Shortness of breath Source Source: Caregiver, Chart review, Patient History of Present Illness History of Present Illness Ms Patel is an 85yo w/ PMHx A-Fib, Diabetes-Type II, GERD, High Cholesterol, Hypertension, HFpEF, COPD on home oxygen, HTN, HLD who comes to the ED via EMS after home health aide noted she was more short of breath and had elevated blood pressure. She was c/o headache and shortness of breath in ED. EKG sinus tachycardia 123 bpm, left axis deviation, QTC 449, concern for ST elevations in aVR with diffuse ST segment depressions in inferior lateral leads EKG findings are not similar to prior EKGs from April 19, 2020 or are April 05, 2020 Chest radiograph with chronic appearing diffuse increased interstitial opacity and cardiomegaly Blood pressure 250/113. Labs with WBC 17.9, Hb 12.5, platelets 359, NA 143, K3.4, BUN 36, CR 1.2, glucose 384 lactic acid 1.9, lipase 71, BNP 10,958, troponin 0.414 Concern for hypertensive emergency with NSTEMI, admitted to the ICU on nitro drip. Of note after admission orders received social work noted she is active with hospice. Past Medical History Cardiovascular: HTN, Hyperlipidemia, Other Pulmonary: COPD CENTRAL NERVOUS SYSTEM: Other GI: Diverticulosis, GERD Heme/Onc: No pertinent hx Hepatobiliary: No pertinent hx Psych: Anxiety Musculoskeletal: Osteoarthritis Rheumatologic: Fibromyalgia Infectious disease: No pertinent hx Renal/: No pertinent hx Endocrine: Diabetes Past Surgical History Past Surgical History: Appendectomy, Cholecystectomy, Hernia Repair, Tonsillectomy, Hysterectomy Family History Family History: Hypertension Family History: Parent Social History Smoke: No ALCOHOL: none Drugs: None Current Problem List Problem List Problems Medical Problems: (1) Cardiomegaly Status: Acute (2) Hypertensive emergency Status: Acute (3) NSTEMI (non-ST elevated myocardial infarction) Status: Acute (4) Person under investigation for COVID-19 Status: Acute (5) SIRS (systemic inflammatory response syndrome) Status: Acute Current Medications Current Medications Current Medications Sodium Chloride 1,000 ml @ 1,000 mls/hr 1X ONCE IV Last administered on 03/10/21at 09:24; Start 03/10/21 at 09:30; Stop 03/10/21 at 10:29; Status DC Acetaminophen (Tylenol) 1,000 mg 1X ONCE PO Last administered on 03/10/21at 09:24; Start 03/10/21 at 09:30; Stop 03/10/21 at 09:31; Status DC Nitroglycerin/ Dextrose 250 ml @ 0 mls/hr 1X ONCE IV Last administered on 03/10/21at 09:30; Start 03/10/21 at 09:30; Stop 03/10/21 at 09:31; Status DC Ceftriaxone Sodium (Rocephin) 1 gm 1X ONCE IVP Last administered on 03/10/21at 10:20; Start 03/10/21 at 10:15; Stop 03/10/21 at 10:16; Status DC Azithromycin 250 ml @ 250 mls/hr 1X ONCE IV Last administered on 03/10/21at 10:20; Start 03/10/21 at 10:15; Stop 03/10/21 at 11:14; Status DC Iohexol (Omnipaque 350 Mg/ml) 85 ml 1X ONCE IV ; Start 03/10/21 at 11:00; Stop 03/10/21 at 11:01; Status DC Info (CONTRAST GIVEN -- Rx MONITORING) 1 each PRN DAILY PRN MC SEE COMMENTS; Start 03/10/21 at 11:00; Stop 03/12/21 at 10:59 Active Scripts Active Humalog (Insulin Lispro) 100 Unit/1 Ml Insuln.pen 1 Units SQ TIDWMEALS MDD 30 30 Days use sliding scale Prednisone (Prednisone) 10 Mg Tablet 10 Mg PO DAILY 7 Days Lisinopril 40 Mg Tablet 40 Mg PO DAILY 30 Days Hydralazine Hcl 50 Mg Tablet 50 Mg PO TID 30 Days Catapres (Clonidine Hcl) 0.1 Mg Tablet 0.1 Mg PO PRN Q6HRS PRN 30 Days Eliquis (Apixaban) 2.5 Mg Tablet 2.5 Mg PO BID 30 Days Metoprolol Tartrate 50 Mg Tablet 50 Mg PO BID 30 Days Pantoprazole Sodium (Pantoprazole Sodium) 40 Mg Tablet.dr 40 Mg PO DAILYAC 30 Days Daliresp (Roflumilast) 500 Mcg Tablet 500 Mcg PO DAILY 30 Days Duoneb 0.5-3(2.5) Mg/3 Ml (Albuterol/Ipratropium) 3 Ml Ampul.neb 3 Ml NEB RTQID 30 Days Reported Tizanidine Hcl 4 Mg Tablet 1 Tab PO Q8HRS Lisinopril 40 Mg Tablet 1 Tab PO DAILY Hydrocodone-Apap 7.5-325 (Hydrocodone Bit/Acetaminophen) 1 Tab Tablet 1 Tab PO PRN Q6HRS PRN Xanax (Alprazolam) 0.25 Mg Tablet 0.25 Mg PO Q8HRS PRN Allergies Allergies: Coded Allergies: No Known Drug Allergies (Unverified , 03/10/21) ROS General: YES: Fatigue, Malaise; No: Chills, Night Sweats, Appetite, Other PSYCHOLOGICAL ROS: YES: Anxiety; No: Behavioral Disorder, Concentration difficultie, Decreased libido, Depression, Disorientation, Hallucinations, Hostility, Irritablity, Memory difficulties, Mood Swings, Obsessive thoughts, Physical abuse, Sexual abuse, Sleep disturbances, Suicidal ideation, Other Eyes: No Blurry vision, No Decreased vision, No Double vision, No Dry eyes, No Excessive tearing, No Eye Pain, No Itchy Eyes, No Loss of vision, No Photophobia, No Scotomata, No Uses contacts, No Uses glasses, No Other HEENT: YES: Heacaches; No: Visual Changes, Hearing change, Nasal congestion, Nasal discharge, Oral lesions, Sinus pain, Sore Throat, Epistaxis, Sneezing, Snoring, Tinnitus, Vertigo, Vocal changes, Other ALLERGY AND IMMUNOLOGY: No: Hives, Insect Bite Sensitivity, Itchy/Watery Eyes, Nasal Congestion, Post Nasal Drip, Seasonal Allergies, Other Hematological and Lymphatic: No: Bleeding Problems, Blood Clots, Blood Transfusions, Brusing, Night Sweats, Pallor, Swollen Lymph Nodes, Other ENDOCRINE: No: Breast Changes, Galactorrhea, Hair Pattern Changes, Hot Flashes, Malaise/lethargy, Mood Swings, Palpitations, Polydipsia/polyuria, Skin Changes, Temperature Intolerance, Unexpected Weight Changes, Other Breast: No New/Changing Breast Lumps, No Nipple changes, No Nipple discharge, No Other Respiratory: YES: Cough, Shortness of breath; No: Hemoptysis, Orthopnea, Pleuritic Pain, SOB with excertion, Sputum Changes, Stridor, Tachypnea, Wheezing, Other Cardiovascular: No Chest Pain, No Palpitations, No Orthopnea, No Paroxysmal Noc. Dyspnea, No Edema, No Lt Headedness, No Other Gastrointestinal: No Nausea, No Vomiting, No Abdominal Pain, No Diarrhea, No Constipation, No Melena, No Hematochezia, No Other Genitourinary: No Dysuria, No Frequency, No Incontinence, No Hematuria, No Retention, No Discharge, No Urgency, No Pain, No Flank Pain, No Other, No , No , No , No , No , No , No Musculoskeletal: No Gait Disturbance, No Joint Pain, No Joint Stiffness, No Joint Swelling, No Muscle Pain, No Muscular Weakness, No Pain In:, No Swelling In:, No Other Neurological: No Behavorial Changes, No Bowel/Bladder ControlChng, No Confusion, No Dizziness, No Gait Disturbance, No Headaches, No Impaired Coord/balance, No Memory Loss, No Numbness/Tingling, No Seizures, No Speech Problems, No Tremors, No Visual Changes, No Weakness, No Other Skin: No Dry Skin, No Eczema, No Hair Changes, No Lumps, No Mole Changes, No Mottling, No Nail Changes, No Pruritus, No Rash, No Skin Lesion Changes, No Other, No Acne Physical Exam General: Alert, Cooperative, mild distress HEENT: Atraumatic, PERRLA, EOMI, Mucous membr. moist/pink Lungs: Clear to auscultation, Normal air movement Heart: S1S2, RRR, no thrills, no rubs, no gallops, no murmurs Abdomen: Normal bowel sounds, Soft, No tenderness, No hepatosplenomegaly, No masses Rectal Exam: not examined Extremities: No clubbing, No cyanosis, No edema, Normal pulses, No tenderness/swelling Skin: No rashes, No breakdown, No significant lesion, Other (fentanyl patch on left SI joint) Neuro: Normal speech, Strength at 5/5 X4 ext, Normal tone, Sensation intact, Cranial nerves 3-12 NL, Reflexes 2+ Psych/Mental Status: Mental status NL, Mood NL Vitals Vitals Vital Signs Date Time Temp Pulse Resp B/P (MAP) Pulse Ox O2 Delivery O2 Flow Rate FiO2 03/10/21 10:18 114 18 239/122 (161) 95 Nasal Cannula 3.0 Labs Labs Laboratory Tests Test 03/10/21 09:05 03/10/21 10:06 White Blood Count 17.9 x10^3/uL (4.0-11.0) Red Blood Count 4.26 x10^6/uL (3.50-5.40) Hemoglobin 12.5 g/dL (12.0-15.5) Hematocrit 36.7 % (36.0-47.0) Mean Corpuscular Volume 86 fL (79-100) Mean Corpuscular Hemoglobin 29 pg (25-35) Mean Corpuscular Hemoglobin Concent 34 g/dL (31-37) Red Cell Distribution Width 14.1 % (11.5-14.5) Platelet Count 359 x10^3/uL (140-400) Neutrophils (%) (Auto) 84 % (31-73) Lymphocytes (%) (Auto) 9 % (24-48) Monocytes (%) (Auto) 6 % (0-9) Eosinophils (%) (Auto) 0 % (0-3) Basophils (%) (Auto) 1 % (0-3) Neutrophils # (Auto) 15.0 x10^3/uL (1.8-7.7) Lymphocytes # (Auto) 1.6 x10^3/uL (1.0-4.8) Monocytes # (Auto) 1.0 x10^3/uL (0.0-1.1) Eosinophils # (Auto) 0.1 x10^3/uL (0.0-0.7) Basophils # (Auto) 0.2 x10^3/uL (0.0-0.2) Segmented Neutrophils % 88 % (35-66) Band Neutrophils % 1 % (0-9) Lymphocytes % 5 % (24-48) Monocytes % 5 % (0-10) Basophils % 1 % (0-3) Platelet Estimate Adequate (ADEQUATE) Sodium Level 143 mmol/L (136-145) Potassium Level 3.4 mmol/L (3.5-5.1) Chloride Level 102 mmol/L (98-107) Carbon Dioxide Level 32 mmol/L (21-32) Anion Gap 9 (6-14) Blood Urea Nitrogen 36 mg/dL (7-20) Creatinine 1.2 mg/dL (0.6-1.0) Estimated GFR (Cockcroft-Gault) 51.4 Glucose Level 384 mg/dL (70-99) Lactic Acid Level 1.9 mmol/L (0.4-2.0) Calcium Level 9.1 mg/dL (8.5-10.1) Magnesium Level 1.8 mg/dL (1.8-2.4) Total Bilirubin 0.6 mg/dL (0.2-1.0) Direct Bilirubin 0.2 mg/dL (0.0-0.2) Aspartate Amino Transf (AST/SGOT) 33 U/L (15-37) Alanine Aminotransferase (ALT/SGPT) 29 U/L (14-59) Alkaline Phosphatase 66 U/L (46-116) Troponin I Quantitative 0.414 ng/mL (0.000-0.055) ZT-Xpc-Q-Type Natriuretic Peptide 61384 pg/mL (0-449) Total Protein 7.0 g/dL (6.4-8.2) Albumin 3.7 g/dL (3.4-5.0) Lipase 71 U/L (73-393) Influenza Type A Antigen Negative (NEGATIVE) Influenza Type B Antigen Negative (NEGATIVE) Laboratory Tests Test 03/10/21 09:05 03/10/21 10:06 White Blood Count 17.9 x10^3/uL (4.0-11.0) Red Blood Count 4.26 x10^6/uL (3.50-5.40) Hemoglobin 12.5 g/dL (12.0-15.5) Hematocrit 36.7 % (36.0-47.0) Mean Corpuscular Volume 86 fL (79-100) Mean Corpuscular Hemoglobin 29 pg (25-35) Mean Corpuscular Hemoglobin Concent 34 g/dL (31-37) Red Cell Distribution Width 14.1 % (11.5-14.5) Platelet Count 359 x10^3/uL (140-400) Neutrophils (%) (Auto) 84 % (31-73) Lymphocytes (%) (Auto) 9 % (24-48) Monocytes (%) (Auto) 6 % (0-9) Eosinophils (%) (Auto) 0 % (0-3) Basophils (%) (Auto) 1 % (0-3) Neutrophils # (Auto) 15.0 x10^3/uL (1.8-7.7) Lymphocytes # (Auto) 1.6 x10^3/uL (1.0-4.8) Monocytes # (Auto) 1.0 x10^3/uL (0.0-1.1) Eosinophils # (Auto) 0.1 x10^3/uL (0.0-0.7) Basophils # (Auto) 0.2 x10^3/uL (0.0-0.2) Segmented Neutrophils % 88 % (35-66) Band Neutrophils % 1 % (0-9) Lymphocytes % 5 % (24-48) Monocytes % 5 % (0-10) Basophils % 1 % (0-3) Platelet Estimate Adequate (ADEQUATE) Sodium Level 143 mmol/L (136-145) Potassium Level 3.4 mmol/L (3.5-5.1) Chloride Level 102 mmol/L (98-107) Carbon Dioxide Level 32 mmol/L (21-32) Anion Gap 9 (6-14) Blood Urea Nitrogen 36 mg/dL (7-20) Creatinine 1.2 mg/dL (0.6-1.0) Estimated GFR (Cockcroft-Gault) 51.4 Glucose Level 384 mg/dL (70-99) Lactic Acid Level 1.9 mmol/L (0.4-2.0) Calcium Level 9.1 mg/dL (8.5-10.1) Magnesium Level 1.8 mg/dL (1.8-2.4) Total Bilirubin 0.6 mg/dL (0.2-1.0) Direct Bilirubin 0.2 mg/dL (0.0-0.2) Aspartate Amino Transf (AST/SGOT) 33 U/L (15-37) Alanine Aminotransferase (ALT/SGPT) 29 U/L (14-59) Alkaline Phosphatase 66 U/L (46-116) Troponin I Quantitative 0.414 ng/mL (0.000-0.055) QV-Kqq-F-Type Natriuretic Peptide 43158 pg/mL (0-449) Total Protein 7.0 g/dL (6.4-8.2) Albumin 3.7 g/dL (3.4-5.0) Lipase 71 U/L (73-393) Influenza Type A Antigen Negative (NEGATIVE) Influenza Type B Antigen Negative (NEGATIVE) Images Images Chest radiograph: A frontal view of the chest is obtained. There are are chronic appearing diffuse increased interstitial markings. There is no consolidation, pleural effusion or pneumothorax. There is a stable enlarged cardiac silhouette. IMPRESSION: 1. Chronic appearing diffuse increased interstitial opacity. The possibility of superimposed interstitial infiltrate is not excluded. There is no consolidated pneumonia. 2. Cardiomegaly. CTA aortogram: The unenhanced CT images demonstrate moderate to severe atherosclerotic calcification throughout the thoracic aorta and abdominal aorta and their branches. Extensive coronary artery calcifications are seen. No renal or ureteral calculus is noted. On the postcontrast CTA images, the thoracic aorta is tortuous and ectatic, unchanged. No dissection is seen. The origins of the brachiocephalic, left common carotid and left subclavian arteries from the thoracic aortic arch are patent. There is mild cardiomegaly. No filling defect is seen within the major branches of either pulmonary artery. There is no CT evidence of pulmonary embolism. Enlarged mediastinal lymph nodes are seen which measure 1 to 1.5 cm in size. These have decreased in size since previous examination where they measured 1.5 to 2.5 cm in size. Emphysematous changes are seen involving both lungs. Dependent subsegmental atelectasis is seen involving both lower lobes subsegmental atelectasis is seen involving the lingula. Atelectasis is seen involving the right middle lobe. No pneumothorax or pleural effusion is seen. The liver, spleen, pancreas, and adrenal glands are within normal limits. Rounded low-attenuation lesions are seen involving both kidneys. These measure 1 cm to 2.3 cm in size. These likely represent cysts. No further imaging evaluation is recommended. The gallbladder is not visualized consistent with a cholecystectomy. No free fluid or free air is within the abdomen. Scattered diverticula are seen involving the colon. No inflammatory changes are seen adjacent fat. Images through the pelvis demonstrated the urinary bladder distended with urine. The patient appears to be post hysterectomy. No adnexal mass is seen. Calcifications are seen within the pelvis consistent with phleboliths. CTA images demonstrate moderate to severe atherosclerotic plaque formation involving the abdominal aorta and its branches. The origins of the celiac trunk and superior mesenteric artery and inferior mesenteric artery are patent. The abdominal aorta tapers normally. There is also areas arteries bilaterally. No hemodynamically significant stenosis is definitely seen. Moderate atherosclerotic calcification of the common iliac arteries and their branches is noted. 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 It reconstitutes via collateral flow at the level of the left common femoral artery. Very mild S-shaped curvature of the thoracolumbar spine is seen. Degenerative changes are seen involving the thoracic and throughout the lumbar spine along with both hips. IMPRESSION: 1. The left external iliac artery is occluded as discussed above. 2. No acute abnormality is seen. VTE Prophylaxis Ordered VTE Prophylaxis Devices: Yes VTE Pharmacological Prophylaxi: Yes Assessment/Plan Assessment/Plan A/P: NSTEMI (non-ST elevated myocardial infarction) - likely demand ischemia from HTN emergency Acute metabolic encephalopathy - due to HTN emergency Hypertensive emergency - nitro gtt. Cont home meds Sepsis - likely from UTI, possibly pneumonia, likely gram negative from aspiration, given empiric azithromycin and rocephin in ED Abnormal CXR - likely due to COPD, likely with some aspiration, pneumonia A-Fib - off meds, has been in hospice. Sinus on EKG Diabetes-Type II - sliding scale GERD - PPI High Cholesterol - statin not indicated in hospice care HFpEF - with acute CHF due to HTN emergency COPD on home oxygen FEN - ADA cardiac diet PPX - heparin CODE - DNR/DNI Dispo - ICU CC time 43 minutes Justifications for Admission Other Justification MIRANDA DAVIS MD Mar 10, 2021 11:23
[2021-03-10] MEDS ORDERED: LABETALOL 20 MG/4 ML DISP.SYRIN. IVP ONE (11:30)
--- NOTE | 2021-03-10 12:07 | RAD ---
CTA of the chest, abdomen and pelvis without and with contrast 03/01/2021 CLINICAL HISTORY: Chest, abdominal and pelvic pain. Mid and low back pain. TECHNIQUE: Unenhanced, contiguous, 2 mm axial sections were obtained through the chest, abdomen and p eamon. After the intravenous administration of 85 cc of Omnipaque 350, contiguous, 0.625 mm axial sec tions were obtained through the chest, abdomen and pelvis. 3 mm reconstructed axial and 3-D MIP sagit brenda and coronal along with volume rendered 3-D reconstructions images were obtained. One or more of the following individualized dose reduction techniques were utilized for this study: 1. Automated exposure control. 2. Adjustment of the mA and/or kV according to patient size. 3. Use of iterative reconstruction technique. FINDINGS: Comparison is made to patient's CTA of the chest dated 04/19/2020. The unenhanced CT images demonstrate moderate to severe atherosclerotic calcification throughout the thoracic aorta and abdominal aorta and their branches. Extensive coronary artery calcifications are s een. No renal or ureteral calculus is noted. On the postcontrast CTA images, the thoracic aorta is tortuous and ectatic, unchanged. No dissection is seen. The origins of the brachiocephalic, left common carotid and left subclavian arteries from th e thoracic aortic arch are patent. There is mild cardiomegaly. No filling defect is seen within the m ajor branches of either pulmonary artery. There is no CT evidence of pulmonary embolism. Enlarged med iastinal lymph nodes are seen which measure 1 to 1.5 cm in size. These have decreased in size since p revious examination where they measured 1.5 to 2.5 cm in size. Emphysematous changes are seen involving both lungs. Dependent subsegmental atelectasis is seen invol ving both lower lobes subsegmental atelectasis is seen involving the lingula. Atelectasis is seen inv olving the right middle lobe. No pneumothorax or pleural effusion is seen. The liver, spleen, pancreas, and adrenal glands are within normal limits. Rounded low-attenuation les ions are seen involving both kidneys. These measure 1 cm to 2.3 cm in size. These likely represent cy sts. No further imaging evaluation is recommended. The gallbladder is not visualized consistent with a cholecystectomy. No free fluid or free air is wit hin the abdomen. Scattered diverticula are seen involving the colon. No inflammatory changes are seen adjacent fat. Images through the pelvis demonstrated the urinary bladder distended with urine. The patient appears to be post hysterectomy. No adnexal mass is seen. Calcifications are seen within the pelvis consisten t with phleboliths. CTA images demonstrate moderate to severe atherosclerotic plaque formation involving the abdominal ao rta and its branches. The origins of the celiac trunk and superior mesenteric artery and inferior mes enteric artery are patent. The abdominal aorta tapers normally. There is also areas arteries bilatera lly. No hemodynamically significant stenosis is definitely seen. Moderate atherosclerotic calcificati on of the common iliac arteries and their branches is noted. The left external iliac artery is occlud ed at its origin. It reconstitutes via collateral flow at the level of the left common femoral artery . Very mild S-shaped curvature of the thoracolumbar spine is seen. Degenerative changes are seen involv ing the thoracic and throughout the lumbar spine along with both hips. IMPRESSION: 1. The left external iliac artery is occluded as discussed above. 2. No acute abnormality is seen. Electronically signed by: Frantz Torre MD (03/10/2021 12:05 PM) [id number]
--- NOTE | 2021-03-10 12:30 | NUR ---
Patient admitted from ED. Came over on a Nitro gtt at [facility] [place], hypertensive with SBP >200. Cardiology paged and received order for Nicardipine. Patient A/O x4, no complaints of pain. Home meds were restarted. Current BP is 148/63 on 7.5mg of Cardene.
[2021-03-10 12:37] LABS: BILIRUBIN,URINE NEGATIVE (NEG); CLARITY,URINE CLOUDY; COLOR,URINE YELLOW; NITRITE,URINE NEGATIVE (NEG); PROTEIN,URINE 30 mg/dL (NEG-TRACE)
[2021-03-10 12:51] LABS: WBC,URINE 20-40 /HPF (0-4)
[2021-03-10 12:52] LABS: AMORPHOUS SEDIMENT,UR PRESENT /HPF; BACTERIA,URINE MANY /HPF (0-FEW)
[2021-03-10] MEDS ORDERED: MECL12.582 PO (13:20)
[2021-03-10] MEDS ORDERED: HYDR100T24 PO (13:20)
[2021-03-10] MEDS ORDERED: POTA10TA PO (13:31)
[2021-03-10] MEDS ORDERED: GUAI600T47 PO (13:31)
[2021-03-10] MEDS ORDERED: FENT1PAT89 TP (13:31)
[2021-03-10] MEDS ORDERED: ACET500T33 PO (13:31)
[2021-03-10] MEDS ORDERED: METO50TA6 PO (13:31)
[2021-03-10] MEDS ORDERED: ALPR0.25 PO ×2 (13:36)
[2021-03-10] MEDS ORDERED: ASPI325T8 PO (13:36)
[2021-03-10] MEDS ORDERED: FURO-68 PO (13:36)
[2021-03-10] MEDS ORDERED: [UNRECOGNIZED DRUG - OTHER] (13:42)
[2021-03-10] MEDS ORDERED: roxanol PO (13:44)
[2021-03-10] MEDS ORDERED: DEXTROSE 50% 25 GM / 50ML DISP.SYRIN. IV PRN (15:15)
[2021-03-10] MEDS ORDERED: ACETAMINOPHEN 500 MG TABLET PO PRN (15:15)
[2021-03-10] MEDS ORDERED: ALPRAZolam 0.25 MG TABLET PO PRN (15:15)
--- NOTE | 2021-03-10 15:21 | EKG ---
[facility] [address] [place] [address] Test Date: 2021-03-10 Test Time: 15:14:31 Pat Name: ANGELITA HAM Department: Room: 115 1 Gender: F Bundle Wrapper: KATHRIN : 1935 Requested By: LELA SALAZAR Order Number: [id number] Reading MD: Measurements Intervals [place] Rate: 91 P: 64 MN: 142 QRS: 0 QRSD: 88 T: -47 QT: 384 QTc: 474 Interpretive Statements SINUS RHYTHM LEFT ATRIAL ABNORMALITY LEFTWARD AXIS INCOMPLETE RIGHT BUNDLE BRANCH BLOCK T ABNORMALITY IN INFERIOR LEADS PROLONGED QT ABNORMAL ECG RI6.02 Compared to ECG 03/10/2021 09:03:08 Atrial abnormality now present Prolonged QT interval now present Supraventricular rhythm no longer present Possible ischemia no longer present T-wave abnormality still present
[2021-03-10] MEDS ORDERED: MORPHINE SULFATE 20 MG/ML CONC SOLUTION. SL PRN (15:45)
[2021-03-10] MEDS ORDERED: POLYETHYLENE GLYCOL 3350 17 GM PACKET. PO ONE (15:45)
[2021-03-10] MEDS: IPRATRPIUM/ALBUTEROL 0.5/2.5MG 3 ML NEBU. NEB SCH ×2 (15:52→20:55)
[2021-03-10] MEDS: LISINOPRIL 20 MG TABLET PO SCH (16:04)
[2021-03-10 16:31] LABS: CHOLESTEROL/HDL RATIO 2.8
[2021-03-10] MEDS: INSULIN LISPRO 300 UNITS/3 ML VIAL. SQ SCH (17:19)
[2021-03-10] MEDS ORDERED: PSYLLIUM HUSK (SUGAR FREE) 1 PKT PACKET PO SCH (21:00)
[2021-03-10] MEDS: cloNIDine HCL 0.1 MG TABLET PO PRN (21:06)
[2021-03-11] VITALS (22 sets, daily range): BP systolic 111–164; BP diastolic 41–75
[2021-03-11] MEDS: cloNIDine HCL 0.1 MG TABLET PO PRN (03:19)
--- NOTE | 2021-03-11 04:45 | NUR ---
Transferred from ICU. Patient sleeping. No apparent distress. Wilder gtt micky, ROMSERY Fuentes, managing the gtt. BP 138/63.
[2021-03-11] MEDS: IPRATRPIUM/ALBUTEROL 0.5/2.5MG 3 ML NEBU. NEB SCH ×2 (07:18→12:15)
[2021-03-11] MEDS ORDERED: PANTOPRAZOLE 40 MG TABLET.DR. PO SCH (07:30)
[2021-03-11 07:47] LABS: BASO # 0.1 x10^3/uL (0.0-0.2); BASO % 1 % (0-3); EOS # 0.2 x10^3/uL (0.0-0.7); EOS % 2 % (0-3); HEMATOCRIT 33.9 % (36.0-47.0); HEMOGLOBIN 11.7 g/dL (12.0-15.5); LYMPH # 1.5 x10^3/uL (1.0-4.8); LYMPH % 11 % (24-48); MEAN CORPUSCULAR HEMOGLOBIN 30 pg (25-35); MEAN CORPUSCULAR HGB CONC 34 g/dL (31-37); MEAN CORPUSCULAR VOLUME 86 fL (79-100); MONO # 0.8 x10^3/uL (0.0-1.1); MONO % 6 % (0-9); NEUT # 11.2 x10^3/uL (1.8-7.7); NEUT % 81 % (31-73); PLATELET COUNT 305 x10^3/uL (140-400); RED BLOOD COUNT 3.93 x10^6/uL (3.50-5.40); RED CELL DISTRIBUTION WIDTH 14.5 % (11.5-14.5); WHITE BLOOD COUNT 13.8 x10^3/uL (4.0-11.0)
[2021-03-11 07:56] LABS: ALBUMIN/GLOBULIN RATIO 0.9 (1.0-1.7); CALCIUM 8.6 mg/dL (8.5-10.1); CREATININE 0.6 mg/dL (0.6-1.0); GFR 114.4; TOTAL BILIRUBIN 0.7 mg/dL (0.2-1.0); TOTAL PROTEIN 6.2 g/dL (6.4-8.2)
[2021-03-11 07:59] LABS: POTASSIUM 2.7 mmol/L (3.5-5.1)
[2021-03-11] MEDS ORDERED: POTASSIUM CHLORIDE 20 MEQ TABLET.ER. PO ONE (08:30)
[2021-03-11] MEDS: LISINOPRIL 20 MG TABLET PO SCH (08:45)
[2021-03-11] MEDS: POTASSIUM CHLORIDE 10MEQ 100 ML IV SCH ×2 (08:46→10:33)
[2021-03-11] MEDS: INSULIN LISPRO 300 UNITS/3 ML VIAL. SQ SCH ×2 (08:58→13:01)
[2021-03-11] MEDS ORDERED: ASPIRIN 325 MG TABLET PO SCH (09:00)
[2021-03-11] MEDS ORDERED: METOPROLOL TART IMMED RELEASE 50 MG TABLET. PO SCH (09:00)
[2021-03-11] MEDS ORDERED: cefTRIAXone IV Push 1 GM VIAL. IVP SCH (09:00)
[2021-03-11] MEDS ORDERED: fentaNYL 12MCG/HR PATCH 1 PATCH PATCH.TD72 TD SCH (09:00)
[2021-03-11] MEDS ORDERED: POLYETHYLENE GLYCOL 3350 17 GM PACKET. PO SCH (09:00)
[2021-03-11] MEDS ORDERED: MAGNESIUM SULFATE 2GM 50 ML IV ONE (09:00)
--- NOTE | 2021-03-11 10:45 | SNU/HH DC ---
DISCHARGE ORDERS DISCHARGE INFORMATION: DISCHARGE DATE: Mar 11, 2021 FINAL DIAGNOSIS NSTEMI (non-ST elevated myocardial infarction) - likely demand ischemia from HTN emergency Acute metabolic encephalopathy - w./ HTN emergency Hypertensive emergency - nitro gtt. Cont home meds Sepsis - likely from UTI, possibly pneumonia, likely gram negative from aspiration, given empiric azithromycin and rocephin in ED Abnormal CXR - likely due to COPD, likely with some aspiration, pneumonia A-Fib - off meds, has been in hospice. Sinus on EKG Diabetes-Type II - sliding scale GERD - PPI High Cholesterol - statin not indicated in hospice care HFpEF - with acute CHF due to HTN emergency COPD on home oxygen Problems Medical Problems: (1) Cardiomegaly Status: Acute (2) Hypertensive emergency Status: Acute (3) NSTEMI (non-ST elevated myocardial infarction) Status: Acute (4) Person under investigation for COVID-19 Status: Acute (5) Sepsis Status: Acute (6) SIRS (systemic inflammatory response syndrome) Status: Acute (7) UTI (urinary tract infection) Status: Acute CONDITION ON DISCHARGE: Stable CODE STATUS: Code Status: DNR/DNI HOSPICE: HOSPICE: Yes HOSPICE EVAL & TREAT: Yes POST DISCHARGE ORDERS: ACTIVITY ORDERS: Activity as tolerated WEIGHT BEARING STATUS: As tolerated BATHING ORDERS: Shower-keep dressing dry DIET AFTER DISCHARGE: Cardiac WOUND/INCISION CARE: No wound care needed CHECKS AFTER DISCHARGE: CHECKS AFTER DISCHARGE: Check blood press - daily, Check blood sugar, ac/hs FOLLOW-UP: PHYSICIAN FOLLOW-UP: resume HOSPICE CARE for CHF TREATMENT/EQUIPMENT ORDERS: ADAPTIVE EQUIPMENT NEEDED: None, Walker, Wheelchair RESPIRATORY EQUIPMENT NEEDED: Oxygen Physical Therapy For: Evalulation/Treatment Occupational Therapy For: Evaluation/Treatment Speech Language Pathology For: Evaluation/Treatment DISCHARGE MEDICATIONS: Home Meds Active Scripts Amoxicillin/Potassium Clav (AUGMENTIN 500-125 TABLET) 1 Each Tablet, 1 TAB PO BID for UTI for 7 Days, #14 TAB 0 Refills Prov:KARTIK RAINES MD 03/11/21 Clonidine Hcl (CATAPRES) 0.1 Mg Tablet, 0.1 MG PO PRN Q6HRS PRN for HYPERTENSION for 30 Days, TAB Prov:AMILCAR BILL MD 03/05/20 Pantoprazole Sodium (PANTOPRAZOLE SODIUM ) 40 Mg Tablet.dr, 40 MG PO DAILYAC for GERD for 30 Days, #30 TAB Prov:AMILCAR BILL MD 01/14/20 Ipratropium/Albuterol Sulfate (DUONEB 0.5-3(2.5) MG/3 ML) 3 Ml Ampul.neb, 3 ML NEB RTQID for copd for 30 Days, #120 EACH Prov:AMILCAR BILL MD 12/16/19 Reported Medications [roxanol] No Conflict Check, 10 MG PO PRN Q2HR PRN for SHORTNESS OF BREATH 03/10/21 Furosemide (LASIX) 40 Mg Tablet, 1 TAB PO DAILY for water pill for 30 Days, #30 TAB 0 Refills 03/10/21 Aspirin (ASPIRIN) 325 Mg Tablet, 1 TAB PO DAILY for heart, #30 TAB 5 Refills 03/10/21 Alprazolam (XANAX) 0.25 Mg Tablet, 1 TAB PO BID for anxiety, #60 TAB 03/10/21 Alprazolam (XANAX) 0.25 Mg Tablet, 1 TAB PO PRN Q4HRS for sob, #30 TAB 03/10/21 Acetaminophen (TYLENOL EXTRA STRENGTH) 500 Mg Tablet, 500 MG PO PRN Q6HRS PRN for PAIN, TAB 03/10/21 Guaifenesin (MUCINEX) 600 Mg Tablet.er, 1 TAB PO BID for cough for 7 Days, #14 TAB 0 Refills 03/10/21 Potassium Chloride (K-TAB) 10 Meq Tablet.er, 10 MEQ PO DAILY for k replacement, TAB.SR 03/10/21 Fentanyl (DURAGESIC 12mcg/hr) 1 Each Patch.td72, 1 PATCH TP Q3DAYS for pain MDD 0.33 Patch(s) for 30 Days, #10 PATCH 0 Refills 03/10/21 Metoprolol Tartrate (METOPROLOL TARTRATE) 50 Mg Tablet, 1 TAB PO DAILY for bp, #180 TAB 3 Refills 03/10/21 Meclizine Hcl (MECLIZINE HCL) 12.5 Mg Tablet, 1 TAB PO TID for dizziness, #30 TAB 03/10/21 Hydralazine Hcl (HYDRALAZINE HCL) 100 Mg Tablet, 1 TAB PO BID for bp, #90 TAB 5 Refills 03/10/21 Lisinopril (LISINOPRIL) 40 Mg Tablet, 1 TAB PO DAILY for htn, #30 TAB 5 Refills 02/17/20 Discontinued Reported Medications [mor] No Conflict Check 03/10/21 Tizanidine Hcl (TIZANIDINE HCL) 4 Mg Tablet, 1 TAB PO Q8HRS for MUSCLE RELAXER, #60 TAB 02/17/20 Alprazolam (XANAX) 0.25 Mg Tablet, 0.25 MG PO Q8HRS PRN for ANXIETY / AGITATION, TAB 0 Refills 01/01/20 KARTIK RAINES MD Mar 11, 2021 10:45
[2021-03-11] MEDS ORDERED: AMOX1TAB58 PO (10:54)
--- NOTE | 2021-03-11 10:55 | PDOC3 ---
Discharge Summary Visit Information Date of Admission: Mar 10, 2021 Date of Discharge: Mar 11, 2021 Final Diagnosis Acute on chronic diastolic CHF, NSTEMI (non-ST elevated myocardial infarction) - likely demand ischemia from HTN emergency Acute metabolic encephalopathy - due to HTN emergency Sepsis - likely from UTI, possibly pneumonia, likely gram negative from aspiration, given empiric azithromycin and rocephin in ED Abnormal CXR - likely due to COPD, likely with some aspiration, pneumonia A-Fib - off meds, has been in hospice. Sinus on EKG Diabetes-Type II - sliding scale GERD - PPI High Cholesterol - statin not indicated in hospice care HFpEF - with acute CHF due to HTN emergency COPD on home oxygen Problems Medical Problems: (1) Cardiomegaly Status: Acute (2) Hypertensive emergency Status: Acute (3) NSTEMI (non-ST elevated myocardial infarction) Status: Acute (4) Person under investigation for COVID-19 Status: Acute (5) Sepsis Status: Acute (6) SIRS (systemic inflammatory response syndrome) Status: Acute (7) UTI (urinary tract infection) Status: Acute Brief Hospital Course Allergies Allergies Coded Allergies Type Severity Reaction Last Updated Verified No Known Drug Allergies 03/10/21 No Vital Signs Vital Signs Date Time Temp Pulse Resp B/P (MAP) Pulse Ox O2 Delivery O2 Flow Rate FiO2 03/11/21 10:31 98.4 74 18 136/61 (86) 92 Nasal Cannula 2.0 98.4 Lab Results Laboratory Tests Test 03/10/21 09:05 03/10/21 10:06 03/10/21 12:15 03/10/21 12:20 White Blood Count 17.9 x10^3/uL (4.0-11.0) Red Blood Count 4.26 x10^6/uL (3.50-5.40) Hemoglobin 12.5 g/dL (12.0-15.5) Hematocrit 36.7 % (36.0-47.0) Mean Corpuscular Volume 86 fL (79-100) Mean Corpuscular Hemoglobin 29 pg (25-35) Mean Corpuscular Hemoglobin Concent 34 g/dL (31-37) Red Cell Distribution Width 14.1 % (11.5-14.5) Platelet Count 359 x10^3/uL (140-400) Neutrophils (%) (Auto) 84 % (31-73) Lymphocytes (%) (Auto) 9 % (24-48) Monocytes (%) (Auto) 6 % (0-9) Eosinophils (%) (Auto) 0 % (0-3) Basophils (%) (Auto) 1 % (0-3) Neutrophils # (Auto) 15.0 x10^3/uL (1.8-7.7) Lymphocytes # (Auto) 1.6 x10^3/uL (1.0-4.8) Monocytes # (Auto) 1.0 x10^3/uL (0.0-1.1) Eosinophils # (Auto) 0.1 x10^3/uL (0.0-0.7) Basophils # (Auto) 0.2 x10^3/uL (0.0-0.2) Segmented Neutrophils % 88 % (35-66) Band Neutrophils % 1 % (0-9) Lymphocytes % 5 % (24-48) Monocytes % 5 % (0-10) Basophils % 1 % (0-3) Platelet Estimate Adequate (ADEQUATE) Sodium Level 143 mmol/L (136-145) Potassium Level 3.4 mmol/L (3.5-5.1) Chloride Level 102 mmol/L (98-107) Carbon Dioxide Level 32 mmol/L (21-32) Anion Gap 9 (6-14) Blood Urea Nitrogen 36 mg/dL (7-20) Creatinine 1.2 mg/dL (0.6-1.0) Estimated GFR (Cockcroft-Gault) 51.4 Glucose Level 384 mg/dL (70-99) Lactic Acid Level 1.9 mmol/L (0.4-2.0) Calcium Level 9.1 mg/dL (8.5-10.1) Magnesium Level 1.8 mg/dL (1.8-2.4) Total Bilirubin 0.6 mg/dL (0.2-1.0) Direct Bilirubin 0.2 mg/dL (0.0-0.2) Aspartate Amino Transf (AST/SGOT) 33 U/L (15-37) Alanine Aminotransferase (ALT/SGPT) 29 U/L (14-59) Alkaline Phosphatase 66 U/L (46-116) Troponin I Quantitative 0.414 ng/mL (0.000-0.055) 0.590 ng/mL (0.000-0.055) VV-Myr-I-Type Natriuretic Peptide 81301 pg/mL (0-449) Total Protein 7.0 g/dL (6.4-8.2) Albumin 3.7 g/dL (3.4-5.0) Triglycerides Level 255 mg/dL (0-150) Cholesterol Level 219 mg/dL (0-200) LDL Cholesterol, Calculated 90 mg/dL (0-100) VLDL Cholesterol, Calculated 51 mg/dL (0-40) Non-HDL Cholesterol Calculated 141 mg/dL (0-129) HDL Cholesterol 78 mg/dL (40-60) Cholesterol/HDL Ratio 2.8 Lipase 71 U/L (73-393) Influenza Type A Antigen Negative (NEGATIVE) Influenza Type B Antigen Negative (NEGATIVE) SARS-CoV-2 RNA (KELBY) Negative (Negative) Urine Collection Type Unknown Urine Color Yellow Urine Clarity Cloudy Urine pH 7.0 (<5.0-8.0) Urine Specific [place] 1.025 (1.000-1.030) Urine Protein 30 mg/dL (NEG-TRACE) Urine Glucose (UA) >=1000 mg/dL (NEG) Urine Ketones (Stick) Negative mg/dL (NEG) Urine Blood Small (NEG) Urine Nitrite Negative (NEG) Urine Bilirubin Negative (NEG) Urine Urobilinogen Dipstick 1.0 mg/dL (0.2 mg/dL) Urine Leukocyte Esterase Small (NEG) Urine RBC 11-20 /HPF (0-2) Urine WBC 20-40 /HPF (0-4) Urine Squamous Epithelial Cells Mod /LPF Urine Amorphous Sediment Present /HPF Urine Bacteria Many /HPF (0-FEW) Test 03/10/21 15:05 03/10/21 16:15 03/10/21 21:02 03/11/21 06:40 Troponin I Quantitative 0.554 ng/mL (0.000-0.055) Glucose (Fingerstick) 352 mg/dL (70-99) 213 mg/dL (70-99) White Blood Count 13.8 x10^3/uL (4.0-11.0) Red Blood Count 3.93 x10^6/uL (3.50-5.40) Hemoglobin 11.7 g/dL (12.0-15.5) Hematocrit 33.9 % (36.0-47.0) Mean Corpuscular Volume 86 fL (79-100) Mean Corpuscular Hemoglobin 30 pg (25-35) Mean Corpuscular Hemoglobin Concent 34 g/dL (31-37) Red Cell Distribution Width 14.5 % (11.5-14.5) Platelet Count 305 x10^3/uL (140-400) Neutrophils (%) (Auto) 81 % (31-73) Lymphocytes (%) (Auto) 11 % (24-48) Monocytes (%) (Auto) 6 % (0-9) Eosinophils (%) (Auto) 2 % (0-3) Basophils (%) (Auto) 1 % (0-3) Neutrophils # (Auto) 11.2 x10^3/uL (1.8-7.7) Lymphocytes # (Auto) 1.5 x10^3/uL (1.0-4.8) Monocytes # (Auto) 0.8 x10^3/uL (0.0-1.1) Eosinophils # (Auto) 0.2 x10^3/uL (0.0-0.7) Basophils # (Auto) 0.1 x10^3/uL (0.0-0.2) Sodium Level 146 mmol/L (136-145) Potassium Level 2.7 mmol/L (3.5-5.1) Chloride Level 106 mmol/L (98-107) Carbon Dioxide Level 31 mmol/L (21-32) Anion Gap 9 (6-14) Blood Urea Nitrogen 20 mg/dL (7-20) Creatinine 0.6 mg/dL (0.6-1.0) Estimated GFR (Cockcroft-Gault) 114.4 BUN/Creatinine Ratio 33 (6-20) Glucose Level 180 mg/dL (70-99) Calcium Level 8.6 mg/dL (8.5-10.1) Total Bilirubin 0.7 mg/dL (0.2-1.0) Aspartate Amino Transf (AST/SGOT) 24 U/L (15-37) Alanine Aminotransferase (ALT/SGPT) 39 U/L (14-59) Alkaline Phosphatase 76 U/L (46-116) Total Protein 6.2 g/dL (6.4-8.2) Albumin 3.0 g/dL (3.4-5.0) Albumin/Globulin Ratio 0.9 (1.0-1.7) Test 03/11/21 06:55 Glucose (Fingerstick) 178 mg/dL (70-99) Laboratory Tests Test 03/10/21 12:15 03/10/21 12:20 03/10/21 15:05 03/10/21 16:15 Urine Collection Type Unknown Urine Color Yellow Urine Clarity Cloudy Urine pH 7.0 (<5.0-8.0) Urine Specific [place] 1.025 (1.000-1.030) Urine Protein 30 mg/dL (NEG-TRACE) Urine Glucose (UA) >=1000 mg/dL (NEG) Urine Ketones (Stick) Negative mg/dL (NEG) Urine Blood Small (NEG) Urine Nitrite Negative (NEG) Urine Bilirubin Negative (NEG) Urine Urobilinogen Dipstick 1.0 mg/dL (0.2 mg/dL) Urine Leukocyte Esterase Small (NEG) Urine RBC 11-20 /HPF (0-2) Urine WBC 20-40 /HPF (0-4) Urine Squamous Epithelial Cells Mod /LPF Urine Amorphous Sediment Present /HPF Urine Bacteria Many /HPF (0-FEW) Troponin I Quantitative 0.590 ng/mL (0.000-0.055) 0.554 ng/mL (0.000-0.055) Glucose (Fingerstick) 352 mg/dL (70-99) Test 03/10/21 21:02 03/11/21 06:40 03/11/21 06:55 Glucose (Fingerstick) 213 mg/dL (70-99) 178 mg/dL (70-99) White Blood Count 13.8 x10^3/uL (4.0-11.0) Red Blood Count 3.93 x10^6/uL (3.50-5.40) Hemoglobin 11.7 g/dL (12.0-15.5) Hematocrit 33.9 % (36.0-47.0) Mean Corpuscular Volume 86 fL (79-100) Mean Corpuscular Hemoglobin 30 pg (25-35) Mean Corpuscular Hemoglobin Concent 34 g/dL (31-37) Red Cell Distribution Width 14.5 % (11.5-14.5) Platelet Count 305 x10^3/uL (140-400) Neutrophils (%) (Auto) 81 % (31-73) Lymphocytes (%) (Auto) 11 % (24-48) Monocytes (%) (Auto) 6 % (0-9) Eosinophils (%) (Auto) 2 % (0-3) Basophils (%) (Auto) 1 % (0-3) Neutrophils # (Auto) 11.2 x10^3/uL (1.8-7.7) Lymphocytes # (Auto) 1.5 x10^3/uL (1.0-4.8) Monocytes # (Auto) 0.8 x10^3/uL (0.0-1.1) Eosinophils # (Auto) 0.2 x10^3/uL (0.0-0.7) Basophils # (Auto) 0.1 x10^3/uL (0.0-0.2) Sodium Level 146 mmol/L (136-145) Potassium Level 2.7 mmol/L (3.5-5.1) Chloride Level 106 mmol/L (98-107) Carbon Dioxide Level 31 mmol/L (21-32) Anion Gap 9 (6-14) Blood Urea Nitrogen 20 mg/dL (7-20) Creatinine 0.6 mg/dL (0.6-1.0) Estimated GFR (Cockcroft-Gault) 114.4 BUN/Creatinine Ratio 33 (6-20) Glucose Level 180 mg/dL (70-99) Calcium Level 8.6 mg/dL (8.5-10.1) Total Bilirubin 0.7 mg/dL (0.2-1.0) Aspartate Amino Transf (AST/SGOT) 24 U/L (15-37) Alanine Aminotransferase (ALT/SGPT) 39 U/L (14-59) Alkaline Phosphatase 76 U/L (46-116) Total Protein 6.2 g/dL (6.4-8.2) Albumin 3.0 g/dL (3.4-5.0) Albumin/Globulin Ratio 0.9 (1.0-1.7) Brief Hospital Course Ms. Patel is a [age]yo w/ PMHx A-Fib, Diabetes-Type II, GERD, High Cholesterol, Hypertension, HFpEF, COPD on home oxygen, HTN, HLD who comes to the ED via EMS after home health aide noted she was more short of breath and had elevated blood pressure SHE HAD BEEN ON HOSPICE FOR CHF treated here for NSTEMI, hypokalemia, is DNR, resume hospice care Discharge Information Condition at Discharge: Stable Disposition/Orders: D/C to Home w/ Hospice Scheduled Alprazolam (Xanax) 0.25 Mg Tablet, 1 TAB PO PRN Q4HRS for sob, #30 (Reported) Entered as Reported by: JENNYFER BAZZI on 03/10/211335 Last Action: Continued on 03/10/211526 by MIRANDA DAVIS MD Alprazolam (Xanax) 0.25 Mg Tablet, 1 TAB PO BID for anxiety, #60 (Reported) Entered as Reported by: JENNYFER BAZZI on 03/10/211335 Last Action: HELD on 03/10/211526 by MIRANDA DAVIS MD Amoxicillin/Potassium Clav (Augmentin 500-125 Tablet) 1 Each Tablet, 1 TAB PO BID for UTI for 7 Days, #14 Ref 0 Prescribed by: KARTIK RAINES on 03/11/21 1054 Aspirin (Aspirin) 325 Mg Tablet, 1 TAB PO DAILY for heart, #30 Ref 5 (Reported) Entered as Reported by: JENNYFER BAZZI on 03/10/211335 Last Action: Continued on 03/10/211526 by MIRANDA DAVIS MD Fentanyl (DURAGESIC 12mcg/hr) 1 Each Patch.td72, 1 PATCH TP Q3DAYS for pain MDD 0.33 Patch(s) for 30 Days, #10 Ref 0 (Reported) Entered as Reported by: JENNYFER BAZZI on 03/10/211330 Last Action: Continued on 03/10/211526 by MIRANDA DAVIS MD Furosemide (Lasix) 40 Mg Tablet, 1 TAB PO DAILY for water pill for 30 Days, #30 Ref 0 (Reported) Entered as Reported by: JENNYFER BAZZI on 03/10/211335 Last Action: New Order on 03/10/211335 by JENNYFER BAZZI Guaifenesin (Mucinex) 600 Mg Tablet.er, 1 TAB PO BID for cough for 7 Days, #14 Ref 0 (Reported) Entered as Reported by: JENNYFER BAZZI on 03/10/211330 Last Action: Continued on 03/10/211526 by MIRANDA DAVIS MD Hydralazine Hcl (Hydralazine Hcl) 100 Mg Tablet, 1 TAB PO BID for bp, #90 Ref 5 (Reported) Entered as Reported by: JENNYFER BAZZI on 03/10/211319 Last Action: Converted on 03/10/211526 by MIRANDA DAVIS MD Ipratropium/Albuterol Sulfate (Duoneb 0.5-3(2.5) Mg/3 Ml) 3 Ml Ampul.neb, 3 ML NEB RTQID for copd for 30 Days, #120 Prescribed by: AMILCAR BILL on 12/16/19 1229 Last Action: Continued on 03/10/211526 by MIRANDA DAVIS MD Lisinopril (Lisinopril) 40 Mg Tablet, 1 TAB PO DAILY for htn, #30 Ref 5 (Reported) Entered as Reported by: ADITYA OGLESBY on 02/17/20 194 Last Action: Continued on 03/10/211526 by MIRANDA DAVIS MD Meclizine Hcl (Meclizine Hcl) 12.5 Mg Tablet, 1 TAB PO TID for dizziness, #30 (Reported) Entered as Reported by: JENNYFER BAZZI on 03/10/211319 Last Action: New Order on 03/10/211319 by JENNYFER BAZZI Metoprolol Tartrate (Metoprolol Tartrate) 50 Mg Tablet, 1 TAB PO DAILY for bp, #180 Ref 3 (Reported) Entered as Reported by: JENNYFER BAZZI on 03/10/211330 Last Action: Continued on 03/10/211526 by MIRANDA DAVIS MD Pantoprazole Sodium (Pantoprazole Sodium ) 40 Mg Tablet.dr, 40 MG PO DAILYAC for GERD for 30 Days, #30 Prescribed by: AMILCAR BILL on 01/14/20 0936 Last Action: Continued on 03/10/211526 by MIRANDA DAVIS MD Potassium Chloride (K-Tab) 10 Meq Tablet.er, 10 MEQ PO DAILY for k replacement, (Reported) Entered as Reported by: JENNYFER BAZZI on 03/10/211330 Last Action: New Order on 03/10/211330 by JENNYFER BAZZI Scheduled PRN Acetaminophen (Tylenol Extra Strength) 500 Mg Tablet, 500 MG PO PRN Q6HRS PRN for PAIN, (Reported) Entered as Reported by: JENNYFER BAZZI on 03/10/21 1331 Last Action: Continued on 03/10/21 1527 by MIRANDA DAVIS MD Clonidine Hcl (Catapres) 0.1 Mg Tablet, 0.1 MG PO PRN Q6HRS PRN for HYPERTENSION for 30 Days Prescribed by: AMILCAR BILL on 03/05/20 1015 Last Action: Continued on 03/10/21 152 by MIRANDA DAVIS MD [roxanol] , 10 MG PO PRN Q2HR PRN for SHORTNESS OF BREATH, (Reported) Entered as Reported by: JENNYFER BAZZI on 03/10/21 1344 Last Action: New Order on 03/10/211343 by JENNYFER BAZZI Discontinued Medications Alprazolam (Xanax) 0.25 Mg Tablet, 0.25 MG PO Q8HRS PRN for ANXIETY / AGITATION, Ref 0 (Reported) Entered as Reported by: MARYA RAMIREZ on 01/01/20 1028 Last Action: Discontinued on 03/10/21 132 by JENNYFER BAZZI Tizanidine Hcl (Tizanidine Hcl) 4 Mg Tablet, 1 TAB PO Q8HRS for MUSCLE RELAXER, #60 (Reported) Entered as Reported by: ADITYA OGLESBY on 02/17/20 1945 Last Action: Discontinued on 03/10/21 132 by JENNYFER BAZZI [mor] , (Reported) Entered as Reported by: JENNYFER BAZZI on 03/10/21 1342 Last Action: Discontinued on 03/10/21 134 by JENNYFER BAZZI Patient Instructions Patient Instructions > 30 min 2 visits, pt currently stable DC to hospice Justicifation of Admission Dx: Justifications for Admission: Justification of Admission Dx: Yes Respiratory Failure: Airway Obstruction Aspiration Pneumonia: Chronic Lung Disease Sepsis: Altered Mental Status Acute COPD Exacerbation: Acute COPD Exacerbation KARTIK RAINES MD Mar 11, 2021 10:54
[2021-03-11] MEDS ORDERED: LIDOCAINE (700MG/PATCH) PATCH. TD SCH (11:00)
[2021-03-11] MEDS ORDERED: PHENOL ORAL SPRAY 177ML BOTTLE. PO PRN (11:00)
--- NOTE | 2021-03-11 11:10 | NUR ---
SS following for discharge planning. SS reviewed pt chart and discussed with pt RN. Pt is from home and is active on services with [facility], ; fax [phone]. Pt is currently requiring oxygen at three liters nasal canula. Discharge orders for return to home with hospice received. SS phoned and faxed discharge orders and clinical to [facility]. Pt, pt's RN, and pt's family notified. Transportation needed to home. Pt will discharge today and return to home via [employer], , at 1600. [facility] notified.
--- NOTE | 2021-03-11 13:32 | CARD ---
MR#: [id number] Date of Study: 03/11/2021 Ordering Physician: LELA SALAZAR, Referring Physician: LELA SALAZAR, Tech: Nikkie Hills [facility] APPROVED REPORT EXAM: Two-dimensional and M-mode echocardiogram with Doppler and color Doppler. Other Information Quality : AverageHR: 85bpm Rhythm : NSR INDICATION Abnormal ECG Dyspnea 2D DIMENSIONS Left Atrium(2D)2.7 (1.6-4.0cm)IVSd1.3 (0.7-1.1cm) Aortic Root(2D)3.4 (2.0-3.7cm)LVDd2.7 (3.9-5.9cm) LVOT Diameter1.9 (1.8-2.4cm)PWd1.3 (0.7-1.1cm) LVDs1.8 (2.5-4.0cm)FS (%) 34.3 % SV17.1 mlLVEF(%)65.4 (>50%) Tricuspid Valve TR P. [id number] Peak Gr.57mmHg LEFT VENTRICLE The left ventricle is normal size. There is mild to moderate concentric left ventricular hypertrophy. The left ventricular systolic function is normal. Estimated ejection fraction 60-65%. There is norm al LV segmental wall motion. RIGHT VENTRICLE The right ventricle is normal size. There is normal right ventricular wall thickness. The right ventr icular systolic function is normal. ATRIA The left atrium size is normal. The right atrium size is normal. The interatrial septum is intact wit h no evidence for an atrial septal defect or patent foramen ovale as noted on 2-D or Doppler imaging. AORTIC VALVE The aortic valve is normal in structure and function. Doppler and Color Flow revealed no significant aortic regurgitation. There is no significant aortic valvular stenosis. MITRAL VALVE The mitral valve is calcified but opens well. There is no evidence of mitral valve prolapse. There is no mitral valve stenosis. Doppler and Color-flow revealed trace mitral regurgitation. TRICUSPID VALVE The tricuspid valve is normal in structure and function. Doppler and Color Flow revealed mild tricusp id regurgitation. There is no tricuspid valve stenosis. GREAT VESSELS The aortic root is normal in size. The ascending aorta is normal in size. The IVC is dilated and kelby apses >50% with inspiration. PERICARDIAL EFFUSION There is no evidence of significant pericardial effusion. Critical Notification Critical Value: No <Conclusion> The left ventricular systolic function is normal. Estimated ejection fraction 60-65%. There is normal LV segmental wall motion. Trace mitral regurgitation. Mild tricuspid regurgitation. There is no evidence of significant pericardial effusion. Signed by : Marv Retana, Electronically Approved : 03/11/2021 13:31:41
--- NOTE | 2021-03-11 15:35 | PDOC ---
CARDIO Progress Notes Date and Time Date of Service 03/11/2021 Time of Evaluation 1525 Subjective Subjective: No Chest Pain, No shortness of breath, No Palpitations Vitals Vitals Vital Signs Date Time Temp Pulse Resp B/P (MAP) Pulse Ox O2 Delivery O2 Flow Rate FiO2 03/11/21 10:31 98.4 74 18 136/61 (86) 92 Nasal Cannula 2.0 98.4 Weight Weight [ ] Input and Output Intake and Output Intake and Output 03/11/21 07:00 Intake Total 1539.32 ml Balance 1539.32 ml Intake Oral 120 ml IV Total 1419.32 ml # Voids 2 Laboratory Labs Laboratory Tests Test 03/10/21 16:15 03/10/21 21:02 03/11/21 06:40 03/11/21 06:55 Glucose (Fingerstick) 352 mg/dL (70-99) 213 mg/dL (70-99) 178 mg/dL (70-99) White Blood Count 13.8 x10^3/uL (4.0-11.0) Red Blood Count 3.93 x10^6/uL (3.50-5.40) Hemoglobin 11.7 g/dL (12.0-15.5) Hematocrit 33.9 % (36.0-47.0) Mean Corpuscular Volume 86 fL (79-100) Mean Corpuscular Hemoglobin 30 pg (25-35) Mean Corpuscular Hemoglobin Concent 34 g/dL (31-37) Red Cell Distribution Width 14.5 % (11.5-14.5) Platelet Count 305 x10^3/uL (140-400) Neutrophils (%) (Auto) 81 % (31-73) Lymphocytes (%) (Auto) 11 % (24-48) Monocytes (%) (Auto) 6 % (0-9) Eosinophils (%) (Auto) 2 % (0-3) Basophils (%) (Auto) 1 % (0-3) Neutrophils # (Auto) 11.2 x10^3/uL (1.8-7.7) Lymphocytes # (Auto) 1.5 x10^3/uL (1.0-4.8) Monocytes # (Auto) 0.8 x10^3/uL (0.0-1.1) Eosinophils # (Auto) 0.2 x10^3/uL (0.0-0.7) Basophils # (Auto) 0.1 x10^3/uL (0.0-0.2) Sodium Level 146 mmol/L (136-145) Potassium Level 2.7 mmol/L (3.5-5.1) Chloride Level 106 mmol/L (98-107) Carbon Dioxide Level 31 mmol/L (21-32) Anion Gap 9 (6-14) Blood Urea Nitrogen 20 mg/dL (7-20) Creatinine 0.6 mg/dL (0.6-1.0) Estimated GFR (Cockcroft-Gault) 114.4 BUN/Creatinine Ratio 33 (6-20) Glucose Level 180 mg/dL (70-99) Calcium Level 8.6 mg/dL (8.5-10.1) Total Bilirubin 0.7 mg/dL (0.2-1.0) Aspartate Amino Transf (AST/SGOT) 24 U/L (15-37) Alanine Aminotransferase (ALT/SGPT) 39 U/L (14-59) Alkaline Phosphatase 76 U/L (46-116) Total Protein 6.2 g/dL (6.4-8.2) Albumin 3.0 g/dL (3.4-5.0) Albumin/Globulin Ratio 0.9 (1.0-1.7) Test 03/11/21 10:59 Glucose (Fingerstick) 279 mg/dL (70-99) Microbiology Micro Microbiology 03/10/21 Urine Culture - Final, Complete 03/10/21 Blood Culture - Preliminary, Resulted NO GROWTH AFTER 1 DAY Physical Exam HEENT: Neck Supple W Full Motion Chest: Symmetric LUNGS: Other (diminished) Heart: S1S2, RRR (SR) Abdomen: Soft N/T Extremities: No Edema, No Calf Tenderness Neurology: alert, oriented, follow commands Assessment Assessment 1. Dyspnea with AECOPD, CHF: SOA better 2. HTN urgency: BP better 3. Elevated trop; peaked 0.59, susepct demand mediated type 2. EF and WM nml. no CP 4. Acute on chronic diastolic CHF: improved 5 Hyperlipidemia 6. Diabetes, II 7. H/o PSVT 8. Hypokalemia Recommendations 1. Continue current BP regimen. ASA and statin. Replace K 2. Pt elecated to be on hospice, anticipate DC today, will sign off. Justicifation of Admission Dx: Justifications for Admission: Justification of Admission Dx: Yes Respiratory Failure: Airway Obstruction Aspiration Pneumonia: Chronic Lung Disease Sepsis: Altered Mental Status Acute COPD Exacerbation: Acute COPD Exacerbation [employer] Mar 11, 2021 15:35
[2021-03-11] MEDS ORDERED: ATOR20TA58 PO (15:46)
--- NOTE | 2021-03-11 15:50 | NUR ---
Discharge: Copy of chart sent with patient for [facility]. 2 new prescriptions sent to pharmacy by physician. [facility] picked up patient and assisted off of unit via wheelchair. IV removed without complications, catheter tip in-tact. All belongings with patient
[2021-03-11] MEDS ORDERED: PATCH REMOVAL. MC SCH (21:00)
[2021-03-11] MEDS ORDERED: ATORVASTATIN CALCIUM 20 MG TABLET PO SCH (21:00)
[2021-03-12] MEDS ORDERED: POTASSIUM CHLORIDE 20 MEQ TABLET.ER. PO SCH (08:00)
== END 2021-03-11 15:50 | disposition hospice, home (50) | DRG 871 ==
LOC: ER 08:45 → 1 WEST ICU 10:12 → 2 NORTH 03-11 05:22
PROVIDERS: ADMIT Internal Medicine; ATTEND Internal Medicine
DX: A41.89 Other specified sepsis (principal); G93.41 Metabolic encephalopathy; I50.33 Acute on chronic diastolic (congestive) heart failure; J69.0 Pneumonitis due to inhalation of food and vomit; I21.A1 Myocardial infarction type 2; I16.1 Hypertensive emergency; J44.1 Chronic obstructive pulmonary disease with (acute) exacerbation; J98.11 Atelectasis; N39.0 Urinary tract infection, site not specified; J44.0 Chronic obstructive pulmonary disease with (acute) lower respiratory infection; E11.9 Type 2 diabetes mellitus without complications; E78.00 Pure hypercholesterolemia, unspecified; E78.5 Hyperlipidemia, unspecified; E87.6 Hypokalemia; F41.9 Anxiety disorder, unspecified; I11.0 Hypertensive heart disease with heart failure; I25.10 Atherosclerotic heart disease of native coronary artery without angina pectoris; I48.91 Unspecified atrial fibrillation; I87.8 Other specified disorders of veins; K21.9 Gastro-esophageal reflux disease without esophagitis; M79.7 Fibromyalgia; Z20.822 Contact with and (suspected) exposure to COVID-19; Z51.5 Encounter for palliative care; Z66 Do not resuscitate; Z79.82 Long term (current) use of aspirin; Z79.899 Other long term (current) drug therapy; Z82.49 Family history of ischemic heart disease and other diseases of the circulatory system; Z87.442 Personal history of urinary calculi; Z87.891 Personal history of nicotine dependence; Z90.49 Acquired absence of other specified parts of digestive tract; Z90.710 Acquired absence of both cervix and uterus; Z99.81 Dependence on supplemental oxygen; K57.90 Diverticulosis of intestine, part unspecified, without perforation or abscess without bleeding; M19.90 Unspecified osteoarthritis, unspecified site; B96.89 Other specified bacterial agents as the cause of diseases classified elsewhere
CPT/HCPCS: 36415; 71045; 71275; 74174; 80048; 80053; 80061; 80076; 81001; 82962; 83605; 83690; 83735; 83880; 84484; 85007; 85025; 87040; 87086; 87804; 93005; 93308; 94640; 94760; 96361; 96365; 96375; 99285; J0456; J0696; J1815; J3475; J3480; J3490; J7030; J7050; Q9967; U0003; U0005; G0378